=== PATIENT | female | born 1940 | race Caucasian/White ===

== ENCOUNTER → 2016-06-21 | Outpatient (REF) | payer MEDICARE, MEDICAID ==
[~2016-06-21] MED LIST: /ADVA50050 INH; /ESCI20TA PO; /TIOT18INH INH; ADVA230A INH; ALBU17IN INH; ALPR0.25 PO; ALPR0.5T3 PO; ASPI325T PO; ATARAX PO; AZIT500T2 PO; Ambien PO; BISAC5TA PO; BUDE8.6S4; BUSP10TA PO; CELE10TA PO; CLOTCRE TOP; CYAN1000VL IM; DOXY100T PO; ECOT325T PO; ESCI20TA PO; FERR220E2 PO; FLON0.054; FLUTISP; FOLI1TAB; FOLI1TAB2 PO; GUAI1TAB PO; HYDR-3713 PO; HYDR25T PO; IPRA2IN INH; IPRASOL4 IN; IPRASOL4 INH; LANS30CA PO; LEVA1.25 INH; LEVA12INH INH; LIDO1DIS2 TD; MAALSUS18 PO; MIRT15TA3 PO; MS C200T PO; MUCI600T34 PO; MUCINEX OR; OMEP40CA2 PO; ONDA4TAB6 PO; OXYGEN; PANT40TA2 PO; PRED10TA PO; PRED20TA PO; PRIL20CA PO; PROT1TAB2 PO; PROTPAK PO; PROV90AE INH; REGL5TAB2 PO; ROPI0.5T PO; ROPI1TAB PO; SIMV40TA2 PO; SPIR1CAP INH; SUCR1TA PO; SYMB16INH INH; TESS100C PO; TRAZ50TA4 PO; TYLE167L PO; TYLE325T5 PO; VALT1TAB PO; VICO5TAB OR; VICO5TAB16 PO; VICOBULK PO; VITA25003 IM; VITA500047 PO; XANA0.25 PO; XOPONEX; XYZA5TAB2 PO; ZANT150T PO; ZITH500T PO; ZOCO20TA PO; ZOFR20TA PO; ZOLP-187 PO
== END ==
LOC: M LAB REF 17:05
PROVIDERS: ATTEND Internal Medicine Pulmonary Disease
DX: J44.1 Chronic obstructive pulmonary disease with (acute) exacerbation (principal)

== ENCOUNTER 2016-07-05 13:27 | Inpatient (IN) | payer MEDICARE, MEDICAID ==
[~2016-07-05] VITALS: Ht 152.4 cm; Wt 41.2 kg
[2016-07-05] MEDS ORDERED: methylPREDNISolone INJ 125 MG/2 ML VIAL (J2930) As Ordered ONE (15:17)
[2016-07-05] MEDS ORDERED: IPRATROPIUM 0.5MG/ALBUTEROL 2.5MG INH SOL UD 3ML (DUONEB)(J7620) As Ordered ONE ×4 (15:25→16:58)
[2016-07-05 15:39] LABS: BASO % 0.1 % (0.0-1.0); EOS # 0.1 K/mm3 (0.0-0.50); EOS % 0.7 % (0.0-3.0); LARGE UNSTAINED CELL # 0.1 K/mm3 (0.0-0.4); LARGE UNSTAINED CELL % 0.3 % (0.0-4.0); LYMPH # 0.4 K/mm3 (1.5-4.5); LYMPH % 2.7 % (24.0-44.0); MEAN CORPUSCULAR HEMOGLOBIN 29.2 pg (27.0-33.0); MEAN CORPUSCULAR HGB CONC 30.8 g/dl (32.0-36.5); MEAN CORPUSCULAR VOLUME 94.7 fl (80.0-96.0); MONO # 0.2 K/mm3 (0.0-0.8); MONO % 1.6 % (0.0-5.0); NEUTROPHILS % 94.6 % (36.0-66.0); PLATELET COUNT, AUTOMATED 184 k/mm3 (150-450); RED CELL DISTRIBUTION WIDTH 13.9 % (11.5-14.5); WHITE BLOOD COUNT 13.7 K/mm3 (4.0-10.0)
[2016-07-05 15:41] LABS: ABG BASE EXCESS 10.8 (-2.0-2.0); ABG DEVICE NASAL CANN; ABG HCO3 36.9 MEQ/L (22.0-26.0); ABG PARTIAL PRESSURE CO2 55.8 mmHg (35.0-45.0); ABG PARTIAL PRESSURE O2 89.4 mmHg (75.0-100.0); ABG STANDARD HCO3 34.6 MEQ/L (22.0-26.0); ABG TOTAL CO2 38.6 MEQ/L (23.0-31.0); ABG pH (ARTERIAL) 7.438 UNITS (7.350-7.450)
[2016-07-05 15:57] LABS: ANION GAP 6 MEQ/L (8-16); BLOOD UREA NITROGEN 13 MG/DL (7-18); CALCIUM LEVEL 8.7 MG/DL (8.8-10.2); CARBON DIOXIDE LEVEL 37 MEQ/L (21-32); CHLORIDE LEVEL 98 MEQ/L (98-107); CREATININE FOR GFR 0.74 MG/DL (0.55-1.02); GLOMERULAR FILTRATION RATE > 60.0 (>39); GLUCOSE, FASTING 150 MG/DL (83-110); POTASSIUM SERUM 4.3 MEQ/L (3.5-5.1); SODIUM LEVEL 141 MEQ/L (136-145)
--- NOTE | 2016-07-05 16:35 | REP ---
CHEST X-RAY, PA AND LATERAL: 07/05/2016. Clinical history: Dyspnea. Comparison: 11/17/2015, 09/04/2015. Findings: Two views show flattening of the diaphragms on the lateral view. Increased AP diameter of the chest. There is prominent retrosternal clear space. A densely calcified granuloma is seen in the right hilum as on previous studies. Subtle density projecting over the posterior right ninth rib may be pleural or parenchymal. It is not definitely present on the previous chest x-ray. Underlying fibrosis and COPD with apical pleural parenchymal scarring again noted. Single clip in the right neck and airway is intact. Calcifications of the aortic arch without aneurysm. No cardiomegaly, edema or effusion. The lateral view shows some minor wedging at T7 and T6, unchanged from previous studies. Surgical clips in the region of the GE junction in the left upper quadrant and centrally in the abdomen are stable. Impression: 1. No cardiomegaly, edema, effusion or widening of the mediastinum. There is an ill-defined density superimposed over the posterior right ninth rib that could be pleural or parenchymal. It is not visible on previous chest x-ray. 2. Advanced COPD with emphysematous changes, pulmonary artery hypertension and no cardiomegaly or effusion. Apical pleuroparenchymal scarring noted. 3. Old mild anterior wedging T6 and T7 vertebral bodies, stable. Signed by Naga Walton MD 07/05/2016 06:02 P
[2016-07-05] MEDS ORDERED: ACETAMINOPHEN TAB 650MG DOSE (2X325MG) As Ordered ONE (16:39)
[2016-07-05] MEDS ORDERED: MORPHINE 2 MG/ML 1ML SYRINGE As Ordered ONE (16:47)
[2016-07-05] MEDS ORDERED: PRED10TA PO (18:32)
[2016-07-05] MEDS ORDERED: FLON1SPR (18:32)
[2016-07-05] MEDS ORDERED: VOLT1GEL24 TOP (18:38)
[2016-07-05] MEDS ORDERED: REQU2TAB3 PO (18:38)
[2016-07-05] MEDS ORDERED: LEVA12INH INH (18:40)
[2016-07-05] MEDS ORDERED: hydrOXYzine 25 MG TAB PO PRN (18:45)
[2016-07-05] MEDS ORDERED: valACYclovir HCL 500 MG TAB PO PRN (18:45)
[2016-07-05] MEDS ORDERED: FLUTICASONE PROP 0.05% NASAL SPRAY 16 GM (FLONASE) PRN (18:45)
[2016-07-05] MEDS ORDERED: guaiFENesin 200 MG TAB PO SCH (18:45)
[2016-07-05] MEDS: IPRATROPIUM 0.5MG/ALBUTEROL 2.5MG INH SOL UD 3ML (DUONEB)(J7620) NEB SCH ×2 (19:39→23:56)
[2016-07-05 20:10] VITALS: BP 108/65
--- NOTE | 2016-07-05 20:22 | EDDOCDS ---
Physician Documentation [facility] Name: Cate Oliver Age: 76 yrs Sex: Female : 1940 Arrival Date: 07/05/2016 Time: 13:27 Bed 12 Private MD: Jose Molina Disposition: 07/05 17:42 I have independently interviewed and examined the patient, and I agree with the br1 investigation, diagnosis and treatment plan as documented by the Resident. Disposition: 07/05/16 18:04 Hospitalization ordered by Stewart Malhotra for Inpatient Admission. Preliminary diagnosis is Chronic obstructive pulmonary disease with (acute) exacerbation. - Bed requested for 4 [place]. - Status is Inpatient Admission. mlc - Condition is Stable. - Problem is new. - Symptoms are unchanged. Historical: - Allergies: Compazine (twitching); IV Dye; Dye; - Home Meds: 1. Advair Diskus 500-50 mcg/dose Inhl dsdv 2 times per day 2. alprazolam 0.5 mg Oral TbDL 1 tab Q 6 hrs prn 3. doxycycline hyclate 100 mg Oral cap 1 cap every 12 hours 4. DuoNeb 0.5 mg-3 mg(2.5 mg base)/3 mL Inhl nebu 3 mL 4 times per day ran out of 5. escitalopram oxalate 20 mg oral tab 1 tab once daily 6. Flonase 50 mcg/actuation Nasal spsn 1 spray once daily 7. folic acid 1 mg Oral tab 1 tab once daily 8. hydroxyzine HCl 25 mg Oral tab BID PRN 9. Mucinex 600 mg oral Ta12 BID PRN 10. omeprazole 40 mg Oral cpDR 1 cap 2 times per day 11. oxygen 2 lnc 12. Prednisone 10mg tabs- tapering dose. takes 3 tabs daily now Oral 13. Remeron 15 mg Oral tab HS 14. ropinirole 1 mg oral tab 1 tab nightly 15. simvastatin 40 mg Oral tab 1 tab once daily 16. Spiriva with HandiHaler 18 mcg Inhl CpDv once daily 17. trazodone 50 mg Oral tab nightly 18. Valtrex 1 gram Oral tab 1 tab BID x1 day prn 19. Ventolin HFA 90 mcg/actuation Nebulizer HFAA every 4 hours 20. vitamin b12 1000mcg injection monthly 21. votarren 1% transdermally four times a day 22. Xopenex 1.25 mg/3 mL Inhl nebu q2 hrs prn ran out of 23. Xyzal 5 mg oral tab 1 tab daily PRN 24. Zantac 150 mg Oral tab 1 tab 2 times per day 25. Zofran (as hydrochloride) 4 mg Oral tab tid prn - PMHx: COPD; Depression; hyperlipidemia; Hypertension; - PSHx: Cholecystectomy; Hysterectomy; Appendectomy; partial gastrectomy; - Social history: Smoking status: Patient states former smoker of tobacco. No barriers to communication noted. - Family history: No immediate family members are acutely ill. - : The pt / caregiver states he / she is not on anticoagulants. Home medication list is obtained from [email or web address] import data. - Exposure Risk Screening:: None identified. Vital Signs: 13:30 BP 120 / 89; Pulse 130; Resp 40; Temp 99.5(O); Pulse Ox 98% on 2 lpm NC; Weight 46.27 elp kg / 102.01 lbs; Height 4 ft. 11 in. (149.86 cm); 13:42 BP 136 / 70 (auto/); jc4 13:44 Pulse Ox 96% ; jc4 13:57 BP 120 / 64 (auto/); jc4 13:58 Pulse 118 MON; Pulse Ox 95% ; jc4 14:12 BP 123 / 64 (auto/); jc4 14:13 Pulse 122 MON; Pulse Ox 95% ; jc4 14:27 BP 122 / 64 (auto/); jc4 14:27 Pulse 130 MON; Pulse Ox 96% ; jc4 14:44 BP 139 / 65 (auto/); jc4 14:45 Pulse 120 MON; jc4 14:57 BP 118 / 59 (auto/); jc4 14:58 Pulse 116 MON; jc4 15:27 BP 128 / 69 (auto/); jc4 15:29 Pulse 112 MON; Pulse Ox 95% ; jc4 15:42 BP 126 / 57 (auto/); jc4 15:43 Pulse 114 MON; Pulse Ox 94% ; jc4 15:57 BP 128 / 57 (auto/); jc4 15:57 Pulse Ox 96% ; jc4 16:27 BP 112 / 55 (auto/); jc4 16:27 Pulse 114 MON; Pulse Ox 97% ; jc4 16:42 BP 110 / 58 (auto/); ja5 16:42 Pulse 114 MON; Pulse Ox 96% ; ja5 16:43 BP 110 / 58; Pulse 118; Resp 24; Temp 97.7(O); Pulse Ox 96% on 2 lpm NC; Pain 8/10; jc4 16:57 BP 113 / 68 (auto/); ja5 16:57 Pulse 108 MON; Pulse Ox 97% ; ja5 17:12 BP 112 / 57 (auto/); ead 17:13 Pulse 124 MON; Pulse Ox 95% ; ead 17:27 BP 101 / 54 (auto/); ead 17:28 Pulse 110 MON; Pulse Ox 96% ; ead 17:42 BP 97 / 54 (auto/); ead 17:43 Pulse 112 MON; Pulse Ox 96% ; ead 17:57 BP 108 / 56 (auto/); ead 17:58 Pulse 110 MON; Pulse Ox 96% ; ead 18:12 BP 122 / 57 (auto/); mlc 18:13 Pulse 122 MON; mlc 18:27 BP 116 / 53 (auto/); mlc 18:28 Pulse 114 MON; mlc 18:42 BP 103 / 54 (auto/); mlc 18:43 Pulse 102 MON; mlc 18:57 BP 91 / 54 (auto/); mlc 18:58 Pulse 104 MON; mlc 19:11 BP 116 / 54 (auto/); mlc 19:12 BP 103 / 54 (auto/); mlc 19:12 Pulse 106 MON; Pulse Ox 96% ; mlc 19:13 BP 116 / 54; Pulse 108; Resp 18; Temp 99.1(TE); Pulse Ox 97% on 3 lpm NC; mlc 19:13 Pulse 106 MON; Pulse Ox 97% ; mlc 19:27 BP 100 / 52 (auto/); mlc 19:28 Pulse 106 MON; Pulse Ox 97% ; mlc 19:42 BP 114 / 61 (auto/); mlc 19:43 Pulse 106 MON; Pulse Ox 97% ; mlc 19:57 BP 125 / 66 (auto/); mlc 19:58 Pulse 106 MON; Pulse Ox 96% ; mlc 20:10 Pulse 110 MON; Pulse Ox 95% ; mlc 20:16 BP 112 / 55; Pulse 108; Resp 20; Temp 99.0(TE); Pulse Ox 95% ; mlc 13:30 Body Mass Index 20.60 (46.27 kg, 149.86 cm) elp MDM: 13:37 ECG WITH READING ER PHYS+CARDIAG ordered. EDMS 15:04 Albuterol-Ipratropium 3 ml Inhalation once ordered. jo4 15:04 Call Respiratory ordered. jo4 15:04 Oxygen at 2L/min via NC ordered. jo4 15:04 -Blood Culture (Adults Only), peripheral from different site, or from device/port/PICC jo4 etc. if present ordered. 15:04 Early Learning Teacher/Pulse Ox/q 15 min VS ordered. jo4 15:04 IV Saline Lock ordered. jo4 15:04 Rhythm Strip to chart ordered. jo4 15:04 Chest, 2 View (pa\E\lat) Ordered. EDMS 15:06 -Arterial Blood Gas Ordered. EDMS 15:06 CBC with Diff Ordered. EDMS 15:06 BMP Ordered. EDMS 15:06 -Blood Culture Ordered. EDMS 15:06 -Blood Culture (Adults Only), peripheral from different site, or from device/port/PICC lbd etc. if present complete. 15:06 Call Respiratory complete. lbd 15:07 Solu-MEDROL 125 mg IVP once ordered. jo4 15:12 BLOOD CULTURES Ordered. EDMS 15:29 CARDIAC MARKER PANEL Ordered. EDMS 15:32 Financial registration complete. gjb 16:12 CARDIAC MARKER PANEL Reviewed. jo4 16:12 -Arterial Blood Gas Reviewed. jo4 16:12 CBC with Diff Reviewed. jo4 16:13 BMP Reviewed. jo4 16:13 Acetaminophen Tablet 650 mg PO once ordered. jo4 16:27 Albuterol-Ipratropium 3 ml Inhalation once ordered. jc4 16:29 [facility] Payment Agreement was scanned into [employer] and attached to record. gjb 16:43 morphine 2 mg IVP once ordered. br1 16:45 BNP Ordered. EDMS 16:45 Albuterol-Ipratropium 3 ml Inhalation once ordered. br1 16:45 D-Dimer Quant Ordered. EDMS 17:02 REGULAR+DIET ordered. EDMS 17:30 BNP Reviewed. jo4 17:36 D-Dimer Quant Reviewed. br1 17:36 Chest, 2 View (pa\E\lat) Reviewed. br1 17:41 BED REQUEST+ADM ordered. EDMS 18:44 Admission / Observation Status ordered. EDMS 18:45 2 GRAM SODIUM DIET ordered. EDMS 18:45 URINALYSIS Ordered. EDMS 18:45 RESPIRATORY PANEL Ordered. EDMS 18:45 URINE CULTURE Ordered. EDMS 18:45 INFLUENZA A&B RAPID ANTIGEN Ordered. EDMS 19:34 CBC WITH DIFFERENTIAL Ordered. EDMS 19:34 COMPLETE COMPHRENSIVE METABOLI Ordered. EDMS 19:35 MAGNESIUM LEVEL Ordered. EDMS 19:35 ARTERIAL BLOOD GAS Ordered. EDMS Administered Medications: 15:21 Drug: Solu-MEDROL 125 mg [Solu-Medrol 500 mg intravenous solution (125 mg)] Route: IVP; 4 Site: right hand; 15:24 Drug: Albuterol-Ipratropium 3 ml [ipratropium-albuterol 0.5 mg-3 mg(2.5 mg base)/3 mL ac1 nebulization soln (3 mL)] Route: Inhalation; 15:40 Follow up: coarse wheezes bilat ac1 16:27 Drug: Albuterol-Ipratropium 3 ml [ipratropium-albuterol 0.5 mg-3 mg(2.5 mg base)/3 mL ac1 nebulization soln (3 mL)] Route: Inhalation; 16:34 Follow up: bilat coarse wheezes ac1 16:42 Drug: Acetaminophen 650 mg [acetaminophen 325 mg tablet (2 tabs)] Route: PO; [facility] 16:50 Drug: morphine 2 mg [morphine 2 mg/mL intravenous cartridge (1 mL)] Route: IVP; Site: [facility] right hand; 16:52 Drug: Albuterol-Ipratropium 3 ml [ipratropium-albuterol 0.5 mg-3 mg(2.5 mg base)/3 mL ac1 nebulization soln (3 mL)] Route: Inhalation; Signatures: Dispatcher [employer] EDMS Radha Beltre, [employer] lbd Emiliano Hall MD MD br1 Gretta Pal RN RN jc4 Mima Beckwith RN RN cj Jackie Hilton RN RN mlc Ogden, Kari, RN RN ko2 Beck, Gabriela gjb Oosthuizen, Jane, DO DO jo4 Ana Balderas RT ac1 The chart was reviewed and I authenticate all verbal orders and agree with the evaluation and treatment provided.Corrections: (The following items were deleted from the chart) 15:28 15:09 CARDIAC MARKER PANEL+LAB ordered. EDMS EDMS 15:28 15:09 TROPONIN+LAB ordered. EDMS EDMS 17:03 16:59 REGULAR DIET PED PLASTIC MAGANA+DIET ordered. EDMS EDMS Attachments: 16:29 [facility] Payment Agreement gjb MTDD
--- NOTE | 2016-07-05 20:22 | EDDOCDS ---
Nurse's Notes [facility] Name: Cate Oliver Age: 76 yrs Sex: Female : 1940 Arrival Date: 07/05/2016 Time: 13:27 Bed 12 Private MD: Jose Molina Diagnosis: Chronic obstructive pulmonary disease with (acute) exacerbation Presentation: 07/05 13:39 Presenting complaint: Patient states: short of breath since Monday, today just couldn't [facility] take it anymore I felt weak with pain across back. Adult Sepsis Screening: The patient does not have new or worsening altered mentation. Patient's respiratory rate is less than 22. Systolic blood pressure is greater than 100. Patient has a qSOFA score of 0- Negative Sepsis Screen. Acuity level changed due to complexity of care. Suicide/Homicide risk assessment- Unable to assess, the patient is critically ill. Status: Patient is not a veterans service officer or dependent. Transition of care: patient was not received from another setting of care. 13:39 Acuity: JOSE Level 3 [facility] 13:39 Acuity: JOSE Level 2 [facility] 13:39 Method Of Arrival: Wheelchair [facility] Triage Assessment: 13:43 General: Appears distressed, ill, Behavior is cooperative. Pain: Location: back. [facility] Respiratory: Onset: The symptoms/episode began/occurred three days, Airway is patent Respiratory effort is labored, Respiratory pattern is hyperventilation Derm: Skin is pink, warm & dry. Historical: - Allergies: Compazine (twitching); IV Dye; Dye; - Home Meds: 1. Advair Diskus 500-50 mcg/dose Inhl dsdv 2 times per day 2. alprazolam 0.5 mg Oral TbDL 1 tab Q 6 hrs prn 3. doxycycline hyclate 100 mg Oral cap 1 cap every 12 hours 4. DuoNeb 0.5 mg-3 mg(2.5 mg base)/3 mL Inhl nebu 3 mL 4 times per day ran out of 5. escitalopram oxalate 20 mg oral tab 1 tab once daily 6. Flonase 50 mcg/actuation Nasal spsn 1 spray once daily 7. folic acid 1 mg Oral tab 1 tab once daily 8. hydroxyzine HCl 25 mg Oral tab BID PRN 9. Mucinex 600 mg oral Ta12 BID PRN 10. omeprazole 40 mg Oral cpDR 1 cap 2 times per day 11. oxygen 2 lnc 12. Prednisone 10mg tabs- tapering dose. takes 3 tabs daily now Oral 13. Remeron 15 mg Oral tab HS 14. ropinirole 1 mg oral tab 1 tab nightly 15. simvastatin 40 mg Oral tab 1 tab once daily 16. Spiriva with HandiHaler 18 mcg Inhl CpDv once daily 17. trazodone 50 mg Oral tab nightly 18. Valtrex 1 gram Oral tab 1 tab BID x1 day prn 19. Ventolin HFA 90 mcg/actuation Nebulizer HFAA every 4 hours 20. vitamin b12 1000mcg injection monthly 21. votarren 1% transdermally four times a day 22. Xopenex 1.25 mg/3 mL Inhl nebu q2 hrs prn ran out of 23. Xyzal 5 mg oral tab 1 tab daily PRN 24. Zantac 150 mg Oral tab 1 tab 2 times per day 25. Zofran (as hydrochloride) 4 mg Oral tab tid prn - PMHx: COPD; Depression; hyperlipidemia; Hypertension; - PSHx: Cholecystectomy; Hysterectomy; Appendectomy; partial gastrectomy; - Social history: Smoking status: Patient states former smoker of tobacco. No barriers to communication noted. - Family history: No immediate family members are acutely ill. - : The pt / caregiver states he / she is not on anticoagulants. Home medication list is obtained from [employer] import data. - Exposure Risk Screening:: None identified. Screenin:22 Screening information is obtained from the patient. Fall risk: At risk due to prior ja5 history of falls. Assistance ADL's: Requires assistance with housework, assistance is provided by family members. Abuse/DV Screen: The patient / caregiver reports he/she is: not in a situation that causes fear, pain or injury. Nutritional screening: On no prescribed diet. Advance Directives: Currently, there is no health care proxy. There is no active DNR order. There is no living will. There is no Power of Dormitory Keeper. home support is adequate. Assessment: 14:04 General: Appears uncomfortable, Behavior is anxious. Pain: Location: left low back and ja5 right low back Pain currently is 8 out of 10 on a pain scale. Neurological: Level of Consciousness is awake, alert, Oriented to person, place, time. Cardiovascular: Capillary refill < 3 seconds Heart tones S1 S2 present. Cardiovascular: Rhythm is sinus tachycardia No ectopy. Respiratory: Airway is patent Respiratory effort is even, labored, Patient repeatedly having cough attacks Breath sounds with wheezes expiratory bilaterally. Derm: Skin is pink, warm & dry. 18:09 General: Patient awake and alert, sitting up in stretcher, eating dinner at this time. ja5 Patient states that she feels so much better now that she can breathe. Respirations are even and unlabored, intermittent coughing has decreased but is still present. . 19:13 General: Appears in no apparent distress, comfortable, to be sleeping. pt awakens mlc easily. Behavior is cooperative. Neurological: Level of Consciousness is awake, alert, obeys commands, Oriented to person, place, time. Cardiovascular: Rhythm is sinus tachycardia. Respiratory: Airway is patent Respiratory effort is even, unlabored, Respiratory pattern is regular. Derm: Skin is pink, warm & dry. 20:16 General: Appears in no apparent distress, comfortable, Behavior is cooperative. mlc Neurological: Level of Consciousness is awake, alert, Oriented to person, place, time. Respiratory: Airway is patent Respiratory effort is even, unlabored, Respiratory pattern is regular. Derm: Skin is pink, warm & dry. Vital Signs: 13:30 BP 120 / 89; Pulse 130; Resp 40; Temp 99.5(O); Pulse Ox 98% on 2 lpm NC; Weight 46.27 elp kg; Height 4 ft. 11 in. (149.86 cm); 13:42 BP 136 / 70 (auto/); jc4 13:44 Pulse Ox 96% ; jc4 13:57 BP 120 / 64 (auto/); jc4 13:58 Pulse 118 MON; Pulse Ox 95% ; jc4 14:12 BP 123 / 64 (auto/); jc4 14:13 Pulse 122 MON; Pulse Ox 95% ; jc4 14:27 BP 122 / 64 (auto/); jc4 14:27 Pulse 130 MON; Pulse Ox 96% ; jc4 14:44 BP 139 / 65 (auto/); jc4 14:45 Pulse 120 MON; jc4 14:57 BP 118 / 59 (auto/); jc4 14:58 Pulse 116 MON; jc4 15:27 BP 128 / 69 (auto/); jc4 15:29 Pulse 112 MON; Pulse Ox 95% ; jc4 15:42 BP 126 / 57 (auto/); jc4 15:43 Pulse 114 MON; Pulse Ox 94% ; jc4 15:57 BP 128 / 57 (auto/); jc4 15:57 Pulse Ox 96% ; jc4 16:27 BP 112 / 55 (auto/); jc4 16:27 Pulse 114 MON; Pulse Ox 97% ; jc4 16:42 BP 110 / 58 (auto/); ja5 16:42 Pulse 114 MON; Pulse Ox 96% ; ja5 16:43 BP 110 / 58; Pulse 118; Resp 24; Temp 97.7(O); Pulse Ox 96% on 2 lpm NC; Pain 8/10; jc4 16:57 BP 113 / 68 (auto/); ja5 16:57 Pulse 108 MON; Pulse Ox 97% ; ja5 17:12 BP 112 / 57 (auto/); ead 17:13 Pulse 124 MON; Pulse Ox 95% ; ead 17:27 BP 101 / 54 (auto/); ead 17:28 Pulse 110 MON; Pulse Ox 96% ; ead 17:42 BP 97 / 54 (auto/); ead 17:43 Pulse 112 MON; Pulse Ox 96% ; ead 17:57 BP 108 / 56 (auto/); ead 17:58 Pulse 110 MON; Pulse Ox 96% ; ead 18:12 BP 122 / 57 (auto/); mlc 18:13 Pulse 122 MON; mlc 18:27 BP 116 / 53 (auto/); mlc 18:28 Pulse 114 MON; mlc 18:42 BP 103 / 54 (auto/); mlc 18:43 Pulse 102 MON; mlc 18:57 BP 91 / 54 (auto/); mlc 18:58 Pulse 104 MON; mlc 19:11 BP 116 / 54 (auto/); mlc 19:12 BP 103 / 54 (auto/); mlc 19:12 Pulse 106 MON; Pulse Ox 96% ; mlc 19:13 BP 116 / 54; Pulse 108; Resp 18; Temp 99.1(TE); Pulse Ox 97% on 3 lpm NC; mlc 19:13 Pulse 106 MON; Pulse Ox 97% ; mlc 19:27 BP 100 / 52 (auto/); mlc 19:28 Pulse 106 MON; Pulse Ox 97% ; mlc 19:42 BP 114 / 61 (auto/); mlc 19:43 Pulse 106 MON; Pulse Ox 97% ; mlc 19:57 BP 125 / 66 (auto/); mlc 19:58 Pulse 106 MON; Pulse Ox 96% ; mlc 20:10 Pulse 110 MON; Pulse Ox 95% ; mlc 20:16 BP 112 / 55; Pulse 108; Resp 20; Temp 99.0(TE); Pulse Ox 95% ; mlc 13:30 Body Mass Index 20.60 (46.27 kg, 149.86 cm) elp Vitals: 13:30 Log In Time: July 05, 2016 at 13:28. RN notified that patient meets Red Flag elp criteria. ED Course: 13:30 Patient visited by Radha Akins PCA. elp 13:30 Jose Molina MD is Private Physician. elp 13:30 Patient visited by Radha Akins PCA. elp 13:30 Patient moved to Waiting elp 13:35 Gretta Pal RN is Primary Nurse. cjh 13:35 Patient moved to cj 13:40 Triage Initiated cj 13:49 EKG done. Reviewed by Emiliano Hall MD. ar3 13:50 O2 via nasal cannula \T\ 2L/min. jc4 13:52 Patient visited by Tana Barrios PCA. ar3 14:24 Patient visited by Ladan Hanson RN. ja5 14:26 [facility] jo4 14:26 Emiliano Hall MD is Attending Physician. jo4 14:49 Patient visited by Ladan Hanson RN. ja5 14:59 Patient visited by Mima Tijerina DO. jo4 14:59 Patient visited by Mima Tijerina DO. jo4 15:14 Inserted saline lock: 20 gauge in right hand The patient tolerated the procedure well. jc4 15:26 -Blood Culture Sent. jc4 15:26 BMP Sent. jc4 15:26 CBC with Diff Sent. jc4 15:40 -Arterial Blood Gas Sent. ac1 16:00 Patient visited by Gretta Pal RN. jc4 16:13 BLOOD CULTURES Sent. jc4 16:29 [facility] Payment Agreement was scanned into [employer] and attached to record. gjb 16:41 Patient visited by Emiliano Hall MD. br1 17:02 Patient visited by Ana Balderas,RT. ac1 17:02 Primary Nurse role handed off by Gretta Pal, VERONIKA jc4 17:14 Chest, 2 View (pa\E\lat) Returned. EDMS 17:32 Patient visited by Awa Larson PCA. ct3 18:04 MalhotraStewart is Hospitalizing Provider. jo4 18:16 Chest, 2 View (pa\E\lat) Returned. EDMS 19:17 Patient visited by Jackie Hilton,VERONIKA. mlc 19:23 Jackie Hilton RN is Primary Nurse. mlc 20:13 The patient / caregiver is instructed regarding the plan of care and ED course. mlc 20:13 No procedures done that require assistance. mlc Administered Medications: 15:21 Drug: Solu-MEDROL 125 mg [Solu-Medrol 500 mg intravenous solution (125 mg)] Route: IVP; [facility] Site: right hand; 15:24 Drug: Albuterol-Ipratropium 3 ml [ipratropium-albuterol 0.5 mg-3 mg(2.5 mg base)/3 mL ac1 nebulization soln (3 mL)] Route: Inhalation; 15:40 Follow up: coarse wheezes bilat ac1 16:27 Drug: Albuterol-Ipratropium 3 ml [ipratropium-albuterol 0.5 mg-3 mg(2.5 mg base)/3 mL ac1 nebulization soln (3 mL)] Route: Inhalation; 16:34 Follow up: bilat coarse wheezes ac1 16:42 Drug: Acetaminophen 650 mg [acetaminophen 325 mg tablet (2 tabs)] Route: PO; jc4 16:50 Drug: morphine 2 mg [morphine 2 mg/mL intravenous cartridge (1 mL)] Route: IVP; Site: [facility] right hand; 16:52 Drug: Albuterol-Ipratropium 3 ml [ipratropium-albuterol 0.5 mg-3 mg(2.5 mg base)/3 mL ac1 nebulization soln (3 mL)] Route: Inhalation; Intake: RT: 15:24 Initial Med Neb Given as ordered Patient was instructed and evaluated on procedure. ac1 15:29 Respiratory: Breath sounds are coarse Breath sounds with wheezes bilaterally. ac1 15:41 ABG's drawn from left brachial artery pressure held for 5 minuntes no bleeding noted ac1 pressure bandage applied specimen sent pt. tolerated well. 15:45 Subsequent Med Neb Given as ordered. ac1 16:28 Subsequent Med Neb Given as ordered. ac1 16:42 Respiratory: Breath sounds with wheezes bilaterally. ac1 Order Results: Lab Order: -Arterial Blood Gas; SPEC'M 07/05/16 15:28 Test: ABG pH (ARTERIAL); Value: 7.438; Range: 7.350-7.450; Units: UNITS; Status: F Test: ABG PARTIAL PRESSURE CO2; Value: 55.8; Range: 35.0-45.0; Abnormal: Above high normal; Units: mmHg; Status: F Test: ABG PARTIAL PRESSURE O2; Value: 89.4; Range: 75.0-100.0; Units: mmHg; Status: F Test: ABG TOTAL CO2; Value: 38.6; Range: 23.0-31.0; Abnormal: Above high normal; Units: MEQ/L; Status: F Test: ABG HCO3; Value: 36.9; Range: 22.0-26.0; Abnormal: Above high normal; Units: MEQ/L; Status: F Test: ABG BASE EXCESS; Value: 10.8; Range: -2.0-2.0; Abnormal: Above high normal; Status: F Test: ABG STANDARD HCO3; Value: 34.6; Range: 22.0-26.0; Abnormal: Above high normal; Units: MEQ/L; Status: F Test: ABG O2 SATURATION; Value: 97.3; Range: 95.0-99.0; Units: %; Status: F Test: ABG DEVICE; Value: NASAL AMEYA; Status: F Lab Order: CBC with Diff; SPEC'M 07/05/16 15:23 Test: WHITE BLOOD COUNT; Value: 13.7; Range: 4.0-10.0; Abnormal: Above high normal; Units: K/mm3; Status: F Test: RED BLOOD COUNT; Value: 4.00; Range: 4.00-5.40; Units: M/mm3; Status: F Test: HEMOGLOBIN; Value: 11.7; Range: 12.0-16.0; Abnormal: Below low normal; Units: g/dl; Status: F Test: HEMATOCRIT; Value: 37.8; Range: 36.0-47.0; Units: %; Status: F Test: MEAN CORPUSCULAR VOLUME; Value: 94.7; Range: 80.0-96.0; Units: fl; Status: F Test: MEAN CORPUSCULAR HEMOGLOBIN; Value: 29.2; Range: 27.0-33.0; Units: pg; Status: F Test: MEAN CORPUSCULAR HGB CONC; Value: 30.8; Range: 32.0-36.5; Abnormal: Below low normal; Units: g/dl; Status: F Test: RED CELL DISTRIBUTION WIDTH; Value: 13.9; Range: 11.5-14.5; Units: %; Status: F Test: PLATELET COUNT, AUTOMATED; Value: 184; Range: 150-450; Units: k/mm3; Status: F Test: NEUTROPHILS %; Value: 94.6; Range: 36.0-66.0; Abnormal: Above high normal; Units: %; Status: F Test: LYMPH %; Value: 2.7; Range: 24.0-44.0; Abnormal: Below low normal; Units: %; Status: F Test: MONO %; Value: 1.6; Range: 0.0-5.0; Units: %; Status: F Test: EOS %; Value: 0.7; Range: 0.0-3.0; Units: %; Status: F Test: BASO %; Value: 0.1; Range: 0.0-1.0; Units: %; Status: F Test: LARGE UNSTAINED CELL %; Value: 0.3; Range: 0.0-4.0; Units: %; Status: F Test: NEUTROPHILS #; Value: 13.0; Range: 1.8-7.7; Abnormal: Above high normal; Units: K/mm3; Status: F Test: LYMPH #; Value: 0.4; Range: 1.5-4.5; Abnormal: Below low normal; Units: K/mm3; Status: F Test: MONO #; Value: 0.2; Range: 0.0-0.8; Units: K/mm3; Status: F Test: EOS #; Value: 0.1; Range: 0.0-0.50; Units: K/mm3; Status: F Test: BASO #; Value: 0.0; Range: 0.0-0.2; Units: K/mm3; Status: F Test: LARGE UNSTAINED CELL #; Value: 0.1; Range: 0.0-0.4; Units: K/mm3; Status: F Lab Order: BMP; SPEC'M 07/05/16 15:23 Test: GLUCOSE, FASTING; Value: 150; Range: 83-110; Abnormal: Above high normal; Units: MG/DL; Status: F Test: BLOOD UREA NITROGEN; Value: 13; Range: 7-18; Units: MG/DL; Status: F Test: CREATININE FOR GFR; Value: 0.74; Range: 0.55-1.02; Units: MG/DL; Status: F Test: GLOMERULAR FILTRATION RATE; Value: > 60.0; Range: >39; Status: F Test: SODIUM LEVEL; Value: 141; Range: 136-145; Units: MEQ/L; Status: F Test: POTASSIUM SERUM; Value: 4.3; Range: 3.5-5.1; Units: MEQ/L; Status: F Test: CHLORIDE LEVEL; Value: 98; Range: 98-107; Units: MEQ/L; Status: F Test: CARBON DIOXIDE LEVEL; Value: 37; Range: 21-32; Abnormal: Above high normal; Units: MEQ/L; Status: F Test: ANION GAP; Value: 6; Range: 8-16; Abnormal: Below low normal; Units: MEQ/L; Status: F Test: CALCIUM LEVEL; Value: 8.7; Range: 8.8-10.2; Abnormal: Below low normal; Units: MG/DL; Status: F Test Note: ; Units are mL/min/1.73 m2 Chronic Kidney Disease Staging per NKF: Stage I & II GFR >=60 Normal to Mildly Decreased Stage III GFR 30-59 Moderately Decreased Stage IV GFR 15-29 Severely Decreased Stage V GFR <15 Very Little GFR Left ESRD GFR <15 on COST ANALYST Lab Order: CARDIAC MARKER PANEL; SPEC'M 07/05/16 15:23 Test: CPK CREATINE PHOSPHOKINASE; Value: 55; Range: 26-192; Units: U/L; Status: F Test: CK-MB VALUE MASS; Value: 1.6; Range: 0.0-3.6; Units: NG/ML; Status: F Test: MB/CK RELATIVE INDEX; Value: 2.90; Range: < OR =4; Status: F Test: TROPONIN I; Value: < 0.02; Range: < 0.10; Units: NG/ML; Status: F Test Note: ; DIAGNOSIS CRITERIA MMB ng/ml Relative Index (RI) NON-AMI < or = 5 N/A BRAVO ZONE > 5 < or = 4 AMI > 5 > 4 Lab Order: BNP; SPEC'M 07/05/16 15:23 Test: BRAIN NATRIURETIC PEPTIDE; Value: 55.4; Range: <100; Units: PG/ML; Status: F Lab Order: D-Dimer Quant; SPEC'M 07/05/16 17:07 Test: D-DIMER QUANT; Value: 280.4; Range: <500; Units: ng/ml; Status: F Radiology Order: Chest, 2 View (pa\E\lat) Test: Chest, 2 View (pa\E\lat) REASON FOR EXAMINATION: Shortness of Breath; CHEST X-RAY, PA AND LATERAL: 07/05/2016.; ; Clinical history: Dyspnea.; ; Comparison: 11/17/2015, 09/04/2015.; ; Findings: Two views show flattening of the diaphragms on the lateral view.; Increased AP diameter of the chest. There is prominent retrosternal clear space.; A densely calcified granuloma is seen in the right hilum as on previous studies.; Subtle density projecting over the posterior right ninth rib may be pleural or; parenchymal. 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 Single clip in the right neck and airway is intact. Calcifications of; the aortic arch without aneurysm. No cardiomegaly, edema or effusion. The; lateral view shows some minor wedging at T7 and T6, unchanged from previous; studies.; ; Surgical clips in the region of the GE junction in the left upper quadrant and; centrally in the abdomen are stable.; ; Impression:; ; 1. No cardiomegaly, edema, effusion or widening of the mediastinum. There is an; ill-defined density superimposed over the posterior right ninth rib that could be; pleural or parenchymal. It is not visible on previous chest x-ray.; ; 2. Advanced COPD with emphysematous changes, pulmonary artery hypertension and; no cardiomegaly or effusion. Apical pleuroparenchymal scarring noted.; ; 3. Old mild anterior wedging T6 and T7 vertebral bodies, stable.; ; ; ; ; Signed by; Naga Walton MD 07/05/2016 06:02 P; Outcome: 18:04 Decision to Hospitalize by Provider. jo 20:12 Admission hand-off: Report Faxed Fax receipt verified by VERONIKA [place]oser. [facility] [place]:13 Discharge Assessment: Patient awake, alert and oriented x 3. No cognitive and/or mlc functional deficits noted. Patient verbalized understanding of disposition instructions. patient administered narcotics - yes. Patient was admitted to the hospital or transferred to another facility. The following High Risk Discharge criteria are identified: None. Admitted to Med/Surg accompanied by tech, via stretcher, with oxygen, with chart. Condition: stable. No special radiology studies were completed. Property :Personal belongings accompany Pt. 20:20 Patient left the ED. [facility] [place] Signatures: Dispatcher [employer] EDMS Ana Balderas,RT RT ac1 Emiliano Hall MD MD br1 Tana Barrios, MALTHOUSE LABORER MALTHOUSE LABORER ar3 Gretta Pal RN RN [email or web address] Awa Larson, MALTHOUSE LABORER MALTHOUSE LABORER ct3 Mima Beckwith,RN RN [facility] Radha Akins, MALTHOUSE LABORER MALTHOUSE LABORER elp [place] Jackie Sarabia RN RN mlc Beck, Gabriela gjb Oosthuizen, Jane, DO DO jo4 Ladan Hanson,RN RN ja5 Corrections: (The following items were deleted from the chart) 15:28 15:26 TROPONIN+LAB sent. [facility] EDMS 15:28 15:26 CARDIAC MARKER PANEL+LAB sent. [facility] EDGA 15:43 15:41 Initial Med Neb Given as ordered Patient was instructed and evaluated on ac1 procedure ac1 MTDD
--- NOTE | 2016-07-05 20:29 | HPEPDOC ---
General Date of Admission Jul 05, 2016 at 18:38 Chief Complaint The patient is a 76-year-old female Presented to the ER with complaints of shortness of breath and cough for 2 week duration. History of Present Illness Patient is a 76 year old female with a PMHx of COPD (on 2L NC Oxygen at home), GERD, DLP, HTN and Depression who presented to the ER with complaints of shortness of breath, associated with a productive cough for 2 weeks. She reports her cough has been yellow / green, no blood tinge. She denies fevers of chills at home. She does not associated chest tightness with coughing. She denies leg swelling, but does report PND and 3 pillow orthopnea. She notes that she has increased the frequency of her inhaled therapy and there has not been any improvement. She has seen her whizzer hand 2 weeks ago, Dr. Perez who has prescribed her Prednisone and an antibiotic, however she has not had improvement in her symptoms. She denies any abdominal pain, nausea, vomiting, constipation or urinary symptoms. She does note mild diarrhea after starting antibiotics. Home Medications Scheduled Cyanocobalamin (Cyanocobalamin) 1,000 Mcg/1 Ml Inj 1,000 MCG IM Q3M (Reported) HASN'T HAD IN A FEW MONTHS,APPT SOON,UNSURE OF DATE Escitalopram Oxalate (Escitalopram Oxalate) 20 Mg Tab 20 MG PO DAILY (Reported ) Folic Acid (Folic Acid) 1 Mg Tab 1 MG PO DAILY (Reported) Mirtazapine (Mirtazapine) 15 Mg Tab 15 MG PO QHS (Reported) HAS NOT BEEN TAKING BECAUSE LEARY OF SIDE EFFECTS Omeprazole (Omeprazole) 40 Mg Cap 40 MG PO BID (Reported) Prednisone (Prednisone) 10 Mg Tab 40 MG PO ASDIRECTED (Reported) TAPER DOSE - SEE COMMENTS Ropinirole Hydrochloride (Requip) 2 Mg Tab 2 MG PO QHS (Reported) Simvastatin - High Dose (Simvastatin) 40 Mg Tab 40 MG PO QPM (Reported) TAKES AT DINNERTIME Tiotropium [place] Monohydrate (Spiriva Handihaler) 18 Mcg Cap 18 MCG INH DAILY (Reported) Trazodone HCl (Trazodone HCl) 50 Mg Tab 50 MG PO QHS (Reported) Scheduled PRN (Flonase Allergy Relief) 50 Mcg/Act Spr 2 SPRAYS NA DAILY PRN PRN ALLERGIES ( Reported) (Voltaren) 1 % Gel 1 DOSE TOP QID PRN PRN PAIN (Reported) APPLY TO TEMPLES Albuterol Sulfate (Ventolin Hfa) 200 Puff/8 Gm Aers 2 PUFF INH Q4H PRN PRN SHORTNESS OF BREATH (Reported) Alprazolam (Alprazolam) 0.5 Mg Tab 0.5 MG PO TID PRN PRN ANXIETY (Reported) Guaifenesin (Mucinex) 600 Mg Tab 600 MG PO Q12H PRN PRN CONGESTION (Reported) Hydroxyzine HCl (Hydroxyzine HCl) 25 Mg Tab 25 MG PO BID PRN PRN ITCHING ( Reported) Levalbuterol Hydrochloride (Xopenex Concentrate) 1.25 Mg/0.5 Ml Neb 1.25 MG INH QID PRN PRN SHORTNESS OF BREATH (Reported) Levocetirizine Dihydrochloride (Xyzal) 5 Mg Tab 5 MG PO DAILY PRN PRN ITCHING ( Reported) Valacyclovir Hydrochloride (Valtrex) 1 Gm Tab 1 GM PO BID PRN PRN COLD SORE ( Reported) Allergies Coded Allergies: Contrast Media (Unverified Allergy, Unknown, 07/05/16) Prochlorperazine (Verified Adverse Reaction, Severe, FACE DISTORTION, OCULOGYRIC CRISIS, 09/03/12) Past Medical History Medical History COPD (on 2L NC Oxygen at home), GERD, DLP, HTN and Depression Surgical History Gastrostomy s/p ulcer Cholecystectomy Hysterectomy Ovarian cyst resection Family History Family History Non contributory Social History Social History - Denies the use of alcohol, or illicit drugs; Quit smoking 6 years ago smoked for >50 years at 1ppd - Denies recent travel or sick contacts - Lives alone - Occupation; unemployed Review of Symptoms Other systems Constitutional: Denies weight loss, change in appetite, or recent trauma Eyes: No visual changes or eye pain Ears, Nose, Throat: Denies nose bleeds, or difficulty swallowing Cardiovascular: Positive chest pain with coughing, No sweating, or Positive orthopnea Respiratory: Positive cough, wheezing, or shortness of breath GI: Peterson nausea, vomiting, abdominal pain or constipation, Positive diarrhea : Denies pain with urination or frequency Musculoskeletal: Denies joint pain or swelling Neuro / Psych: Denies muscle weakness or sensory loss Skin: No skin rashes noted All other review of systems negative; otherwise stated in history of present illness Vital Signs - Vitals: BP 110/58, HR 118, RR 24, Sat 96%NC2L, Temp 97.7F - General: Lying in bed, No acute distress, Speaking in full sentences, AAOx3 - HEENT: NC, AT, PERRLA, EOMI - CVS: RRR, +S1S2, + Systolic murmur - Lungs: Fair air entry bilaterally, No appreciable wheezing / rales / rhonchi - Abdomen: Soft, Non-distended, Non-tender, + Bowel sounds x 4 - Extremities: + PPx4, No lower extremity edema, No calf tenderness - Neuro: No focal motor or sensory deficit - Skin: No visible rashes Laboratory Data Labs 24H Laboratory Tests 2 07/05/16 15:23: Anion Gap 6L, B-Type Natriuretic Peptide 55.4, White Blood Count 13.7H, Red Blood Count 4.00, Hemoglobin 11.7L, Hematocrit 37.8, Mean Corpuscular Volume 94.7, Mean Corpuscular Hemoglobin 29.2, Mean Corpuscular Hemoglobin Concent 30.8L, Red Cell Distribution Width 13.9, Platelet Count 184, Neutrophils (%) ( Auto) 94.6H, Lymphocytes (%) (Auto) 2.7L, Monocytes (%) (Auto) 1.6, Eosinophils (%) (Auto) 0.7, Basophils (%) (Auto) 0.1, Neutrophils # (Auto) 13.0H, Lymphocytes # (Auto) 0.4L, Monocytes # (Auto) 0.2, Eosinophils # (Auto) 0.1, Basophils # (Auto) 0.0, Blood Urea Nitrogen 13, Creatinine 0.74, Sodium Level 141, Potassium Level 4.3, Chloride Level 98, Carbon Dioxide Level 37H, Calcium Level 8.7L, Total Creatine Kinase 55, Creatine Kinase MB 1.6, Creatine Kinase MB Relative Index 2.90, Glomerular Filtration Rate > 60.0, Large Unclassified Cells # 0.1, Large Unclassified Cells % 0.3, Troponin I < 0.02 07/05/16 15:28: Arterial Blood pH 7.438, Arterial Blood Partial Pressure CO2 55.8H, Arterial Blood Partial Pressure O2 89.4, Arterial Blood Total CO2 38.6H, Arterial Blood HCO3 36.9H, Arterial Blood Base Excess 10.8H, Arterial Blood Oxygen Saturation 97.3, Blood Gas Bicarbonate Standard 34.6H, Oxygen Delivery Device NASAL AMEYA 07/05/16 17:07: D-Dimer, Quantitative 280.4 CBC/BMP Laboratory Tests 07/05/16 15:23 Calcium Level 8.7 L, Total Creatine Kinase 55, Red Blood Count 4.00, Mean Corpuscular Volume 94.7, Mean Corpuscular Hemoglobin 29.2, Mean Corpuscular Hemoglobin Concent 30.8 L, Red Cell Distribution Width 13.9, Neutrophils (%) ( Auto) 94.6 H, Lymphocytes (%) (Auto) 2.7 L, Monocytes (%) (Auto) 1.6, Eosinophils (%) (Auto) 0.7, Basophils (%) (Auto) 0.1, Neutrophils # (Auto) 13.0 H, Lymphocytes # (Auto) 0.4 L, Monocytes # (Auto) 0.2, Eosinophils # (Auto) 0.1 , Basophils # (Auto) 0.0 Microbiology Microbiology 07/05/16 Blood Culture, Received Pending 07/05/16 Blood Culture, Received Pending Plan / VTE VTE Prophylaxis Ordered?: Yes Plan Plan Dyspnea likely 2/2 acute COPD exacerbation - Has recently had outpatient treatment for COPD exacerbation by her whizzer hand; has not had improvement - Physical is unrevealing after receiving treatment in ER - ABG reveals CO2 retention however pH remains normal - CXR 07/05: advanced COPD, no edema / effusion - Will c/w solumedrol, duoneb, levaquin (immunomodulatory effect), Guaifenesin and benzonatate - Case was discussed with ER and Pulmonary no need for BIPAP at this time as pH is normalized - Will get repeat ABG in AM Leukocytosis likely 2/2 reactive etiology, possibly infectious - will complete blood cultures, urinalysis and urine culture - CXR with possible opacity - c/w Levaquin Normocytic anemia - at baseline, will monitor for now DLP - c/w simvastatin HTN - Is not currently on medications - Will monitor for now Depression and Anxiety - c/w alprazolam, escitalopram, mirtazapine, trazodone GERD - Will start protonix DVT prophylaxis - Will start lovenox MARCELINO GUTIÉRREZ MD Jul 05, 2016 20:29
[2016-07-05] MEDS ORDERED: LevoFLOXacin IV 250 MG in APPROPRIATE DILUENT 1 EA IV SCH (21:00)
[2016-07-05] MEDS ORDERED: LevoFLOXacin IV 500 MG in APPROPRIATE DILUENT 1 EA IV ONE (21:00)
[2016-07-05] MEDS: traZODone 50 MG TAB PO SCH (21:42)
[2016-07-05] MEDS: MIRTAZAPINE 15 MG TAB PO SCH (21:42)
[2016-07-05] MEDS: BENZONATATE 100 MG CAP PO SCH (21:42)
[2016-07-05] MEDS: rOPINIRole 1MG TAB PO SCH (21:43)
[2016-07-05] MEDS: ALPRAZolam 0.5 MG TAB PO PRN (21:43)
[2016-07-05] MEDS: SIMVASTATIN 40 MG TAB PO SCH (22:23)
[2016-07-05] MEDS: ACETAMINOPHEN TAB 650MG DOSE (2X325MG) PO PRN (22:23)
[2016-07-05] MEDS: methylPREDNISolone INJ 125 MG/2 ML VIAL (J2930) IV SCH (23:05)
[2016-07-06 02:00] VITALS: BP 122/61
[2016-07-06] MEDS: IPRATROPIUM 0.5MG/ALBUTEROL 2.5MG INH SOL UD 3ML (DUONEB)(J7620) NEB PRN (05:05)
[2016-07-06 05:14] LABS: ABG BASE EXCESS 4.8 (-2.0-2.0); ABG HCO3 31.6 MEQ/L (22.0-26.0); ABG PARTIAL PRESSURE CO2 57.3 mmHg (35.0-45.0); ABG PARTIAL PRESSURE O2 93.3 mmHg (75.0-100.0); ABG STANDARD HCO3 28.8 MEQ/L (22.0-26.0); ABG TOTAL CO2 33.4 MEQ/L (23.0-31.0)
[2016-07-06] MEDS: ACETAMINOPHEN TAB 650MG DOSE (2X325MG) PO PRN ×2 (05:26→20:48)
[2016-07-06 06:00] VITALS: BP 122/66
[2016-07-06 06:26] LABS: BASO % 0.1 % (0.0-1.0); EOS % 0.1 % (0.0-3.0); LARGE UNSTAINED CELL % 0.3 % (0.0-4.0); LYMPH # 0.4 K/mm3 (1.5-4.5); MEAN CORPUSCULAR HEMOGLOBIN 29.1 pg (27.0-33.0); MEAN CORPUSCULAR HGB CONC 30.3 g/dl (32.0-36.5); MONO # 0.1 K/mm3 (0.0-0.8); MONO % 1.2 % (0.0-5.0); NEUTROPHILS # 7.6 K/mm3 (1.8-7.7); NEUTROPHILS % 93.2 % (36.0-66.0); PLATELET COUNT, AUTOMATED 163 k/mm3 (150-450); RED CELL DISTRIBUTION WIDTH 13.8 % (11.5-14.5); WHITE BLOOD COUNT 8.2 K/mm3 (4.0-10.0)
[2016-07-06 06:42] LABS: ALBUMIN/GLOBULIN RATIO 0.75 (1.00-1.93); ALKALINE PHOSPHATASE 84 U/L (45-117); ALT/SGPT 35 U/L (12-78); ANION GAP 6 MEQ/L (8-16); AST/SGOT 20 U/L (15-37); BILIRUBIN,TOTAL 0.5 MG/DL (0.2-1.0); BLOOD UREA NITROGEN 19 MG/DL (7-18); CALCIUM LEVEL 8.3 MG/DL (8.8-10.2); CARBON DIOXIDE LEVEL 33 MEQ/L (21-32); CHLORIDE LEVEL 100 MEQ/L (98-107); GLOMERULAR FILTRATION RATE > 60.0 (>39); GLUCOSE, FASTING 173 MG/DL (83-110); MAGNESIUM LEVEL 2.6 MG/DL (1.8-2.4); POTASSIUM SERUM 4.5 MEQ/L (3.5-5.1); SODIUM LEVEL 139 MEQ/L (136-145)
[2016-07-06] MEDS: TIOTROPIUM INHALER/CAPSULE (SPIRIVA) INH SCH (08:20)
[2016-07-06] MEDS: IPRATROPIUM 0.5MG/ALBUTEROL 2.5MG INH SOL UD 3ML (DUONEB)(J7620) NEB SCH ×3 (08:20→19:08)
--- NOTE | 2016-07-06 08:25 | ECGEPIP ---
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
[2016-07-06] MEDS: BENZONATATE 100 MG CAP PO SCH ×3 (08:36→20:49)
[2016-07-06] MEDS: FOLIC ACID 1 MG TAB PO SCH (08:36)
[2016-07-06] MEDS: ESCITALOPRAM OXALATE 10 MG TAB (LEXAPRO) PO SCH (08:36)
[2016-07-06] MEDS: methylPREDNISolone INJ 125 MG/2 ML VIAL (J2930) IV SCH ×3 (08:36→23:44)
[2016-07-06] MEDS: PANTOPRAZOLE 40MG TAB (PROTONIX) PO SCH (08:36)
[2016-07-06] MEDS: LIDOCAINE 5% (LIDODERM) PATCH TD SCH (08:37)
[2016-07-06] MEDS: ENOXAPARIN 40 MG/0.4 ML SYRINGE (J1650) SC SCH (08:37)
[2016-07-06] MEDS: ALPRAZolam 0.5 MG TAB PO PRN ×2 (08:43→19:31)
[2016-07-06 10:00] VITALS: BP 118/65
[2016-07-06 14:00] VITALS: BP 119/63
--- NOTE | 2016-07-06 14:02 | IPNPDOC ---
Assessment/Plan Date Seen The patient was seen on 07/06/16. Problems Problems: (1) Coronavirus infection Status: Acute Problem Text: * coronavirus is positive * continue to monitor pt * continue duonebs (2) Hypertension Status: Chronic (3) Hypercholesterolemia Status: Chronic (4) Anxiety and depression Status: Chronic (5) COPD exacerbation Status: Chronic Plan / VTE VTE Prophylaxis Ordered?: Yes Subjective Review of Systems CC/HPI The patient is a 76-year-old female admitted with a reason for visit of Copd Exacerbation. Events since last encounter pt seen and examined, still not feeling well, still coughing, but back to her baseline oxygen requirement Objective Physical Examination General Exam: Positive: No Acute Distress Eye Exam: Positive: PERRLA ENT Exam: Positive: Atraumatic, Mucous membr. moist/pink Chest Exam: Positive: Rales, Rhonchi, Wheezing Heart Exam: Positive: Normal S1, Normal S2, Rate Normal, Regular Rhythm, Negative: Murmurs, Rubs Abdomen Exam: Positive: Normal bowel sounds, Soft, Negative: Hepatospenomegaly, Tenderness Extremity Exam: Positive: Normal pulses, Negative: Clubbing, Cyanosis, Edema Vital Signs/I&O Vital Signs Date Time Temp Pulse Resp B/P Pulse Ox O2 Delivery O2 Flow Rate FiO2 07/06/16 10:00 96.9 106 20 118/65 95 Nasal Cannula 3.0 I&O- Last 24 Hours up to 6 AM 07/06/16 06:00 Intake Total 720 ml Output Total 900 ml Balance -180 ml Laboratory Data Labs 24H Laboratory Tests 2 07/05/16 15:23: Anion Gap 6L, B-Type Natriuretic Peptide 55.4, White Blood Count 13.7H, Red Blood Count 4.00, Hemoglobin 11.7L, Hematocrit 37.8, Mean Corpuscular Volume 94.7, Mean Corpuscular Hemoglobin 29.2, Mean Corpuscular Hemoglobin Concent 30.8L, Red Cell Distribution Width 13.9, Platelet Count 184, Neutrophils (%) ( Auto) 94.6H, Lymphocytes (%) (Auto) 2.7L, Monocytes (%) (Auto) 1.6, Eosinophils (%) (Auto) 0.7, Basophils (%) (Auto) 0.1, Neutrophils # (Auto) 13.0H, Lymphocytes # (Auto) 0.4L, Monocytes # (Auto) 0.2, Eosinophils # (Auto) 0.1, Basophils # (Auto) 0.0, Blood Urea Nitrogen 13, Creatinine 0.74, Sodium Level 141, Potassium Level 4.3, Chloride Level 98, Carbon Dioxide Level 37H, Calcium Level 8.7L, Total Creatine Kinase 55, Creatine Kinase MB 1.6, Creatine Kinase MB Relative Index 2.90, Glomerular Filtration Rate > 60.0, Large Unclassified Cells # 0.1, Large Unclassified Cells % 0.3, Troponin I < 0.02 07/05/16 15:28: Arterial Blood pH 7.438, Arterial Blood Partial Pressure CO2 55.8H, Arterial Blood Partial Pressure O2 89.4, Arterial Blood Total CO2 38.6H, Arterial Blood HCO3 36.9H, Arterial Blood Base Excess 10.8H, Arterial Blood Oxygen Saturation 97.3, Blood Gas Bicarbonate Standard 34.6H, Oxygen Delivery Device NASAL AMEYA 07/05/16 17:07: D-Dimer, Quantitative 280.4 07/06/16 04:47: Urine Amorphous Sediment , Urine Appearance CLEAR, Urine Color STRAW, Urine pH 6.0, Urine Specific [place] 1.006, Urine Protein NEGATIVE, Urine Glucose (UA) 1+ H, Urine Ketones NEGATIVE, Urine Urobilinogen 0.2, Urine Bilirubin NEGATIVE, Urine Leukocyte Esterase NEGATIVE, Urine Bacteria (Auto) NEGATIVE, Urine Blood NEGATIVE, Urine Calcium Carbonate Cryst(Auto) , Urine Calcium Oxalate Cryst ( Auto) , Urine Calcium Phosphate Rhiannon (Auto) , Urine Cellular Casts , Urine Cystine Crystals , Urine Granular Casts (Auto) , Urine Hyaline Casts (Auto) 0, Urine Leucine Crystals , Urine Mucus (Auto) SMALL, Urine Nitrite NEGATIVE, Urine Oval Fat Bodies (Auto) , Urine RBC (Auto) 2, Urine Renal Epithelial Cells , Urine Sperm (Auto) , Urine Squamous Epithelial Cells 0, Urine Transitional Epithelial Cells , Urine Trichomonas (Auto) , Urine Triple Phosphate Cryst (Auto ) , Urine Tyrosine Crystals , Urine Uric Acid Crystals (Auto) , Urine WBC (Auto ) 0, Urine Waxy Casts (Auto) , Urine Yeast-Like Cells (Auto) 07/06/16 04:59: Arterial Blood pH 7.360, Arterial Blood Partial Pressure CO2 57.3H, Arterial Blood Partial Pressure O2 93.3, Arterial Blood Total CO2 33.4H, Arterial Blood HCO3 31.6H, Arterial Blood Base Excess 4.8H, Arterial Blood Oxygen Saturation 96.9, Blood Gas Bicarbonate Standard 28.8H 07/06/16 05:45: Blood Urea Nitrogen 19H, Creatinine 0.80, Sodium Level 139, Potassium Level 4.5 , Chloride Level 100, Carbon Dioxide Level 33H, Calcium Level 8.3L, Aspartate Amino Transf (AST/SGOT) 20, Alanine Aminotransferase (ALT/SGPT) 35, Alkaline Phosphatase 84, Total Bilirubin 0.5, Total Protein 7.0, Albumin 3.0L, Albumin/ Globulin Ratio 0.75L, Anion Gap 6L, White Blood Count 8.2, Red Blood Count 3.95L , Hemoglobin 11.5L, Hematocrit 37.9, Mean Corpuscular Volume 96.0, Mean Corpuscular Hemoglobin 29.1, Mean Corpuscular Hemoglobin Concent 30.3L, Red Cell Distribution Width 13.8, Platelet Count 163, Neutrophils (%) (Auto) 93.2H, Lymphocytes (%) (Auto) 5.0L, Monocytes (%) (Auto) 1.2, Eosinophils (%) (Auto) 0.1, Basophils (%) (Auto) 0.1, Neutrophils # (Auto) 7.6, Lymphocytes # (Auto) 0.4L, Monocytes # (Auto) 0.1, Eosinophils # (Auto) 0.0, Basophils # (Auto) 0.0, Glomerular Filtration Rate > 60.0, Large Unclassified Cells # 0.0, Large Unclassified Cells % 0.3, Magnesium Level 2.6H CBC/BMP Laboratory Tests 07/05/16 15:23 Calcium Level 8.7 L, Total Creatine Kinase 55, Red Blood Count 4.00, Mean Corpuscular Volume 94.7, Mean Corpuscular Hemoglobin 29.2, Mean Corpuscular Hemoglobin Concent 30.8 L, Red Cell Distribution Width 13.9, Neutrophils (%) ( Auto) 94.6 H, Lymphocytes (%) (Auto) 2.7 L, Monocytes (%) (Auto) 1.6, Eosinophils (%) (Auto) 0.7, Basophils (%) (Auto) 0.1, Neutrophils # (Auto) 13.0 H, Lymphocytes # (Auto) 0.4 L, Monocytes # (Auto) 0.2, Eosinophils # (Auto) 0.1 , Basophils # (Auto) 0.0 07/06/16 05:45 Calcium Level 8.3 L, Red Blood Count 3.95 L, Mean Corpuscular Volume 96.0, Mean Corpuscular Hemoglobin 29.1, Mean Corpuscular Hemoglobin Concent 30.3 L, Red Cell Distribution Width 13.8, Neutrophils (%) (Auto) 93.2 H, Lymphocytes (%) ( Auto) 5.0 L, Monocytes (%) (Auto) 1.2, Eosinophils (%) (Auto) 0.1, Basophils (% ) (Auto) 0.1, Neutrophils # (Auto) 7.6, Lymphocytes # (Auto) 0.4 L, Monocytes # (Auto) 0.1, Eosinophils # (Auto) 0.0, Basophils # (Auto) 0.0, Aspartate Amino Transf (AST/SGOT) 20, Alanine Aminotransferase (ALT/SGPT) 35, Alkaline Phosphatase 84, Total Bilirubin 0.5, Total Protein 7.0, Albumin 3.0 L Microbiology Microbiology 07/05/16 Blood Culture, Received Pending 07/05/16 Blood Culture, Received Pending 07/06/16 Respiratory Virus Panel (PCR) ([facility]) - Final, Complete Coronavirus Oc43 07/06/16 Urine Culture, Received Pending LUIS FELIPE SAL DO Jul 06, 2016 14:02
[2016-07-06] MEDS: SIMVASTATIN 40 MG TAB PO SCH (17:00)
[2016-07-06 18:00] VITALS: BP 131/66
[2016-07-06] MEDS: rOPINIRole 1MG TAB PO SCH (20:49)
[2016-07-06] MEDS: **NOTE PATIENT COMMENT** MISC XX SCH (20:49)
[2016-07-06] MEDS: MIRTAZAPINE 15 MG TAB PO SCH (20:49)
[2016-07-06] MEDS: traZODone 50 MG TAB PO SCH (20:49)
[2016-07-06] MEDS: LevoFLOXacin IV 250 MG in APPROPRIATE DILUENT 1 EA IV SCH (20:49)
[2016-07-06 22:00] VITALS: BP 136/65
[2016-07-06 22:56] LABS: FREE T4 0.92 NG/DL (0.76-1.46)
--- NOTE | 2016-07-06 23:17 | ECGEPIP ---
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
[2016-07-06] MEDS ORDERED: GASTROGRAFIN SOLUTION 30ML PO ONE (23:45)
[2016-07-07] MEDS ORDERED: GASTROGRAFIN SOLUTION 30ML (Q9963) PO ONE (00:15)
[2016-07-07] MEDS ORDERED: ISOVUE-370 76% 100ML VIAL (Q9967) As Ordered ONE (00:37)
[2016-07-07] MEDS: IPRATROPIUM 0.5MG/ALBUTEROL 2.5MG INH SOL UD 3ML (DUONEB)(J7620) NEB SCH ×4 (02:00→20:36)
--- NOTE | 2016-07-07 02:00 | REPUSA ---
CLINICAL HISTORY: Abdominal pain. TECHNIQUE: Multiple axial, sagittal and coronal CT images were obtained through the abdomen and pelvi s after administration of oral and intravenous contrast material. COMMENTS: Comparison is made with prior exam on 01/07/15. Again are noted the changes from gastric bypass surgery. Moderate large bowel fecal stasis. Distended bladder. Distended small bowel to proximal to the level of the surgical anastomosis. The liver is of uniform attenuation without mass or defect. There is no intra or extrahepatic biliary ductal dilatation. The spleen is normal. The gallbladder is surgically absent. The pancreas is of normal contour and attenuation characteristics. There is no evidence of adrenal ma ss. Unchanged multifocal scarring of the right kidney. Both kidneys demonstrate prompt and equal nephrograms. The kidneys are normal in size, shape and conf iguration. There is no evidence of renal or ureteral mass. No renal or ureteral calculi are identifie d. There is no hydroureter or hydronephrosis. No evidence for appendicitis. There is no bowel wall thickening. No evidence for small or large aleja l obstruction. There is no evidence of abdominal ascites or lymphadenopathy. There is no evidence of intrinsic or extrinsic bladder mass. There is no pelvic ascites or lymphadeno camilo. Distended bladder. Images of the lung bases show no evidence of pleural or parenchymal mass. There are no pleural effusi ons. The bony structures are free of lytic or blastic lesions. Multilevel degenerative changes are seen in volving the thoracolumbar spine. Scattered calcifications are seen involving the aorta and major bran ches compatible with atherosclerosis. IMPRESSION: Constipation. Gastric bypass surgery. Distended small bowel proximal to the distal surgical anastomosis. No evidence of acute abdominal or pelvic pathology. No change from the prior exam. Thank you for your kind referral of this patient.
[2016-07-07 06:00] VITALS: BP 127/65
[2016-07-07 06:23] LABS: BASO % 0.1 % (0.0-1.0); LARGE UNSTAINED CELL # 0.1 K/mm3 (0.0-0.4); LARGE UNSTAINED CELL % 0.4 % (0.0-4.0); LYMPH # 0.5 K/mm3 (1.5-4.5); LYMPH % 3.5 % (24.0-44.0); MEAN CORPUSCULAR HEMOGLOBIN 29.5 pg (27.0-33.0); MEAN CORPUSCULAR HGB CONC 30.7 g/dl (32.0-36.5); MONO # 0.2 K/mm3 (0.0-0.8); MONO % 1.5 % (0.0-5.0); NEUTROPHILS # 13.8 K/mm3 (1.8-7.7); NEUTROPHILS % 94.5 % (36.0-66.0); PLATELET COUNT, AUTOMATED 193 k/mm3 (150-450); RED CELL DISTRIBUTION WIDTH 13.9 % (11.5-14.5); WHITE BLOOD COUNT 14.6 K/mm3 (4.0-10.0)
[2016-07-07 06:39] LABS: ALBUMIN 2.7 GM/DL (3.2-5.2); ALBUMIN/GLOBULIN RATIO 0.75 (1.00-1.93); ALKALINE PHOSPHATASE 70 U/L (45-117); ALT/SGPT 24 U/L (12-78); ANION GAP 5 MEQ/L (8-16); AST/SGOT 16 U/L (15-37); BILIRUBIN,TOTAL 0.2 MG/DL (0.2-1.0); BLOOD UREA NITROGEN 27 MG/DL (7-18); CALCIUM LEVEL 8.4 MG/DL (8.8-10.2); CARBON DIOXIDE LEVEL 36 MEQ/L (21-32); CHLORIDE LEVEL 100 MEQ/L (98-107); CREATININE FOR GFR 0.85 MG/DL (0.55-1.02); GLOMERULAR FILTRATION RATE > 60.0 (>39); GLUCOSE, FASTING 148 MG/DL (83-110); MAGNESIUM LEVEL 2.8 MG/DL (1.8-2.4); POTASSIUM SERUM 4.5 MEQ/L (3.5-5.1); SODIUM LEVEL 141 MEQ/L (136-145); TOTAL PROTEIN 6.3 GM/DL (6.4-8.2)
[2016-07-07] MEDS: TIOTROPIUM INHALER/CAPSULE (SPIRIVA) INH SCH (08:07)
[2016-07-07] MEDS: methylPREDNISolone INJ 125 MG/2 ML VIAL (J2930) IV SCH ×2 (08:54→15:46)
[2016-07-07] MEDS: BENZONATATE 100 MG CAP PO SCH ×3 (08:54→20:40)
[2016-07-07] MEDS: PANTOPRAZOLE 40MG TAB (PROTONIX) PO SCH (08:54)
[2016-07-07] MEDS: ESCITALOPRAM OXALATE 10 MG TAB (LEXAPRO) PO SCH (08:54)
[2016-07-07] MEDS: FOLIC ACID 1 MG TAB PO SCH (08:54)
[2016-07-07] MEDS: ENOXAPARIN 40 MG/0.4 ML SYRINGE (J1650) SC SCH (08:55)
[2016-07-07] MEDS: LIDOCAINE 5% (LIDODERM) PATCH TD SCH (08:55)
[2016-07-07] MEDS: ALPRAZolam 0.5 MG TAB PO PRN ×2 (09:22→15:47)
[2016-07-07 10:00] VITALS: BP 139/65
[2016-07-07 14:00] VITALS: BP 141/64
--- NOTE | 2016-07-07 14:35 | IPNPDOC ---
Assessment/Plan Date Seen The patient was seen on 07/07/16. Problems Problems: (1) Chronic respiratory failure Status: Acute Problem Text: in the setting of advanced copd (2) Coronavirus infection Status: Acute Response to Treatment: Improving Problem Text: * coronavirus is positive * continue to monitor pt * continue duonebs (3) Hypertension Status: Chronic (4) Hypercholesterolemia Status: Chronic (5) Anxiety and depression Status: Chronic (6) COPD exacerbation Status: Chronic Plan / VTE VTE Prophylaxis Ordered?: Yes Subjective Review of Systems CC/HPI The patient is a 76-year-old female admitted with a reason for visit of Copd Exacerbation. Events since last encounter pt seen and examined, feels better but still short of breath, Objective Physical Examination General Exam: Positive: No Acute Distress Eye Exam: Positive: PERRLA ENT Exam: Positive: Atraumatic, Mucous membr. moist/pink Chest Exam: Positive: Rales, Rhonchi, Wheezing Heart Exam: Positive: Normal S1, Normal S2, Rate Normal, Regular Rhythm, Negative: Murmurs, Rubs Abdomen Exam: Positive: Normal bowel sounds, Soft, Negative: Hepatospenomegaly, Tenderness Extremity Exam: Positive: Normal pulses, Negative: Clubbing, Cyanosis, Edema Vital Signs/I&O Vital Signs Date Time Temp Pulse Resp B/P Pulse Ox O2 Delivery O2 Flow Rate FiO2 07/07/16 10:00 96.8 95 18 139/65 91 Nasal Cannula 2.0 I&O- Last 24 Hours up to 6 AM 07/07/16 05:59 Intake Total 1430 ml Output Total 1500 ml Balance -70 ml Laboratory Data Labs 24H Laboratory Tests 2 07/06/16 22:27: Creatine Kinase MB 1.4, Creatine Kinase MB Relative Index 3.11, D-Dimer, Quantitative < 270.0, Free Thyroxine 0.92, Lipase 83, Thyroid Stimulating Hormone (TSH) 0.122L, Total Creatine Kinase 45, Troponin I < 0.02 07/07/16 05:38: Blood Urea Nitrogen 27H, Creatinine 0.85, Sodium Level 141, Potassium Level 4.5 , Chloride Level 100, Carbon Dioxide Level 36H, Calcium Level 8.4L, Aspartate Amino Transf (AST/SGOT) 16, Alanine Aminotransferase (ALT/SGPT) 24, Alkaline Phosphatase 70, Total Bilirubin 0.2#, Total Protein 6.3L, Albumin 2.7L, Albumin/ Globulin Ratio 0.75L, Anion Gap 5L, White Blood Count 14.6H, Red Blood Count 3.60L, Hemoglobin 10.6L, Hematocrit 34.6L, Mean Corpuscular Volume 96.0, Mean Corpuscular Hemoglobin 29.5, Mean Corpuscular Hemoglobin Concent 30.7L, Red Cell Distribution Width 13.9, Platelet Count 193, Neutrophils (%) (Auto) 94.5H, Lymphocytes (%) (Auto) 3.5L, Monocytes (%) (Auto) 1.5, Eosinophils (%) (Auto) 0.0, Basophils (%) (Auto) 0.1, Neutrophils # (Auto) 13.8H, Lymphocytes # (Auto) 0.5L, Monocytes # (Auto) 0.2, Eosinophils # (Auto) 0.0, Basophils # (Auto) 0.0, Glomerular Filtration Rate > 60.0, Large Unclassified Cells # 0.1, Large Unclassified Cells % 0.4, Magnesium Level 2.8H CBC/BMP Laboratory Tests 07/07/16 05:38 Calcium Level 8.4 L, Aspartate Amino Transf (AST/SGOT) 16, Alanine Aminotransferase (ALT/SGPT) 24, Alkaline Phosphatase 70, Total Bilirubin 0.2 #, Total Protein 6.3 L, Albumin 2.7 L, Red Blood Count 3.60 L, Mean Corpuscular Volume 96.0, Mean Corpuscular Hemoglobin 29.5, Mean Corpuscular Hemoglobin Concent 30.7 L, Red Cell Distribution Width 13.9, Neutrophils (%) (Auto) 94.5 H , Lymphocytes (%) (Auto) 3.5 L, Monocytes (%) (Auto) 1.5, Eosinophils (%) (Auto ) 0.0, Basophils (%) (Auto) 0.1, Neutrophils # (Auto) 13.8 H, Lymphocytes # ( Auto) 0.5 L, Monocytes # (Auto) 0.2, Eosinophils # (Auto) 0.0, Basophils # (Auto ) 0.0 Microbiology Microbiology 07/05/16 Blood Culture - Preliminary, Resulted No growth after 24 hours . All specim... 07/05/16 Blood Culture - Preliminary, Resulted No growth after 24 hours . All specim... 07/06/16 Respiratory Virus Panel (PCR) ([facility]) - Final, Complete Coronavirus Oc43 07/06/16 Urine Culture - Final, Complete LUIS FELIPE SAL DO Jul 07, 2016 14:35
[2016-07-07] MEDS: SIMVASTATIN 40 MG TAB PO SCH (17:23)
[2016-07-07 18:00] VITALS: BP 141/74
[2016-07-07] MEDS ORDERED: ONDANSETRON 4MG/2ML VIAL (J2405) IV ONE (20:30)
[2016-07-07] MEDS: traZODone 50 MG TAB PO SCH (20:41)
[2016-07-07] MEDS: LevoFLOXacin IV 250 MG in APPROPRIATE DILUENT 1 EA IV SCH (20:41)
[2016-07-07] MEDS: MIRTAZAPINE 15 MG TAB PO SCH (20:41)
[2016-07-07] MEDS: **NOTE PATIENT COMMENT** MISC XX SCH (20:41)
[2016-07-07] MEDS: rOPINIRole 1MG TAB PO SCH (20:41)
--- NOTE | 2016-07-07 21:21 | EDDOCDS ---
Nurse's Notes [facility] Name: Cate Oliver Age: 76 yrs Sex: Female : 1940 Arrival Date: 07/05/2016 Time: 13:27 Bed 12 Private MD: Jose Molina Diagnosis: Chronic obstructive pulmonary disease with (acute) exacerbation Presentation: 07/05 13:39 Presenting complaint: Patient states: short of breath since Monday, today just couldn't [facility] take it anymore I felt weak with pain across back. Adult Sepsis Screening: The patient does not have new or worsening altered mentation. Patient's respiratory rate is less than 22. Systolic blood pressure is greater than 100. Patient has a qSOFA score of 0- Negative Sepsis Screen. Acuity level changed due to complexity of care. Suicide/Homicide risk assessment- Unable to assess, the patient is critically ill. Status: Patient is not a pump servicer helper or dependent. Transition of care: patient was not received from another setting of care. 13:39 Acuity: JOSE Level 3 [facility] 13:39 Acuity: JOSE Level 2 [facility] 13:39 Method Of Arrival: Wheelchair [facility] Triage Assessment: 13:43 General: Appears distressed, ill, Behavior is cooperative. Pain: Location: back. [facility] Respiratory: Onset: The symptoms/episode began/occurred three days, Airway is patent Respiratory effort is labored, Respiratory pattern is hyperventilation Derm: Skin is pink, warm & dry. Historical: - Allergies: Compazine (twitching); IV Dye; Dye; - Home Meds: 1. Advair Diskus 500-50 mcg/dose Inhl dsdv 2 times per day 2. alprazolam 0.5 mg Oral TbDL 1 tab Q 6 hrs prn 3. doxycycline hyclate 100 mg Oral cap 1 cap every 12 hours 4. DuoNeb 0.5 mg-3 mg(2.5 mg base)/3 mL Inhl nebu 3 mL 4 times per day ran out of 5. escitalopram oxalate 20 mg oral tab 1 tab once daily 6. Flonase 50 mcg/actuation Nasal spsn 1 spray once daily 7. folic acid 1 mg Oral tab 1 tab once daily 8. hydroxyzine HCl 25 mg Oral tab BID PRN 9. Mucinex 600 mg oral Ta12 BID PRN 10. omeprazole 40 mg Oral cpDR 1 cap 2 times per day 11. oxygen 2 lnc 12. Prednisone 10mg tabs- tapering dose. takes 3 tabs daily now Oral 13. Remeron 15 mg Oral tab HS 14. ropinirole 1 mg oral tab 1 tab nightly 15. simvastatin 40 mg Oral tab 1 tab once daily 16. Spiriva with HandiHaler 18 mcg Inhl CpDv once daily 17. trazodone 50 mg Oral tab nightly 18. Valtrex 1 gram Oral tab 1 tab BID x1 day prn 19. Ventolin HFA 90 mcg/actuation Nebulizer HFAA every 4 hours 20. vitamin b12 1000mcg injection monthly 21. votarren 1% transdermally four times a day 22. Xopenex 1.25 mg/3 mL Inhl nebu q2 hrs prn ran out of 23. Xyzal 5 mg oral tab 1 tab daily PRN 24. Zantac 150 mg Oral tab 1 tab 2 times per day 25. Zofran (as hydrochloride) 4 mg Oral tab tid prn - PMHx: COPD; Depression; hyperlipidemia; Hypertension; - PSHx: Cholecystectomy; Hysterectomy; Appendectomy; partial gastrectomy; - Social history: Smoking status: Patient states former smoker of tobacco. No barriers to communication noted. - Family history: No immediate family members are acutely ill. - : The pt / caregiver states he / she is not on anticoagulants. Home medication list is obtained from [employer] import data. - Exposure Risk Screening:: None identified. Screenin:22 Screening information is obtained from the patient. Fall risk: At risk due to prior ja5 history of falls. Assistance ADL's: Requires assistance with housework, assistance is provided by family members. Abuse/DV Screen: The patient / caregiver reports he/she is: not in a situation that causes fear, pain or injury. Nutritional screening: On no prescribed diet. Advance Directives: Currently, there is no health care proxy. There is no active DNR order. There is no living will. There is no Power of [employer]. home support is adequate. Assessment: 14:04 General: Appears uncomfortable, Behavior is anxious. Pain: Location: left low back and ja5 right low back Pain currently is 8 out of 10 on a pain scale. Neurological: Level of Consciousness is awake, alert, Oriented to person, place, time. Cardiovascular: Capillary refill < 3 seconds Heart tones S1 S2 present. Cardiovascular: Rhythm is sinus tachycardia No ectopy. Respiratory: Airway is patent Respiratory effort is even, labored, Patient repeatedly having cough attacks Breath sounds with wheezes expiratory bilaterally. Derm: Skin is pink, warm & dry. 18:09 General: Patient awake and alert, sitting up in stretcher, eating dinner at this time. ja5 Patient states that she feels so much better now that she can breathe. Respirations are even and unlabored, intermittent coughing has decreased but is still present. . 19:13 General: Appears in no apparent distress, comfortable, to be sleeping. pt awakens mlc easily. Behavior is cooperative. Neurological: Level of Consciousness is awake, alert, obeys commands, Oriented to person, place, time. Cardiovascular: Rhythm is sinus tachycardia. Respiratory: Airway is patent Respiratory effort is even, unlabored, Respiratory pattern is regular. Derm: Skin is pink, warm & dry. 20:16 General: Appears in no apparent distress, comfortable, Behavior is cooperative. mlc Neurological: Level of Consciousness is awake, alert, Oriented to person, place, time. Respiratory: Airway is patent Respiratory effort is even, unlabored, Respiratory pattern is regular. Derm: Skin is pink, warm & dry. Vital Signs: 13:30 BP 120 / 89; Pulse 130; Resp 40; Temp 99.5(O); Pulse Ox 98% on 2 lpm NC; Weight 46.27 elp kg; Height 4 ft. 11 in. (149.86 cm); 13:42 BP 136 / 70 (auto/); jc4 13:44 Pulse Ox 96% ; jc4 13:57 BP 120 / 64 (auto/); jc4 13:58 Pulse 118 MON; Pulse Ox 95% ; jc4 14:12 BP 123 / 64 (auto/); jc4 14:13 Pulse 122 MON; Pulse Ox 95% ; jc4 14:27 BP 122 / 64 (auto/); jc4 14:27 Pulse 130 MON; Pulse Ox 96% ; jc4 14:44 BP 139 / 65 (auto/); jc4 14:45 Pulse 120 MON; jc4 14:57 BP 118 / 59 (auto/); jc4 14:58 Pulse 116 MON; jc4 15:27 BP 128 / 69 (auto/); jc4 15:29 Pulse 112 MON; Pulse Ox 95% ; jc4 15:42 BP 126 / 57 (auto/); jc4 15:43 Pulse 114 MON; Pulse Ox 94% ; jc4 15:57 BP 128 / 57 (auto/); jc4 15:57 Pulse Ox 96% ; jc4 16:27 BP 112 / 55 (auto/); jc4 16:27 Pulse 114 MON; Pulse Ox 97% ; jc4 16:42 BP 110 / 58 (auto/); ja5 16:42 Pulse 114 MON; Pulse Ox 96% ; ja5 16:43 BP 110 / 58; Pulse 118; Resp 24; Temp 97.7(O); Pulse Ox 96% on 2 lpm NC; Pain 8/10; jc4 16:57 BP 113 / 68 (auto/); ja5 16:57 Pulse 108 MON; Pulse Ox 97% ; ja5 17:12 BP 112 / 57 (auto/); ead 17:13 Pulse 124 MON; Pulse Ox 95% ; ead 17:27 BP 101 / 54 (auto/); ead 17:28 Pulse 110 MON; Pulse Ox 96% ; ead 17:42 BP 97 / 54 (auto/); ead 17:43 Pulse 112 MON; Pulse Ox 96% ; ead 17:57 BP 108 / 56 (auto/); ead 17:58 Pulse 110 MON; Pulse Ox 96% ; ead 18:12 BP 122 / 57 (auto/); mlc 18:13 Pulse 122 MON; mlc 18:27 BP 116 / 53 (auto/); mlc 18:28 Pulse 114 MON; mlc 18:42 BP 103 / 54 (auto/); mlc 18:43 Pulse 102 MON; mlc 18:57 BP 91 / 54 (auto/); mlc 18:58 Pulse 104 MON; mlc 19:11 BP 116 / 54 (auto/); mlc 19:12 BP 103 / 54 (auto/); mlc 19:12 Pulse 106 MON; Pulse Ox 96% ; mlc 19:13 BP 116 / 54; Pulse 108; Resp 18; Temp 99.1(TE); Pulse Ox 97% on 3 lpm NC; mlc 19:13 Pulse 106 MON; Pulse Ox 97% ; mlc 19:27 BP 100 / 52 (auto/); mlc 19:28 Pulse 106 MON; Pulse Ox 97% ; mlc 19:42 BP 114 / 61 (auto/); mlc 19:43 Pulse 106 MON; Pulse Ox 97% ; mlc 19:57 BP 125 / 66 (auto/); mlc 19:58 Pulse 106 MON; Pulse Ox 96% ; mlc 20:10 Pulse 110 MON; Pulse Ox 95% ; mlc 20:16 BP 112 / 55; Pulse 108; Resp 20; Temp 99.0(TE); Pulse Ox 95% ; mlc 13:30 Body Mass Index 20.60 (46.27 kg, 149.86 cm) elp Vitals: 13:30 Log In Time: July 05, 2016 at 13:28. RN notified that patient meets Red Flag elp criteria. ED Course: 13:30 Patient visited by Radha Akins PCA. elp 13:30 Jose Molina MD is Private Physician. elp 13:30 Patient visited by Radha Akins PCA. elp 13:30 Patient moved to Waiting elp 13:35 Gretta Pal RN is Primary Nurse. cjh 13:35 Patient moved to cj 13:40 Triage Initiated cj 13:49 EKG done. Reviewed by Emiliano Hall MD. ar3 13:50 O2 via nasal cannula \T\ 2L/min. jc4 13:52 Patient visited by Tana Barrios PCA. ar3 14:24 Patient visited by Ladan Hanson RN. ja5 14:26 [facility] jo4 14:26 Emiliano Hall MD is Attending Physician. jo4 14:49 Patient visited by Ladan Hanson RN. ja5 14:59 Patient visited by Mima Tijerina DO. jo4 14:59 Patient visited by Mima Tijerina DO. jo4 15:14 Inserted saline lock: 20 gauge in right hand The patient tolerated the procedure well. jc4 15:26 -Blood Culture Sent. jc4 15:26 BMP Sent. jc4 15:26 CBC with Diff Sent. jc4 15:40 -Arterial Blood Gas Sent. ac1 16:00 Patient visited by Gretta Pal RN. jc4 16:13 BLOOD CULTURES Sent. jc4 16:29 [facility] Payment Agreement was scanned into [employer] and attached to record. gjb 16:41 Patient visited by Emiliano Hall MD. br1 17:02 Patient visited by Ana Balderas,RT. ac1 17:02 Primary Nurse role handed off by Gretta Pal, VERONIKA jc4 17:14 Chest, 2 View (pa\E\lat) Returned. EDMS 17:32 Patient visited by Awa Larson PCA. ct3 18:04 Stewart Malhotra is Hospitalizing Provider. jo4 18:16 Chest, 2 View (pa\E\lat) Returned. EDMS 19:17 Patient visited by Jackie Hilton,VERONIKA. mlc 19:23 Jackie Hilton,VERONIKA is Primary Nurse. mlc 20:13 The patient / caregiver is instructed regarding the plan of care and ED course. mlc 20:13 No procedures done that require assistance. mlc 07/06 10:49 T-Sheet-- Draft Copy was scanned into [employer] and attached to record. gb 10:49 ECG/EKG was scanned into [employer] and attached to record. gb 10:49 Trend VS was scanned into [employer] and attached to record. gb Administered Medications: 07/05 15:21 Drug: Solu-MEDROL 125 mg [Solu-Medrol 500 mg intravenous solution (125 mg)] Route: IVP; 4 Site: right hand; 15:24 Drug: Albuterol-Ipratropium 3 ml [ipratropium-albuterol 0.5 mg-3 mg(2.5 mg base)/3 mL ac1 nebulization soln (3 mL)] Route: Inhalation; 15:40 Follow up: coarse wheezes bilat ac1 16:27 Drug: Albuterol-Ipratropium 3 ml [ipratropium-albuterol 0.5 mg-3 mg(2.5 mg base)/3 mL ac1 nebulization soln (3 mL)] Route: Inhalation; 16:34 Follow up: bilat coarse wheezes ac1 16:42 Drug: Acetaminophen 650 mg [acetaminophen 325 mg tablet (2 tabs)] Route: PO; jc4 16:50 Drug: morphine 2 mg [morphine 2 mg/mL intravenous cartridge (1 mL)] Route: IVP; Site: [facility] right hand; 16:52 Drug: Albuterol-Ipratropium 3 ml [ipratropium-albuterol 0.5 mg-3 mg(2.5 mg base)/3 mL ac1 nebulization soln (3 mL)] Route: Inhalation; Attachments: 10:49 Trend VS gb Intake: RT: 07/05 15:24 Initial Med Neb Given as ordered Patient was instructed and evaluated on procedure. ac1 15:29 Respiratory: Breath sounds are coarse Breath sounds with wheezes bilaterally. ac1 15:41 ABG's drawn from left brachial artery pressure held for 5 minuntes no bleeding noted ac1 pressure bandage applied specimen sent pt. tolerated well. 15:45 Subsequent Med Neb Given as ordered. ac1 16:28 Subsequent Med Neb Given as ordered. ac1 16:42 Respiratory: Breath sounds with wheezes bilaterally. ac1 Order Results: Lab Order: -Arterial Blood Gas; SPEC'M 07/05/16 15:28 Test: ABG pH (ARTERIAL); Value: 7.438; Range: 7.350-7.450; Units: UNITS; Status: F Test: ABG PARTIAL PRESSURE CO2; Value: 55.8; Range: 35.0-45.0; Abnormal: Above high normal; Units: mmHg; Status: F Test: ABG PARTIAL PRESSURE O2; Value: 89.4; Range: 75.0-100.0; Units: mmHg; Status: F Test: ABG TOTAL CO2; Value: 38.6; Range: 23.0-31.0; Abnormal: Above high normal; Units: MEQ/L; Status: F Test: ABG HCO3; Value: 36.9; Range: 22.0-26.0; Abnormal: Above high normal; Units: MEQ/L; Status: F Test: ABG BASE EXCESS; Value: 10.8; Range: -2.0-2.0; Abnormal: Above high normal; Status: F Test: ABG STANDARD HCO3; Value: 34.6; Range: 22.0-26.0; Abnormal: Above high normal; Units: MEQ/L; Status: F Test: ABG O2 SATURATION; Value: 97.3; Range: 95.0-99.0; Units: %; Status: F Test: ABG DEVICE; Value: NASAL AMEYA; Status: F Lab Order: CBC with Diff; SPEC'M 07/05/16 15:23 Test: WHITE BLOOD COUNT; Value: 13.7; Range: 4.0-10.0; Abnormal: Above high normal; Units: K/mm3; Status: F Test: RED BLOOD COUNT; Value: 4.00; Range: 4.00-5.40; Units: M/mm3; Status: F Test: HEMOGLOBIN; Value: 11.7; Range: 12.0-16.0; Abnormal: Below low normal; Units: g/dl; Status: F Test: HEMATOCRIT; Value: 37.8; Range: 36.0-47.0; Units: %; Status: F Test: MEAN CORPUSCULAR VOLUME; Value: 94.7; Range: 80.0-96.0; Units: fl; Status: F Test: MEAN CORPUSCULAR HEMOGLOBIN; Value: 29.2; Range: 27.0-33.0; Units: pg; Status: F Test: MEAN CORPUSCULAR HGB CONC; Value: 30.8; Range: 32.0-36.5; Abnormal: Below low normal; Units: g/dl; Status: F Test: RED CELL DISTRIBUTION WIDTH; Value: 13.9; Range: 11.5-14.5; Units: %; Status: F Test: PLATELET COUNT, AUTOMATED; Value: 184; Range: 150-450; Units: k/mm3; Status: F Test: NEUTROPHILS %; Value: 94.6; Range: 36.0-66.0; Abnormal: Above high normal; Units: %; Status: F Test: LYMPH %; Value: 2.7; Range: 24.0-44.0; Abnormal: Below low normal; Units: %; Status: F Test: MONO %; Value: 1.6; Range: 0.0-5.0; Units: %; Status: F Test: EOS %; Value: 0.7; Range: 0.0-3.0; Units: %; Status: F Test: BASO %; Value: 0.1; Range: 0.0-1.0; Units: %; Status: F Test: LARGE UNSTAINED CELL %; Value: 0.3; Range: 0.0-4.0; Units: %; Status: F Test: NEUTROPHILS #; Value: 13.0; Range: 1.8-7.7; Abnormal: Above high normal; Units: K/mm3; Status: F Test: LYMPH #; Value: 0.4; Range: 1.5-4.5; Abnormal: Below low normal; Units: K/mm3; Status: F Test: MONO #; Value: 0.2; Range: 0.0-0.8; Units: K/mm3; Status: F Test: EOS #; Value: 0.1; Range: 0.0-0.50; Units: K/mm3; Status: F Test: BASO #; Value: 0.0; Range: 0.0-0.2; Units: K/mm3; Status: F Test: LARGE UNSTAINED CELL #; Value: 0.1; Range: 0.0-0.4; Units: K/mm3; Status: F Lab Order: [facility]; SPEC'M 07/05/16 15:23 Test: GLUCOSE, FASTING; Value: 150; Range: 83-110; Abnormal: Above high normal; Units: MG/DL; Status: F Test: BLOOD UREA NITROGEN; Value: 13; Range: 7-18; Units: MG/DL; Status: F Test: CREATININE FOR GFR; Value: 0.74; Range: 0.55-1.02; Units: MG/DL; Status: F Test: GLOMERULAR FILTRATION RATE; Value: > 60.0; Range: >39; Status: F Test: SODIUM LEVEL; Value: 141; Range: 136-145; Units: MEQ/L; Status: F Test: POTASSIUM SERUM; Value: 4.3; Range: 3.5-5.1; Units: MEQ/L; Status: F Test: CHLORIDE LEVEL; Value: 98; Range: 98-107; Units: MEQ/L; Status: F Test: CARBON DIOXIDE LEVEL; Value: 37; Range: 21-32; Abnormal: Above high normal; Units: MEQ/L; Status: F Test: ANION GAP; Value: 6; Range: 8-16; Abnormal: Below low normal; Units: MEQ/L; Status: F Test: CALCIUM LEVEL; Value: 8.7; Range: 8.8-10.2; Abnormal: Below low normal; Units: MG/DL; Status: F Test Note: ; Units are mL/min/1.73 m2 Chronic Kidney Disease Staging per NKF: Stage I & II GFR >=60 Normal to Mildly Decreased Stage III GFR 30-59 Moderately Decreased Stage IV GFR 15-29 Severely Decreased Stage V GFR <15 Very Little GFR Left ESRD GFR <15 on HARD METALS HAND ENGRAVER Lab Order: CARDIAC MARKER PANEL; SPEC'M 07/05/16 15:23 Test: CPK CREATINE PHOSPHOKINASE; Value: 55; Range: 26-192; Units: U/L; Status: F Test: CK-MB VALUE MASS; Value: 1.6; Range: 0.0-3.6; Units: NG/ML; Status: F Test: MB/CK RELATIVE INDEX; Value: 2.90; Range: < OR =4; Status: F Test: TROPONIN I; Value: < 0.02; Range: < 0.10; Units: NG/ML; Status: F Test Note: ; DIAGNOSIS CRITERIA MMB ng/ml Relative Index (RI) NON-AMI < or = 5 N/A BRAVO ZONE > 5 < or = 4 AMI > 5 > 4 Lab Order: BNP; SPEC'M 07/05/16 15:23 Test: BRAIN NATRIURETIC PEPTIDE; Value: 55.4; Range: <100; Units: PG/ML; Status: F Lab Order: D-Dimer Quant; SPEC'M 07/05/16 17:07 Test: D-DIMER QUANT; Value: 280.4; Range: <500; Units: ng/ml; Status: F Radiology Order: Chest, 2 View (pa\E\lat) Test: Chest, 2 View (pa\E\lat) REASON FOR EXAMINATION: Shortness of Breath; CHEST X-RAY, PA AND LATERAL: 07/05/2016.; ; Clinical history: Dyspnea.; ; Comparison: 11/17/2015, 09/04/2015.; ; Findings: Two views show flattening of the diaphragms on the lateral view.; Increased AP diameter of the chest. There is prominent retrosternal clear space.; A densely calcified granuloma is seen in the right hilum as on previous studies.; Subtle density projecting over the posterior right ninth rib may be pleural or; parenchymal. 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 Single clip in the right neck and airway is intact. Calcifications of; the aortic arch without aneurysm. No cardiomegaly, edema or effusion. The; lateral view shows some minor wedging at T7 and T6, unchanged from previous; studies.; ; Surgical clips in the region of the GE junction in the left upper quadrant and; centrally in the abdomen are stable.; ; Impression:; ; 1. No cardiomegaly, edema, effusion or widening of the mediastinum. There is an; ill-defined density superimposed over the posterior right ninth rib that could be; pleural or parenchymal. It is not visible on previous chest x-ray.; ; 2. Advanced COPD with emphysematous changes, pulmonary artery hypertension and; no cardiomegaly or effusion. Apical pleuroparenchymal scarring noted.; ; 3. Old mild anterior wedging T6 and T7 vertebral bodies, stable.; ; ; ; ; Signed by; Naga Walton MD 07/05/2016 06:02 P; Outcome: 18:04 Decision to Hospitalize by Provider. [facility] 20:12 Admission hand-off: Report Faxed Fax receipt verified by [place]ONIKA [place]. [facility] Discharge Assessment: Patient awake, alert and oriented x 3. No cognitive and/or mlc functional deficits noted. Patient verbalized understanding of disposition instructions. patient administered narcotics - yes. Patient was admitted to the hospital or transferred to another facility. The following High Risk Discharge criteria are identified: None. Admitted to Med/Surg accompanied by tech, via stretcher, with oxygen, with chart. Condition: stable. No special radiology studies were completed. Property :Personal belongings accompany Pt. 20:20 Patient left the [place]. [facility] [place] Signatures: Dispatcher [employer] EDMS Charlette Malik, Reg Reg gb Ana Balderas,RT RT ac1 Emiliano Hall MD MD br1 Tana Barrios, CONTRACT FORESTER CONTRACT FORESTER ar3 Gretta Pal RN RN jc4 Awa Larson, CONTRACT FORESTER CONTRACT FORESTER ct3 Mima Beckwith,RN RN Radha Lui, CONTRACT FORESTER CONTRACT FORESTER Terra CoughlinRN Jackie Sarabia RN RN mlc Beck, Gabriela gjb Oosthuizen, Jane, DO DO jo4 Ladan Hanson,VERONIKA RN ja5 Corrections: (The following items were deleted from the chart) 15:28 15:26 TROPONIN+LAB sent. [facility] EDVA 15:28 15:26 CARDIAC MARKER PANEL+LAB sent. [facility] EDMS 15:43 15:41 Initial Med Neb Given as ordered Patient was instructed and evaluated on ac1 procedure ac1 Chart Complete MTDD
--- NOTE | 2016-07-07 21:21 | EDDOCDS ---
Physician Documentation [facility] Name: Cate Oliver Age: 76 yrs Sex: Female : 1940 Arrival Date: 07/05/2016 Time: 13:27 Bed 12 Private MD: Jose Molina Disposition: 07/05 17:42 I have independently interviewed and examined the patient, and I agree with the br1 investigation, diagnosis and treatment plan as documented by the Resident. Disposition: 07/05/16 18:04 Hospitalization ordered by Stewart Malhotra for Inpatient Admission. Preliminary diagnosis is Chronic obstructive pulmonary disease with (acute) exacerbation. - Bed requested for 4 [place]. - Status is Inpatient Admission. mlc - Condition is Stable. - Problem is new. - Symptoms are unchanged. Historical: - Allergies: Compazine (twitching); IV Dye; Dye; - Home Meds: 1. Advair Diskus 500-50 mcg/dose Inhl dsdv 2 times per day 2. alprazolam 0.5 mg Oral TbDL 1 tab Q 6 hrs prn 3. doxycycline hyclate 100 mg Oral cap 1 cap every 12 hours 4. DuoNeb 0.5 mg-3 mg(2.5 mg base)/3 mL Inhl nebu 3 mL 4 times per day ran out of 5. escitalopram oxalate 20 mg oral tab 1 tab once daily 6. Flonase 50 mcg/actuation Nasal spsn 1 spray once daily 7. folic acid 1 mg Oral tab 1 tab once daily 8. hydroxyzine HCl 25 mg Oral tab BID PRN 9. Mucinex 600 mg oral Ta12 BID PRN 10. omeprazole 40 mg Oral cpDR 1 cap 2 times per day 11. oxygen 2 lnc 12. Prednisone 10mg tabs- tapering dose. takes 3 tabs daily now Oral 13. Remeron 15 mg Oral tab HS 14. ropinirole 1 mg oral tab 1 tab nightly 15. simvastatin 40 mg Oral tab 1 tab once daily 16. Spiriva with HandiHaler 18 mcg Inhl CpDv once daily 17. trazodone 50 mg Oral tab nightly 18. Valtrex 1 gram Oral tab 1 tab BID x1 day prn 19. Ventolin HFA 90 mcg/actuation Nebulizer HFAA every 4 hours 20. vitamin b12 1000mcg injection monthly 21. votarren 1% transdermally four times a day 22. Xopenex 1.25 mg/3 mL Inhl nebu q2 hrs prn ran out of 23. Xyzal 5 mg oral tab 1 tab daily PRN 24. Zantac 150 mg Oral tab 1 tab 2 times per day 25. Zofran (as hydrochloride) 4 mg Oral tab tid prn - PMHx: COPD; Depression; hyperlipidemia; Hypertension; - PSHx: Cholecystectomy; Hysterectomy; Appendectomy; partial gastrectomy; - Social history: Smoking status: Patient states former smoker of tobacco. No barriers to communication noted. - Family history: No immediate family members are acutely ill. - : The pt / caregiver states he / she is not on anticoagulants. Home medication list is obtained from [employer] import data. - Exposure Risk Screening:: None identified. Vital Signs: 13:30 BP 120 / 89; Pulse 130; Resp 40; Temp 99.5(O); Pulse Ox 98% on 2 lpm NC; Weight 46.27 elp kg / 102.01 lbs; Height 4 ft. 11 in. (149.86 cm); 13:42 BP 136 / 70 (auto/); jc4 13:44 Pulse Ox 96% ; jc4 13:57 BP 120 / 64 (auto/); jc4 13:58 Pulse 118 MON; Pulse Ox 95% ; jc4 14:12 BP 123 / 64 (auto/); jc4 14:13 Pulse 122 MON; Pulse Ox 95% ; jc4 14:27 BP 122 / 64 (auto/); jc4 14:27 Pulse 130 MON; Pulse Ox 96% ; jc4 14:44 BP 139 / 65 (auto/); jc4 14:45 Pulse 120 MON; jc4 14:57 BP 118 / 59 (auto/); jc4 14:58 Pulse 116 MON; jc4 15:27 BP 128 / 69 (auto/); jc4 15:29 Pulse 112 MON; Pulse Ox 95% ; jc4 15:42 BP 126 / 57 (auto/); jc4 15:43 Pulse 114 MON; Pulse Ox 94% ; jc4 15:57 BP 128 / 57 (auto/); jc4 15:57 Pulse Ox 96% ; jc4 16:27 BP 112 / 55 (auto/); jc4 16:27 Pulse 114 MON; Pulse Ox 97% ; jc4 16:42 BP 110 / 58 (auto/); ja5 16:42 Pulse 114 MON; Pulse Ox 96% ; ja5 16:43 BP 110 / 58; Pulse 118; Resp 24; Temp 97.7(O); Pulse Ox 96% on 2 lpm NC; Pain 8/10; jc4 16:57 BP 113 / 68 (auto/); ja5 16:57 Pulse 108 MON; Pulse Ox 97% ; ja5 17:12 BP 112 / 57 (auto/); ead 17:13 Pulse 124 MON; Pulse Ox 95% ; ead 17:27 BP 101 / 54 (auto/); ead 17:28 Pulse 110 MON; Pulse Ox 96% ; ead 17:42 BP 97 / 54 (auto/); ead 17:43 Pulse 112 MON; Pulse Ox 96% ; ead 17:57 BP 108 / 56 (auto/); ead 17:58 Pulse 110 MON; Pulse Ox 96% ; ead 18:12 BP 122 / 57 (auto/); mlc 18:13 Pulse 122 MON; mlc 18:27 BP 116 / 53 (auto/); mlc 18:28 Pulse 114 MON; mlc 18:42 BP 103 / 54 (auto/); mlc 18:43 Pulse 102 MON; mlc 18:57 BP 91 / 54 (auto/); mlc 18:58 Pulse 104 MON; mlc 19:11 BP 116 / 54 (auto/); mlc 19:12 BP 103 / 54 (auto/); mlc 19:12 Pulse 106 MON; Pulse Ox 96% ; mlc 19:13 BP 116 / 54; Pulse 108; Resp 18; Temp 99.1(TE); Pulse Ox 97% on 3 lpm NC; mlc 19:13 Pulse 106 MON; Pulse Ox 97% ; mlc 19:27 BP 100 / 52 (auto/); mlc 19:28 Pulse 106 MON; Pulse Ox 97% ; mlc 19:42 BP 114 / 61 (auto/); mlc 19:43 Pulse 106 MON; Pulse Ox 97% ; mlc 19:57 BP 125 / 66 (auto/); mlc 19:58 Pulse 106 MON; Pulse Ox 96% ; mlc 20:10 Pulse 110 MON; Pulse Ox 95% ; mlc 20:16 BP 112 / 55; Pulse 108; Resp 20; Temp 99.0(TE); Pulse Ox 95% ; mlc 13:30 Body Mass Index 20.60 (46.27 kg, 149.86 cm) elp MDM: 13:37 ECG WITH READING ER PHYS+CARDIAG ordered. EDMS 15:04 Albuterol-Ipratropium 3 ml Inhalation once ordered. jo4 15:04 Call Respiratory ordered. jo4 15:04 Oxygen at 2L/min via NC ordered. jo4 15:04 -Blood Culture (Adults Only), peripheral from different site, or from device/port/PICC jo4 etc. if present ordered. 15:04 Supervisor Roller Printing/Pulse Ox/q 15 min VS ordered. jo4 15:04 IV Saline Lock ordered. jo4 15:04 Rhythm Strip to chart ordered. jo4 15:04 Chest, 2 View (pa\E\lat) Ordered. EDMS 15:06 -Arterial Blood Gas Ordered. EDMS 15:06 CBC with Diff Ordered. EDMS 15:06 BMP Ordered. EDMS 15:06 -Blood Culture Ordered. EDMS 15:06 -Blood Culture (Adults Only), peripheral from different site, or from device/port/PICC lbd etc. if present complete. 15:06 Call Respiratory complete. lbd 15:07 Solu-MEDROL 125 mg IVP once ordered. jo4 15:12 BLOOD CULTURES Ordered. EDMS 15:29 CARDIAC MARKER PANEL Ordered. EDMS 15:32 Financial registration complete. gjb 16:12 CARDIAC MARKER PANEL Reviewed. jo4 16:12 -Arterial Blood Gas Reviewed. jo4 16:12 CBC with Diff Reviewed. jo4 16:13 BMP Reviewed. jo4 16:13 Acetaminophen Tablet 650 mg PO once ordered. jo4 16:27 Albuterol-Ipratropium 3 ml Inhalation once ordered. jc4 16:29 [facility] Payment Agreement was scanned into [employer] and attached to record. gjb 16:43 morphine 2 mg IVP once ordered. br1 16:45 BNP Ordered. EDMS 16:45 Albuterol-Ipratropium 3 ml Inhalation once ordered. br1 16:45 D-Dimer Quant Ordered. EDMS 17:02 REGULAR+DIET ordered. EDMS 17:30 BNP Reviewed. jo4 17:36 D-Dimer Quant Reviewed. br1 17:36 Chest, 2 View (pa\E\lat) Reviewed. br1 17:41 BED REQUEST+ADM ordered. EDMS 18:44 Admission / Observation Status ordered. EDMS 18:45 2 GRAM SODIUM DIET ordered. EDMS 18:45 URINALYSIS Ordered. EDMS 18:45 RESPIRATORY PANEL Ordered. EDMS 18:45 URINE CULTURE Ordered. EDMS 18:45 INFLUENZA A&B RAPID ANTIGEN Ordered. EDMS 19:34 CBC WITH DIFFERENTIAL Ordered. EDMS 19:34 COMPLETE COMPHRENSIVE METABOLI Ordered. EDMS 19:35 MAGNESIUM LEVEL Ordered. EDMS 19:35 ARTERIAL BLOOD GAS Ordered. EDMS 07/06 10:49 T-Sheet-- Draft Copy was scanned into [employer] and attached to record. gb 10:49 ECG/EKG was scanned into [employer] and attached to record. gb 10:49 Trend VS was scanned into [employer] and attached to record. gb Administered Medications: 07/05 15:21 Drug: Solu-MEDROL 125 mg [Solu-Medrol 500 mg intravenous solution (125 mg)] Route: IVP; [facility] Site: right hand; 15:24 Drug: Albuterol-Ipratropium 3 ml [ipratropium-albuterol 0.5 mg-3 mg(2.5 mg base)/3 mL ac1 nebulization soln (3 mL)] Route: Inhalation; 15:40 Follow up: coarse wheezes bilat ac1 16:27 Drug: Albuterol-Ipratropium 3 ml [ipratropium-albuterol 0.5 mg-3 mg(2.5 mg base)/3 mL ac1 nebulization soln (3 mL)] Route: Inhalation; 16:34 Follow up: bilat coarse wheezes ac1 16:42 Drug: Acetaminophen 650 mg [acetaminophen 325 mg tablet (2 tabs)] Route: PO; [facility] 16:50 Drug: morphine 2 mg [morphine 2 mg/mL intravenous cartridge (1 mL)] Route: IVP; Site: [facility] right hand; 16:52 Drug: Albuterol-Ipratropium 3 ml [ipratropium-albuterol 0.5 mg-3 mg(2.5 mg base)/3 mL ac1 nebulization soln (3 mL)] Route: Inhalation; Signatures: Dispatcher [employer] EDMS Radha Beltre, Lodging House Keeper Unit lbd Chalrette Malik, Reg Reg Emiliano Chen MD MD br1 Gretta Pal RN RN jc4 Mima Beckwith,RN RN cj Jackie HiltonRN RN [facility] Jannet Paredes RN RN ko2 Beck, Gabriela gjb Oosthuizen, Jane, DO DO jo4 Ana Balderas RT ac1 The chart was reviewed and I authenticate all verbal orders and agree with the evaluation and treatment provided.Corrections: (The following items were deleted from the chart) 15:28 15:09 CARDIAC MARKER PANEL+LAB ordered. EDMS EDMS 15:28 15:09 TROPONIN+LAB ordered. EDMS EDMS 17:03 16:59 REGULAR DIET PED PLASTIC MAGANA+DIET ordered. EDMS EDMS Attachments: 16:29 [facility] Payment Agreement gjb 07/06 10:49 T-Sheet-- Draft Copy gb 10:49 ECG/EKG gb Chart Complete MTDD
--- NOTE | 2016-07-07 21:21 | EDDOCDS ---
Physician Documentation [facility] Name: Cate Oliver Age: 76 yrs Sex: Female : 1940 Arrival Date: 07/05/2016 Time: 13:27 Bed 12 Private MD: Jose Molina Disposition: 07/05 17:42 I have independently interviewed and examined the patient, and I agree with the br1 investigation, diagnosis and treatment plan as documented by the Resident. Disposition: 07/05/16 18:04 Hospitalization ordered by Stewart Malhotra for Inpatient Admission. Preliminary diagnosis is Chronic obstructive pulmonary disease with (acute) exacerbation. - Bed requested for 4 [place]. - Status is Inpatient Admission. mlc - Condition is Stable. - Problem is new. - Symptoms are unchanged. Historical: - Allergies: Compazine (twitching); IV Dye; Dye; - Home Meds: 1. Advair Diskus 500-50 mcg/dose Inhl dsdv 2 times per day 2. alprazolam 0.5 mg Oral TbDL 1 tab Q 6 hrs prn 3. doxycycline hyclate 100 mg Oral cap 1 cap every 12 hours 4. DuoNeb 0.5 mg-3 mg(2.5 mg base)/3 mL Inhl nebu 3 mL 4 times per day ran out of 5. escitalopram oxalate 20 mg oral tab 1 tab once daily 6. Flonase 50 mcg/actuation Nasal spsn 1 spray once daily 7. folic acid 1 mg Oral tab 1 tab once daily 8. hydroxyzine HCl 25 mg Oral tab BID PRN 9. Mucinex 600 mg oral Ta12 BID PRN 10. omeprazole 40 mg Oral cpDR 1 cap 2 times per day 11. oxygen 2 lnc 12. Prednisone 10mg tabs- tapering dose. takes 3 tabs daily now Oral 13. Remeron 15 mg Oral tab HS 14. ropinirole 1 mg oral tab 1 tab nightly 15. simvastatin 40 mg Oral tab 1 tab once daily 16. Spiriva with HandiHaler 18 mcg Inhl CpDv once daily 17. trazodone 50 mg Oral tab nightly 18. Valtrex 1 gram Oral tab 1 tab BID x1 day prn 19. Ventolin HFA 90 mcg/actuation Nebulizer HFAA every 4 hours 20. vitamin b12 1000mcg injection monthly 21. votarren 1% transdermally four times a day 22. Xopenex 1.25 mg/3 mL Inhl nebu q2 hrs prn ran out of 23. Xyzal 5 mg oral tab 1 tab daily PRN 24. Zantac 150 mg Oral tab 1 tab 2 times per day 25. Zofran (as hydrochloride) 4 mg Oral tab tid prn - PMHx: COPD; Depression; hyperlipidemia; Hypertension; - PSHx: Cholecystectomy; Hysterectomy; Appendectomy; partial gastrectomy; - Social history: Smoking status: Patient states former smoker of tobacco. No barriers to communication noted. - Family history: No immediate family members are acutely ill. - : The pt / caregiver states he / she is not on anticoagulants. Home medication list is obtained from [employer] import data. - Exposure Risk Screening:: None identified. Vital Signs: 13:30 BP 120 / 89; Pulse 130; Resp 40; Temp 99.5(O); Pulse Ox 98% on 2 lpm NC; Weight 46.27 elp kg / 102.01 lbs; Height 4 ft. 11 in. (149.86 cm); 13:42 BP 136 / 70 (auto/); jc4 13:44 Pulse Ox 96% ; jc4 13:57 BP 120 / 64 (auto/); jc4 13:58 Pulse 118 MON; Pulse Ox 95% ; jc4 14:12 BP 123 / 64 (auto/); jc4 14:13 Pulse 122 MON; Pulse Ox 95% ; jc4 14:27 BP 122 / 64 (auto/); jc4 14:27 Pulse 130 MON; Pulse Ox 96% ; jc4 14:44 BP 139 / 65 (auto/); jc4 14:45 Pulse 120 MON; jc4 14:57 BP 118 / 59 (auto/); jc4 14:58 Pulse 116 MON; jc4 15:27 BP 128 / 69 (auto/); jc4 15:29 Pulse 112 MON; Pulse Ox 95% ; jc4 15:42 BP 126 / 57 (auto/); jc4 15:43 Pulse 114 MON; Pulse Ox 94% ; jc4 15:57 BP 128 / 57 (auto/); jc4 15:57 Pulse Ox 96% ; jc4 16:27 BP 112 / 55 (auto/); jc4 16:27 Pulse 114 MON; Pulse Ox 97% ; jc4 16:42 BP 110 / 58 (auto/); ja5 16:42 Pulse 114 MON; Pulse Ox 96% ; ja5 16:43 BP 110 / 58; Pulse 118; Resp 24; Temp 97.7(O); Pulse Ox 96% on 2 lpm NC; Pain 8/10; jc4 16:57 BP 113 / 68 (auto/); ja5 16:57 Pulse 108 MON; Pulse Ox 97% ; ja5 17:12 BP 112 / 57 (auto/); ead 17:13 Pulse 124 MON; Pulse Ox 95% ; ead 17:27 BP 101 / 54 (auto/); ead 17:28 Pulse 110 MON; Pulse Ox 96% ; ead 17:42 BP 97 / 54 (auto/); ead 17:43 Pulse 112 MON; Pulse Ox 96% ; ead 17:57 BP 108 / 56 (auto/); ead 17:58 Pulse 110 MON; Pulse Ox 96% ; ead 18:12 BP 122 / 57 (auto/); mlc 18:13 Pulse 122 MON; mlc 18:27 BP 116 / 53 (auto/); mlc 18:28 Pulse 114 MON; mlc 18:42 BP 103 / 54 (auto/); mlc 18:43 Pulse 102 MON; mlc 18:57 BP 91 / 54 (auto/); mlc 18:58 Pulse 104 MON; mlc 19:11 BP 116 / 54 (auto/); mlc 19:12 BP 103 / 54 (auto/); mlc 19:12 Pulse 106 MON; Pulse Ox 96% ; mlc 19:13 BP 116 / 54; Pulse 108; Resp 18; Temp 99.1(TE); Pulse Ox 97% on 3 lpm NC; mlc 19:13 Pulse 106 MON; Pulse Ox 97% ; mlc 19:27 BP 100 / 52 (auto/); mlc 19:28 Pulse 106 MON; Pulse Ox 97% ; mlc 19:42 BP 114 / 61 (auto/); mlc 19:43 Pulse 106 MON; Pulse Ox 97% ; mlc 19:57 BP 125 / 66 (auto/); mlc 19:58 Pulse 106 MON; Pulse Ox 96% ; mlc 20:10 Pulse 110 MON; Pulse Ox 95% ; mlc 20:16 BP 112 / 55; Pulse 108; Resp 20; Temp 99.0(TE); Pulse Ox 95% ; mlc 13:30 Body Mass Index 20.60 (46.27 kg, 149.86 cm) elp MDM: 13:37 ECG WITH READING ER PHYS+CARDIAG ordered. EDMS 15:04 Albuterol-Ipratropium 3 ml Inhalation once ordered. jo4 15:04 Call Respiratory ordered. jo4 15:04 Oxygen at 2L/min via NC ordered. jo4 15:04 -Blood Culture (Adults Only), peripheral from different site, or from device/port/PICC jo4 etc. if present ordered. 15:04 Sugar Cane Planter Machine Operator/Pulse Ox/q 15 min VS ordered. jo4 15:04 IV Saline Lock ordered. jo4 15:04 Rhythm Strip to chart ordered. jo4 15:04 Chest, 2 View (pa\E\lat) Ordered. EDMS 15:06 -Arterial Blood Gas Ordered. EDMS 15:06 CBC with Diff Ordered. EDMS 15:06 BMP Ordered. EDMS 15:06 -Blood Culture Ordered. EDMS 15:06 -Blood Culture (Adults Only), peripheral from different site, or from device/port/PICC lbd etc. if present complete. 15:06 Call Respiratory complete. lbd 15:07 Solu-MEDROL 125 mg IVP once ordered. jo4 15:12 BLOOD CULTURES Ordered. EDMS 15:29 CARDIAC MARKER PANEL Ordered. EDMS 15:32 Financial registration complete. gjb 16:12 CARDIAC MARKER PANEL Reviewed. jo4 16:12 -Arterial Blood Gas Reviewed. jo4 16:12 CBC with Diff Reviewed. jo4 16:13 BMP Reviewed. jo4 16:13 Acetaminophen Tablet 650 mg PO once ordered. jo4 16:27 Albuterol-Ipratropium 3 ml Inhalation once ordered. jc4 16:29 [facility] Payment Agreement was scanned into [employer] and attached to record. gjb 16:43 morphine 2 mg IVP once ordered. br1 16:45 BNP Ordered. EDMS 16:45 Albuterol-Ipratropium 3 ml Inhalation once ordered. br1 16:45 D-Dimer Quant Ordered. EDMS 17:02 REGULAR+DIET ordered. EDMS 17:30 BNP Reviewed. jo4 17:36 D-Dimer Quant Reviewed. br1 17:36 Chest, 2 View (pa\E\lat) Reviewed. br1 17:41 BED REQUEST+ADM ordered. EDMS 18:44 Admission / Observation Status ordered. EDMS 18:45 2 GRAM SODIUM DIET ordered. EDMS 18:45 URINALYSIS Ordered. EDMS 18:45 RESPIRATORY PANEL Ordered. EDMS 18:45 URINE CULTURE Ordered. EDMS 18:45 INFLUENZA A&B RAPID ANTIGEN Ordered. EDMS 19:34 CBC WITH DIFFERENTIAL Ordered. EDMS 19:34 COMPLETE COMPHRENSIVE METABOLI Ordered. EDMS 19:35 MAGNESIUM LEVEL Ordered. EDMS 19:35 ARTERIAL BLOOD GAS Ordered. EDMS 07/06 10:49 T-Sheet-- Draft Copy was scanned into [employer] and attached to record. gb 10:49 ECG/EKG was scanned into [employer] and attached to record. gb 10:49 Trend VS was scanned into [employer] and attached to record. gb Administered Medications: 07/05 15:21 Drug: Solu-MEDROL 125 mg [Solu-Medrol 500 mg intravenous solution (125 mg)] Route: IVP; [facility] Site: right hand; 15:24 Drug: Albuterol-Ipratropium 3 ml [ipratropium-albuterol 0.5 mg-3 mg(2.5 mg base)/3 mL ac1 nebulization soln (3 mL)] Route: Inhalation; 15:40 Follow up: coarse wheezes bilat ac1 16:27 Drug: Albuterol-Ipratropium 3 ml [ipratropium-albuterol 0.5 mg-3 mg(2.5 mg base)/3 mL ac1 nebulization soln (3 mL)] Route: Inhalation; 16:34 Follow up: bilat coarse wheezes ac1 16:42 Drug: Acetaminophen 650 mg [acetaminophen 325 mg tablet (2 tabs)] Route: PO; [facility] 16:50 Drug: morphine 2 mg [morphine 2 mg/mL intravenous cartridge (1 mL)] Route: IVP; Site: [facility] right hand; 16:52 Drug: Albuterol-Ipratropium 3 ml [ipratropium-albuterol 0.5 mg-3 mg(2.5 mg base)/3 mL ac1 nebulization soln (3 mL)] Route: Inhalation; Signatures: Dispatcher [employer] EDMS Radha Beltre, Supervisor Cell Efficiency Unit lbd Charlette Malik, Reg Reg Emiliano Chen MD MD br1 Gretta Pal RN RN jc4 Mima Beckwith,RN RN cj Jackie HiltonRN RN [facility] Jannet Paredes RN RN ko2 Beck, Gabriela gjb Oosthuizen, Jane, DO DO jo4 Ana Balderas RT ac1 The chart was reviewed and I authenticate all verbal orders and agree with the evaluation and treatment provided.Corrections: (The following items were deleted from the chart) 15:28 15:09 CARDIAC MARKER PANEL+LAB ordered. EDMS EDMS 15:28 15:09 TROPONIN+LAB ordered. EDMS EDMS 17:03 16:59 REGULAR DIET PED PLASTIC MAGANA+DIET ordered. EDMS EDMS Attachments: 16:29 [facility] Payment Agreement gjb 07/06 10:49 T-Sheet-- Draft Copy gb 10:49 ECG/EKG gb Chart Complete MTDD
[2016-07-07 22:00] VITALS: BP 148/65
[2016-07-08] MEDS: methylPREDNISolone INJ 125 MG/2 ML VIAL (J2930) IV SCH ×2 (00:42→08:37)
[2016-07-08] MEDS: ALPRAZolam 0.5 MG TAB PO PRN ×3 (00:46→20:49)
[2016-07-08] MEDS: IPRATROPIUM 0.5MG/ALBUTEROL 2.5MG INH SOL UD 3ML (DUONEB)(J7620) NEB SCH ×4 (01:10→20:37)
[2016-07-08 06:00] VITALS: BP 128/63
[2016-07-08 06:04] LABS: BASO % 0.1 % (0.0-1.0); LARGE UNSTAINED CELL # 0.1 K/mm3 (0.0-0.4); LARGE UNSTAINED CELL % 0.5 % (0.0-4.0); LYMPH # 0.4 K/mm3 (1.5-4.5); MEAN CORPUSCULAR HEMOGLOBIN 29.3 pg (27.0-33.0); MEAN CORPUSCULAR HGB CONC 30.6 g/dl (32.0-36.5); MEAN CORPUSCULAR VOLUME 95.6 fl (80.0-96.0); MONO # 0.2 K/mm3 (0.0-0.8); MONO % 1.6 % (0.0-5.0); NEUTROPHILS # 13.3 K/mm3 (1.8-7.7); NEUTROPHILS % 94.8 % (36.0-66.0); PLATELET COUNT, AUTOMATED 184 k/mm3 (150-450); RED CELL DISTRIBUTION WIDTH 13.9 % (11.5-14.5)
[2016-07-08 06:21] LABS: ALBUMIN 2.7 GM/DL (3.2-5.2); ALBUMIN/GLOBULIN RATIO 0.82 (1.00-1.93); ALKALINE PHOSPHATASE 62 U/L (45-117); ALT/SGPT 23 U/L (12-78); ANION GAP 5 MEQ/L (8-16); AST/SGOT 14 U/L (15-37); BILIRUBIN,TOTAL 0.1 MG/DL (0.2-1.0); BLOOD UREA NITROGEN 27 MG/DL (7-18); CALCIUM LEVEL 8.1 MG/DL (8.8-10.2); CARBON DIOXIDE LEVEL 38 MEQ/L (21-32); CHLORIDE LEVEL 101 MEQ/L (98-107); CREATININE FOR GFR 0.86 MG/DL (0.55-1.02); GLOMERULAR FILTRATION RATE > 60.0 (>39); GLUCOSE, FASTING 160 MG/DL (83-110); MAGNESIUM LEVEL 2.7 MG/DL (1.8-2.4); POTASSIUM SERUM 4.6 MEQ/L (3.5-5.1); SODIUM LEVEL 144 MEQ/L (136-145)
[2016-07-08] MEDS: TIOTROPIUM INHALER/CAPSULE (SPIRIVA) INH SCH (08:23)
[2016-07-08] MEDS: PANTOPRAZOLE 40MG TAB (PROTONIX) PO SCH (08:36)
[2016-07-08] MEDS: ESCITALOPRAM OXALATE 10 MG TAB (LEXAPRO) PO SCH (08:36)
[2016-07-08] MEDS: ENOXAPARIN 40 MG/0.4 ML SYRINGE (J1650) SC SCH (08:37)
[2016-07-08] MEDS: BENZONATATE 100 MG CAP PO SCH ×3 (08:37→20:49)
[2016-07-08] MEDS: FOLIC ACID 1 MG TAB PO SCH (08:37)
[2016-07-08] MEDS: LIDOCAINE 5% (LIDODERM) PATCH TD SCH (08:38)
[2016-07-08] MEDS: ACETAMINOPHEN TAB 650MG DOSE (2X325MG) PO PRN ×3 (08:54→17:58)
[2016-07-08 10:00] VITALS: BP 110/50
[2016-07-08] MEDS: guaiFENesin ER 600 MG TAB PO PRN (13:08)
[2016-07-08 14:00] VITALS: BP 127/95
[2016-07-08] MEDS: ONDANSETRON 4MG/2ML VIAL (J2405) IV PRN ×2 (16:39→20:50)
[2016-07-08] MEDS: SIMVASTATIN 40 MG TAB PO SCH (17:58)
[2016-07-08 18:00] VITALS: BP 133/65
[2016-07-08] MEDS: LevoFLOXacin 250 MG TABLET PO SCH (20:49)
[2016-07-08] MEDS: MIRTAZAPINE 15 MG TAB PO SCH (20:49)
[2016-07-08] MEDS: traZODone 50 MG TAB PO SCH (20:49)
[2016-07-08] MEDS: rOPINIRole 1MG TAB PO SCH (20:49)
[2016-07-08] MEDS: **NOTE PATIENT COMMENT** MISC XX SCH (20:50)
[2016-07-08] MEDS: methylPREDNISolone INJ 40 MG/1 ML VIAL (J2920) IV SCH (20:50)
[2016-07-08 22:00] VITALS: BP 134/80
[2016-07-09] MEDS: IPRATROPIUM 0.5MG/ALBUTEROL 2.5MG INH SOL UD 3ML (DUONEB)(J7620) NEB SCH ×5 (01:54→20:23)
[2016-07-09 02:00] VITALS: BP 135/63
[2016-07-09 06:00] VITALS: BP 111/56
[2016-07-09 06:21] LABS: BASO % 0.1 % (0.0-1.0); EOS % 0.1 % (0.0-3.0); LARGE UNSTAINED CELL # 0.1 K/mm3 (0.0-0.4); LARGE UNSTAINED CELL % 0.9 % (0.0-4.0); LYMPH # 0.4 K/mm3 (1.5-4.5); LYMPH % 4.1 % (24.0-44.0); MEAN CORPUSCULAR HEMOGLOBIN 29.9 pg (27.0-33.0); MEAN CORPUSCULAR HGB CONC 30.6 g/dl (32.0-36.5); MEAN CORPUSCULAR VOLUME 97.6 fl (80.0-96.0); MONO # 0.2 K/mm3 (0.0-0.8); MONO % 2.2 % (0.0-5.0); NEUTROPHILS % 92.7 % (36.0-66.0); PLATELET COUNT, AUTOMATED 159 k/mm3 (150-450); RED CELL DISTRIBUTION WIDTH 13.8 % (11.5-14.5); WHITE BLOOD COUNT 10.8 K/mm3 (4.0-10.0)
[2016-07-09 06:42] LABS: ALBUMIN 2.6 GM/DL (3.2-5.2); ALBUMIN/GLOBULIN RATIO 0.81 (1.00-1.93); ALKALINE PHOSPHATASE 63 U/L (45-117); ALT/SGPT 23 U/L (12-78); ANION GAP 6 MEQ/L (8-16); AST/SGOT 15 U/L (15-37); BILIRUBIN,TOTAL 0.2 MG/DL (0.2-1.0); BLOOD UREA NITROGEN 30 MG/DL (7-18); CALCIUM LEVEL 7.9 MG/DL (8.8-10.2); CARBON DIOXIDE LEVEL 36 MEQ/L (21-32); CHLORIDE LEVEL 103 MEQ/L (98-107); CREATININE FOR GFR 0.81 MG/DL (0.55-1.02); GLOMERULAR FILTRATION RATE > 60.0 (>39); GLUCOSE, FASTING 155 MG/DL (83-110); MAGNESIUM LEVEL 2.8 MG/DL (1.8-2.4); POTASSIUM SERUM 4.3 MEQ/L (3.5-5.1); SODIUM LEVEL 145 MEQ/L (136-145); TOTAL PROTEIN 5.8 GM/DL (6.4-8.2)
[2016-07-09] MEDS: TIOTROPIUM INHALER/CAPSULE (SPIRIVA) INH SCH (09:11)
[2016-07-09] MEDS: IPRATROPIUM 0.5MG/ALBUTEROL 2.5MG INH SOL UD 3ML (DUONEB)(J7620) NEB PRN (09:13)
[2016-07-09] MEDS: FOLIC ACID 1 MG TAB PO SCH (09:20)
[2016-07-09] MEDS: BENZONATATE 100 MG CAP PO SCH ×3 (09:20→20:34)
[2016-07-09] MEDS: PANTOPRAZOLE 40MG TAB (PROTONIX) PO SCH (09:20)
[2016-07-09] MEDS: ENOXAPARIN 40 MG/0.4 ML SYRINGE (J1650) SC SCH (09:21)
[2016-07-09] MEDS: LIDOCAINE 5% (LIDODERM) PATCH TD SCH (09:21)
[2016-07-09] MEDS: ONDANSETRON 4MG/2ML VIAL (J2405) IV PRN ×3 (09:21→18:05)
[2016-07-09] MEDS: ESCITALOPRAM OXALATE 10 MG TAB (LEXAPRO) PO SCH (09:21)
[2016-07-09] MEDS: ALPRAZolam 0.5 MG TAB PO PRN ×2 (09:21→20:34)
[2016-07-09] MEDS: methylPREDNISolone INJ 40 MG/1 ML VIAL (J2920) IV SCH ×2 (09:21→20:33)
[2016-07-09] MEDS: ACETAMINOPHEN TAB 650MG DOSE (2X325MG) PO PRN ×3 (09:24→18:05)
[2016-07-09 10:00] VITALS: BP 133/63
[2016-07-09] MEDS ORDERED: traMADol 50 MG TAB As Ordered ONE (12:39)
[2016-07-09] MEDS: traMADol 50 MG TAB PO PRN ×2 (13:01→20:34)
[2016-07-09] MEDS: MIRALAX *UNIT DOSE* 17GM PACKET PO SCH (13:02)
[2016-07-09] MEDS: guaiFENesin ER 600 MG TAB PO PRN (13:02)
[2016-07-09] MEDS: MOM 30ML SUSPENSION UDC PO SCH ×2 (13:02→20:36)
[2016-07-09] MEDS: DOCUSATE SODIUM 100 MG CAP PO SCH ×2 (13:02→20:34)
--- NOTE | 2016-07-09 13:15 | IPNPDOC ---
Assessment/Plan Date Seen The patient was seen on 07/09/16. Problems Problems: (1) Constipation Status: Acute Problem Text: * will add colace, milk of mag, miralax (2) Chronic respiratory failure Status: Acute Response to Treatment: Improving Problem Text: in the setting of advanced copd will continue to monitor pt is on her baseline oxygen requirement will continue prednisone continue IS and acap[place] (3) Coronavirus infection Status: Acute Response to Treatment: Improving Problem Text: * coronavirus is positive * continue to monitor pt * continue duonebs (4) Hypertension Status: Chronic (5) Hypercholesterolemia Status: Chronic (6) Anxiety and depression Status: Chronic (7) COPD exacerbation Status: Chronic Plan / VTE VTE Prophylaxis Ordered?: Yes Subjective Review of Systems CC/HPI The patient is a 76-year-old female admitted with a reason for visit of Copd Exacerbation. Events since last encounter pt seen and examined still complaining of shortness of breath, no fevers or chills, no other overnight events Objective Physical Examination General Exam: Positive: No Acute Distress Eye Exam: Positive: PERRLA ENT Exam: Positive: Atraumatic, Mucous membr. moist/pink Chest Exam: Positive: Rales, Rhonchi, Wheezing Heart Exam: Positive: Normal S1, Normal S2, Rate Normal, Regular Rhythm, Negative: Murmurs, Rubs Abdomen Exam: Positive: Normal bowel sounds, Soft, Negative: Hepatospenomegaly, Tenderness Extremity Exam: Positive: Normal pulses, Negative: Clubbing, Cyanosis, Edema Vital Signs/I&O Vital Signs Date Time Temp Pulse Resp B/P Pulse Ox O2 Delivery O2 Flow Rate FiO2 07/09/16 13:01 20 07/09/16 10:00 97.6 100 133/63 96 Nasal Cannula 2.5 I&O- Last 24 Hours up to 6 AM 07/09/16 05:59 Intake Total 2270 ml Output Total 1925 ml Balance 345 ml Laboratory Data Labs 24H Laboratory Tests 2 07/09/16 05:48: Blood Urea Nitrogen 30H, Creatinine 0.81, Sodium Level 145, Potassium Level 4.3 , Chloride Level 103, Carbon Dioxide Level 36H, Calcium Level 7.9L, Aspartate Amino Transf (AST/SGOT) 15, Alanine Aminotransferase (ALT/SGPT) 23, Alkaline Phosphatase 63, Total Bilirubin 0.2#, Total Protein 5.8L, Albumin 2.6L, Albumin/ Globulin Ratio 0.81L, Anion Gap 6L, White Blood Count 10.8H, Red Blood Count 3.37L, Hemoglobin 10.1L, Hematocrit 32.9L, Mean Corpuscular Volume 97.6H, Mean Corpuscular Hemoglobin 29.9, Mean Corpuscular Hemoglobin Concent 30.6L, Red Cell Distribution Width 13.8, Platelet Count 159, Neutrophils (%) (Auto) 92.7H, Lymphocytes (%) (Auto) 4.1L, Monocytes (%) (Auto) 2.2, Eosinophils (%) (Auto) 0.1, Basophils (%) (Auto) 0.1, Neutrophils # (Auto) 10.0H, Lymphocytes # (Auto) 0.4L, Monocytes # (Auto) 0.2, Eosinophils # (Auto) 0.0, Basophils # (Auto) 0.0, Glomerular Filtration Rate > 60.0, Large Unclassified Cells # 0.1, Large Unclassified Cells % 0.9, Magnesium Level 2.8H CBC/BMP Laboratory Tests 07/09/16 05:48 Calcium Level 7.9 L, Aspartate Amino Transf (AST/SGOT) 15, Alanine Aminotransferase (ALT/SGPT) 23, Alkaline Phosphatase 63, Total Bilirubin 0.2 #, Total Protein 5.8 L, Albumin 2.6 L, Red Blood Count 3.37 L, Mean Corpuscular Volume 97.6 H, Mean Corpuscular Hemoglobin 29.9, Mean Corpuscular Hemoglobin Concent 30.6 L, Red Cell Distribution Width 13.8, Neutrophils (%) (Auto) 92.7 H , Lymphocytes (%) (Auto) 4.1 L, Monocytes (%) (Auto) 2.2, Eosinophils (%) (Auto ) 0.1, Basophils (%) (Auto) 0.1, Neutrophils # (Auto) 10.0 H, Lymphocytes # ( Auto) 0.4 L, Monocytes # (Auto) 0.2, Eosinophils # (Auto) 0.0, Basophils # (Auto ) 0.0 Microbiology Microbiology 07/05/16 Blood Culture - Preliminary, Resulted No Growth after 72 hours. All specime... 07/05/16 Blood Culture - Preliminary, Resulted No Growth after 72 hours. All specime... 07/06/16 Respiratory Virus Panel (PCR) ([facility]) - Final, Complete Coronavirus Oc43 07/06/16 Urine Culture - Final, Complete LUIS FELIPE SAL DO Jul 09, 2016 13:15
[2016-07-09 14:00] VITALS: BP 132/60
--- NOTE | 2016-07-09 15:21 | REP ---
KUB: Single view. HISTORY: Nausea and abdominal pain. Comparison study of January 08, 2015. FINDINGS: There are surgical suture lines in the left upper quadrant, left mid abdomen, and in the central pelvis. There is stool in the right colon and low density CT contrast in the left colon. Diverticulosis of the sigmoid colon is seen. No colonic dilation is seen. No small bowel dilation is observed. Flank stripes are intact. No mass or organomegaly is seen. IMPRESSION: Postoperative changes. Sigmoid colon diverticulosis. No larger small bowel dilation seen. Signed by Abdirahman Dinero MD 07/09/2016 04:01 P
[2016-07-09 18:00] VITALS: BP 145/65
[2016-07-09] MEDS: SIMVASTATIN 40 MG TAB PO SCH (18:05)
[2016-07-09] MEDS: LevoFLOXacin 250 MG TABLET PO SCH (20:34)
[2016-07-09] MEDS: traZODone 50 MG TAB PO SCH (20:34)
[2016-07-09] MEDS: MIRTAZAPINE 15 MG TAB PO SCH (20:34)
[2016-07-09] MEDS: rOPINIRole 1MG TAB PO SCH (20:34)
[2016-07-09] MEDS: **NOTE PATIENT COMMENT** MISC XX SCH (20:35)
[2016-07-09 22:00] VITALS: BP 148/68
[2016-07-10 02:00] VITALS: BP 161/77
[2016-07-10] MEDS: IPRATROPIUM 0.5MG/ALBUTEROL 2.5MG INH SOL UD 3ML (DUONEB)(J7620) NEB SCH ×4 (02:57→20:17)
[2016-07-10 06:00] VITALS: BP 137/64
[2016-07-10 06:03] LABS: BASO % 0.1 % (0.0-1.0); EOS % 0.3 % (0.0-3.0); LARGE UNSTAINED CELL # 0.1 K/mm3 (0.0-0.4); LARGE UNSTAINED CELL % 0.7 % (0.0-4.0); LYMPH # 0.4 K/mm3 (1.5-4.5); LYMPH % 3.5 % (24.0-44.0); MEAN CORPUSCULAR HEMOGLOBIN 29.3 pg (27.0-33.0); MEAN CORPUSCULAR HGB CONC 30.5 g/dl (32.0-36.5); MEAN CORPUSCULAR VOLUME 96.3 fl (80.0-96.0); MONO # 0.2 K/mm3 (0.0-0.8); MONO % 2.1 % (0.0-5.0); NEUTROPHILS # 8.6 K/mm3 (1.8-7.7); NEUTROPHILS % 93.4 % (36.0-66.0); PLATELET COUNT, AUTOMATED 179 k/mm3 (150-450); RED CELL DISTRIBUTION WIDTH 14.1 % (11.5-14.5); WHITE BLOOD COUNT 9.2 K/mm3 (4.0-10.0)
[2016-07-10 06:21] LABS: ALBUMIN 2.7 GM/DL (3.2-5.2); ALBUMIN/GLOBULIN RATIO 0.84 (1.00-1.93); ALKALINE PHOSPHATASE 60 U/L (45-117); ALT/SGPT 32 U/L (12-78); ANION GAP 6 MEQ/L (8-16); AST/SGOT 19 U/L (15-37); BILIRUBIN,TOTAL 0.2 MG/DL (0.2-1.0); BLOOD UREA NITROGEN 27 MG/DL (7-18); CALCIUM LEVEL 7.9 MG/DL (8.8-10.2); CARBON DIOXIDE LEVEL 36 MEQ/L (21-32); CHLORIDE LEVEL 102 MEQ/L (98-107); CREATININE FOR GFR 0.79 MG/DL (0.55-1.02); GLOMERULAR FILTRATION RATE > 60.0 (>39); GLUCOSE, FASTING 153 MG/DL (83-110); MAGNESIUM LEVEL 2.6 MG/DL (1.8-2.4); POTASSIUM SERUM 4.5 MEQ/L (3.5-5.1); SODIUM LEVEL 144 MEQ/L (136-145); TOTAL PROTEIN 5.9 GM/DL (6.4-8.2)
[2016-07-10] MEDS: guaiFENesin ER 600 MG TAB PO PRN ×2 (06:33→20:54)
[2016-07-10] MEDS: ONDANSETRON 4MG/2ML VIAL (J2405) IV PRN ×3 (06:36→15:39)
[2016-07-10] MEDS: TIOTROPIUM INHALER/CAPSULE (SPIRIVA) INH SCH (08:19)
[2016-07-10] MEDS: MOM 30ML SUSPENSION UDC PO SCH ×2 (09:00→20:56)
[2016-07-10] MEDS: MIRALAX *UNIT DOSE* 17GM PACKET PO SCH (09:23)
[2016-07-10] MEDS: ENOXAPARIN 40 MG/0.4 ML SYRINGE (J1650) SC SCH (09:23)
[2016-07-10] MEDS: methylPREDNISolone INJ 40 MG/1 ML VIAL (J2920) IV SCH ×2 (09:23→20:56)
[2016-07-10] MEDS: LIDOCAINE 5% (LIDODERM) PATCH TD SCH (09:24)
[2016-07-10] MEDS: FOLIC ACID 1 MG TAB PO SCH (09:24)
[2016-07-10] MEDS: BENZONATATE 100 MG CAP PO SCH ×3 (09:24→20:55)
[2016-07-10] MEDS: DOCUSATE SODIUM 100 MG CAP PO SCH ×2 (09:24→20:54)
[2016-07-10] MEDS: PANTOPRAZOLE 40MG TAB (PROTONIX) PO SCH (09:24)
[2016-07-10] MEDS: ESCITALOPRAM OXALATE 10 MG TAB (LEXAPRO) PO SCH (09:24)
[2016-07-10] MEDS: ALPRAZolam 0.5 MG TAB PO PRN ×3 (09:24→21:06)
[2016-07-10] MEDS: traMADol 50 MG TAB PO PRN ×2 (09:27→18:16)
[2016-07-10 10:00] VITALS: BP 148/67
[2016-07-10] MEDS: ACETAMINOPHEN TAB 650MG DOSE (2X325MG) PO PRN ×2 (11:24→15:39)
[2016-07-10 14:00] VITALS: BP 144/70
--- NOTE | 2016-07-10 14:00 | IPNPDOC ---
Assessment/Plan Date Seen The patient was seen on 07/10/16. Problems Problems: (1) Back pain Status: Acute Problem Text: will consult pain management tomorrow (2) Constipation Status: Resolved Problem Text: had one BM yesterday continue colace, milk of mag, miralax (3) Chronic respiratory failure Status: Acute Response to Treatment: Improving Problem Text: in the setting of advanced copd will continue to monitor pt is on her baseline oxygen requirement will continue prednisone continue IS and acapella (4) Coronavirus infection Status: Acute Response to Treatment: Improving Problem Text: * coronavirus is positive * continue to monitor pt * continue duonebs (5) Hypertension Status: Chronic (6) Hypercholesterolemia Status: Chronic (7) Anxiety and depression Status: Chronic (8) COPD exacerbation Status: Chronic Plan / VTE VTE Prophylaxis Ordered?: Yes Subjective Review of Systems CC/HPI The patient is a 76-year-old female admitted with a reason for visit of Copd Exacerbation. Events since last encounter pt seen and examined, complaining of back pain which is chronic Objective Physical Examination General Exam: Positive: No Acute Distress Eye Exam: Positive: PERRLA ENT Exam: Positive: Atraumatic, Mucous membr. moist/pink Chest Exam: Positive: Rales, Rhonchi, Wheezing Heart Exam: Positive: Normal S1, Normal S2, Rate Normal, Regular Rhythm, Negative: Murmurs, Rubs Abdomen Exam: Positive: Normal bowel sounds, Soft, Negative: Hepatospenomegaly, Tenderness Extremity Exam: Positive: Normal pulses, Negative: Clubbing, Cyanosis, Edema Vital Signs/I&O Vital Signs Date Time Temp Pulse Resp B/P Pulse Ox O2 Delivery O2 Flow Rate FiO2 07/10/16 10:00 99.2 98 20 148/67 91 Nasal Cannula 2.0 I&O- Last 24 Hours up to 6 AM 07/10/16 06:00 Intake Total 1700 ml Output Total 1101 ml Balance 599 ml Laboratory Data Labs 24H Laboratory Tests 2 07/10/16 05:18: Blood Urea Nitrogen 27H, Creatinine 0.79, Sodium Level 144, Potassium Level 4.5 , Chloride Level 102, Carbon Dioxide Level 36H, Calcium Level 7.9L, Aspartate Amino Transf (AST/SGOT) 19, Alanine Aminotransferase (ALT/SGPT) 32, Alkaline Phosphatase 60, Total Bilirubin 0.2, Total Protein 5.9L, Albumin 2.7L, Albumin/ Globulin Ratio 0.84L, Anion Gap 6L, White Blood Count 9.2, Red Blood Count 3.35L , Hemoglobin 9.8L, Hematocrit 32.3L, Mean Corpuscular Volume 96.3H, Mean Corpuscular Hemoglobin 29.3, Mean Corpuscular Hemoglobin Concent 30.5L, Red Cell Distribution Width 14.1, Platelet Count 179, Neutrophils (%) (Auto) 93.4H, Lymphocytes (%) (Auto) 3.5L, Monocytes (%) (Auto) 2.1, Eosinophils (%) (Auto) 0.3, Basophils (%) (Auto) 0.1, Neutrophils # (Auto) 8.6H, Lymphocytes # (Auto) 0.4L, Monocytes # (Auto) 0.2, Eosinophils # (Auto) 0.0, Basophils # (Auto) 0.0, Glomerular Filtration Rate > 60.0, Large Unclassified Cells # 0.1, Large Unclassified Cells % 0.7, Magnesium Level 2.6H CBC/BMP Laboratory Tests 07/10/16 05:18 Calcium Level 7.9 L, Aspartate Amino Transf (AST/SGOT) 19, Alanine Aminotransferase (ALT/SGPT) 32, Alkaline Phosphatase 60, Total Bilirubin 0.2, Total Protein 5.9 L, Albumin 2.7 L, Red Blood Count 3.35 L, Mean Corpuscular Volume 96.3 H, Mean Corpuscular Hemoglobin 29.3, Mean Corpuscular Hemoglobin Concent 30.5 L, Red Cell Distribution Width 14.1, Neutrophils (%) (Auto) 93.4 H , Lymphocytes (%) (Auto) 3.5 L, Monocytes (%) (Auto) 2.1, Eosinophils (%) (Auto ) 0.3, Basophils (%) (Auto) 0.1, Neutrophils # (Auto) 8.6 H, Lymphocytes # (Auto ) 0.4 L, Monocytes # (Auto) 0.2, Eosinophils # (Auto) 0.0, Basophils # (Auto) 0.0 Microbiology Microbiology 07/05/16 Blood Culture - Preliminary, Resulted No Growth after 72 hours. All specime... 07/05/16 Blood Culture - Preliminary, Resulted No Growth after 72 hours. All specime... 2/1/17 Respiratory Virus Panel (PCR) ([facility]) - Final, Complete Coronavirus Oc43 07/06/16 Urine Culture - Final, Complete LUIS FELIPE SAL DO Jul 10, 2016 14:00
[2016-07-10 18:00] VITALS: BP 138/64
[2016-07-10] MEDS: SIMVASTATIN 40 MG TAB PO SCH (18:15)
[2016-07-10] MEDS: LevoFLOXacin 250 MG TABLET PO SCH (20:54)
[2016-07-10] MEDS: rOPINIRole 1MG TAB PO SCH (20:54)
[2016-07-10] MEDS: traZODone 50 MG TAB PO SCH (20:54)
[2016-07-10] MEDS: MIRTAZAPINE 15 MG TAB PO SCH (20:55)
[2016-07-10] MEDS: **NOTE PATIENT COMMENT** MISC XX SCH (20:56)
[2016-07-10 22:00] VITALS: BP 130/60
[2016-07-11 02:00] VITALS: BP 125/60
[2016-07-11] MEDS: IPRATROPIUM 0.5MG/ALBUTEROL 2.5MG INH SOL UD 3ML (DUONEB)(J7620) NEB SCH ×4 (02:03→18:12)
[2016-07-11 06:00] VITALS: BP 140/65
[2016-07-11 06:20] LABS: BASO % 0.1 % (0.0-1.0); EOS # 0.1 K/mm3 (0.0-0.50); EOS % 0.9 % (0.0-3.0); LARGE UNSTAINED CELL % 0.4 % (0.0-4.0); LYMPH # 0.4 K/mm3 (1.5-4.5); MEAN CORPUSCULAR HEMOGLOBIN 29.1 pg (27.0-33.0); MEAN CORPUSCULAR HGB CONC 30.3 g/dl (32.0-36.5); MEAN CORPUSCULAR VOLUME 96.3 fl (80.0-96.0); MONO # 0.2 K/mm3 (0.0-0.8); MONO % 2.5 % (0.0-5.0); NEUTROPHILS # 8.3 K/mm3 (1.8-7.7); NEUTROPHILS % 92.1 % (36.0-66.0); PLATELET COUNT, AUTOMATED 174 k/mm3 (150-450); RED CELL DISTRIBUTION WIDTH 14.1 % (11.5-14.5)
[2016-07-11 06:39] LABS: ALBUMIN 2.6 GM/DL (3.2-5.2); ALBUMIN/GLOBULIN RATIO 0.84 (1.00-1.93); ALKALINE PHOSPHATASE 59 U/L (45-117); ALT/SGPT 46 U/L (12-78); ANION GAP 4 MEQ/L (8-16); AST/SGOT 26 U/L (15-37); BILIRUBIN,TOTAL 0.3 MG/DL (0.2-1.0); BLOOD UREA NITROGEN 25 MG/DL (7-18); CALCIUM LEVEL 8.3 MG/DL (8.8-10.2); CARBON DIOXIDE LEVEL 38 MEQ/L (21-32); CHLORIDE LEVEL 101 MEQ/L (98-107); CREATININE FOR GFR 0.81 MG/DL (0.55-1.02); GLOMERULAR FILTRATION RATE > 60.0 (>39); GLUCOSE, FASTING 156 MG/DL (83-110); MAGNESIUM LEVEL 2.7 MG/DL (1.8-2.4); POTASSIUM SERUM 4.8 MEQ/L (3.5-5.1); SODIUM LEVEL 143 MEQ/L (136-145); TOTAL PROTEIN 5.7 GM/DL (6.4-8.2)
[2016-07-11] MEDS: methylPREDNISolone INJ 40 MG/1 ML VIAL (J2920) IV SCH ×2 (09:07→20:55)
[2016-07-11] MEDS: ENOXAPARIN 40 MG/0.4 ML SYRINGE (J1650) SC SCH (09:07)
[2016-07-11] MEDS: BENZONATATE 100 MG CAP PO SCH ×3 (09:07→20:55)
[2016-07-11] MEDS: LIDOCAINE 5% (LIDODERM) PATCH TD SCH (09:07)
[2016-07-11] MEDS: MOM 30ML SUSPENSION UDC PO SCH ×2 (09:07→20:56)
[2016-07-11] MEDS: DOCUSATE SODIUM 100 MG CAP PO SCH ×2 (09:08→20:54)
[2016-07-11] MEDS: FOLIC ACID 1 MG TAB PO SCH (09:08)
[2016-07-11] MEDS: ESCITALOPRAM OXALATE 10 MG TAB (LEXAPRO) PO SCH (09:08)
[2016-07-11] MEDS: MIRALAX *UNIT DOSE* 17GM PACKET PO SCH (09:08)
[2016-07-11] MEDS: PANTOPRAZOLE 40MG TAB (PROTONIX) PO SCH (09:08)
[2016-07-11] MEDS: TIOTROPIUM INHALER/CAPSULE (SPIRIVA) INH SCH (09:12)
[2016-07-11] MEDS: ALPRAZolam 0.5 MG TAB PO PRN ×2 (09:16→18:33)
[2016-07-11] MEDS: traMADol 50 MG TAB PO PRN (09:16)
[2016-07-11] MEDS: guaiFENesin ER 600 MG TAB PO PRN (09:16)
[2016-07-11 10:00] VITALS: BP 138/63
[2016-07-11] MEDS: ONDANSETRON 4MG/2ML VIAL (J2405) IV PRN ×2 (12:53→18:01)
[2016-07-11 14:00] VITALS: BP 134/72
[2016-07-11] MEDS: SIMVASTATIN 40 MG TAB PO SCH (17:11)
[2016-07-11 18:00] VITALS: BP 145/80
[2016-07-11] MEDS: MIRTAZAPINE 15 MG TAB PO SCH (20:55)
[2016-07-11] MEDS: rOPINIRole 1MG TAB PO SCH (20:55)
[2016-07-11] MEDS: **NOTE PATIENT COMMENT** MISC XX SCH (20:55)
[2016-07-11] MEDS: LevoFLOXacin 250 MG TABLET PO SCH (20:55)
[2016-07-11] MEDS: traZODone 50 MG TAB PO SCH (20:55)
[2016-07-11 22:00] VITALS: BP 134/83
--- NOTE | 2016-07-11 23:01 | IPNPDOC ---
Assessment/Plan Date Seen The patient was seen on 07/11/16. Problems Problems: (1) Back pain Status: Acute Problem Text: will consult pain management tomorrow (2) Constipation Status: Resolved Problem Text: had one BM yesterday continue colace, milk of mag, miralax (3) Chronic respiratory failure Status: Acute Response to Treatment: Improving Problem Text: in the setting of advanced copd will continue to monitor pt is on her baseline oxygen requirement will continue prednisone continue IS and acapella (4) Coronavirus infection Status: Acute Response to Treatment: Improving Problem Text: * coronavirus is positive * continue to monitor pt * continue duonebs (5) Hypertension Status: Chronic (6) Hypercholesterolemia Status: Chronic (7) Anxiety and depression Status: Chronic (8) COPD exacerbation Status: Chronic Plan / VTE VTE Prophylaxis Ordered?: Yes Subjective Review of Systems CC/HPI The patient is a 76-year-old female admitted with a reason for visit of Copd Exacerbation. Objective Physical Examination General Exam: Positive: No Acute Distress Eye Exam: Positive: PERRLA ENT Exam: Positive: Atraumatic, Mucous membr. moist/pink Chest Exam: Positive: Rales, Rhonchi, Wheezing Heart Exam: Positive: Normal S1, Normal S2, Rate Normal, Regular Rhythm, Negative: Murmurs, Rubs Abdomen Exam: Positive: Normal bowel sounds, Soft, Negative: Hepatospenomegaly, Tenderness Extremity Exam: Positive: Normal pulses, Negative: Clubbing, Cyanosis, Edema Vital Signs/I&O Vital Signs Date Time Temp Pulse Resp B/P Pulse Ox O2 Delivery O2 Flow Rate FiO2 07/11/16 22:05 101 22 95 Nasal Cannula 2.0 07/11/16 22:00 99.0 134/83 I&O- Last 24 Hours up to 6 AM 07/11/16 06:00 Intake Total 1020 ml Output Total 2400 ml Balance -1380 ml Laboratory Data Labs 24H Laboratory Tests 2 07/11/16 05:31: Blood Urea Nitrogen 25H, Creatinine 0.81, Sodium Level 143, Potassium Level 4.8 , Chloride Level 101, Carbon Dioxide Level 38H, Calcium Level 8.3L, Aspartate Amino Transf (AST/SGOT) 26, Alanine Aminotransferase (ALT/SGPT) 46, Alkaline Phosphatase 59, Total Bilirubin 0.3, Total Protein 5.7L, Albumin 2.6L, Albumin/ Globulin Ratio 0.84L, Anion Gap 4L, White Blood Count 9.0, Red Blood Count 3.49L , Hemoglobin 10.2L, Hematocrit 33.6L, Mean Corpuscular Volume 96.3H, Mean Corpuscular Hemoglobin 29.1, Mean Corpuscular Hemoglobin Concent 30.3L, Red Cell Distribution Width 14.1, Platelet Count 174, Neutrophils (%) (Auto) 92.1H, Lymphocytes (%) (Auto) 4.0L, Monocytes (%) (Auto) 2.5, Eosinophils (%) (Auto) 0.9, Basophils (%) (Auto) 0.1, Neutrophils # (Auto) 8.3H, Lymphocytes # (Auto) 0.4L, Monocytes # (Auto) 0.2, Eosinophils # (Auto) 0.1, Basophils # (Auto) 0.0, Glomerular Filtration Rate > 60.0, Large Unclassified Cells # 0.0, Large Unclassified Cells % 0.4, Magnesium Level 2.7H CBC/BMP Laboratory Tests 07/11/16 05:31 Calcium Level 8.3 L, Aspartate Amino Transf (AST/SGOT) 26, Alanine Aminotransferase (ALT/SGPT) 46, Alkaline Phosphatase 59, Total Bilirubin 0.3, Total Protein 5.7 L, Albumin 2.6 L, Red Blood Count 3.49 L, Mean Corpuscular Volume 96.3 H, Mean Corpuscular Hemoglobin 29.1, Mean Corpuscular Hemoglobin Concent 30.3 L, Red Cell Distribution Width 14.1, Neutrophils (%) (Auto) 92.1 H , Lymphocytes (%) (Auto) 4.0 L, Monocytes (%) (Auto) 2.5, Eosinophils (%) (Auto ) 0.9, Basophils (%) (Auto) 0.1, Neutrophils # (Auto) 8.3 H, Lymphocytes # (Auto ) 0.4 L, Monocytes # (Auto) 0.2, Eosinophils # (Auto) 0.1, Basophils # (Auto) 0.0 Microbiology Microbiology 07/05/16 Blood Culture - Final, Complete NO GROWTH AFTER 5 DAYS 07/05/16 Blood Culture - Final, Complete NO GROWTH AFTER 5 DAYS 07/06/16 Respiratory Virus Panel (PCR) ([facility]) - Final, Complete Coronavirus Oc43 07/06/16 Urine Culture - Final, Complete DORON,INGY DO Jul 11, 2016 23:01
[2016-07-12] MEDS: guaiFENesin ER 600 MG TAB PO PRN ×2 (01:48→20:40)
[2016-07-12] MEDS: ONDANSETRON 4MG/2ML VIAL (J2405) IV PRN ×4 (01:53→22:58)
[2016-07-12 02:00] VITALS: BP 135/64
[2016-07-12] MEDS: IPRATROPIUM 0.5MG/ALBUTEROL 2.5MG INH SOL UD 3ML (DUONEB)(J7620) NEB SCH ×4 (02:47→20:00)
[2016-07-12 06:00] VITALS: BP 122/57
[2016-07-12] MEDS: ALPRAZolam 0.5 MG TAB PO PRN ×3 (06:00→23:26)
[2016-07-12 06:01] LABS: EOS # 0.2 K/mm3 (0.0-0.50); EOS % 1.8 % (0.0-3.0); LARGE UNSTAINED CELL % 0.3 % (0.0-4.0); LYMPH # 0.5 K/mm3 (1.5-4.5); LYMPH % 4.6 % (24.0-44.0); MEAN CORPUSCULAR HEMOGLOBIN 29.8 pg (27.0-33.0); MEAN CORPUSCULAR HGB CONC 31.6 g/dl (32.0-36.5); MEAN CORPUSCULAR VOLUME 94.4 fl (80.0-96.0); MONO # 0.4 K/mm3 (0.0-0.8); MONO % 3.5 % (0.0-5.0); NEUTROPHILS # 8.8 K/mm3 (1.8-7.7); NEUTROPHILS % 89.8 % (36.0-66.0); PLATELET COUNT, AUTOMATED 190 k/mm3 (150-450); WHITE BLOOD COUNT 9.8 K/mm3 (4.0-10.0)
[2016-07-12] MEDS: traMADol 50 MG TAB PO PRN (06:03)
[2016-07-12 06:24] LABS: ALBUMIN 2.7 GM/DL (3.2-5.2); ALKALINE PHOSPHATASE 60 U/L (45-117); ALT/SGPT 46 U/L (12-78); ANION GAP 3 MEQ/L (8-16); AST/SGOT 26 U/L (15-37); BILIRUBIN,TOTAL 0.3 MG/DL (0.2-1.0); BLOOD UREA NITROGEN 29 MG/DL (7-18); CALCIUM LEVEL 8.1 MG/DL (8.8-10.2); CARBON DIOXIDE LEVEL 39 MEQ/L (21-32); CHLORIDE LEVEL 102 MEQ/L (98-107); CREATININE FOR GFR 0.88 MG/DL (0.55-1.02); GLOMERULAR FILTRATION RATE > 60.0 (>39); GLUCOSE, FASTING 147 MG/DL (83-110); MAGNESIUM LEVEL 2.6 MG/DL (1.8-2.4); POTASSIUM SERUM 4.5 MEQ/L (3.5-5.1); SODIUM LEVEL 144 MEQ/L (136-145); TOTAL PROTEIN 5.7 GM/DL (6.4-8.2)
[2016-07-12] MEDS: ENOXAPARIN 40 MG/0.4 ML SYRINGE (J1650) SC SCH (08:24)
[2016-07-12] MEDS: predniSONE 20 MG TAB PO SCH (08:24)
[2016-07-12] MEDS: ESCITALOPRAM OXALATE 10 MG TAB (LEXAPRO) PO SCH (08:24)
[2016-07-12] MEDS: BENZONATATE 100 MG CAP PO SCH ×3 (08:25→20:41)
[2016-07-12] MEDS: LIDOCAINE 5% (LIDODERM) PATCH TD SCH (08:25)
[2016-07-12] MEDS: MOM 30ML SUSPENSION UDC PO SCH ×2 (08:25→20:41)
[2016-07-12] MEDS: PANTOPRAZOLE 40MG TAB (PROTONIX) PO SCH (08:25)
[2016-07-12] MEDS: FOLIC ACID 1 MG TAB PO SCH (08:25)
[2016-07-12] MEDS: DOCUSATE SODIUM 100 MG CAP PO SCH ×2 (08:25→20:41)
[2016-07-12] MEDS: MIRALAX *UNIT DOSE* 17GM PACKET PO SCH (08:26)
[2016-07-12] MEDS: TIOTROPIUM INHALER/CAPSULE (SPIRIVA) INH SCH (08:46)
[2016-07-12 10:00] VITALS: BP 129/59
[2016-07-12] MEDS: BUDESONIDE 0.5 MG/2 ML INHALATION SUSPENSION INH SCH ×2 (10:38→20:50)
[2016-07-12] MEDS: FORMOTEROL FUMARATE 20 MCG/2 ML INHALATION SOLUTION (PERFOROMIST) INH SCH ×2 (10:38→20:50)
--- NOTE | 2016-07-12 12:46 | IPNPDOC ---
Subjective Date Seen The patient was seen on 07/12/16. Review of Systems CC/HPI The patient is a 76-year-old female admitted with a reason for visit of Copd Exacerbation. Events since last encounter continues to complain of rib cage pain , difficulty in moving, continues to have sob , has cough now dry , no abdominal pain or nausea or vomiting. Objective Physical Examination General Exam: Positive: No Acute Distress Eye Exam: Positive: PERRLA ENT Exam: Positive: Atraumatic, Mucous membr. moist/pink Chest Exam: Positive: Rales, Rhonchi, Wheezing Heart Exam: Positive: Normal S1, Normal S2, Rate Normal, Regular Rhythm, Negative: Murmurs, Rubs Abdomen Exam: Positive: Normal bowel sounds, Soft, Negative: Hepatospenomegaly, Tenderness Extremity Exam: Positive: Normal pulses, Negative: Clubbing, Cyanosis, Edema Assessment/Plan Problems (1) Coronavirus infection Status: Acute Response to Treatment: Improving Problem Text: * coronavirus is positive * continue to monitor pt * continue duonebs (2) Back pain Status: Chronic Problem Text: now worse. will continue with tramadol. lidoderm patch. will get thoracic and l-s xray. will start ketorolac. (3) COPD exacerbation Status: Acute Problem Text: due to viral respiratory tract infection. continue with the prednisone and nebulizations. (4) Chronic respiratory failure with hypoxia and hypercapnia Status: Chronic Problem Text: in the setting of advanced copd will continue to monitor pt is on her baseline oxygen requirement will continue prednisone continue IS and acapella (5) Constipation Status: Resolved Problem Text: continue colace, milk of mag, miralax (6) Hypertension Status: Chronic (7) Hypercholesterolemia Status: Chronic (8) Anxiety and depression Status: Chronic Plan/VTE VTE Prophylaxis Ordered?: Yes VS, I&O, 24H, Fishbone VS, I&O, 24H, Fishbone Vital Signs Date Time Temp Pulse Resp B/P Pulse Ox O2 Delivery O2 Flow Rate FiO2 07/12/16 10:00 98.2 94 20 129/59 95 Nasal Cannula 2.0 I&O- Last 24 Hours up to 6 AM 07/12/16 06:00 Intake Total 1020 ml Output Total 950 ml Balance 70 ml Laboratory Tests 2 07/12/16 05:52: Blood Urea Nitrogen 29H, Creatinine 0.88, Sodium Level 144, Potassium Level 4.5 , Chloride Level 102, Carbon Dioxide Level 39H, Calcium Level 8.1L, Aspartate Amino Transf (AST/SGOT) 26, Alanine Aminotransferase (ALT/SGPT) 46, Alkaline Phosphatase 60, Total Bilirubin 0.3, Total Protein 5.7L, Albumin 2.7L, Albumin/ Globulin Ratio 0.90L, Anion Gap 3L, White Blood Count 9.8, Red Blood Count 3.51L , Hemoglobin 10.5L, Hematocrit 33.1L, Mean Corpuscular Volume 94.4, Mean Corpuscular Hemoglobin 29.8, Mean Corpuscular Hemoglobin Concent 31.6L, Red Cell Distribution Width 14.0, Platelet Count 190, Neutrophils (%) (Auto) 89.8H, Lymphocytes (%) (Auto) 4.6L, Monocytes (%) (Auto) 3.5, Eosinophils (%) (Auto) 1.8, Basophils (%) (Auto) 0.0, Neutrophils # (Auto) 8.8H, Lymphocytes # (Auto) 0.5L, Monocytes # (Auto) 0.4, Eosinophils # (Auto) 0.2, Basophils # (Auto) 0.0, Glomerular Filtration Rate > 60.0, Large Unclassified Cells # 0.0, Large Unclassified Cells % 0.3, Magnesium Level 2.6H Laboratory Tests 07/12/16 05:52 Calcium Level 8.1 L, Aspartate Amino Transf (AST/SGOT) 26, Alanine Aminotransferase (ALT/SGPT) 46, Alkaline Phosphatase 60, Total Bilirubin 0.3, Total Protein 5.7 L, Albumin 2.7 L, Red Blood Count 3.51 L, Mean Corpuscular Volume 94.4, Mean Corpuscular Hemoglobin 29.8, Mean Corpuscular Hemoglobin Concent 31.6 L, Red Cell Distribution Width 14.0, Neutrophils (%) (Auto) 89.8 H , Lymphocytes (%) (Auto) 4.6 L, Monocytes (%) (Auto) 3.5, Eosinophils (%) (Auto ) 1.8, Basophils (%) (Auto) 0.0, Neutrophils # (Auto) 8.8 H, Lymphocytes # (Auto ) 0.5 L, Monocytes # (Auto) 0.4, Eosinophils # (Auto) 0.2, Basophils # (Auto) 0.0 Microbiology 07/05/16 Blood Culture - Final, Complete NO GROWTH AFTER 5 DAYS 07/05/16 Blood Culture - Final, Complete NO GROWTH AFTER 5 DAYS 07/06/16 Respiratory Virus Panel (PCR) ([facility]) - Final, Complete Coronavirus Oc43 07/06/16 Urine Culture - Final, Complete LIZZY CANAS MD Jul 12, 2016 12:46
[2016-07-12] MEDS: KETOROLAC 30 MG/ML VIAL (J1885) IV SCH ×2 (13:36→20:41)
--- NOTE | 2016-07-12 13:59 | REP ---
Thoracic spine four views: Comparisons are the PA and lateral views of the chest dated 07/05/2016 and 11/17/[address] dated 01/06/2015. There is scoliosis convex left at the thoracolumbar junction, unchanged. There is diffuse demineralization, unchanged. There is mild anterior wedging this is grade 1 compression) of the T7 vertebral body, unchanged from the prior studies. Vertebral body heights are otherwise normal. Alignment is normal. The pedicles are unremarkable. Impression: Scoliosis. Demineralization. Chronic grade 1 wedge-shaped compression of the T7 vertebral body. Signed by Paul Allen MD 07/12/2016 01:51 P
[2016-07-12 14:00] VITALS: BP 138/68
--- NOTE | 2016-07-12 14:03 | REP ---
Lumbar spine five views: Comparison is 12/01/2014. There is mild scoliosis convex left at the thoracolumbar junction, unchanged. Vertebral body heights, interspacing alignment are normal. There is no spondylolysis or spondylolisthesis. The pedicles are unremarkable. There is facet osteoarthritis, particularly at the lower lumbar levels. Sacroiliac articulations are unremarkable. There are surgical staple lines in the abdomen on the left and in the pelvis in the midline compatible with bowel surgery, unchanged. There is only a stasis clips in the midline of the upper abdomen, unchanged. Impression: Scoliosis, otherwise negative lumbar spine. There are postsurgical changes in the abdomen as described. No significant interval change. Signed by Paul Allen MD 07/12/2016 01:55 P
[2016-07-12] MEDS: IPRATROPIUM 0.5MG/ALBUTEROL 2.5MG INH SOL UD 3ML (DUONEB)(J7620) NEB PRN (16:25)
[2016-07-12 18:00] VITALS: BP 153/69
[2016-07-12] MEDS: SIMVASTATIN 40 MG TAB PO SCH (18:17)
[2016-07-12] MEDS: rOPINIRole 1MG TAB PO SCH (20:40)
[2016-07-12] MEDS: MIRTAZAPINE 15 MG TAB PO SCH (20:40)
[2016-07-12] MEDS: LevoFLOXacin 250 MG TABLET PO SCH (20:41)
[2016-07-12] MEDS: traZODone 50 MG TAB PO SCH (20:41)
[2016-07-12] MEDS: **NOTE PATIENT COMMENT** MISC XX SCH (20:42)
[2016-07-12 22:00] VITALS: BP 152/72
[2016-07-13] MEDS: IPRATROPIUM 0.5MG/ALBUTEROL 2.5MG INH SOL UD 3ML (DUONEB)(J7620) NEB SCH ×4 (01:30→20:00)
[2016-07-13 02:00] VITALS: BP 129/59
[2016-07-13] MEDS: KETOROLAC 30 MG/ML VIAL (J1885) IV SCH ×3 (04:12→21:01)
[2016-07-13] MEDS: ONDANSETRON 4MG/2ML VIAL (J2405) IV PRN ×4 (04:12→17:05)
[2016-07-13 06:00] VITALS: BP 137/61
[2016-07-13 08:00] LABS: BASO % 0.2 % (0.0-1.0); EOS # 0.1 K/mm3 (0.0-0.50); EOS % 1.1 % (0.0-3.0); LARGE UNSTAINED CELL # 0.1 K/mm3 (0.0-0.4); LARGE UNSTAINED CELL % 0.6 % (0.0-4.0); LYMPH # 1.7 K/mm3 (1.5-4.5); LYMPH % 16.3 % (24.0-44.0); MEAN CORPUSCULAR HEMOGLOBIN 29.6 pg (27.0-33.0); MEAN CORPUSCULAR HGB CONC 31.5 g/dl (32.0-36.5); MONO # 0.2 K/mm3 (0.0-0.8); MONO % 2.2 % (0.0-5.0); NEUTROPHILS # 8.3 K/mm3 (1.8-7.7); NEUTROPHILS % 79.6 % (36.0-66.0); PLATELET COUNT, AUTOMATED 175 k/mm3 (150-450); RED CELL DISTRIBUTION WIDTH 13.9 % (11.5-14.5); WHITE BLOOD COUNT 10.5 K/mm3 (4.0-10.0)
[2016-07-13] MEDS: TIOTROPIUM INHALER/CAPSULE (SPIRIVA) INH SCH (08:29)
[2016-07-13] MEDS: BUDESONIDE 0.5 MG/2 ML INHALATION SUSPENSION INH SCH ×2 (08:29→20:00)
[2016-07-13] MEDS: FORMOTEROL FUMARATE 20 MCG/2 ML INHALATION SOLUTION (PERFOROMIST) INH SCH ×2 (08:29→20:00)
[2016-07-13 08:30] LABS: ANION GAP 3 MEQ/L (8-16); BLOOD UREA NITROGEN 30 MG/DL (7-18); CARBON DIOXIDE LEVEL 39 MEQ/L (21-32); CHLORIDE LEVEL 101 MEQ/L (98-107); CREATININE FOR GFR 0.93 MG/DL (0.55-1.02); GLOMERULAR FILTRATION RATE > 60.0 (>39); GLUCOSE, FASTING 97 MG/DL (83-110); POTASSIUM SERUM 4.3 MEQ/L (3.5-5.1); SODIUM LEVEL 143 MEQ/L (136-145)
[2016-07-13] MEDS: LIDOCAINE 5% (LIDODERM) PATCH TD SCH (08:43)
[2016-07-13] MEDS: ENOXAPARIN 40 MG/0.4 ML SYRINGE (J1650) SC SCH (08:43)
[2016-07-13] MEDS: FOLIC ACID 1 MG TAB PO SCH (08:44)
[2016-07-13] MEDS: ESCITALOPRAM OXALATE 10 MG TAB (LEXAPRO) PO SCH (08:44)
[2016-07-13] MEDS: DOCUSATE SODIUM 100 MG CAP PO SCH ×2 (08:44→21:00)
[2016-07-13] MEDS: BENZONATATE 100 MG CAP PO SCH ×3 (08:44→21:01)
[2016-07-13] MEDS: MOM 30ML SUSPENSION UDC PO SCH ×2 (08:44→21:00)
[2016-07-13] MEDS: PANTOPRAZOLE 40MG TAB (PROTONIX) PO SCH (08:44)
[2016-07-13] MEDS: MIRALAX *UNIT DOSE* 17GM PACKET PO SCH (08:44)
[2016-07-13] MEDS: predniSONE 20 MG TAB PO SCH (08:44)
[2016-07-13 10:00] VITALS: BP 120/56
--- NOTE | 2016-07-13 12:01 | IPNPDOC ---
Subjective General Date Seen The patient was seen on 07/13/16. Chief Complaint/HPI The patient is a 76-year-old female admitted with a reason for visit of Copd Exacerbation. Subjective Events since last encounter bodyache better, walking more in the room , shortness of breath no change seems to be dulce or less at baseline, no fever or chills, chest and back pain improving , no abdominal pain but did have some nausea and one episode of vomiting this am. Objective Physical Examination General Exam: Positive: No Acute Distress Eye Exam: Positive: PERRLA ENT Exam: Positive: Atraumatic, Mucous membr. moist/pink Chest Exam: Positive: Rales, Rhonchi, Wheezing Heart Exam: Positive: Normal S1, Normal S2, Rate Normal, Regular Rhythm, Negative: Murmurs, Rubs Abdomen Exam: Positive: Normal bowel sounds, Soft, Negative: Hepatospenomegaly, Tenderness Extremity Exam: Positive: Normal pulses, Negative: Clubbing, Cyanosis, Edema Assessment /Plan Problems Problems: (1) Coronavirus infection Status: Acute Response to Treatment: Improving Problem Text: * coronavirus is positive * continue to monitor pt * continue duonebs (2) Back pain Status: Chronic Problem Text: now worse. will continue with tramadol. lidoderm patch. will start ketorolac. Xray showed scoliosis no acute fracture or compression of the thoracic or lumber spine. (3) COPD exacerbation Status: Acute Problem Text: due to viral respiratory tract infection. continue with the prednisone and nebulizations. (4) Chronic respiratory failure with hypoxia and hypercapnia Status: Chronic Problem Text: in the setting of advanced copd will continue to monitor pt is on her baseline oxygen requirement will continue prednisone continue IS and acapella (5) Constipation Status: Resolved Problem Text: continue colace, milk of mag, miralax (6) Hypertension Status: Chronic (7) Hypercholesterolemia Status: Chronic (8) Anxiety and depression Status: Chronic Plan/VTE VTE Prophylaxis Ordered?: Yes VS, I&O, 24H, Fishbone Vital Signs/I&O Vital Signs Date Time Temp Pulse Resp B/P Pulse Ox O2 Delivery O2 Flow Rate FiO2 07/13/16 10:00 97.7 95 18 120/56 95 Nasal Cannula 2.0 I&O- Last 24 Hours up to 6 AM 07/13/16 06:00 Intake Total 520 ml Output Total 200 ml Balance 320 ml Laboratory Data 24H LABS Laboratory Tests 2 07/13/16 07:51: Anion Gap 3L, White Blood Count 10.5H, Red Blood Count 3.45L, Hemoglobin 10.2L, Hematocrit 32.4L, Mean Corpuscular Volume 94.0, Mean Corpuscular Hemoglobin 29.6 , Mean Corpuscular Hemoglobin Concent 31.5L, Red Cell Distribution Width 13.9, Platelet Count 175, Neutrophils (%) (Auto) 79.6H, Lymphocytes (%) (Auto) 16.3L, Monocytes (%) (Auto) 2.2, Eosinophils (%) (Auto) 1.1, Basophils (%) (Auto) 0.2, Neutrophils # (Auto) 8.3H, Lymphocytes # (Auto) 1.7, Monocytes # (Auto) 0.2, Eosinophils # (Auto) 0.1, Basophils # (Auto) 0.0, Blood Urea Nitrogen 30H, Creatinine 0.93, Sodium Level 143, Potassium Level 4.3, Chloride Level 101, Carbon Dioxide Level 39H, Calcium Level 8.0L, Glomerular Filtration Rate > 60.0 , Large Unclassified Cells # 0.1, Large Unclassified Cells % 0.6 CBC/BMP Laboratory Tests 07/13/16 07:51 Calcium Level 8.0 L, Red Blood Count 3.45 L, Mean Corpuscular Volume 94.0, Mean Corpuscular Hemoglobin 29.6, Mean Corpuscular Hemoglobin Concent 31.5 L, Red Cell Distribution Width 13.9, Neutrophils (%) (Auto) 79.6 H, Lymphocytes (%) ( Auto) 16.3 L, Monocytes (%) (Auto) 2.2, Eosinophils (%) (Auto) 1.1, Basophils (% ) (Auto) 0.2, Neutrophils # (Auto) 8.3 H, Lymphocytes # (Auto) 1.7, Monocytes # (Auto) 0.2, Eosinophils # (Auto) 0.1, Basophils # (Auto) 0.0 Microbiology Microbiology 07/05/16 Blood Culture - Final, Complete NO GROWTH AFTER 5 DAYS 07/05/16 Blood Culture - Final, Complete NO GROWTH AFTER 5 DAYS 07/06/16 Respiratory Virus Panel (PCR) ([facility]) - Final, Complete Coronavirus Oc43 07/06/16 Urine Culture - Final, Complete LIZZY CANAS MD Jul 13, 2016 12:01
[2016-07-13] MEDS: FAMOTIDINE IV BAG 20 MG in APPROPRIATE DILUENT 1 EA IV SCH (13:52)
[2016-07-13] MEDS: ALPRAZolam 0.5 MG TAB PO PRN (17:05)
[2016-07-13] MEDS: SIMVASTATIN 40 MG TAB PO SCH (17:05)
[2016-07-13 18:00] VITALS: BP 135/64
[2016-07-13] MEDS: **NOTE PATIENT COMMENT** MISC XX SCH (21:00)
[2016-07-13] MEDS: MIRTAZAPINE 15 MG TAB PO SCH (21:01)
[2016-07-13] MEDS: rOPINIRole 1MG TAB PO SCH (21:01)
[2016-07-13] MEDS: traZODone 50 MG TAB PO SCH (21:01)
[2016-07-13 22:00] VITALS: BP 134/68
[2016-07-14] MEDS: FAMOTIDINE IV BAG 20 MG in APPROPRIATE DILUENT 1 EA IV SCH ×2 (00:42→13:27)
[2016-07-14] MEDS: ALPRAZolam 0.5 MG TAB PO PRN ×3 (00:43→22:40)
[2016-07-14] MEDS: IPRATROPIUM 0.5MG/ALBUTEROL 2.5MG INH SOL UD 3ML (DUONEB)(J7620) NEB SCH ×4 (01:57→20:00)
[2016-07-14 02:00] VITALS: BP 148/78
[2016-07-14] MEDS: ONDANSETRON 4MG/2ML VIAL (J2405) IV PRN ×2 (03:07→08:55)
[2016-07-14] MEDS: traMADol 50 MG TAB PO PRN (03:10)
[2016-07-14] MEDS: KETOROLAC 30 MG/ML VIAL (J1885) IV SCH (05:45)
[2016-07-14 06:00] VITALS: BP 127/62
[2016-07-14 06:24] LABS: BASO % 0.2 % (0.0-1.0); EOS # 0.1 K/mm3 (0.0-0.50); EOS % 0.8 % (0.0-3.0); LARGE UNSTAINED CELL % 0.4 % (0.0-4.0); LYMPH # 1.3 K/mm3 (1.5-4.5); LYMPH % 12.8 % (24.0-44.0); MEAN CORPUSCULAR HEMOGLOBIN 29.2 pg (27.0-33.0); MEAN CORPUSCULAR VOLUME 94.4 fl (80.0-96.0); MONO # 0.3 K/mm3 (0.0-0.8); MONO % 3.3 % (0.0-5.0); NEUTROPHILS # 8.1 K/mm3 (1.8-7.7); NEUTROPHILS % 82.5 % (36.0-66.0); PLATELET COUNT, AUTOMATED 189 k/mm3 (150-450); RED CELL DISTRIBUTION WIDTH 14.3 % (11.5-14.5); WHITE BLOOD COUNT 9.8 K/mm3 (4.0-10.0)
[2016-07-14 06:42] LABS: CALCIUM LEVEL 7.6 MG/DL (8.8-10.2); CREATININE FOR GFR 0.97 MG/DL (0.55-1.02); GLOMERULAR FILTRATION RATE 59.4 (>39)
[2016-07-14] MEDS: ESCITALOPRAM OXALATE 10 MG TAB (LEXAPRO) PO SCH (08:55)
[2016-07-14] MEDS: PANTOPRAZOLE 40MG TAB (PROTONIX) PO SCH (08:55)
[2016-07-14] MEDS: BENZONATATE 100 MG CAP PO SCH ×3 (08:55→20:26)
[2016-07-14] MEDS: FOLIC ACID 1 MG TAB PO SCH (08:55)
[2016-07-14] MEDS: MOM 30ML SUSPENSION UDC PO SCH ×2 (08:56→20:27)
[2016-07-14] MEDS: DOCUSATE SODIUM 100 MG CAP PO SCH ×2 (08:56→20:27)
[2016-07-14] MEDS: LIDOCAINE 5% (LIDODERM) PATCH TD SCH (08:57)
[2016-07-14] MEDS: MIRALAX *UNIT DOSE* 17GM PACKET PO SCH (08:57)
[2016-07-14] MEDS: ENOXAPARIN 40 MG/0.4 ML SYRINGE (J1650) SC SCH (08:57)
[2016-07-14] MEDS ORDERED: predniSONE 10 MG TAB PO SCH (09:00)
[2016-07-14] MEDS: FORMOTEROL FUMARATE 20 MCG/2 ML INHALATION SOLUTION (PERFOROMIST) INH SCH ×2 (09:06→20:16)
[2016-07-14] MEDS: TIOTROPIUM INHALER/CAPSULE (SPIRIVA) INH SCH (09:06)
[2016-07-14] MEDS: BUDESONIDE 0.5 MG/2 ML INHALATION SUSPENSION INH SCH ×2 (09:06→20:16)
[2016-07-14 10:00] VITALS: BP 132/58
[2016-07-14] MEDS: METOCLOPRAMIDE INJ 10MG/2ML VIAL (J2765) IV SCH ×3 (11:41→22:39)
--- NOTE | 2016-07-14 13:21 | IPNPDOC ---
Subjective General Date Seen The patient was seen on 07/14/16. Subjective Chief Complaint/HPI The patient is a 76-year-old female admitted with a reason for visit of Copd Exacerbation. Events since last encounter complains of nausea and dry heaves all though out the day for the past 3 days, no vomiting, no fever or chills, body ache getting better, denies any shortness of breath, denies any cough or phlegm , has some chest pain on deep breaths. Objective Physical Examination General Exam: Positive: No Acute Distress Eye Exam: Positive: PERRLA ENT Exam: Positive: Atraumatic, Mucous membr. moist/pink Chest Exam: Positive: Rales, Rhonchi, Wheezing Heart Exam: Positive: Normal S1, Normal S2, Rate Normal, Regular Rhythm, Negative: Murmurs, Rubs Abdomen Exam: Positive: Normal bowel sounds, Soft, Negative: Hepatospenomegaly, Tenderness Extremity Exam: Positive: Normal pulses, Negative: Clubbing, Cyanosis, Edema Assessment /Plan Problems Problems: (1) Nausea Status: Acute Problem Text: could be part of the viral infection or medication related . antibiotics, steroids, NSAIDS all could potentially cause nausea . patient has finished the antibiotics, steroids are being rapidly tapered and routine NSAIDS have been stopped . Will start patient routine zofran and reglan. continue PPI and famotidine. (2) Coronavirus infection Status: Acute Response to Treatment: Improving Problem Text: * coronavirus is positive * continue to monitor pt * continue duonebs (3) Back pain Status: Chronic Problem Text: now worse. will continue with tramadol. lidoderm patch. will start ketorolac. Xray showed scoliosis no acute fracture or compression of the thoracic or lumber spine. (4) COPD exacerbation Status: Acute Problem Text: due to viral respiratory tract infection. continue with the prednisone and nebulizations. (5) Chronic respiratory failure with hypoxia and hypercapnia Status: Chronic Problem Text: in the setting of advanced copd will continue to monitor pt is on her baseline oxygen requirement will continue prednisone continue IS and acapella (6) Constipation Status: Resolved Problem Text: continue colace, milk of mag, miralax (7) Hypertension Status: Chronic (8) Hypercholesterolemia Status: Chronic (9) Anxiety and depression Status: Chronic Plan/VTE VTE Prophylaxis Ordered?: Yes VS, I&O, 24H, Fishbone Vital Signs/I&O Vital Signs Date Time Temp Pulse Resp B/P Pulse Ox O2 Delivery O2 Flow Rate FiO2 07/14/16 10:00 97.9 92 18 132/58 97 Nasal Cannula 2.0 I&O- Last 24 Hours up to 6 AM 07/14/16 06:00 Intake Total 1060 ml Output Total 700 ml Balance 360 ml Laboratory Data 24H LABS Laboratory Tests 2 07/14/16 05:53: Anion Gap 8, White Blood Count 9.8, Red Blood Count 3.41L, Hemoglobin 10.0L, Hematocrit 32.1L, Mean Corpuscular Volume 94.4, Mean Corpuscular Hemoglobin 29.2 , Mean Corpuscular Hemoglobin Concent 31.0L, Red Cell Distribution Width 14.3, Platelet Count 189, Neutrophils (%) (Auto) 82.5H, Lymphocytes (%) (Auto) 12.8L, Monocytes (%) (Auto) 3.3, Eosinophils (%) (Auto) 0.8, Basophils (%) (Auto) 0.2, Neutrophils # (Auto) 8.1H, Lymphocytes # (Auto) 1.3L, Monocytes # (Auto) 0.3, Eosinophils # (Auto) 0.1, Basophils # (Auto) 0.0, Blood Urea Nitrogen 27H, Creatinine 0.97, Sodium Level 144, Potassium Level 4.0, Chloride Level 102, Carbon Dioxide Level 34H, Calcium Level 7.6L, Glomerular Filtration Rate 59.4, Large Unclassified Cells # 0.0, Large Unclassified Cells % 0.4 CBC/BMP Laboratory Tests 07/14/16 05:53 Calcium Level 7.6 L, Red Blood Count 3.41 L, Mean Corpuscular Volume 94.4, Mean Corpuscular Hemoglobin 29.2, Mean Corpuscular Hemoglobin Concent 31.0 L, Red Cell Distribution Width 14.3, Neutrophils (%) (Auto) 82.5 H, Lymphocytes (%) ( Auto) 12.8 L, Monocytes (%) (Auto) 3.3, Eosinophils (%) (Auto) 0.8, Basophils (% ) (Auto) 0.2, Neutrophils # (Auto) 8.1 H, Lymphocytes # (Auto) 1.3 L, Monocytes # (Auto) 0.3, Eosinophils # (Auto) 0.1, Basophils # (Auto) 0.0 Microbiology Microbiology 07/05/16 Blood Culture - Final, Complete NO GROWTH AFTER 5 DAYS 07/05/16 Blood Culture - Final, Complete NO GROWTH AFTER 5 DAYS 07/06/16 Respiratory Virus Panel (PCR) ([facility]) - Final, Complete Coronavirus Oc43 07/06/16 Urine Culture - Final, Complete LIZZY CANAS MD Jul 14, 2016 13:21
[2016-07-14] MEDS: ACETAMINOPHEN 500 MG TAB PO SCH ×2 (13:27→22:40)
[2016-07-14 14:00] VITALS: BP 142/70
[2016-07-14] MEDS: ONDANSETRON 4 MG ORAL DISINTEGRATING TAB (S0181) PO SCH ×2 (15:24→20:26)
[2016-07-14] MEDS: KETOROLAC 30 MG/ML VIAL (J1885) IV PRN (16:25)
[2016-07-14] MEDS: SIMVASTATIN 40 MG TAB PO SCH (17:29)
[2016-07-14 18:00] VITALS: BP 122/70
[2016-07-14] MEDS: MIRTAZAPINE 15 MG TAB PO SCH (20:25)
[2016-07-14] MEDS: traZODone 50 MG TAB PO SCH (20:26)
[2016-07-14] MEDS: **NOTE PATIENT COMMENT** MISC XX SCH (20:26)
[2016-07-14] MEDS: rOPINIRole 1MG TAB PO SCH (20:26)
[2016-07-14 22:00] VITALS: BP 133/68
[2016-07-15] MEDS: FAMOTIDINE IV BAG 20 MG in APPROPRIATE DILUENT 1 EA IV SCH ×2 (01:58→13:55)
[2016-07-15 02:00] VITALS: BP 112/57
[2016-07-15] MEDS: IPRATROPIUM 0.5MG/ALBUTEROL 2.5MG INH SOL UD 3ML (DUONEB)(J7620) NEB SCH ×4 (02:00→20:00)
[2016-07-15] MEDS: KETOROLAC 30 MG/ML VIAL (J1885) IV PRN ×2 (03:02→11:26)
[2016-07-15] MEDS: METOCLOPRAMIDE INJ 10MG/2ML VIAL (J2765) IV SCH ×4 (05:08→23:24)
[2016-07-15] MEDS: ACETAMINOPHEN 500 MG TAB PO SCH ×3 (05:09→20:57)
[2016-07-15 06:00] VITALS: BP 132/64
[2016-07-15 07:00] LABS: BASO % 0.1 % (0.0-1.0); EOS # 0.1 K/mm3 (0.0-0.50); EOS % 0.6 % (0.0-3.0); LARGE UNSTAINED CELL # 0.1 K/mm3 (0.0-0.4); LARGE UNSTAINED CELL % 0.8 % (0.0-4.0); LYMPH # 1.6 K/mm3 (1.5-4.5); LYMPH % 13.2 % (24.0-44.0); MEAN CORPUSCULAR HEMOGLOBIN 29.6 pg (27.0-33.0); MEAN CORPUSCULAR HGB CONC 30.7 g/dl (32.0-36.5); MEAN CORPUSCULAR VOLUME 96.4 fl (80.0-96.0); MONO # 0.2 K/mm3 (0.0-0.8); MONO % 1.9 % (0.0-5.0); NEUTROPHILS # 10.4 K/mm3 (1.8-7.7); NEUTROPHILS % 83.4 % (36.0-66.0); PLATELET COUNT, AUTOMATED 206 k/mm3 (150-450); WHITE BLOOD COUNT 12.4 K/mm3 (4.0-10.0)
[2016-07-15 07:21] LABS: CALCIUM LEVEL 7.4 MG/DL (8.8-10.2); CREATININE FOR GFR 1.05 MG/DL (0.55-1.02); GLOMERULAR FILTRATION RATE 54.2 (>39); POTASSIUM SERUM 3.9 MEQ/L (3.5-5.1)
[2016-07-15] MEDS: BUDESONIDE 0.5 MG/2 ML INHALATION SUSPENSION INH SCH ×2 (08:44→19:18)
[2016-07-15] MEDS: TIOTROPIUM INHALER/CAPSULE (SPIRIVA) INH SCH (08:44)
[2016-07-15] MEDS: FORMOTEROL FUMARATE 20 MCG/2 ML INHALATION SOLUTION (PERFOROMIST) INH SCH ×2 (08:44→19:18)
[2016-07-15] MEDS: ENOXAPARIN 40 MG/0.4 ML SYRINGE (J1650) SC SCH (09:34)
[2016-07-15] MEDS: ALPRAZolam 0.5 MG TAB PO PRN ×2 (09:34→20:58)
[2016-07-15] MEDS: DOCUSATE SODIUM 100 MG CAP PO SCH ×2 (09:34→20:58)
[2016-07-15] MEDS: BENZONATATE 100 MG CAP PO SCH ×3 (09:34→20:56)
[2016-07-15] MEDS: MOM 30ML SUSPENSION UDC PO SCH ×2 (09:34→20:58)
[2016-07-15] MEDS: MIRALAX *UNIT DOSE* 17GM PACKET PO SCH (09:34)
[2016-07-15] MEDS: LIDOCAINE 5% (LIDODERM) PATCH TD SCH (09:34)
[2016-07-15] MEDS: ESCITALOPRAM OXALATE 10 MG TAB (LEXAPRO) PO SCH (09:35)
[2016-07-15] MEDS: ONDANSETRON 4 MG ORAL DISINTEGRATING TAB (S0181) PO SCH ×3 (09:35→20:57)
[2016-07-15] MEDS: FOLIC ACID 1 MG TAB PO SCH (09:35)
[2016-07-15] MEDS: PANTOPRAZOLE 40MG TAB (PROTONIX) PO SCH (09:35)
[2016-07-15] MEDS: predniSONE 10 MG TAB PO SCH (09:35)
[2016-07-15 10:00] VITALS: BP 120/59
--- NOTE | 2016-07-15 10:51 | IPNPDOC ---
Subjective General Date Seen The patient was seen on 07/15/16. Subjective Chief Complaint/HPI The patient is a 76-year-old female admitted with a reason for visit of Copd Exacerbation. Events since last encounter continues to have persistent nausea and dry heaves, still very weak and tired. breathing better , overall body aches better. Objective Physical Examination General Exam: Positive: No Acute Distress Eye Exam: Positive: PERRLA ENT Exam: Positive: Atraumatic, Mucous membr. moist/pink Chest Exam: Positive: Rales, Rhonchi, Wheezing Heart Exam: Positive: Normal S1, Normal S2, Rate Normal, Regular Rhythm, Negative: Murmurs, Rubs Abdomen Exam: Positive: Normal bowel sounds, Soft, Negative: Hepatospenomegaly, Tenderness Extremity Exam: Positive: Normal pulses, Negative: Clubbing, Cyanosis, Edema Assessment /Plan Problems Problems: (1) Nausea Status: Acute Problem Text: could be part of the viral infection or medication related . antibiotics, steroids, NSAIDS all could potentially cause nausea . patient has finished the antibiotics, steroids are being rapidly tapered and routine NSAIDS have been stopped . Will start patient routine zofran and reglan. continue PPI and famotidine. (2) Coronavirus infection Status: Acute Response to Treatment: Improving Problem Text: * coronavirus is positive * continue to monitor pt * continue duonebs (3) Back pain Status: Chronic Problem Text: now worse. will continue with tramadol. lidoderm patch. will start ketorolac. Xray showed scoliosis no acute fracture or compression of the thoracic or lumber spine. (4) COPD exacerbation Status: Acute Problem Text: due to viral respiratory tract infection. continue with the prednisone and nebulizations. (5) Chronic respiratory failure with hypoxia and hypercapnia Status: Chronic Problem Text: in the setting of advanced copd will continue to monitor pt is on her baseline oxygen requirement will continue prednisone continue IS and acapella (6) Constipation Status: Resolved Problem Text: continue colace, milk of mag, miralax (7) Hypertension Status: Chronic (8) Hypercholesterolemia Status: Chronic (9) Anxiety and depression Status: Chronic Plan/VTE VTE Prophylaxis Ordered?: Yes VS, I&O, 24H, Fishbone Vital Signs/I&O Vital Signs Date Time Temp Pulse Resp B/P Pulse Ox O2 Delivery O2 Flow Rate FiO2 07/15/16 06:00 97.2 85 18 132/64 97 Nasal Cannula 2.0 I&O- Last 24 Hours up to 6 AM 07/15/16 06:00 Intake Total 1310 ml Output Total 0 ml Balance 1310 ml Laboratory Data 24H LABS Laboratory Tests 2 07/15/16 06:07: Anion Gap 6L, White Blood Count 12.4H, Red Blood Count 3.62L, Hemoglobin 10.7L, Hematocrit 34.9L, Mean Corpuscular Volume 96.4H, Mean Corpuscular Hemoglobin 29.6, Mean Corpuscular Hemoglobin Concent 30.7L, Red Cell Distribution Width 14.0, Platelet Count 206, Neutrophils (%) (Auto) 83.4H, Lymphocytes (%) (Auto) 13.2L, Monocytes (%) (Auto) 1.9, Eosinophils (%) (Auto) 0.6, Basophils (%) (Auto ) 0.1, Neutrophils # (Auto) 10.4H, Lymphocytes # (Auto) 1.6, Monocytes # (Auto) 0.2, Eosinophils # (Auto) 0.1, Basophils # (Auto) 0.0, Blood Urea Nitrogen 30H, Creatinine 1.05H, Sodium Level 143, Potassium Level 3.9, Chloride Level 104, Carbon Dioxide Level 33H, Calcium Level 7.4L, Glomerular Filtration Rate 54.2, Large Unclassified Cells # 0.1, Large Unclassified Cells % 0.8 CBC/BMP Laboratory Tests 07/15/16 06:07 Calcium Level 7.4 L, Red Blood Count 3.62 L, Mean Corpuscular Volume 96.4 H, Mean Corpuscular Hemoglobin 29.6, Mean Corpuscular Hemoglobin Concent 30.7 L, Red Cell Distribution Width 14.0, Neutrophils (%) (Auto) 83.4 H, Lymphocytes (% ) (Auto) 13.2 L, Monocytes (%) (Auto) 1.9, Eosinophils (%) (Auto) 0.6, Basophils (%) (Auto) 0.1, Neutrophils # (Auto) 10.4 H, Lymphocytes # (Auto) 1.6 , Monocytes # (Auto) 0.2, Eosinophils # (Auto) 0.1, Basophils # (Auto) 0.0 Microbiology Microbiology 07/05/16 Blood Culture - Final, Complete NO GROWTH AFTER 5 DAYS 07/05/16 Blood Culture - Final, Complete NO GROWTH AFTER 5 DAYS 07/06/16 Respiratory Virus Panel (PCR) ([facility]) - Final, Complete Coronavirus Oc43 07/06/16 Urine Culture - Final, Complete LIZZY CANAS MD Jul 15, 2016 10:51
[2016-07-15 14:00] VITALS: BP 128/63
[2016-07-15] MEDS: SIMVASTATIN 40 MG TAB PO SCH (17:03)
[2016-07-15 18:00] VITALS: BP 122/58
[2016-07-15] MEDS: MIRTAZAPINE 15 MG TAB PO SCH (20:57)
[2016-07-15] MEDS: rOPINIRole 1MG TAB PO SCH (20:57)
[2016-07-15] MEDS: **NOTE PATIENT COMMENT** MISC XX SCH (20:58)
[2016-07-15] MEDS: traZODone 50 MG TAB PO SCH (20:58)
[2016-07-15 22:00] VITALS: BP 114/59
[2016-07-16] MEDS: FAMOTIDINE IV BAG 20 MG in APPROPRIATE DILUENT 1 EA IV SCH ×3 (00:28→23:24)
[2016-07-16] MEDS: IPRATROPIUM 0.5MG/ALBUTEROL 2.5MG INH SOL UD 3ML (DUONEB)(J7620) NEB SCH ×4 (01:28→19:24)
[2016-07-16 02:00] VITALS: BP 111/58
[2016-07-16] MEDS: METOCLOPRAMIDE INJ 10MG/2ML VIAL (J2765) IV SCH ×4 (05:04→23:24)
[2016-07-16] MEDS: ACETAMINOPHEN 500 MG TAB PO SCH ×3 (05:04→20:21)
[2016-07-16 05:54] LABS: BASO % 0.1 % (0.0-1.0); EOS % 0.4 % (0.0-3.0); LARGE UNSTAINED CELL # 0.1 K/mm3 (0.0-0.4); LARGE UNSTAINED CELL % 0.6 % (0.0-4.0); LYMPH # 1.1 K/mm3 (1.5-4.5); LYMPH % 9.8 % (24.0-44.0); MEAN CORPUSCULAR HGB CONC 31.1 g/dl (32.0-36.5); MEAN CORPUSCULAR VOLUME 96.4 fl (80.0-96.0); MONO # 0.3 K/mm3 (0.0-0.8); MONO % 2.3 % (0.0-5.0); NEUTROPHILS # 10.1 K/mm3 (1.8-7.7); NEUTROPHILS % 86.8 % (36.0-66.0); PLATELET COUNT, AUTOMATED 192 k/mm3 (150-450); RED CELL DISTRIBUTION WIDTH 14.3 % (11.5-14.5); WHITE BLOOD COUNT 11.7 K/mm3 (4.0-10.0)
[2016-07-16 06:00] VITALS: BP 132/60
[2016-07-16 06:00] LABS: ANION GAP 5 MEQ/L (8-16); BLOOD UREA NITROGEN 29 MG/DL (7-18); CALCIUM LEVEL 7.8 MG/DL (8.8-10.2); CARBON DIOXIDE LEVEL 31 MEQ/L (21-32); CHLORIDE LEVEL 107 MEQ/L (98-107); CREATININE FOR GFR 0.87 MG/DL (0.55-1.02); GLOMERULAR FILTRATION RATE > 60.0 (>39); GLUCOSE, FASTING 81 MG/DL (83-110); POTASSIUM SERUM 4.4 MEQ/L (3.5-5.1); SODIUM LEVEL 143 MEQ/L (136-145)
[2016-07-16] MEDS: TIOTROPIUM INHALER/CAPSULE (SPIRIVA) INH SCH (08:41)
[2016-07-16] MEDS: BUDESONIDE 0.5 MG/2 ML INHALATION SUSPENSION INH SCH ×2 (08:41→19:25)
[2016-07-16] MEDS: FORMOTEROL FUMARATE 20 MCG/2 ML INHALATION SOLUTION (PERFOROMIST) INH SCH ×2 (08:41→19:25)
[2016-07-16] MEDS: LIDOCAINE 5% (LIDODERM) PATCH TD SCH (10:11)
[2016-07-16] MEDS: ENOXAPARIN 40 MG/0.4 ML SYRINGE (J1650) SC SCH (10:12)
[2016-07-16] MEDS: FOLIC ACID 1 MG TAB PO SCH (10:12)
[2016-07-16] MEDS: ESCITALOPRAM OXALATE 10 MG TAB (LEXAPRO) PO SCH (10:12)
[2016-07-16] MEDS: BENZONATATE 100 MG CAP PO SCH ×3 (10:12→20:20)
[2016-07-16] MEDS: KETOROLAC 30 MG/ML VIAL (J1885) IV PRN (10:12)
[2016-07-16] MEDS: PANTOPRAZOLE 40MG TAB (PROTONIX) PO SCH (10:13)
[2016-07-16] MEDS: predniSONE 10 MG TAB PO SCH (10:13)
[2016-07-16] MEDS: ONDANSETRON 4 MG ORAL DISINTEGRATING TAB (S0181) PO SCH ×3 (10:13→20:20)
[2016-07-16] MEDS: MIRALAX *UNIT DOSE* 17GM PACKET PO SCH (10:14)
[2016-07-16] MEDS: DOCUSATE SODIUM 100 MG CAP PO SCH ×2 (10:14→20:26)
[2016-07-16] MEDS: MOM 30ML SUSPENSION UDC PO SCH ×2 (10:14→20:25)
[2016-07-16] MEDS: ALPRAZolam 0.5 MG TAB PO PRN ×2 (10:27→20:20)
--- NOTE | 2016-07-16 12:09 | IPNPDOC ---
Subjective General Date Seen The patient was seen on 07/16/16. Subjective Chief Complaint/HPI The patient is a 76-year-old female admitted with a reason for visit of Copd Exacerbation. Events since last encounter still with nausea and dry heaves , there is no one at home today to help her so said she wont be able to go home. Objective Physical Examination General Exam: Positive: No Acute Distress Eye Exam: Positive: PERRLA ENT Exam: Positive: Atraumatic, Mucous membr. moist/pink Chest Exam: Positive: Rales, Rhonchi, Wheezing Heart Exam: Positive: Normal S1, Normal S2, Rate Normal, Regular Rhythm, Negative: Murmurs, Rubs Abdomen Exam: Positive: Normal bowel sounds, Soft, Negative: Hepatospenomegaly, Tenderness Extremity Exam: Positive: Normal pulses, Negative: Clubbing, Cyanosis, Edema Assessment /Plan Problems Problems: (1) Nausea Status: Acute Problem Text: could be part of the viral infection or medication related . antibiotics, steroids, NSAIDS all could potentially cause nausea . patient has finished the antibiotics, steroids are being rapidly tapered and routine NSAIDS have been stopped . Will start patient routine zofran and reglan. continue PPI and famotidine. (2) Coronavirus infection Status: Acute Response to Treatment: Improving Problem Text: * coronavirus is positive * continue to monitor pt * continue duonebs (3) Back pain Status: Chronic Problem Text: now worse. will continue with tramadol. lidoderm patch. will start ketorolac. Xray showed scoliosis no acute fracture or compression of the thoracic or lumber spine. (4) COPD exacerbation Status: Acute Problem Text: due to viral respiratory tract infection. continue with the prednisone and nebulizations. (5) Chronic respiratory failure with hypoxia and hypercapnia Status: Chronic Problem Text: in the setting of advanced copd will continue to monitor pt is on her baseline oxygen requirement will continue prednisone continue IS and acapella (6) Constipation Status: Resolved Problem Text: continue colace, milk of mag, miralax (7) Hypertension Status: Chronic (8) Hypercholesterolemia Status: Chronic (9) Anxiety and depression Status: Chronic Plan/VTE VTE Prophylaxis Ordered?: Yes VS, I&O, 24H, Fishbone Vital Signs/I&O Vital Signs Date Time Temp Pulse Resp B/P Pulse Ox O2 Delivery O2 Flow Rate FiO2 07/16/16 06:00 98.5 87 18 132/60 99 Nasal Cannula 2.0 I&O- Last 24 Hours up to 6 AM 07/16/16 06:00 Intake Total 1950 ml Output Total 400 ml Balance 1550 ml Laboratory Data 24H LABS Laboratory Tests 2 07/16/16 05:03: Anion Gap 5L, White Blood Count 11.7H, Red Blood Count 3.47L, Hemoglobin 10.4L, Hematocrit 33.5L, Mean Corpuscular Volume 96.4H, Mean Corpuscular Hemoglobin 30.0, Mean Corpuscular Hemoglobin Concent 31.1L, Red Cell Distribution Width 14.3, Platelet Count 192, Neutrophils (%) (Auto) 86.8H, Lymphocytes (%) (Auto) 9.8L, Monocytes (%) (Auto) 2.3, Eosinophils (%) (Auto) 0.4, Basophils (%) (Auto ) 0.1, Neutrophils # (Auto) 10.1H, Lymphocytes # (Auto) 1.1L, Monocytes # (Auto ) 0.3, Eosinophils # (Auto) 0.0, Basophils # (Auto) 0.0, Blood Urea Nitrogen 29H , Creatinine 0.87, Sodium Level 143, Potassium Level 4.4, Chloride Level 107, Carbon Dioxide Level 31, Calcium Level 7.8L, Glomerular Filtration Rate > 60.0, Large Unclassified Cells # 0.1, Large Unclassified Cells % 0.6 CBC/BMP Laboratory Tests 07/16/16 05:03 Calcium Level 7.8 L, Red Blood Count 3.47 L, Mean Corpuscular Volume 96.4 H, Mean Corpuscular Hemoglobin 30.0, Mean Corpuscular Hemoglobin Concent 31.1 L, Red Cell Distribution Width 14.3, Neutrophils (%) (Auto) 86.8 H, Lymphocytes (% ) (Auto) 9.8 L, Monocytes (%) (Auto) 2.3, Eosinophils (%) (Auto) 0.4, Basophils (%) (Auto) 0.1, Neutrophils # (Auto) 10.1 H, Lymphocytes # (Auto) 1.1 L, Monocytes # (Auto) 0.3, Eosinophils # (Auto) 0.0, Basophils # (Auto) 0.0 Microbiology Microbiology 07/06/16 Respiratory Virus Panel (PCR) ([facility]) - Final, Complete Coronavirus Oc43 07/06/16 Urine Culture - Final, Complete LIZZY CANAS MD Jul 16, 2016 12:09
[2016-07-16 14:00] VITALS: BP 110/54
[2016-07-16] MEDS: SIMVASTATIN 40 MG TAB PO SCH (17:00)
[2016-07-16] MEDS: rOPINIRole 1MG TAB PO SCH (20:20)
[2016-07-16] MEDS: MIRTAZAPINE 15 MG TAB PO SCH (20:20)
[2016-07-16] MEDS: **NOTE PATIENT COMMENT** MISC XX SCH (20:21)
[2016-07-16] MEDS: guaiFENesin ER 600 MG TAB PO PRN (20:21)
[2016-07-16] MEDS: traZODone 50 MG TAB PO SCH (20:21)
[2016-07-16 22:00] VITALS: BP 123/67
[2016-07-17 02:00] VITALS: BP 134/70
[2016-07-17] MEDS: IPRATROPIUM 0.5MG/ALBUTEROL 2.5MG INH SOL UD 3ML (DUONEB)(J7620) NEB SCH ×4 (02:10→20:00)
[2016-07-17 06:00] VITALS: BP 174/82
[2016-07-17 06:05] LABS: CREATININE FOR GFR 0.97 MG/DL (0.55-1.02); GLOMERULAR FILTRATION RATE 59.4 (>39); POTASSIUM SERUM 4.5 MEQ/L (3.5-5.1)
[2016-07-17] MEDS: METOCLOPRAMIDE INJ 10MG/2ML VIAL (J2765) IV SCH ×4 (06:06→23:00)
[2016-07-17] MEDS: ACETAMINOPHEN 500 MG TAB PO SCH ×3 (06:06→21:31)
[2016-07-17 06:50] LABS: BASO % 0.1 % (0.0-1.0); EOS # 0.1 K/mm3 (0.0-0.50); EOS % 0.6 % (0.0-3.0); LARGE UNSTAINED CELL # 0.1 K/mm3 (0.0-0.4); LARGE UNSTAINED CELL % 0.9 % (0.0-4.0); LYMPH # 1.5 K/mm3 (1.5-4.5); LYMPH % 13.1 % (24.0-44.0); MEAN CORPUSCULAR HEMOGLOBIN 28.8 pg (27.0-33.0); MEAN CORPUSCULAR HGB CONC 30.1 g/dl (32.0-36.5); MEAN CORPUSCULAR VOLUME 95.7 fl (80.0-96.0); MONO # 0.3 K/mm3 (0.0-0.8); MONO % 3.1 % (0.0-5.0); NEUTROPHILS # 9.1 K/mm3 (1.8-7.7); NEUTROPHILS % 82.2 % (36.0-66.0); PLATELET COUNT, AUTOMATED 207 k/mm3 (150-450); RED CELL DISTRIBUTION WIDTH 14.2 % (11.5-14.5)
[2016-07-17] MEDS: TIOTROPIUM INHALER/CAPSULE (SPIRIVA) INH SCH (08:15)
[2016-07-17] MEDS: FORMOTEROL FUMARATE 20 MCG/2 ML INHALATION SOLUTION (PERFOROMIST) INH SCH ×2 (08:15→20:46)
[2016-07-17] MEDS: BUDESONIDE 0.5 MG/2 ML INHALATION SUSPENSION INH SCH ×2 (08:15→20:46)
[2016-07-17] MEDS ORDERED: KETOROLAC 30 MG/ML VIAL (J1885) IV PRN (09:00)
[2016-07-17 10:00] VITALS: BP 146/67
[2016-07-17] MEDS: LIDOCAINE 5% (LIDODERM) PATCH TD SCH (10:00)
[2016-07-17] MEDS: ENOXAPARIN 40 MG/0.4 ML SYRINGE (J1650) SC SCH (10:00)
[2016-07-17] MEDS: ONDANSETRON 4 MG ORAL DISINTEGRATING TAB (S0181) PO SCH ×3 (10:01→21:32)
[2016-07-17] MEDS: PANTOPRAZOLE 40MG TAB (PROTONIX) PO SCH (10:01)
[2016-07-17] MEDS: ALPRAZolam 0.5 MG TAB PO PRN ×2 (10:01→21:32)
[2016-07-17] MEDS: FOLIC ACID 1 MG TAB PO SCH (10:01)
[2016-07-17] MEDS: predniSONE 10 MG TAB PO SCH (10:01)
[2016-07-17] MEDS: BENZONATATE 100 MG CAP PO SCH ×3 (10:01→21:32)
[2016-07-17] MEDS: ESCITALOPRAM OXALATE 10 MG TAB (LEXAPRO) PO SCH (10:02)
[2016-07-17] MEDS: DOCUSATE SODIUM 100 MG CAP PO SCH ×2 (10:03→21:00)
[2016-07-17] MEDS: MIRALAX *UNIT DOSE* 17GM PACKET PO SCH (10:04)
[2016-07-17] MEDS: MOM 30ML SUSPENSION UDC PO SCH ×2 (10:04→21:00)
[2016-07-17] MEDS: FAMOTIDINE IV BAG 20 MG in APPROPRIATE DILUENT 1 EA IV SCH ×2 (13:26→23:18)
[2016-07-17 14:00] VITALS: BP 136/60
[2016-07-17 18:00] VITALS: BP 150/80
[2016-07-17] MEDS: SIMVASTATIN 40 MG TAB PO SCH (18:33)
[2016-07-17] MEDS: **NOTE PATIENT COMMENT** MISC XX SCH (21:00)
[2016-07-17] MEDS: traZODone 50 MG TAB PO SCH (21:32)
[2016-07-17] MEDS: MIRTAZAPINE 15 MG TAB PO SCH (21:32)
[2016-07-17] MEDS: rOPINIRole 1MG TAB PO SCH (21:32)
[2016-07-17 22:00] VITALS: BP 147/81
[2016-07-18] MEDS: IPRATROPIUM 0.5MG/ALBUTEROL 2.5MG INH SOL UD 3ML (DUONEB)(J7620) NEB SCH ×2 (01:18→08:00)
[2016-07-18 02:00] VITALS: BP 138/63
[2016-07-18] MEDS: METOCLOPRAMIDE INJ 10MG/2ML VIAL (J2765) IV SCH ×2 (04:58→11:23)
[2016-07-18] MEDS: ACETAMINOPHEN 500 MG TAB PO SCH ×2 (04:58→15:23)
[2016-07-18 06:00] VITALS: BP 132/75
[2016-07-18 06:19] LABS: ANION GAP 6 MEQ/L (8-16); BLOOD UREA NITROGEN 25 MG/DL (7-18); CARBON DIOXIDE LEVEL 34 MEQ/L (21-32); CHLORIDE LEVEL 104 MEQ/L (98-107); CREATININE FOR GFR 0.89 MG/DL (0.55-1.02); GLOMERULAR FILTRATION RATE > 60.0 (>39); GLUCOSE, FASTING 99 MG/DL (83-110); SODIUM LEVEL 144 MEQ/L (136-145)
[2016-07-18 06:26] LABS: EOS # 0.1 K/mm3 (0.0-0.50); EOS % 0.7 % (0.0-3.0); LARGE UNSTAINED CELL # 0.1 K/mm3 (0.0-0.4); LARGE UNSTAINED CELL % 0.8 % (0.0-4.0); LYMPH # 1.2 K/mm3 (1.5-4.5); LYMPH % 12.1 % (24.0-44.0); MEAN CORPUSCULAR HGB CONC 31.1 g/dl (32.0-36.5); MEAN CORPUSCULAR VOLUME 96.4 fl (80.0-96.0); MONO # 0.4 K/mm3 (0.0-0.8); MONO % 3.5 % (0.0-5.0); NEUTROPHILS # 8.5 K/mm3 (1.8-7.7); NEUTROPHILS % 82.9 % (36.0-66.0); PLATELET COUNT, AUTOMATED 220 k/mm3 (150-450); WHITE BLOOD COUNT 10.2 K/mm3 (4.0-10.0)
[2016-07-18] MEDS: BUDESONIDE 0.5 MG/2 ML INHALATION SUSPENSION INH SCH (08:14)
[2016-07-18] MEDS: FORMOTEROL FUMARATE 20 MCG/2 ML INHALATION SOLUTION (PERFOROMIST) INH SCH (08:14)
[2016-07-18] MEDS: DOCUSATE SODIUM 100 MG CAP PO SCH (08:41)
[2016-07-18] MEDS: MOM 30ML SUSPENSION UDC PO SCH (08:42)
[2016-07-18] MEDS: FOLIC ACID 1 MG TAB PO SCH (08:43)
[2016-07-18] MEDS: ONDANSETRON 4 MG ORAL DISINTEGRATING TAB (S0181) PO SCH ×2 (08:43→15:22)
[2016-07-18] MEDS: BENZONATATE 100 MG CAP PO SCH ×2 (08:43→15:23)
[2016-07-18] MEDS: ESCITALOPRAM OXALATE 10 MG TAB (LEXAPRO) PO SCH (08:43)
[2016-07-18] MEDS: predniSONE 10 MG TAB PO SCH (08:43)
[2016-07-18] MEDS: PANTOPRAZOLE 40MG TAB (PROTONIX) PO SCH (08:43)
[2016-07-18] MEDS: MIRALAX *UNIT DOSE* 17GM PACKET PO SCH (08:43)
[2016-07-18] MEDS: ENOXAPARIN 40 MG/0.4 ML SYRINGE (J1650) SC SCH (08:44)
[2016-07-18] MEDS: LIDOCAINE 5% (LIDODERM) PATCH TD SCH (08:44)
[2016-07-18] MEDS: ALPRAZolam 0.5 MG TAB PO PRN (08:51)
[2016-07-18] MEDS: TIOTROPIUM INHALER/CAPSULE (SPIRIVA) INH SCH (09:00)
[2016-07-18] MEDS ORDERED: PRED5TA PO (09:33)
[2016-07-18] MEDS ORDERED: ACET50TA PO (09:33)
[2016-07-18] MEDS ORDERED: ONDA4TAB6 PO (09:33)
[2016-07-18 10:00] VITALS: BP 140/72
[2016-07-18] MEDS: FAMOTIDINE IV BAG 20 MG in APPROPRIATE DILUENT 1 EA IV SCH (13:00)
--- NOTE | 2016-07-18 17:54 | DSES ---
DATE OF ADMISSION: 07/05/2016 DATE OF DISCHARGE: 07/18/2016 PRIMARY CARE PROVIDER: Dr. Paige Hastings DO TECHNICAL AIDE: Ronny Perez MD DISCHARGE DIAGNOSES: 1. Coronavirus infection. 2. Chronic obstructive pulmonary disease (COPD) exacerbation. 3. Medication-induced nausea. 4. Chronic respiratory failure with hypoxia and hypercapnia. 5. Hypertension. 6. Hypercholesterolemia. 7. Anxiety and depression. 8. Back pain. 9. Gastroesophageal reflux disease (GERD). 10. Restless leg syndrome. 11. Insomnia. 12. Peptic ulcer disease with history of partial gastrectomy. 13. Seasonal allergies. 14. History of hypertension. 15. History of herpes. DISCHARGE MEDICATIONS: - albuterol two puffs inhalation every 4 hours as needed for shortness of breath - Tylenol 1000 mg by mouth every 8 hours - ondansetron 4 mg by mouth three times a day - prednisone 5 mg by mouth daily for 3 days - alprazolam 0.5 mg by mouth three times a day as needed for anxiety - cyanocobalamin 1000 mcg intramuscular (IM) once every 3 months - escitalopram 20 mg by mouth daily - Flonase two sprays by nostril daily - folic acid 1 mg by mouth daily - Mucinex 600 mg by mouth every 12 hours - hydroxyzine 25 mg by mouth twice a day - Xopenex nebulizer solution 1.25 mg inhalation four times a day as needed for shortness of breath - levocetirizine 5 mg by mouth daily - mirtazapine 15 mg at bedtime - omeprazole 40 mg twice a day - Requip 2 mg at bedtime - simvastatin 40 mg at bedtime - Spiriva one inhalation daily - trazodone 50 mg at bedtime - valacyclovir 1 gram by mouth twice a day as needed for cold sore - Voltaren gel 1% one dose topically four times a day as needed for pain HOSPITAL COURSE: This is a 76-year-old female who presented to the emergency room on 07/05/2016, with increasing shortness of breath and cough for 2 weeks. Patient was having expectoration with yellowish-green sputum but without any blood tinge. She also had chest tightness and pain associated with her coughing. She also complained of leg swelling. She was using her inhaled therapy more frequently than usual without any improvement. In the hospital, she was found to have upper respiratory tract infection with coronavirus and COPD exacerbation from the above. Patient's COPD exacerbation was treated with nebulizers and steroids. Patient also developed generalized extreme body pains and aches causing difficulty in ambulation so she was started on ketorolac and tramadol for pain control. However, after the pain medication was started, she began having nausea so her tramadol was stopped, but she continued to use ketorolac as it helped her ambulate, but she continued to have persistent nausea. She was also complaining of heartburn and gastric reflux so her steroids were tapered as well as her ketorolac dose was reduced and subsequently stopped. With reduction in the dose of steroids as well as stopping ketorolac her nausea resolved. Patient's pain was controlled with Tylenol. Patient was seen by physical therapy and cleared from their standpoint. Patient was able to ambulate without any pain. On the day of discharge, patient was back to her home requirement of oxygen, her symptoms were controlled, vital signs stable, and she was functioning at her baseline. PHYSICAL EXAMINATION: Temperature 97.5, pulse 91, respiratory rate 19, blood pressure 132/75, pulse oximetry 98% with two liters nasal cannula. GENERAL: Patient awake, alert, oriented times three, sitting up in bed in no acute distress. HEENT: Normocephalic, atraumatic. Moist mucous membranes. Anicteric eyes. CHEST: Overall poor air entry that was clear to auscultation. CARDIOVASCULAR: S1, S2, regular. No rub, murmur, or gallop. ABDOMEN: Soft, nontender. Bowel sounds present. EXTREMITIES: No edema. LABORATORY DATA: WBC 10.2, hemoglobin 10.1, platelets 220. Sodium 144, potassium 4, chloride 104, bicarbonate 34, BUN 25, creatinine 0.8, calcium 8. Blood gas shows pH of 7.36, pCO2 of 57, pO2 of 93. Blood cultures were negative. Urine culture was negative. Thoracic and lumbar spine xray showed scoliosis, grade 1 wedge-shaped compression of T7 vertebral body. Abdomen and pelvis CT showed gastric bypass surgery, constipation. DISPOSITION: Patient is discharged home. DISCHARGE INSTRUCTIONS: Patient to followup with primary care provider in 1 week.
[2016-08-03] MEDS ORDERED: CYANOCOBALAMIN 1,000 MCG/ML VIAL (J3420) IM SCH (09:00)
== END 2016-07-18 15:26 | disposition home or self-care (01) | DRG 191 ==
LOC: M ED 13:27 → M ED INP 18:38 → M MSPAV 20:23
PROVIDERS: ADMIT Internal Medicine; ATTEND Internal Medicine Nephrology
DX: J44.1 Chronic obstructive pulmonary disease with (acute) exacerbation (principal); J96.12 Chronic respiratory failure with hypercapnia; J96.11 Chronic respiratory failure with hypoxia; B97.29 Other coronavirus as the cause of diseases classified elsewhere; I10 Essential (primary) hypertension; E78.00 Pure hypercholesterolemia, unspecified; K21.9 Gastro-esophageal reflux disease without esophagitis; G47.00 Insomnia, unspecified; R07.81 Pleurodynia; J30.9 Allergic rhinitis, unspecified; J44.0 Chronic obstructive pulmonary disease with (acute) lower respiratory infection; K27.7 Chronic peptic ulcer, site unspecified, without hemorrhage or perforation; T40.4X5A Adverse effect of other synthetic narcotics, initial encounter; D64.9 Anemia, unspecified; F41.8 Other specified anxiety disorders; R11.0 Nausea; G25.81 Restless legs syndrome; K59.00 Constipation, unspecified; B00.9 Herpesviral infection, unspecified; Z90.3 Acquired absence of stomach [part of]; Z79.899 Other long term (current) drug therapy; Z99.81 Dependence on supplemental oxygen; Z90.49 Acquired absence of other specified parts of digestive tract; Z88.8 Allergy status to other drugs, medicaments and biological substances; Z91.041 Radiographic dye allergy status; Z90.710 Acquired absence of both cervix and uterus; Z87.891 Personal history of nicotine dependence

== ENCOUNTER → 2016-11-16 | Outpatient (REF) | payer MEDICARE, MEDICAID ==
[~2016-11-16] MED LIST changes: +ACET50TA PO; +FLON1SPR; +PRED5TA PO; +REQU2TAB3 PO; +VOLT1GEL24 TOP
== END ==
LOC: M LAB REF 17:19
PROVIDERS: ATTEND Family Medicine
DX: R39.15 Urgency of urination (principal)

== ENCOUNTER 2017-04-22 11:41 | Inpatient (IN) | payer MEDICARE, MEDICAID ==
[~2017-04-22] VITALS: Ht 149.9 cm; Wt 46.4 kg
[~2017-04-22 11:41] MED LIST changes: -FOLI1TAB2 PO; +FOLI1TAB4 PO; +HYDR-3363 PO; -HYDR25T PO; -MUCI600T34 PO; +MUCI600T37 PO; +PRED10TA2 PO; +TRAZ50TA11 PO; -TRAZ50TA4 PO; +VOLT1GEL15 TOP; -VOLT1GEL24 TOP
[2017-04-22] MEDS ORDERED: methylPREDNISolone INJ 125 MG/2 ML VIAL (J2930) IV ONE (12:15)
[2017-04-22] MEDS ORDERED: IPRATROPIUM 0.5MG/ALBUTEROL 2.5MG INH SOL UD 3ML (DUONEB)(J7620) NEB ONE (12:15)
[2017-04-22 12:39] LABS: BASO % 0.1 % (0.0-1.0); EOS % 0.2 % (0.0-3.0); IMMATURE GRANULOCYTE % 0.4 % (0-0); LYMPH # 2.2 10^3/uL (1.5-4.5); LYMPH % 12.1 % (24.0-44.0); MEAN CORPUSCULAR HEMOGLOBIN 30.6 pg (27.0-33.0); MEAN CORPUSCULAR HGB CONC 30.9 g/dl (32.0-36.5); MONO # 0.9 10^3/uL (0.0-0.8); MONO % 4.9 % (0.0-5.0); NEUTROPHILS # 14.9 10^3/uL (1.8-7.7); NEUTROPHILS % 82.3 % (36.0-66.0); PLATELET COUNT, AUTOMATED 271 10^3/uL (150-450); RED CELL DISTRIBUTION WIDTH 13.5 % (11.5-14.5); WHITE BLOOD COUNT 18.1 10^3/uL (4.0-10.0)
[2017-04-22 12:43] LABS: ABG BASE EXCESS 16.9 (-2.0-2.0); ABG HCO3 42.1 MEQ/L (22.0-26.0); ABG PARTIAL PRESSURE CO2 52.2 mmHg (35.0-45.0); ABG PARTIAL PRESSURE O2 93.8 mmHg (75.0-100.0); ABG STANDARD HCO3 40.9 MEQ/L (22.0-26.0); ABG TOTAL CO2 43.7 MEQ/L (23.0-31.0); ABG pH (ARTERIAL) 7.524 UNITS (7.350-7.450)
[2017-04-22 13:04] LABS: INR 0.86
[2017-04-22 13:11] LABS: ANION GAP 5 MEQ/L (8-16); BLOOD UREA NITROGEN 18 MG/DL (7-18); CALCIUM LEVEL 9.2 MG/DL (8.8-10.2); CARBON DIOXIDE LEVEL 40 MEQ/L (21-32); CHLORIDE LEVEL 96 MEQ/L (98-107); CREATININE FOR GFR 0.76 MG/DL (0.55-1.02); GLOMERULAR FILTRATION RATE > 60.0 (>39); GLUCOSE, FASTING 107 MG/DL (83-110); SODIUM LEVEL 141 MEQ/L (136-145)
[2017-04-22 13:14] LABS: ALBUMIN 3.1 GM/DL (3.2-5.2); ALBUMIN/GLOBULIN RATIO 0.89 (1.00-1.93); BILIRUBIN,DIRECT 0.2 MG/DL (0.0-0.2); BILIRUBIN,TOTAL 0.6 MG/DL (0.2-1.0); TOTAL PROTEIN 6.6 GM/DL (6.4-8.2)
[2017-04-22] MEDS ORDERED: KETOROLAC 30 MG/ML VIAL (J1885) IV ONE (13:45)
[2017-04-22] MEDS ORDERED: NS 1,000 ML IV ONE (13:45)
[2017-04-22] MEDS ORDERED: IPRATROPIUM 0.5MG/ALBUTEROL 2.5MG INH SOL UD 3ML (DUONEB)(J7620) NEB PRN (14:00)
[2017-04-22] MEDS ORDERED: valACYclovir HCL 500 MG TAB PO PRN (14:30)
[2017-04-22] MEDS ORDERED: hydrOXYzine 25 MG TAB PO PRN (14:30)
[2017-04-22] MEDS ORDERED: LEVALBUTEROL 1.25 MG/0.5 ML CONCENTRATE NEB INH PRN (14:30)
[2017-04-22] MEDS ORDERED: FLUTICASONE PROP 0.05% NASAL SPRAY 16 GM (FLONASE) PRN (14:30)
[2017-04-22] MEDS ORDERED: AZITHROMYCIN INJ 500 MG, VIAL MATE ADAPTER 1 EACH in D5W 250 ML IV SCH (16:00)
[2017-04-22 16:05] VITALS: BP 115/56
--- NOTE | 2017-04-22 16:08 | HPE ---
DATE OF ADMISSION: 04/22/2017 PRIMARY CARE PROVIDER: Dr. Hastings. JACK FRAME TENDER: Dr. Perez. CHIEF COMPLAINT: Shortness of breath and cough. HISTORY OF PRESENT ILLNESS: This is a 76-year-old female patient with underlying medical history of end- stage chronic obstructive pulmonary disease (COPD) oxygen and steroid dependent at home, gastroesophageal reflux disease (GERD), dyslipidemia, hypertension, depression, with recent sick contact, granddaughter with upper respiratory tract infection, who presented with one week of progressively worsening cough and shortness of breath. Baseline ambulatory. Currently is only able to do bed to bathroom with worsening shortness of breath, coughing productive of green phlegm. Denies any fevers, chills. Reported significant dyspnea and was found to be tachycardic and dyspneic at home, on oxygen two liters at home. In the emergency room, the patient was given multiple nebulizer treatments and steroids. The patient denies any chest pain, pressure or discomfort. Reported abdominal pain from cough. Denies any diarrhea or constipation, extremity swelling. Denies any vision change or hearing change. ALLERGIES: COMPAZINE and INTRAVENOUS (IV) CONTRAST. PAST MEDICAL HISTORY: 1. COPD, oxygen and steroid dependent on two liters oxygen at home. 2. GERD. 3. Dyslipidemia. 4. Hypertension. 5. Depression. PAST SURGICAL HISTORY: 1. Gastrectomy secondary to ulcer. 2. Cholecystectomy. 3. Hysterectomy. 4. Ovarian cyst resection. FAMILY HISTORY: Denies family history of cancers. SOCIAL HISTORY: Quit smoking seven years ago, one pack per day for 50 years. Denies alcohol use. Denies illicit drug use. Lives alone. REVIEW OF SYSTEMS: Reported abdominal pain from cough, cough productive of green phlegm, and dyspnea. All other review of systems was negative. HOME MEDICATIONS: - Ventolin inhalers every four hours as needed - Xanax 0.5 mg three times a day as needed - Lexapro 20 mg by mouth daily - Flonase nasal spray daily as needed - Mucinex 600 mg by mouth twice a day as needed - hydroxyzine 25 mg by mouth twice a day as needed - Xopenex 1.25 mg inhalation four times a day as needed - levocetirizine 5 mg by mouth daily as needed - omeprazole 40 mg by mouth twice a day - Requip 2 mg by mouth at bedtime - Zocor 40 mg by mouth at bedtime - Spiriva inhalation daily - trazodone 50 mg by mouth at bedtime - Valtrex 1 gram by mouth twice a day as needed - voltaren topical four times a day as needed 1% PHYSICAL EXAMINATION: VITAL SIGNS: Temperature 97.7, pulse 126, respirations 22, blood pressure 123/66, pulse oximetry 95% on two liters nasal cannula. GENERAL: Patient frail, in no acute distress. HEENT: Normocephalic, atraumatic. PULMONARY: Bilateral wheeze with rhonchi. CARDIAC: Tachycardia. Regular S1, S2. ABDOMEN: Soft, nontender. Positive bowel sounds. EXTREMITIES: No clubbing, cyanosis or edema DIAGNOSTICS: EKG shows sinus tachycardia at 125. No ST segment changes. LABORATORY DATA: WBC 18.1, hemoglobin and hematocrit 12.5 over 40.5, platelets 271. Chemistry: Sodium 141, potassium four, chloride 96, bicarbonate 40, BUN 18, creatinine 0.76 , lactic acid three. Cardiac enzymes negative times one. IMAGING: Chest x-ray shows no focal consolidations. Emphysematous change. ASSESSMENT AND PLAN: This is a 76-year-old female patient with underlying medical history of chronic obstructive pulmonary disease (COPD), oxygen and steroid dependent, end-stage COPD, gastroesophageal reflux disease (GERD), dyslipidemia, hypertension, depression, gastric ulcers, admitted with acute COPD exacerbation secondary to bronchitis versus atypical pneumonia. 1. Acute COPD exacerbation secondary to atypical pneumonia versus bronchitis. Patient started on Rocephin and azithromycin, Solu-Medrol, nebulizer treatments, and inhalers Spiriva, Mucinex. Will get cultures, respiratory panels and blood cultures. Monitor for clinical improvement. 2. Lactic acidosis likely secondary to respiratory distress. Will repeat lactic acid. Intravenous (IV) fluids were given by emergency room provider. 3. Leukocytosis, steroid versus infectious. Patient with leukocytosis and tachycardia, likely secondary to underlying pulmonary infection, on Rocephin and azithromycin. IV fluids have been given by emergency room provider. Will followup lactic acid, C-reactive protein. 4. COPD oxygen supplementation, chronically oxygen dependent and steroid dependent. Management as per above. Taper Solu-Medrol. Inhalers, nebulizer treatment, antibiotics as prescribed. 5. GERD with gastric ulcer. Continue proton pump inhibitor (PPI). 6. Dyslipidemia. Continue statin. 7. Hypertension. Patient currently normotensive. Monitor blood pressure. The patient not on any blood pressure medication at home. Will continue to monitor. 8. Depression. Continue home medication. 9. Restless leg syndrome. Continue home medication. 10. Deep venous thrombosis (DVT) prophylaxis. Will place the patient on heparin subcutaneous. DISPOSITION: Pending clinical improvement. Will taper steroids as tolerated. Patient likely has upper respiratory infection (URI). Followup cultures and respiratory panel. MTDD
[2017-04-22] MEDS ORDERED: ACETAMINOPHEN TAB 650MG DOSE (2X325MG) PO PRN (17:00)
[2017-04-22] MEDS: BENZONATATE 100 MG CAP PO SCH ×2 (17:49→20:46)
[2017-04-22] MEDS: ESCITALOPRAM OXALATE 10 MG TAB (LEXAPRO) PO SCH (17:49)
[2017-04-22] MEDS: ALPRAZolam 0.5 MG TAB PO PRN (18:48)
[2017-04-22] MEDS: methylPREDNISolone INJ 125 MG/2 ML VIAL (J2930) IV SCH (18:51)
[2017-04-22] MEDS: CEFTRIAXONE SOD 2 GM in APPROPRIATE DILUENT 1 EA IV SCH (18:51)
[2017-04-22] MEDS: IPRATROPIUM 0.5MG/ALBUTEROL 2.5MG INH SOL UD 3ML (DUONEB)(J7620) NEB SCH (19:09)
[2017-04-22] MEDS ORDERED: NS 1,000 ML IV SCH (20:15)
[2017-04-22] MEDS: traZODone 50 MG TAB PO SCH (20:46)
[2017-04-22] MEDS: rOPINIRole 1MG TAB PO SCH (20:46)
[2017-04-22] MEDS: OMEPRAZOLE 20 MG CAP PO SCH (20:47)
[2017-04-22] MEDS: SENOKOT S TAB PO SCH (20:47)
[2017-04-22] MEDS: guaiFENesin ER 600 MG TAB PO SCH (20:47)
[2017-04-22] MEDS: SIMVASTATIN 40 MG TAB PO SCH (20:47)
[2017-04-22] MEDS: HEPARIN SOD (PORCINE) 5000 UNITS/ML VIAL SC SCH (20:48)
[2017-04-22 22:00] VITALS: BP 128/66
[2017-04-23] MEDS: IPRATROPIUM 0.5MG/ALBUTEROL 2.5MG INH SOL UD 3ML (DUONEB)(J7620) NEB SCH ×5 (02:00→23:38)
[2017-04-23] MEDS: methylPREDNISolone INJ 125 MG/2 ML VIAL (J2930) IV SCH ×2 (02:35→06:14)
[2017-04-23] MEDS: ALPRAZolam 0.5 MG TAB PO PRN ×2 (04:32→15:25)
[2017-04-23 06:00] VITALS: BP 144/65
[2017-04-23 06:55] LABS: MEAN CORPUSCULAR HEMOGLOBIN 30.3 pg (27.0-33.0); MEAN CORPUSCULAR HGB CONC 30.7 g/dl (32.0-36.5); MEAN CORPUSCULAR VOLUME 98.5 fl (80.0-96.0); PLATELET COUNT, AUTOMATED 205 10^3/uL (150-450); RED CELL DISTRIBUTION WIDTH 13.5 % (11.5-14.5); WHITE BLOOD COUNT 12.5 10^3/uL (4.0-10.0)
[2017-04-23 07:17] LABS: ANION GAP 5 MEQ/L (8-16); BLOOD UREA NITROGEN 21 MG/DL (7-18); CARBON DIOXIDE LEVEL 35 MEQ/L (21-32); CHLORIDE LEVEL 105 MEQ/L (98-107); CREATININE FOR GFR 0.59 MG/DL (0.55-1.02); GLOMERULAR FILTRATION RATE > 60.0 (>39); GLUCOSE, FASTING 169 MG/DL (83-110); POTASSIUM SERUM 3.9 MEQ/L (3.5-5.1); SODIUM LEVEL 145 MEQ/L (136-145)
[2017-04-23] MEDS: TIOTROPIUM INHALER/CAPSULE (SPIRIVA) INH SCH (07:31)
[2017-04-23 07:37] LABS: CALCIUM LEVEL 7.8 MG/DL (8.8-10.2)
[2017-04-23] MEDS: ONDANSETRON 4MG/2ML VIAL (J2405) IV PRN ×2 (07:46→14:39)
[2017-04-23] MEDS: BENZONATATE 100 MG CAP PO SCH ×3 (09:28→20:58)
[2017-04-23] MEDS: SENOKOT S TAB PO SCH ×2 (09:28→20:58)
[2017-04-23] MEDS: AZITHROMYCIN 250 MG TAB PO SCH (09:29)
[2017-04-23] MEDS: guaiFENesin ER 600 MG TAB PO SCH ×2 (09:29→20:59)
[2017-04-23] MEDS: OMEPRAZOLE 20 MG CAP PO SCH ×2 (09:29→20:58)
[2017-04-23] MEDS: ESCITALOPRAM OXALATE 10 MG TAB (LEXAPRO) PO SCH (09:31)
[2017-04-23] MEDS: HEPARIN SOD (PORCINE) 5000 UNITS/ML VIAL SC SCH ×2 (09:31→20:58)
--- NOTE | 2017-04-23 10:53 | IPNPDOC ---
Subjective Date Seen The patient was seen on 04/23/17. Subjective Chief Complaint/HPI The patient is a 76-year-old female admitted with a reason for visit of Copd Exacerbation. Events since last encounter continues to have severe bouts of coughing with greenish expectoration , has chest pain , back pain and upper abdominal pain and soreness, SOB is a little better, 1 week ago had nausea and vomiting followed by diarrhea. She thought she had the "FLU" which has resolved now. However continues to feel very weak and tired. Objective Physical Examination General Exam: Positive: Alert, Cooperative, No Acute Distress Eye Exam: Positive: PERRLA, Conjunctiva & lids normal, EOMI, Negative: Sclera icteric ENT Exam: Positive: Atraumatic, Mucous membr. moist/pink, Pharynx Normal Neck Exam: Positive: Supple, Negative: JVD, thyromegaly Chest Exam: Positive: Rales, Rhonchi, Diminished Heart Exam: Positive: Rate Normal, Regular Rhythm, Normal S1, Normal S2 Telemetry: Positive: No significant arrhythmia Abdomen Exam: Positive: Normal bowel sounds, Soft, Negative: Tenderness, Hepatospenomegaly Extremity Exam: Positive: Normal pulses, Negative: Clubbing, Cyanosis, Edema Assessment /Plan Problems (1) COPD exacerbation Status: Acute Problem Text: will continue with duonebs, spiriva, budesonide, steroids. (2) Tracheobronchitis, acute or subacute Status: Acute Problem Text: will continue with ceftriazone and azithromycin. (3) Anxiety and depression Status: Chronic (4) Hypertension Status: Chronic (5) Hypercholesterolemia Status: Chronic (6) Chronic respiratory failure with hypoxia and hypercapnia Status: Chronic (7) GERD (gastroesophageal reflux disease) Status: Chronic Problem Text: continue omeprazole (8) History of peptic ulcer disease Status: Chronic Problem Text: has Billroth 2gastrctomy and gastrojejunostomy continue with omeprazole. had egd in 2013 (9) Anemia Status: Chronic Problem Text: had EGD and colonoscopy in 2013. EGD showed billroth 2 gastrojejunostomy and colonoscopy showed diverticulosis, internal hemorrhoids and polyps. 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 will check iron profile, v b 12 and folate levels, LDH and reticount. (10) Back pain Status: Chronic Problem Text: Has scoliosis and also chronic thoracic compression fracture. Plan/VTE VTE Prophylaxis Ordered?: Yes VS, I&O, 24H, [facility] Vital Signs/I&O Vital Signs Date Time Temp Pulse Resp B/P (MAP) Pulse Ox O2 Delivery O2 Flow Rate FiO2 04/23/17 06:00 97.3 86 27 144/65 (91) 97 Nasal Cannula 2.0 I&O- Last 24 Hours up to 6 AM 04/24/17 06:00 Intake Total 360 ml Output Total 400 ml Balance -40 ml Laboratory Data 24H LABS Laboratory Tests 2 04/22/17 12:26: Lactic Acid Level 3.0*H 04/22/17 12:28: Immature Granulocyte % (Auto) 0.4H, White Blood Count 18.1H, Red Blood Count 4.09, Hemoglobin 12.5, Hematocrit 40.5, Mean Corpuscular Volume 99.0H, Mean Corpuscular Hemoglobin 30.6, Mean Corpuscular Hemoglobin Concent 30.9L, Red Cell Distribution Width 13.5, Platelet Count 271, Neutrophils (%) (Auto) 82.3H, Lymphocytes (%) (Auto) 12.1L, Monocytes (%) (Auto) 4.9, Eosinophils (%) (Auto) 0.2, Basophils (%) (Auto) 0.1, Neutrophils # (Auto) 14.9H, Lymphocytes # (Auto) 2.2, Monocytes # (Auto) 0.9H, Eosinophils # (Auto) 0.0, Basophils # (Auto) 0.0, Immature Granulocyte # (Auto) 0.1H, Nucleated Red Blood Cells % (auto) 0.0, Prothrombin Time 11.8L, Prothromb Time International Ratio 0.86 04/22/17 12:29: Anion Gap 5L, Glomerular Filtration Rate > 60.0, Blood Urea Nitrogen 18, Creatinine 0.76, Sodium Level 141, Potassium Level 4.0, Chloride Level 96L, Carbon Dioxide Level 40H, Calcium Level 9.2, Total Creatine Kinase 63, Aspartate Amino Transf (AST/SGOT) 18, Alanine Aminotransferase (ALT/SGPT) 27, Alkaline Phosphatase 68, Total Bilirubin 0.6, Direct Bilirubin 0.2, Creatine Kinase MB 1.5, Creatine Kinase MB Relative Index 2.38, Troponin I < 0.02, NT-Pro -B-Type Natriuretic Peptide 178, Total Protein 6.6, Albumin 3.1L, Albumin/ Globulin Ratio 0.89L 11/18/17 12:32: Blood Gas Bicarbonate Standard 40.9H, Arterial Blood pH 7.524H, Arterial Blood Partial Pressure CO2 52.2H, Arterial Blood Partial Pressure O2 93.8, Arterial Blood Total CO2 43.7H, Arterial Blood HCO3 42.1H, Arterial Blood Base Excess 16.9H, Arterial Blood Oxygen Saturation 97.3 04/22/17 17:40: Lactic Acid Followup at 4 Hours 3.3*H, Total Creatine Kinase 72, Creatine Kinase MB 1.5, Creatine Kinase MB Relative Index 2.08, Troponin I < 0.02, C- Reactive Protein, Quantitative 11.90H 04/22/17 21:53: Lactic Acid Level 2.3*H 04/23/17 02:11: Lactic Acid Followup at 4 Hours 0.9 04/23/17 05:27: C-Reactive Protein, Quantitative 13.20H, Nucleated Red Blood Cells % (auto) 0.0 , Anion Gap 5L, Glomerular Filtration Rate > 60.0, Blood Urea Nitrogen 21H, Creatinine 0.59, Sodium Level 145, Potassium Level 3.9, Chloride Level 105, Carbon Dioxide Level 35H, Calcium Level 7.8#L, Magnesium Level 2.2 CBC/BMP Laboratory Tests 04/22/17 12:28 Red Blood Count 4.09, Mean Corpuscular Volume 99.0 H, Mean Corpuscular Hemoglobin 30.6, Mean Corpuscular Hemoglobin Concent 30.9 L, Red Cell Distribution Width 13.5, Neutrophils (%) (Auto) 82.3 H, Lymphocytes (%) (Auto) 12.1 L, Monocytes (%) (Auto) 4.9, Eosinophils (%) (Auto) 0.2, Basophils (%) ( Auto) 0.1, Neutrophils # (Auto) 14.9 H, Lymphocytes # (Auto) 2.2, Monocytes # ( Auto) 0.9 H, Eosinophils # (Auto) 0.0, Basophils # (Auto) 0.0 04/22/17 12:29 Calcium Level 9.2, Total Creatine Kinase 63 04/23/17 05:27 Red Blood Count 3.27 L, Mean Corpuscular Volume 98.5 H, Mean Corpuscular Hemoglobin 30.3, Mean Corpuscular Hemoglobin Concent 30.7 L, Red Cell Distribution Width 13.5, Calcium Level 7.8 #L Microbiology Microbiology 04/22/17 Blood Culture, Received Pending 04/22/17 Blood Culture, Received Pending 04/22/17 Gram Stain - Final, Resulted 04/22/17 Sputum Culture, Resulted Pending LIZZY CANAS MD Apr 23, 2017 10:53
[2017-04-23 10:58] LABS: RETIC HEMOGLOBIN EQUIVALENT 33.7 pg (24-36); RETICULOCYTE % 1.3 % (0.5-1.5)
[2017-04-23 11:18] LABS: PERCENT SATURATION 10.4 % (13.2-45.0)
[2017-04-23 14:00] VITALS: BP 136/69
[2017-04-23] MEDS: BUDESONIDE 180MCG INHALER (PULMICORT FLEXHALER) INH SCH ×2 (14:00→20:19)
[2017-04-23] MEDS: methylPREDNISolone INJ 40 MG/1 ML VIAL (J2920) IV SCH ×2 (14:22→18:46)
[2017-04-23] MEDS: CEFTRIAXONE SOD 2 GM in APPROPRIATE DILUENT 1 EA IV SCH (18:46)
[2017-04-23] MEDS: rOPINIRole 1MG TAB PO SCH (20:58)
[2017-04-23] MEDS: SIMVASTATIN 40 MG TAB PO SCH (20:58)
[2017-04-23] MEDS: traZODone 50 MG TAB PO SCH (20:59)
[2017-04-23] MEDS: KETOROLAC 30 MG/ML VIAL (J1885) IV PRN (20:59)
--- NOTE | 2017-04-23 21:18 | ECGEPIP ---
Stationary ECG Study [facility] - ED Test Date: 2017-04-22 Pat Name: CAROLYN FARRELL Department: Room: - Gender: F [employer]: JDev : 1940 Requested By: RAJWINDER Desai Order Number: [id number] Reading MD: Torri Dewey Measurements Intervals [place] Rate: 125 P: 72 WV: 117 QRS: 51 QRSD: 78 T: 63 QT: 277 QTc: 401 Interpretive Statements SINUS TACHYCARDIA WITH SHORT WV INTERVAL ABNORMAL RHYTHM ECG NSTTW ABNORMALITY LIMITED INTERPRETATION BASELINE ARTIFACT INCREASED RATE 07/06/16 Electronically Signed On 04-23-2017 21:18:40 EST by Torri Dewey
[2017-04-23 22:00] VITALS: BP 138/63
[2017-04-24] MEDS: methylPREDNISolone INJ 40 MG/1 ML VIAL (J2920) IV SCH ×4 (00:36→18:10)
[2017-04-24] MEDS: ALBUTEROL SULFATE 2.5 MG/0.5 ML INH NEB SOLN NEB PRN ×2 (00:44→06:16)
[2017-04-24] MEDS: ALPRAZolam 0.5 MG TAB PO PRN ×2 (01:02→17:15)
[2017-04-24 06:00] VITALS: BP 149/64
[2017-04-24 06:02] LABS: MEAN CORPUSCULAR HEMOGLOBIN 30.9 pg (27.0-33.0); MEAN CORPUSCULAR HGB CONC 30.5 g/dl (32.0-36.5); MEAN CORPUSCULAR VOLUME 101.3 fl (80.0-96.0); PLATELET COUNT, AUTOMATED 202 10^3/uL (150-450); RED CELL DISTRIBUTION WIDTH 13.4 % (11.5-14.5); WHITE BLOOD COUNT 17.4 10^3/uL (4.0-10.0)
[2017-04-24] MEDS: METOCLOPRAMIDE INJ 10MG/2ML VIAL (J2765) IV PRN ×3 (06:14→22:18)
[2017-04-24] MEDS: KETOROLAC 30 MG/ML VIAL (J1885) IV PRN ×3 (06:15→18:11)
[2017-04-24 06:20] LABS: ANION GAP 3 MEQ/L (8-16); BLOOD UREA NITROGEN 21 MG/DL (7-18); CARBON DIOXIDE LEVEL 32 MEQ/L (21-32); CHLORIDE LEVEL 106 MEQ/L (98-107); CREATININE FOR GFR 0.69 MG/DL (0.55-1.02); GLOMERULAR FILTRATION RATE > 60.0 (>39); GLUCOSE, FASTING 148 MG/DL (83-110); MAGNESIUM LEVEL 2.3 MG/DL (1.8-2.4); POTASSIUM SERUM 4.2 MEQ/L (3.5-5.1); SODIUM LEVEL 141 MEQ/L (136-145)
[2017-04-24] MEDS: TIOTROPIUM INHALER/CAPSULE (SPIRIVA) INH SCH ×2 (08:52→11:25)
[2017-04-24] MEDS: IPRATROPIUM 0.5MG/ALBUTEROL 2.5MG INH SOL UD 3ML (DUONEB)(J7620) NEB SCH ×3 (08:53→20:00)
[2017-04-24] MEDS: BUDESONIDE 180MCG INHALER (PULMICORT FLEXHALER) INH SCH ×3 (08:53→20:55)
[2017-04-24] MEDS: BENZONATATE 100 MG CAP PO SCH ×3 (09:30→20:31)
[2017-04-24] MEDS: SENOKOT S TAB PO SCH ×2 (09:30→20:31)
[2017-04-24] MEDS: guaiFENesin ER 600 MG TAB PO SCH ×2 (09:30→20:31)
[2017-04-24] MEDS: AZITHROMYCIN 250 MG TAB PO SCH (09:30)
[2017-04-24] MEDS: HEPARIN SOD (PORCINE) 5000 UNITS/ML VIAL SC SCH ×2 (09:30→20:30)
[2017-04-24] MEDS: OMEPRAZOLE 20 MG CAP PO SCH ×2 (09:30→20:31)
[2017-04-24] MEDS: ESCITALOPRAM OXALATE 10 MG TAB (LEXAPRO) PO SCH (09:30)
--- NOTE | 2017-04-24 10:36 | IPNPDOC ---
Subjective Date Seen The patient was seen on 04/24/17. Subjective Chief Complaint/HPI The patient is a 76-year-old female admitted with a reason for visit of Copd Exacerbation. Events since last encounter feels a little better this am , feels like cough getting better, Sob mild improvement. no fever or chills, continues to have chest pain and back pain with coughing. Objective Physical Examination General Exam: Positive: Alert, Cooperative, No Acute Distress Eye Exam: Positive: PERRLA, Conjunctiva & lids normal, EOMI, Negative: Sclera icteric ENT Exam: Positive: Atraumatic, Mucous membr. moist/pink, Pharynx Normal Neck Exam: Positive: Supple, Negative: JVD, thyromegaly Chest Exam: Positive: Rales, Rhonchi, Diminished Heart Exam: Positive: Rate Normal, Regular Rhythm, Normal S1, Normal S2 Telemetry: Positive: No significant arrhythmia Abdomen Exam: Positive: Normal bowel sounds, Soft, Negative: Tenderness, Hepatospenomegaly Extremity Exam: Positive: Normal pulses, Negative: Clubbing, Cyanosis, Edema Assessment /Plan Problems (1) COPD exacerbation Status: Acute Problem Text: will continue with duonebs, spiriva, budesonide, steroids. (2) Tracheobronchitis, acute or subacute Status: Acute Problem Text: will continue with ceftriazone and azithromycin. sputum culture citrobacter. will continue with ceftriaxone. will give dextromethorphan for cough suppression. (3) Anxiety and depression Status: Chronic Problem Text: continue xanax prn and lexapro, trazodone (4) Hypertension Status: Chronic (5) Hypercholesterolemia Status: Chronic Problem Text: continue statin (6) Chronic respiratory failure with hypoxia and hypercapnia Status: Chronic (7) GERD (gastroesophageal reflux disease) Status: Chronic Problem Text: continue omeprazole (8) History of peptic ulcer disease Status: Chronic Problem Text: has Billroth 2gastrctomy and gastrojejunostomy continue with omeprazole. had egd in 2013 (9) Anemia Status: Chronic Problem Text: had EGD and colonoscopy in 2013. EGD showed billroth 2 gastrojejunostomy and colonoscopy showed diverticulosis, internal hemorrhoids and polyps. 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 v b 12 and folate levels pending LDH and reticount are normal. (10) Back pain Status: Chronic Problem Text: Has scoliosis and also chronic thoracic compression fracture. (11) Restless leg syndrome Status: Chronic Problem Text: continue ropinirole. Plan/VTE VTE Prophylaxis Ordered?: Yes VS, I&O, 24H, Fishbone Vital Signs/I&O Vital Signs Date Time Temp Pulse Resp B/P (MAP) Pulse Ox O2 Delivery O2 Flow Rate FiO2 04/24/17 06:00 96.8 94 19 149/64 (92) 92 Nasal Cannula 2.0 Laboratory Data 24H LABS Laboratory Tests 2 04/24/17 05:40: Nucleated Red Blood Cells % (auto) 0.0, Anion Gap 3L, Glomerular Filtration Rate > 60.0, Lactic Acid Level 0.9, Blood Urea Nitrogen 21H, Creatinine 0.69, Sodium Level 141, Potassium Level 4.2, Chloride Level 106, Carbon Dioxide Level 32, Calcium Level 8.0L, Magnesium Level 2.3 CBC/BMP Laboratory Tests 04/24/17 05:40 Red Blood Count 3.11 L, Mean Corpuscular Volume 101.3 H, Mean Corpuscular Hemoglobin 30.9, Mean Corpuscular Hemoglobin Concent 30.5 L, Red Cell Distribution Width 13.4, Calcium Level 8.0 L Microbiology Microbiology 04/22/17 Blood Culture - Preliminary, Resulted No growth after 24 hours . All specim... 04/22/17 Blood Culture - Preliminary, Resulted No growth after 24 hours . All specim... 04/22/17 Gram Stain - Final, Resulted 04/22/17 Sputum Culture - Preliminary, Resulted Citrobacter Freundii Yeast Like Organism LIZZY CANAS MD Apr 24, 2017 10:36
[2017-04-24] MEDS: DEXTROMETHORPHAN 60MG/10ML SUSP 90ML BTL(DELSYM) PO SCH ×2 (12:15→20:30)
[2017-04-24] MEDS: ONDANSETRON 4MG/2ML VIAL (J2405) IV PRN (12:50)
[2017-04-24 13:58] LABS: FOLATE 8.4 NG/ML (>5.4)
[2017-04-24 14:00] VITALS: BP 139/67
[2017-04-24] MEDS: CEFTRIAXONE SOD 2 GM in APPROPRIATE DILUENT 1 EA IV SCH (18:11)
[2017-04-24] MEDS: rOPINIRole 1MG TAB PO SCH (20:31)
[2017-04-24] MEDS: SIMVASTATIN 40 MG TAB PO SCH (20:31)
[2017-04-24] MEDS: traZODone 50 MG TAB PO SCH (20:31)
[2017-04-24 22:00] VITALS: BP 140/66
[2017-04-24] MEDS ORDERED: traMADol 50 MG TAB PO ONE (23:15)
[2017-04-25] MEDS: methylPREDNISolone INJ 40 MG/1 ML VIAL (J2920) IV SCH ×4 (01:25→17:58)
[2017-04-25] MEDS: IPRATROPIUM 0.5MG/ALBUTEROL 2.5MG INH SOL UD 3ML (DUONEB)(J7620) NEB SCH ×4 (01:34→19:10)
[2017-04-25] MEDS: ALPRAZolam 0.5 MG TAB PO PRN (05:27)
[2017-04-25 06:00] VITALS: BP 152/74
[2017-04-25] MEDS: KETOROLAC 30 MG/ML VIAL (J1885) IV PRN (06:19)
[2017-04-25 06:37] LABS: MEAN CORPUSCULAR HEMOGLOBIN 30.2 pg (27.0-33.0); MEAN CORPUSCULAR HGB CONC 30.1 g/dl (32.0-36.5); MEAN CORPUSCULAR VOLUME 100.3 fl (80.0-96.0); PLATELET COUNT, AUTOMATED 238 10^3/uL (150-450); RED CELL DISTRIBUTION WIDTH 13.2 % (11.5-14.5); WHITE BLOOD COUNT 17.7 10^3/uL (4.0-10.0)
[2017-04-25 06:53] LABS: ANION GAP 3 MEQ/L (8-16); BLOOD UREA NITROGEN 36 MG/DL (7-18); CALCIUM LEVEL 7.6 MG/DL (8.8-10.2); CARBON DIOXIDE LEVEL 37 MEQ/L (21-32); CHLORIDE LEVEL 105 MEQ/L (98-107); CREATININE FOR GFR 0.68 MG/DL (0.55-1.02); GLOMERULAR FILTRATION RATE > 60.0 (>39); GLUCOSE, FASTING 151 MG/DL (83-110); MAGNESIUM LEVEL 2.5 MG/DL (1.8-2.4); POTASSIUM SERUM 3.7 MEQ/L (3.5-5.1); SODIUM LEVEL 145 MEQ/L (136-145)
[2017-04-25] MEDS: BUDESONIDE 180MCG INHALER (PULMICORT FLEXHALER) INH SCH ×2 (07:31→20:09)
[2017-04-25] MEDS: TIOTROPIUM INHALER/CAPSULE (SPIRIVA) INH SCH (07:31)
[2017-04-25] MEDS: AZITHROMYCIN 250 MG TAB PO SCH (08:16)
[2017-04-25] MEDS: guaiFENesin/CODEINE SYRUP 5 ML UDC PO SCH ×3 (08:16→17:58)
[2017-04-25] MEDS: DEXTROMETHORPHAN 60MG/10ML SUSP 90ML BTL(DELSYM) PO SCH ×2 (08:16→20:36)
[2017-04-25] MEDS: HEPARIN SOD (PORCINE) 5000 UNITS/ML VIAL SC SCH ×2 (08:17→20:35)
[2017-04-25] MEDS: SENOKOT S TAB PO SCH ×2 (08:17→20:35)
[2017-04-25] MEDS: BENZONATATE 100 MG CAP PO SCH ×3 (08:17→20:35)
[2017-04-25] MEDS: ESCITALOPRAM OXALATE 10 MG TAB (LEXAPRO) PO SCH (08:17)
[2017-04-25] MEDS: OMEPRAZOLE 20 MG CAP PO SCH ×2 (08:17→20:34)
--- NOTE | 2017-04-25 08:26 | IPNPDOC ---
Subjective Date Seen The patient was seen on 04/25/17. Subjective Chief Complaint/HPI The patient is a 76-year-old female admitted with a reason for visit of Copd Exacerbation. Events since last encounter continues to feel sick , Continues to cough with severe back pain and soreness. no fever or chills, continues to have SOB worse than baseline, no nausea or vomiting or diarrhea. Objective Physical Examination General Exam: Positive: Alert, Cooperative, No Acute Distress Eye Exam: Positive: PERRLA, Conjunctiva & lids normal, EOMI, Negative: Sclera icteric ENT Exam: Positive: Atraumatic, Mucous membr. moist/pink, Pharynx Normal Neck Exam: Positive: Supple, Negative: JVD, thyromegaly Chest Exam: Positive: Rales, Rhonchi, Diminished Heart Exam: Positive: Rate Normal, Regular Rhythm, Normal S1, Normal S2 Telemetry: Positive: No significant arrhythmia Abdomen Exam: Positive: Normal bowel sounds, Soft, Negative: Tenderness, Hepatospenomegaly Extremity Exam: Positive: Normal pulses, Negative: Clubbing, Cyanosis, Edema Assessment /Plan Problems (1) COPD exacerbation Status: Acute Problem Text: will continue with duonebs, spiriva, budesonide, steroids. (2) Tracheobronchitis, acute or subacute Status: Acute Problem Text: will continue with ceftriazone and azithromycin. sputum culture citrobacter. will continue with ceftriaxone. will give dextromethorphan and guaifenesin with codeine for cough suppression. (3) Anxiety and depression Status: Chronic Problem Text: continue xanax prn and lexapro, trazodone (4) Hypertension Status: Chronic (5) Hypercholesterolemia Status: Chronic Problem Text: continue statin (6) Chronic respiratory failure with hypoxia and hypercapnia Status: Chronic (7) GERD (gastroesophageal reflux disease) Status: Chronic Problem Text: continue omeprazole (8) History of peptic ulcer disease Status: Chronic Problem Text: has Billroth 2gastrctomy and gastrojejunostomy continue with omeprazole. had egd in 2013 (9) Anemia Status: Chronic Problem Text: had EGD and colonoscopy in 2013. EGD showed billroth 2 gastrojejunostomy and colonoscopy showed diverticulosis, internal hemorrhoids and polyps. 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 v b 12 and folate levels pending LDH and reticount are normal. (10) Back pain Status: Chronic Problem Text: Has scoliosis and also chronic thoracic compression fracture. (11) Restless leg syndrome Status: Chronic Problem Text: continue ropinirole. Plan/VTE VTE Prophylaxis Ordered?: Yes VS, I&O, 24H, Fishbone Vital Signs/I&O Vital Signs Date Time Temp Pulse Resp B/P (MAP) Pulse Ox O2 Delivery O2 Flow Rate FiO2 04/25/17 06:00 97.1 87 20 152/74 (100) 96 Nasal Cannula 2.0 Laboratory Data 24H LABS Laboratory Tests 2 04/25/17 05:59: Nucleated Red Blood Cells % (auto) 0.0, Anion Gap 3L, Glomerular Filtration Rate > 60.0, Blood Urea Nitrogen 36#H, Creatinine 0.68, Sodium Level 145, Potassium Level 3.7, Chloride Level 105, Carbon Dioxide Level 37H, Calcium Level 7.6L, Magnesium Level 2.5H CBC/BMP Laboratory Tests 04/25/17 05:59 Red Blood Count 3.54 L, Mean Corpuscular Volume 100.3 H, Mean Corpuscular Hemoglobin 30.2, Mean Corpuscular Hemoglobin Concent 30.1 L, Red Cell Distribution Width 13.2, Calcium Level 7.6 L Microbiology Microbiology 04/22/17 Blood Culture - Preliminary, Resulted No Growth after 48 hours. All Specime... 04/22/17 Blood Culture - Preliminary, Resulted No Growth after 48 hours. All Specime... 04/22/17 Gram Stain - Final, Complete 04/22/17 Sputum Culture - Final, Complete Citrobacter Freundii Pseudomonas Aeruginosa Streptococcus Pneumoniae Yeast Like Organism LIZZY CANAS MD Apr 25, 2017 08:26
[2017-04-25] MEDS ORDERED: traMADol 50 MG TAB PO SCH (09:00)
--- NOTE | 2017-04-25 13:38 | REP ---
CHEST, SINGLE VIEW: Single view of the chest is performed. Comparison made with multiple prior exams, most recent of which is 07/05/2016. There appears to be mild streaky atelectasis or infiltrate in each lung base. Heart is not enlarged, and there is calcification of the thoracic aorta. Mediastinal silhouette is unchanged. IMPRESSION: Mild streaky bibasilar atelectasis/infiltrate. Signed by Paul Gudino MD 04/25/2017 04:59 P
[2017-04-25 14:00] VITALS: BP 148/74
[2017-04-25] MEDS: PERCOCET 5MG/325MG TAB PO PRN (15:00)
[2017-04-25] MEDS: ONDANSETRON 4MG/2ML VIAL (J2405) IV PRN (15:05)
[2017-04-25] MEDS: CEFTRIAXONE SOD 2 GM in APPROPRIATE DILUENT 1 EA IV SCH (17:58)
[2017-04-25] MEDS: rOPINIRole 1MG TAB PO SCH (20:34)
[2017-04-25] MEDS: SIMVASTATIN 40 MG TAB PO SCH (20:35)
[2017-04-25] MEDS: traZODone 50 MG TAB PO SCH (20:35)
[2017-04-25 22:00] VITALS: BP 145/65
[2017-04-26] MEDS: guaiFENesin/CODEINE SYRUP 5 ML UDC PO SCH ×5 (00:12→23:03)
[2017-04-26] MEDS: methylPREDNISolone INJ 40 MG/1 ML VIAL (J2920) IV SCH ×2 (00:12→07:05)
[2017-04-26] MEDS: PERCOCET 5MG/325MG TAB PO PRN ×3 (00:13→19:52)
[2017-04-26] MEDS: METOCLOPRAMIDE INJ 10MG/2ML VIAL (J2765) IV PRN (00:18)
[2017-04-26] MEDS: IPRATROPIUM 0.5MG/ALBUTEROL 2.5MG INH SOL UD 3ML (DUONEB)(J7620) NEB SCH ×4 (02:46→20:00)
[2017-04-26 06:00] VITALS: BP 141/63
[2017-04-26 06:17] LABS: MEAN CORPUSCULAR HEMOGLOBIN 30.3 pg (27.0-33.0); MEAN CORPUSCULAR HGB CONC 29.9 g/dl (32.0-36.5); MEAN CORPUSCULAR VOLUME 101.1 fl (80.0-96.0); PLATELET COUNT, AUTOMATED 214 10^3/uL (150-450); RED CELL DISTRIBUTION WIDTH 13.1 % (11.5-14.5); WHITE BLOOD COUNT 12.1 10^3/uL (4.0-10.0)
[2017-04-26] MEDS: ALPRAZolam 0.5 MG TAB PO PRN ×3 (06:40→23:03)
[2017-04-26 06:43] LABS: ANION GAP 4 MEQ/L (8-16); BLOOD UREA NITROGEN 39 MG/DL (7-18); CALCIUM LEVEL 7.8 MG/DL (8.8-10.2); CARBON DIOXIDE LEVEL 37 MEQ/L (21-32); CHLORIDE LEVEL 103 MEQ/L (98-107); CREATININE FOR GFR 0.63 MG/DL (0.55-1.02); GLOMERULAR FILTRATION RATE > 60.0 (>39); GLUCOSE, FASTING 209 MG/DL (83-110); MAGNESIUM LEVEL 2.6 MG/DL (1.8-2.4); POTASSIUM SERUM 3.9 MEQ/L (3.5-5.1); SODIUM LEVEL 144 MEQ/L (136-145)
[2017-04-26] MEDS ORDERED: LevoFLOXacin 500 MG TABLET PO ONE (07:45)
[2017-04-26] MEDS: TIOTROPIUM INHALER/CAPSULE (SPIRIVA) INH SCH (07:55)
[2017-04-26] MEDS: BUDESONIDE 180MCG INHALER (PULMICORT FLEXHALER) INH SCH ×2 (07:55→20:12)
[2017-04-26] MEDS: ESCITALOPRAM OXALATE 10 MG TAB (LEXAPRO) PO SCH (09:43)
[2017-04-26] MEDS: HEPARIN SOD (PORCINE) 5000 UNITS/ML VIAL SC SCH ×2 (09:43→20:01)
[2017-04-26] MEDS: OMEPRAZOLE 20 MG CAP PO SCH ×2 (09:44→20:00)
[2017-04-26] MEDS: BENZONATATE 100 MG CAP PO SCH ×3 (09:44→20:01)
[2017-04-26] MEDS: SENOKOT S TAB PO SCH ×2 (09:44→20:01)
--- NOTE | 2017-04-26 11:08 | IPNPDOC ---
Subjective Date Seen The patient was seen on 04/26/17. Subjective Chief Complaint/HPI The patient is a 76-year-old female admitted with a reason for visit of Copd Exacerbation. Events since last encounter still not feeling well, has severe bouts of coughing, continues to be very SOB , has severe back and chest pain with coughing bouts. Also has episodes of nausea Objective Physical Examination General Exam: Positive: Alert, Cooperative, No Acute Distress Eye Exam: Positive: PERRLA, Conjunctiva & lids normal, EOMI, Negative: Sclera icteric ENT Exam: Positive: Atraumatic, Mucous membr. moist/pink, Pharynx Normal Neck Exam: Positive: Supple, Negative: JVD, thyromegaly Chest Exam: Positive: Rales, Rhonchi, Diminished Heart Exam: Positive: Rate Normal, Regular Rhythm, Normal S1, Normal S2 Telemetry: Positive: No significant arrhythmia Abdomen Exam: Positive: Normal bowel sounds, Soft, Negative: Tenderness, Hepatospenomegaly Extremity Exam: Positive: Normal pulses, Negative: Clubbing, Cyanosis, Edema Assessment /Plan Problems (1) COPD exacerbation Status: Acute Problem Text: will continue with duonebs, spiriva, budesonide, steroids. (2) Tracheobronchitis, acute or subacute Status: Acute Problem Text: will start levofloxacin sputum culture citrobacter. will continue with ceftriaxone. will give dextromethorphan and guaifenesin with codeine for cough suppression. (3) Anxiety and depression Status: Chronic Problem Text: continue xanax prn and lexapro, trazodone (4) Hypertension Status: Chronic (5) Hypercholesterolemia Status: Chronic Problem Text: continue statin (6) Chronic respiratory failure with hypoxia and hypercapnia Status: Chronic (7) GERD (gastroesophageal reflux disease) Status: Chronic Problem Text: continue omeprazole (8) History of peptic ulcer disease Status: Chronic Problem Text: has Billroth 2gastrctomy and gastrojejunostomy continue with omeprazole. had egd in 2013 (9) Anemia Status: Chronic Problem Text: had EGD and colonoscopy in 2013. EGD showed billroth 2 gastrojejunostomy and colonoscopy showed diverticulosis, internal hemorrhoids and polyps. 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 v b 12 and folate levels pending LDH and reticount are normal. (10) Back pain Status: Chronic Problem Text: Has scoliosis and also chronic thoracic compression fracture. (11) Restless leg syndrome Status: Chronic Problem Text: continue ropinirole. Plan/VTE VTE Prophylaxis Ordered?: Yes VS, I&O, 24H, Fishbone Vital Signs/I&O Vital Signs Date Time Temp Pulse Resp B/P (MAP) Pulse Ox O2 Delivery O2 Flow Rate FiO2 04/26/17 10:17 22 04/26/17 06:00 97.5 86 141/63 (89) 94 Nasal Cannula 2.0 I&O- Last 24 Hours up to 6 AM 04/27/17 06:00 Intake Total 240 ml Output Total 100 ml Balance 140 ml Laboratory Data 24H LABS Laboratory Tests 2 04/26/17 05:26: Nucleated Red Blood Cells % (auto) 0.0, Anion Gap 4L, Glomerular Filtration Rate > 60.0, Blood Urea Nitrogen 39H, Creatinine 0.63, Sodium Level 144, Potassium Level 3.9, Chloride Level 103, Carbon Dioxide Level 37H, Calcium Level 7.8L, Magnesium Level 2.6H CBC/BMP Laboratory Tests 04/26/17 05:26 Red Blood Count 3.60 L, Mean Corpuscular Volume 101.1 H, Mean Corpuscular Hemoglobin 30.3, Mean Corpuscular Hemoglobin Concent 29.9 L, Red Cell Distribution Width 13.1, Calcium Level 7.8 L Microbiology Microbiology 04/22/17 Blood Culture - Preliminary, Resulted No Growth after 72 hours. All specime... 04/22/17 Blood Culture - Preliminary, Resulted No Growth after 72 hours. All specime... 04/22/17 Gram Stain - Final, Complete 04/22/17 Sputum Culture - Final, Complete Citrobacter Freundii Pseudomonas Aeruginosa Streptococcus Pneumoniae Yeast Like Organism LIZZY CANAS MD Apr 26, 2017 11:08
[2017-04-26] MEDS: predniSONE 50 MG TAB PO SCH (12:21)
[2017-04-26 14:00] VITALS: BP 136/81
[2017-04-26] MEDS: ONDANSETRON 4 MG ORAL DISINTEGRATING TAB (S0181) PO PRN (15:30)
[2017-04-26] MEDS: traZODone 50 MG TAB PO SCH (20:00)
[2017-04-26] MEDS: SIMVASTATIN 40 MG TAB PO SCH (20:00)
[2017-04-26] MEDS: rOPINIRole 1MG TAB PO SCH (20:00)
[2017-04-26 22:00] VITALS: BP 149/77
[2017-04-26] MEDS: METOCLOPRAMIDE 10 MG TAB PO PRN (23:03)
[2017-04-27] MEDS: IPRATROPIUM 0.5MG/ALBUTEROL 2.5MG INH SOL UD 3ML (DUONEB)(J7620) NEB SCH ×4 (01:25→23:23)
[2017-04-27] MEDS: guaiFENesin/CODEINE SYRUP 5 ML UDC PO SCH ×4 (05:18→23:47)
[2017-04-27] MEDS: LevoFLOXacin 500 MG TABLET PO SCH (05:19)
[2017-04-27 06:00] VITALS: BP 145/66
[2017-04-27 06:28] LABS: MEAN CORPUSCULAR HEMOGLOBIN 29.8 pg (27.0-33.0); MEAN CORPUSCULAR HGB CONC 29.8 g/dl (32.0-36.5); PLATELET COUNT, AUTOMATED 185 10^3/uL (150-450); WHITE BLOOD COUNT 10.3 10^3/uL (4.0-10.0)
[2017-04-27 06:39] LABS: ANION GAP 4 MEQ/L (8-16); BLOOD UREA NITROGEN 28 MG/DL (7-18); CALCIUM LEVEL 7.6 MG/DL (8.8-10.2); CARBON DIOXIDE LEVEL 35 MEQ/L (21-32); CHLORIDE LEVEL 103 MEQ/L (98-107); CREATININE FOR GFR 0.66 MG/DL (0.55-1.02); GLOMERULAR FILTRATION RATE > 60.0 (>39); GLUCOSE, FASTING 157 MG/DL (83-110); MAGNESIUM LEVEL 2.3 MG/DL (1.8-2.4); POTASSIUM SERUM 4.1 MEQ/L (3.5-5.1); SODIUM LEVEL 142 MEQ/L (136-145)
[2017-04-27] MEDS: TIOTROPIUM INHALER/CAPSULE (SPIRIVA) INH SCH (08:09)
[2017-04-27] MEDS: BUDESONIDE 180MCG INHALER (PULMICORT FLEXHALER) INH SCH ×2 (08:09→20:20)
[2017-04-27] MEDS: OMEPRAZOLE 20 MG CAP PO SCH ×2 (08:36→21:20)
[2017-04-27] MEDS: BENZONATATE 100 MG CAP PO SCH ×3 (08:36→21:19)
[2017-04-27] MEDS: HEPARIN SOD (PORCINE) 5000 UNITS/ML VIAL SC SCH ×2 (08:36→21:21)
[2017-04-27] MEDS: SENOKOT S TAB PO SCH ×2 (08:36→21:19)
[2017-04-27] MEDS: predniSONE 50 MG TAB PO SCH (08:36)
[2017-04-27] MEDS: ESCITALOPRAM OXALATE 10 MG TAB (LEXAPRO) PO SCH (08:36)
[2017-04-27] MEDS: PERCOCET 5MG/325MG TAB PO PRN ×2 (08:37→16:37)
[2017-04-27] MEDS: ALPRAZolam 0.5 MG TAB PO PRN ×2 (08:42→21:19)
[2017-04-27 09:00] VITALS: BP 137/65
--- NOTE | 2017-04-27 10:13 | IPNPDOC ---
Subjective Date Seen The patient was seen on 04/27/17. Subjective Chief Complaint/HPI The patient is a 76-year-old female admitted with a reason for visit of Copd Exacerbation. Events since last encounter Still not feeling well, continues to have a hacking cough. continues to be extremely sob on minimal exertion. But seems to be moving more air today. Complains of nausea , backpain and chest pand upper abdominal pain and soreness. Objective Physical Examination General Exam: Positive: Alert, Cooperative, No Acute Distress Eye Exam: Positive: PERRLA, Conjunctiva & lids normal, EOMI, Negative: Sclera icteric ENT Exam: Positive: Atraumatic, Mucous membr. moist/pink, Pharynx Normal Neck Exam: Positive: Supple, Negative: JVD, thyromegaly Chest Exam: Positive: Rales, Rhonchi, Diminished Heart Exam: Positive: Rate Normal, Regular Rhythm, Normal S1, Normal S2 Telemetry: Positive: No significant arrhythmia Abdomen Exam: Positive: Normal bowel sounds, Soft, Negative: Tenderness, Hepatospenomegaly Extremity Exam: Positive: Normal pulses, Negative: Clubbing, Cyanosis, Edema Assessment /Plan Problems (1) COPD exacerbation Status: Acute Problem Text: will continue with duonebs, spiriva, budesonide, steroids. will start formoterol (2) Tracheobronchitis, acute or subacute Status: Acute Problem Text: will start levofloxacin sputum culture citrobacter. will continue with ceftriaxone. will give dextromethorphan and guaifenesin with codeine for cough suppression. (3) Anxiety and depression Status: Chronic Problem Text: continue xanax prn and lexapro, trazodone (4) Hypertension Status: Chronic (5) Hypercholesterolemia Status: Chronic Problem Text: continue statin (6) Chronic respiratory failure with hypoxia and hypercapnia Status: Chronic (7) GERD (gastroesophageal reflux disease) Status: Chronic Problem Text: continue omeprazole (8) History of peptic ulcer disease Status: Chronic Problem Text: has Billroth 2gastrctomy and gastrojejunostomy continue with omeprazole. had egd in 2013 (9) Anemia Status: Chronic Problem Text: had EGD and colonoscopy in 2014. EGD showed billroth 2 gastrojejunostomy and colonoscopy showed diverticulosis, internal hemorrhoids and polyps. 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 v b 12 and folate levels pending LDH and reticount are normal. (10) Back pain Status: Chronic Problem Text: Has scoliosis and also chronic thoracic compression fracture. (11) Restless leg syndrome Status: Chronic Problem Text: continue ropinirole. Plan/VTE VTE Prophylaxis Ordered?: Yes VS, I&O, 24H, Fishbone Vital Signs/I&O Vital Signs Date Time Temp Pulse Resp B/P (MAP) Pulse Ox O2 Delivery O2 Flow Rate FiO2 04/27/17 09:07 18 04/27/17 09:00 89 93 Nasal Cannula 2.0 04/27/17 06:00 98.1 145/66 (92) Laboratory Data 24H LABS Laboratory Tests 2 04/27/17 05:59: Nucleated Red Blood Cells % (auto) 0.0, Anion Gap 4L, Glomerular Filtration Rate > 60.0, Blood Urea Nitrogen 28H, Creatinine 0.66, Sodium Level 142, Potassium Level 4.1, Chloride Level 103, Carbon Dioxide Level 35H, Calcium Level 7.6L, Magnesium Level 2.3 CBC/BMP Laboratory Tests 04/27/17 05:59 Red Blood Count 3.39 L, Mean Corpuscular Volume 100.0 H, Mean Corpuscular Hemoglobin 29.8, Mean Corpuscular Hemoglobin Concent 29.8 L, Red Cell Distribution Width 13.0, Calcium Level 7.6 L Microbiology Microbiology 04/22/17 Blood Culture - Preliminary, Resulted No Growth after 72 hours. All specime... 04/22/17 Blood Culture - Preliminary, Resulted No Growth after 72 hours. All specime... 04/22/17 Gram Stain - Final, Complete 04/22/17 Sputum Culture - Final, Complete Citrobacter Freundii Pseudomonas Aeruginosa Streptococcus Pneumoniae Yeast Like Organism LIZZY CANAS MD Apr 27, 2017 10:13
[2017-04-27] MEDS: FORMOTEROL FUMARATE 20 MCG/2 ML INHALATION SOLUTION (PERFOROMIST) INH SCH ×2 (11:24→20:07)
[2017-04-27 14:00] VITALS: BP 147/67
[2017-04-27] MEDS: ONDANSETRON 4 MG ORAL DISINTEGRATING TAB (S0181) PO PRN (16:37)
[2017-04-27] MEDS ORDERED: BISACODYL 5 MG TAB PO PRN (17:00)
[2017-04-27] MEDS: METOCLOPRAMIDE 10 MG TAB PO PRN (21:19)
[2017-04-27] MEDS: SIMVASTATIN 40 MG TAB PO SCH (21:20)
[2017-04-27] MEDS: rOPINIRole 1MG TAB PO SCH (21:20)
[2017-04-27] MEDS: traZODone 50 MG TAB PO SCH (21:20)
[2017-04-27] MEDS: MIRALAX *UNIT DOSE* 17GM PACKET PO PRN (21:21)
[2017-04-28] MEDS: PERCOCET 5MG/325MG TAB PO PRN ×3 (03:56→20:22)
[2017-04-28 05:05] VITALS: BP 146/72
[2017-04-28] MEDS: LevoFLOXacin 500 MG TABLET PO SCH (05:29)
[2017-04-28] MEDS: guaiFENesin/CODEINE SYRUP 5 ML UDC PO SCH ×3 (05:29→17:52)
[2017-04-28 05:57] LABS: MEAN CORPUSCULAR HGB CONC 30.3 g/dl (32.0-36.5); MEAN CORPUSCULAR VOLUME 98.8 fl (80.0-96.0); PLATELET COUNT, AUTOMATED 197 10^3/uL (150-450); WHITE BLOOD COUNT 10.9 10^3/uL (4.0-10.0)
[2017-04-28 06:19] LABS: ANION GAP 2 MEQ/L (8-16); BLOOD UREA NITROGEN 29 MG/DL (7-18); CALCIUM LEVEL 7.7 MG/DL (8.8-10.2); CARBON DIOXIDE LEVEL 41 MEQ/L (21-32); CHLORIDE LEVEL 100 MEQ/L (98-107); CREATININE FOR GFR 0.74 MG/DL (0.55-1.02); GLOMERULAR FILTRATION RATE > 60.0 (>39); GLUCOSE, FASTING 177 MG/DL (83-110); MAGNESIUM LEVEL 2.3 MG/DL (1.8-2.4); POTASSIUM SERUM 3.7 MEQ/L (3.5-5.1); SODIUM LEVEL 143 MEQ/L (136-145)
[2017-04-28] MEDS: TIOTROPIUM INHALER/CAPSULE (SPIRIVA) INH SCH (07:09)
[2017-04-28] MEDS: FORMOTEROL FUMARATE 20 MCG/2 ML INHALATION SOLUTION (PERFOROMIST) INH SCH ×2 (07:09→20:31)
[2017-04-28] MEDS: BUDESONIDE 180MCG INHALER (PULMICORT FLEXHALER) INH SCH ×2 (07:10→20:31)
[2017-04-28] MEDS: IPRATROPIUM 0.5MG/ALBUTEROL 2.5MG INH SOL UD 3ML (DUONEB)(J7620) NEB SCH ×3 (07:10→23:47)
[2017-04-28] MEDS: ESCITALOPRAM OXALATE 10 MG TAB (LEXAPRO) PO SCH (08:08)
[2017-04-28] MEDS: ALPRAZolam 0.5 MG TAB PO PRN ×3 (08:08→20:21)
[2017-04-28] MEDS: SENOKOT S TAB PO SCH ×2 (08:08→20:21)
[2017-04-28] MEDS: BENZONATATE 100 MG CAP PO SCH ×3 (08:08→20:21)
[2017-04-28] MEDS: predniSONE 50 MG TAB PO SCH (08:08)
[2017-04-28] MEDS: OMEPRAZOLE 20 MG CAP PO SCH ×2 (08:08→20:21)
[2017-04-28] MEDS: HEPARIN SOD (PORCINE) 5000 UNITS/ML VIAL SC SCH ×2 (08:09→20:21)
--- NOTE | 2017-04-28 08:33 | IPNPDOC ---
Subjective Date Seen The patient was seen on 04/28/17. Subjective Chief Complaint/HPI The patient is a 76-year-old female admitted with a reason for visit of Copd Exacerbation. Events since last encounter cough a little better, SOB slowly improving, chest pain and back pain also improving. no fever or chills, nausea a little better. Objective Physical Examination General Exam: Positive: Alert, Cooperative, No Acute Distress Eye Exam: Positive: PERRLA, Conjunctiva & lids normal, EOMI, Negative: Sclera icteric ENT Exam: Positive: Atraumatic, Mucous membr. moist/pink, Pharynx Normal Neck Exam: Positive: Supple, Negative: JVD, thyromegaly Chest Exam: Positive: Rales, Rhonchi, Diminished Heart Exam: Positive: Rate Normal, Regular Rhythm, Normal S1, Normal S2 Telemetry: Positive: No significant arrhythmia Abdomen Exam: Positive: Normal bowel sounds, Soft, Negative: Tenderness, Hepatospenomegaly Extremity Exam: Positive: Normal pulses, Negative: Clubbing, Cyanosis, Edema Assessment /Plan Problems (1) COPD exacerbation Status: Acute Problem Text: will continue with duonebs, spiriva, budesonide, steroids. will start formoterol (2) Tracheobronchitis, acute or subacute Status: Acute Problem Text: will start levofloxacin sputum culture citrobacter. will continue with ceftriaxone. will give dextromethorphan and guaifenesin with codeine for cough suppression. (3) Anxiety and depression Status: Chronic Problem Text: continue xanax prn and lexapro, trazodone (4) Hypertension Status: Chronic (5) Hypercholesterolemia Status: Chronic Problem Text: continue statin (6) Chronic respiratory failure with hypoxia and hypercapnia Status: Chronic (7) GERD (gastroesophageal reflux disease) Status: Chronic Problem Text: continue omeprazole (8) History of peptic ulcer disease Status: Chronic Problem Text: has Billroth 2gastrctomy and gastrojejunostomy continue with omeprazole. had egd in 2013 (9) Anemia Status: Chronic Problem Text: had EGD and colonoscopy in 2013. EGD showed billroth 2 gastrojejunostomy and colonoscopy showed diverticulosis, internal hemorrhoids and polyps. 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 v b 12 and folate levels pending LDH and reticount are normal. (10) Back pain Status: Chronic Problem Text: Has scoliosis and also chronic thoracic compression fracture. (11) Restless leg syndrome Status: Chronic Problem Text: continue ropinirole. Plan/VTE VTE Prophylaxis Ordered?: Yes VS, I&O, 24H, Fishbone Vital Signs/I&O Vital Signs Date Time Temp Pulse Resp B/P (MAP) Pulse Ox O2 Delivery O2 Flow Rate FiO2 04/28/17 05:05 97.3 88 16 146/72 (96) 98 Nasal Cannula 2.0 Laboratory Data 24H LABS Laboratory Tests 2 04/28/17 05:27: Nucleated Red Blood Cells % (auto) 0.0, Anion Gap 2L, Glomerular Filtration Rate > 60.0, Blood Urea Nitrogen 29H, Creatinine 0.74, Sodium Level 143, Potassium Level 3.7, Chloride Level 100, Carbon Dioxide Level 41H, Calcium Level 7.7L, Magnesium Level 2.3 CBC/BMP Laboratory Tests 04/28/17 05:27 Red Blood Count 3.47 L, Mean Corpuscular Volume 98.8 H, Mean Corpuscular Hemoglobin 30.0, Mean Corpuscular Hemoglobin Concent 30.3 L, Red Cell Distribution Width 13.0, Calcium Level 7.7 L Microbiology Microbiology 04/22/17 Blood Culture - Final, Complete NO GROWTH AFTER 5 DAYS 04/22/17 Blood Culture - Final, Complete NO GROWTH AFTER 5 DAYS 04/22/17 Gram Stain - Final, Complete 04/22/17 Sputum Culture - Final, Complete Citrobacter Freundii Pseudomonas Aeruginosa Streptococcus Pneumoniae Yeast Like Organism LIZZY CANAS MD Apr 28, 2017 08:33
[2017-04-28] MEDS ORDERED: predniSONE 20 MG TAB PO SCH (09:00)
[2017-04-28 14:00] VITALS: BP 112/55
[2017-04-28 19:40] VITALS: BP 130/60
[2017-04-28] MEDS: traZODone 50 MG TAB PO SCH (20:21)
[2017-04-28] MEDS: rOPINIRole 1MG TAB PO SCH (20:21)
[2017-04-28] MEDS: SIMVASTATIN 40 MG TAB PO SCH (20:21)
[2017-04-29] MEDS: guaiFENesin/CODEINE SYRUP 5 ML UDC PO SCH ×2 (00:23→05:40)
[2017-04-29] MEDS: LevoFLOXacin 500 MG TABLET PO SCH (05:40)
[2017-04-29] MEDS: ALPRAZolam 0.5 MG TAB PO PRN ×2 (05:40→14:05)
[2017-04-29 06:00] VITALS: BP 115/55
[2017-04-29] MEDS: BUDESONIDE 180MCG INHALER (PULMICORT FLEXHALER) INH SCH ×2 (06:09→21:00)
[2017-04-29] MEDS: FORMOTEROL FUMARATE 20 MCG/2 ML INHALATION SOLUTION (PERFOROMIST) INH SCH ×2 (06:09→20:41)
[2017-04-29 06:17] LABS: MEAN CORPUSCULAR HEMOGLOBIN 30.2 pg (27.0-33.0); MEAN CORPUSCULAR HGB CONC 30.7 g/dl (32.0-36.5); MEAN CORPUSCULAR VOLUME 98.6 fl (80.0-96.0); PLATELET COUNT, AUTOMATED 185 10^3/uL (150-450); RED CELL DISTRIBUTION WIDTH 13.2 % (11.5-14.5); WHITE BLOOD COUNT 13.1 10^3/uL (4.0-10.0)
[2017-04-29 06:33] LABS: ANION GAP 5 MEQ/L (8-16); BLOOD UREA NITROGEN 31 MG/DL (7-18); CALCIUM LEVEL 7.6 MG/DL (8.8-10.2); CARBON DIOXIDE LEVEL 37 MEQ/L (21-32); CHLORIDE LEVEL 100 MEQ/L (98-107); CREATININE FOR GFR 0.47 MG/DL (0.55-1.02); GLOMERULAR FILTRATION RATE > 60.0 (>39); GLUCOSE, FASTING 110 MG/DL (83-110); MAGNESIUM LEVEL 2.2 MG/DL (1.8-2.4); POTASSIUM SERUM 3.3 MEQ/L (3.5-5.1); SODIUM LEVEL 142 MEQ/L (136-145)
[2017-04-29] MEDS ORDERED: POTASSIUM CHLORIDE 10 MEQ SR TABLET PO ONE (07:00)
[2017-04-29] MEDS: IPRATROPIUM 0.5MG/ALBUTEROL 2.5MG INH SOL UD 3ML (DUONEB)(J7620) NEB SCH ×3 (08:00→20:25)
[2017-04-29] MEDS: TIOTROPIUM INHALER/CAPSULE (SPIRIVA) INH SCH (08:00)
[2017-04-29] MEDS: SENOKOT S TAB PO SCH ×3 (09:00→21:00)
[2017-04-29] MEDS: ESCITALOPRAM OXALATE 10 MG TAB (LEXAPRO) PO SCH (09:30)
[2017-04-29] MEDS: BENZONATATE 100 MG CAP PO SCH ×3 (09:30→21:16)
[2017-04-29] MEDS: predniSONE 20 MG TAB PO SCH (09:30)
[2017-04-29] MEDS: OMEPRAZOLE 20 MG CAP PO SCH ×2 (09:30→21:16)
[2017-04-29] MEDS: HEPARIN SOD (PORCINE) 5000 UNITS/ML VIAL SC SCH ×2 (09:31→21:17)
[2017-04-29] MEDS ORDERED: DEXTROMETHORPHAN 60MG/10ML SUSP 90ML BTL(DELSYM) PO PRN (09:45)
[2017-04-29] MEDS ORDERED: MIRALAX *UNIT DOSE* 17GM PACKET PO PRN (09:45)
--- NOTE | 2017-04-29 10:49 | IPNPDOC ---
Subjective Date Seen The patient was seen on 04/29/17. Subjective Chief Complaint/HPI The patient is a 76-year-old female admitted with a reason for visit of Copd Exacerbation. Events since last encounter still does not feel well, continues to have sob , says the cough is a little worse today. Also complains of constipation . says the pain medication is not controlling the pain well. no fever or chills, continues to have nausea , no vomiting or diarrhea, no phlegm production. Objective Physical Examination General Exam: Positive: Alert, Cooperative, No Acute Distress Eye Exam: Positive: PERRLA, Conjunctiva & lids normal, EOMI, Negative: Sclera icteric ENT Exam: Positive: Atraumatic, Mucous membr. moist/pink, Pharynx Normal Neck Exam: Positive: Supple, Negative: JVD, thyromegaly Chest Exam: Positive: Clear to auscultation, Diminished Heart Exam: Positive: Rate Normal, Regular Rhythm, Normal S1, Normal S2 Telemetry: Positive: No significant arrhythmia Abdomen Exam: Positive: Normal bowel sounds, Soft, Negative: Tenderness, Hepatospenomegaly Extremity Exam: Positive: Normal pulses, Negative: Clubbing, Cyanosis, Edema Assessment /Plan Problems (1) COPD exacerbation Status: Acute Problem Text: will continue with duonebs, spiriva, budesonide, steroids, formoterol (2) Tracheobronchitis, acute or subacute Status: Acute Problem Text: will start levofloxacin sputum culture with multiple organisms sensitive to LEvofloxacin will continue. will give dextromethorphan for cough suppression. (3) Anxiety and depression Status: Chronic Problem Text: continue xanax prn and lexapro, trazodone (4) Hypertension Status: Chronic (5) Hypercholesterolemia Status: Chronic Problem Text: continue statin (6) Chronic respiratory failure with hypoxia and hypercapnia Status: Chronic (7) GERD (gastroesophageal reflux disease) Status: Chronic Problem Text: continue omeprazole (8) History of peptic ulcer disease Status: Chronic Problem Text: has Billroth 2gastrctomy and gastrojejunostomy continue with omeprazole. had egd in 2013 (9) Anemia Status: Chronic Problem Text: had EGD and colonoscopy in 2013. EGD showed billroth 2 gastrojejunostomy and colonoscopy showed diverticulosis, internal hemorrhoids and polyps. 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 v b 12 and folate levels pending LDH and reticount are normal. (10) Back pain Status: Chronic Problem Text: Has scoliosis and also chronic thoracic compression fracture. Now worse with bouts of severe coughing will continue with percocet. (11) Restless leg syndrome Status: Chronic Problem Text: continue ropinirole. Plan/VTE VTE Prophylaxis Ordered?: Yes VS, I&O, 24H, Fishbone Vital Signs/I&O Vital Signs Date Time Temp Pulse Resp B/P (MAP) Pulse Ox O2 Delivery O2 Flow Rate FiO2 04/29/17 06:00 97.4 91 20 115/55 (75) 90 Nasal Cannula 2.0 Laboratory Data 24H LABS Laboratory Tests 2 04/29/17 05:23: Nucleated Red Blood Cells % (auto) 0.0, Anion Gap 5L, Glomerular Filtration Rate > 60.0, Blood Urea Nitrogen 31H, Creatinine 0.47L, Sodium Level 142, Potassium Level 3.3L, Chloride Level 100, Carbon Dioxide Level 37H, Calcium Level 7.6L, Magnesium Level 2.2 CBC/BMP Laboratory Tests 04/29/17 05:23 Red Blood Count 3.54 L, Mean Corpuscular Volume 98.6 H, Mean Corpuscular Hemoglobin 30.2, Mean Corpuscular Hemoglobin Concent 30.7 L, Red Cell Distribution Width 13.2, Calcium Level 7.6 L Microbiology Microbiology 04/22/17 Blood Culture - Final, Complete NO GROWTH AFTER 5 DAYS 04/22/17 Blood Culture - Final, Complete NO GROWTH AFTER 5 DAYS 04/22/17 Gram Stain - Final, Complete 04/22/17 Sputum Culture - Final, Complete Citrobacter Freundii Pseudomonas Aeruginosa Streptococcus Pneumoniae Yeast Like Organism LIZZY CANAS MD Apr 29, 2017 10:49
[2017-04-29 14:00] VITALS: BP 130/58
[2017-04-29] MEDS: PERCOCET 5MG/325MG TAB PO PRN (18:15)
[2017-04-29] MEDS: rOPINIRole 1MG TAB PO SCH (21:16)
[2017-04-29] MEDS: SIMVASTATIN 40 MG TAB PO SCH (21:16)
[2017-04-29] MEDS: traZODone 50 MG TAB PO SCH (21:16)
[2017-04-29 22:00] VITALS: BP 123/57
[2017-04-30] MEDS: ONDANSETRON 4 MG ORAL DISINTEGRATING TAB (S0181) PO PRN (00:22)
[2017-04-30] MEDS: ALPRAZolam 0.5 MG TAB PO PRN ×3 (00:22→16:10)
[2017-04-30] MEDS: LevoFLOXacin 500 MG TABLET PO SCH (05:01)
[2017-04-30 06:00] VITALS: BP 124/58
[2017-04-30 07:22] VITALS: BP 145/70
[2017-04-30] MEDS: FORMOTEROL FUMARATE 20 MCG/2 ML INHALATION SOLUTION (PERFOROMIST) INH SCH ×2 (07:32→20:19)
[2017-04-30] MEDS: TIOTROPIUM INHALER/CAPSULE (SPIRIVA) INH SCH (07:32)
[2017-04-30] MEDS: IPRATROPIUM 0.5MG/ALBUTEROL 2.5MG INH SOL UD 3ML (DUONEB)(J7620) NEB SCH ×2 (07:33→16:12)
[2017-04-30] MEDS: BUDESONIDE 180MCG INHALER (PULMICORT FLEXHALER) INH SCH ×2 (07:33→20:19)
[2017-04-30] MEDS ORDERED: ISOVUE-370 76% 100ML VIAL (Q9967) As Ordered ONE (07:51)
[2017-04-30 08:14] LABS: BASO % 0.1 % (0.0-1.0); EOS % 0.2 % (0.0-3.0); IMMATURE GRANULOCYTE % 2.5 % (0-0); LYMPH # 1.5 10^3/uL (1.5-4.5); LYMPH % 13.6 % (24.0-44.0); MEAN CORPUSCULAR HEMOGLOBIN 30.2 pg (27.0-33.0); MEAN CORPUSCULAR HGB CONC 30.7 g/dl (32.0-36.5); MEAN CORPUSCULAR VOLUME 98.6 fl (80.0-96.0); MONO # 0.5 10^3/uL (0.0-0.8); NEUTROPHILS % 79.6 % (36.0-66.0); PLATELET COUNT, AUTOMATED 174 10^3/uL (150-450); RED CELL DISTRIBUTION WIDTH 13.4 % (11.5-14.5); WHITE BLOOD COUNT 11.3 10^3/uL (4.0-10.0)
[2017-04-30 08:32] LABS: ANION GAP 1 MEQ/L (8-16); BLOOD UREA NITROGEN 19 MG/DL (7-18); CALCIUM LEVEL 8.5 MG/DL (8.8-10.2); CARBON DIOXIDE LEVEL 42 MEQ/L (21-32); CHLORIDE LEVEL 100 MEQ/L (98-107); CREATININE FOR GFR 0.56 MG/DL (0.55-1.02); GLOMERULAR FILTRATION RATE > 60.0 (>39); GLUCOSE, FASTING 95 MG/DL (83-110); POTASSIUM SERUM 4.5 MEQ/L (3.5-5.1); SODIUM LEVEL 143 MEQ/L (136-145)
[2017-04-30] MEDS: SUCRALFATE SUSP 1GM/10ML UD PO SCH ×4 (08:39→21:08)
[2017-04-30] MEDS: BENZONATATE 100 MG CAP PO SCH ×3 (08:39→21:08)
[2017-04-30] MEDS: SENOKOT S TAB PO SCH ×2 (08:39→21:09)
[2017-04-30] MEDS: predniSONE 20 MG TAB PO SCH (08:39)
[2017-04-30] MEDS: OMEPRAZOLE 20 MG CAP PO SCH ×2 (08:39→21:09)
[2017-04-30] MEDS: HEPARIN SOD (PORCINE) 5000 UNITS/ML VIAL SC SCH ×2 (08:40→21:09)
[2017-04-30] MEDS: ESCITALOPRAM OXALATE 10 MG TAB (LEXAPRO) PO SCH (08:40)
[2017-04-30] MEDS: PERCOCET 5MG/325MG TAB PO PRN ×2 (08:41→21:14)
--- NOTE | 2017-04-30 11:35 | IPNPDOC ---
Subjective Date Seen The patient was seen on 04/30/17. Subjective Chief Complaint/HPI The patient is a 76-year-old female admitted with a reason for visit of Copd Exacerbation. Events since last encounter continues to complain of chest pain and back pain this am , continues to have bouts of severe dry cough, SOb unchanged, continues to have nausea. Objective Physical Examination General Exam: Positive: Alert, Cooperative, No Acute Distress Eye Exam: Positive: PERRLA, Conjunctiva & lids normal, EOMI, Negative: Sclera icteric ENT Exam: Positive: Atraumatic, Mucous membr. moist/pink, Pharynx Normal Neck Exam: Positive: Supple, Negative: JVD, thyromegaly Chest Exam: Positive: Clear to auscultation, Diminished Heart Exam: Positive: Rate Normal, Regular Rhythm, Normal S1, Normal S2 Telemetry: Positive: No significant arrhythmia Abdomen Exam: Positive: Normal bowel sounds, Soft, Negative: Tenderness, Hepatospenomegaly Extremity Exam: Positive: Normal pulses, Negative: Clubbing, Cyanosis, Edema Assessment /Plan Problems (1) COPD exacerbation Status: Acute Problem Text: will continue with duonebs, spiriva, budesonide, steroids, formoterol Bicarb in blood higher , will get ABG. (2) Tracheobronchitis, acute or subacute Status: Acute Problem Text: will start levofloxacin sputum culture with multiple organisms sensitive to LEvofloxacin will continue. will give dextromethorphan for cough suppression. (3) Anxiety and depression Status: Chronic Problem Text: continue xanax prn and lexapro, trazodone (4) Hypertension Status: Chronic (5) Hypercholesterolemia Status: Chronic Problem Text: continue statin (6) Chronic respiratory failure with hypoxia and hypercapnia Status: Chronic (7) GERD (gastroesophageal reflux disease) Status: Chronic Problem Text: continue omeprazole (8) History of peptic ulcer disease Status: Chronic Problem Text: has Billroth 2gastrctomy and gastrojejunostomy continue with omeprazole. had egd in 2013 (9) Anemia Status: Chronic Problem Text: had EGD and colonoscopy in 2013. EGD showed billroth 2 gastrojejunostomy and colonoscopy showed diverticulosis, internal hemorrhoids and polyps. 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 v b 12 and folate levels pending LDH and reticount are normal. (10) Back pain Status: Chronic Problem Text: Back pain and chest pain will get CT angio of chest today , cardiac enzymes are negative. Has scoliosis and also chronic thoracic compression fracture. Now worse with bouts of severe coughing will continue with percocet. (11) Restless leg syndrome Status: Chronic Problem Text: continue ropinirole. Plan/VTE VTE Prophylaxis Ordered?: Yes VS, I&O, 24H, Fishbone Vital Signs/I&O Vital Signs Date Time Temp Pulse Resp B/P (MAP) Pulse Ox O2 Delivery O2 Flow Rate FiO2 04/30/17 10:12 20 04/30/17 07:22 92 145/70 (95) 94 Nasal Cannula 2.0 04/30/17 06:00 97.7 I&O- Last 24 Hours up to 6 AM 05/01/17 06:00 Intake Total 360 ml Output Total 1250 ml Balance -890 ml Laboratory Data 24H LABS Laboratory Tests 2 04/30/17 08:08: Immature Granulocyte % (Auto) 2.5H, White Blood Count 11.3H, Red Blood Count 3.54L, Hemoglobin 10.7L, Hematocrit 34.9L, Mean Corpuscular Volume 98.6H, Mean Corpuscular Hemoglobin 30.2, Mean Corpuscular Hemoglobin Concent 30.7L, Red Cell Distribution Width 13.4, Platelet Count 174, Neutrophils (%) (Auto) 79.6H, Lymphocytes (%) (Auto) 13.6L, Monocytes (%) (Auto) 4.0, Eosinophils (%) (Auto) 0.2, Basophils (%) (Auto) 0.1, Neutrophils # (Auto) 9.0H, Lymphocytes # (Auto) 1.5, Monocytes # (Auto) 0.5, Eosinophils # (Auto) 0.0, Basophils # (Auto) 0.0, Immature Granulocyte # (Auto) 0.3H, Nucleated Red Blood Cells % (auto) 0.0, Anion Gap 1L, Glomerular Filtration Rate > 60.0, Blood Urea Nitrogen 19H, Creatinine 0.56, Sodium Level 143, Potassium Level 4.5#, Chloride Level 100, Carbon Dioxide Level 42H, Calcium Level 8.5L, Total Creatine Kinase 39, Creatine Kinase MB 1.7, Creatine Kinase MB Relative Index 4.35H, Troponin I < 0.02 CBC/BMP Laboratory Tests 04/30/17 08:08 Red Blood Count 3.54 L, Mean Corpuscular Volume 98.6 H, Mean Corpuscular Hemoglobin 30.2, Mean Corpuscular Hemoglobin Concent 30.7 L, Red Cell Distribution Width 13.4, Neutrophils (%) (Auto) 79.6 H, Lymphocytes (%) (Auto) 13.6 L, Monocytes (%) (Auto) 4.0, Eosinophils (%) (Auto) 0.2, Basophils (%) ( Auto) 0.1, Neutrophils # (Auto) 9.0 H, Lymphocytes # (Auto) 1.5, Monocytes # ( Auto) 0.5, Eosinophils # (Auto) 0.0, Basophils # (Auto) 0.0, Calcium Level 8.5 L , Total Creatine Kinase 39 Microbiology Microbiology 04/22/17 Blood Culture - Final, Complete NO GROWTH AFTER 5 DAYS 04/22/17 Blood Culture - Final, Complete NO GROWTH AFTER 5 DAYS 04/22/17 Gram Stain - Final, Complete 04/22/17 Sputum Culture - Final, Complete Citrobacter Freundii Pseudomonas Aeruginosa Streptococcus Pneumoniae Yeast Like Organism LIZZY CANAS MD Apr 30, 2017 11:35
--- NOTE | 2017-04-30 12:44 | REP ---
Clinical: Acute chest pain. Technique: Axial contrast enhanced images from the thoracic inlet to the upper abdomen using 100 ml Isovue 370 intravenous contrast material with MIP coronal and sagittal re-formations. Findings: Satisfactory enhancement of the pulmonary vasculature is achieved and no filling defects are identified to suggest pulmonary embolus. Atherosclerotic changes to the thoracic aorta and coronary arteries noted without evidence for aortic aneurysm/dissection. Mild cardiomegaly is suggested without pericardial effusion. Bilateral lung zelaya demonstrate chronic interstitial changes and mild emphysematous disease along with trace basilar atelectasis. No significant consolidation, nodule or mass lesion. No pleural effusion/reaction. No pneumothorax. No adenopathy. Impression: No evidence for pulmonary embolus. Chronic changes as described above with trace basilar atelectasis. Signed by Vladislav Almodovar MD 04/30/2017 12:36 P
[2017-04-30 13:23] LABS: ABG HCO3 38.4 MEQ/L (22.0-26.0); ABG PARTIAL PRESSURE O2 75.8 mmHg (75.0-100.0); ABG STANDARD HCO3 35.7 MEQ/L (22.0-26.0); ABG TOTAL CO2 40.2 MEQ/L (23.0-31.0); ABG pH (ARTERIAL) 7.424 UNITS (7.350-7.450)
[2017-04-30 14:00] VITALS: BP 141/64
--- NOTE | 2017-04-30 16:44 | ECGEPIP ---
Stationary ECG Study [facility] Test Date: 2017-04-30 Pat Name: CAROLYN FARRELL Department: Room: [place] [address] Gender: F Deckhand: CYNDI : 1940 Requested By: LIZZY CANAS Order Number: [id number] Reading MD: Contreras Smith Measurements Intervals [place] Rate: 86 P: 65 FL: 109 QRS: 51 QRSD: 86 T: 63 QT: 340 QTc: 407 Interpretive Statements Normal sinus rhythm Short FL interval Delayed anterior R wave progression Subtle inferolateral ST elevation--consider acute ischemia--this is marginally increased compared to tracing of 04/22/2017 Electronically Signed On 04-30-2017 16:44:04 EST by Contreras Smith
[2017-04-30] MEDS: traZODone 50 MG TAB PO SCH (21:08)
[2017-04-30] MEDS: SIMVASTATIN 40 MG TAB PO SCH (21:08)
[2017-04-30] MEDS: rOPINIRole 1MG TAB PO SCH (21:09)
[2017-04-30] MEDS: METOCLOPRAMIDE 10 MG TAB PO PRN (21:14)
[2017-04-30 22:00] VITALS: BP 128/57
[2017-05-01] MEDS: ALPRAZolam 0.5 MG TAB PO PRN ×3 (04:13→22:20)
[2017-05-01] MEDS: LevoFLOXacin 500 MG TABLET PO SCH (05:53)
[2017-05-01 06:00] VITALS: BP 108/53
[2017-05-01] MEDS: TIOTROPIUM INHALER/CAPSULE (SPIRIVA) INH SCH (07:13)
[2017-05-01] MEDS: FORMOTEROL FUMARATE 20 MCG/2 ML INHALATION SOLUTION (PERFOROMIST) INH SCH ×2 (07:13→19:18)
[2017-05-01] MEDS: IPRATROPIUM 0.5MG/ALBUTEROL 2.5MG INH SOL UD 3ML (DUONEB)(J7620) NEB SCH ×4 (07:14→23:46)
[2017-05-01] MEDS: BUDESONIDE 180MCG INHALER (PULMICORT FLEXHALER) INH SCH ×2 (07:14→19:18)
[2017-05-01] MEDS: ESCITALOPRAM OXALATE 10 MG TAB (LEXAPRO) PO SCH (08:32)
[2017-05-01] MEDS: SUCRALFATE SUSP 1GM/10ML UD PO SCH ×4 (08:32→21:44)
[2017-05-01] MEDS: SENOKOT S TAB PO SCH ×2 (08:32→21:45)
[2017-05-01] MEDS: BENZONATATE 100 MG CAP PO SCH ×3 (08:32→21:45)
[2017-05-01] MEDS: predniSONE 20 MG TAB PO SCH (08:32)
[2017-05-01] MEDS: OMEPRAZOLE 20 MG CAP PO SCH ×2 (08:32→21:45)
[2017-05-01] MEDS: HEPARIN SOD (PORCINE) 5000 UNITS/ML VIAL SC SCH ×2 (08:33→21:45)
[2017-05-01] MEDS: PERCOCET 5MG/325MG TAB PO PRN (10:07)
[2017-05-01] MEDS: MIRALAX *UNIT DOSE* 17GM PACKET PO PRN (10:12)
[2017-05-01] MEDS ORDERED: FLEET ENEMA PR PRN (10:45)
--- NOTE | 2017-05-01 10:52 | IPNPDOC ---
Subjective Date Seen The patient was seen on 05/01/17. Subjective Chief Complaint/HPI The patient is a 76-year-old female admitted with a reason for visit of Copd Exacerbation. Events since last encounter Today complaining of severe constipation and lower abdominal pain. She still continues to have epigastric pain , chest pain and back pain , Has bouts of coughing but getting less frequent. SOb slowly improving. Still getting very winded on mild exertion. no fever or chills, continues to have nausea. Objective Physical Examination General Exam: Positive: Alert, Cooperative, No Acute Distress Eye Exam: Positive: PERRLA, Conjunctiva & lids normal, EOMI, Negative: Sclera icteric ENT Exam: Positive: Atraumatic, Mucous membr. moist/pink, Pharynx Normal Neck Exam: Positive: Supple, Negative: JVD, thyromegaly Chest Exam: Positive: Rhonchi, Diminished Heart Exam: Positive: Rate Normal, Regular Rhythm, Normal S1, Normal S2 Telemetry: Positive: No significant arrhythmia Abdomen Exam: Positive: Normal bowel sounds, Soft, Tenderness, Negative: Hepatospenomegaly Extremity Exam: Positive: Normal pulses, Negative: Clubbing, Cyanosis, Edema Assessment /Plan Problems (1) Constipation Status: Acute Problem Text: continue senakot-s, dulcolax, miralax prn , fleet enema prn. (2) COPD exacerbation Status: Acute Problem Text: will continue with duonebs, spiriva, budesonide, steroids, formoterol will start tapering steroids. Will dc antibiotics recieved 5 days of levofloxacin and 4 days of ceftriaxone and azithromycin. Bicarb in blood higher , will get ABG. (3) Tracheobronchitis, acute or subacute Status: Acute Problem Text: Will dc antibiotics received 5 days of levofloxacin and 4 days of ceftriaxone and azithromycin prior to that , total 9 days of antibiotics. sputum culture with multiple organisms sensitive to LEvofloxacin continue dextromethorphan for cough suppression. Benzonate, (4) Anxiety and depression Status: Chronic Problem Text: continue xanax prn and lexapro, trazodone (5) Hypertension Status: Chronic (6) Hypercholesterolemia Status: Chronic Problem Text: continue statin (7) Chronic respiratory failure with hypoxia and hypercapnia Status: Chronic (8) GERD (gastroesophageal reflux disease) Status: Chronic Problem Text: continue omeprazole and sucralfate. (9) History of peptic ulcer disease Status: Chronic Problem Text: has Billroth 2gastrctomy and gastrojejunostomy continue with omeprazole and sucralfate. had egd in 2013 (10) Anemia Status: Chronic Problem Text: had EGD and colonoscopy in 2013. EGD showed billroth 2 gastrojejunostomy and colonoscopy showed diverticulosis, internal hemorrhoids and polyps. 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 v b 12 and folate levels pending LDH and reticount are normal. (11) Back pain Status: Chronic Problem Text: Back pain and chest pain CT angio of chest negative cardiac enzymes are negative EKG no acute changes Has scoliosis and also chronic thoracic compression fracture. Now worse with bouts of severe coughing will continue with percocet. (12) Restless leg syndrome Status: Chronic Problem Text: continue ropinirole. Plan/VTE VTE Prophylaxis Ordered?: Yes VS, I&O, 24H, Fishbone Vital Signs/I&O Vital Signs Date Time Temp Pulse Resp B/P (MAP) Pulse Ox O2 Delivery O2 Flow Rate FiO2 05/01/17 10:31 94 Nasal Cannula 2.0 05/01/17 10:07 20 05/01/17 06:00 98.0 74 108/53 (71) Laboratory Data 24H LABS Laboratory Tests 2 04/30/17 13:13: Blood Gas Bicarbonate Standard 35.7H, Arterial Blood pH 7.424, Arterial Blood Partial Pressure CO2 60.0H, Arterial Blood Partial Pressure O2 75.8, Arterial Blood Total CO2 40.2H, Arterial Blood HCO3 38.4H, Arterial Blood Base Excess 12.0H, Arterial Blood Oxygen Saturation 95.0 04/30/17 14:08: Total Creatine Kinase 36, Creatine Kinase MB 2.0, Creatine Kinase MB Relative Index 5.55H Microbiology Microbiology 04/22/17 Blood Culture - Final, Complete NO GROWTH AFTER 5 DAYS 04/22/17 Blood Culture - Final, Complete NO GROWTH AFTER 5 DAYS 04/22/17 Gram Stain - Final, Complete 04/22/17 Sputum Culture - Final, Complete Citrobacter Freundii Pseudomonas Aeruginosa Streptococcus Pneumoniae Yeast Like Organism LIZZY CANAS MD May 01, 2017 10:52
[2017-05-01] MEDS: BISACODYL 5 MG TAB PO SCH (11:32)
[2017-05-01 14:00] VITALS: BP 123/56
[2017-05-01] MEDS: rOPINIRole 1MG TAB PO SCH (21:45)
[2017-05-01] MEDS: traZODone 50 MG TAB PO SCH (21:45)
[2017-05-01] MEDS: SIMVASTATIN 40 MG TAB PO SCH (21:46)
[2017-05-01 22:00] VITALS: BP 115/59
[2017-05-02] MEDS: PERCOCET 5MG/325MG TAB PO PRN (05:23)
[2017-05-02 06:00] VITALS: BP 127/66
[2017-05-02] MEDS: IPRATROPIUM 0.5MG/ALBUTEROL 2.5MG INH SOL UD 3ML (DUONEB)(J7620) NEB SCH ×2 (07:33→14:56)
[2017-05-02] MEDS: TIOTROPIUM INHALER/CAPSULE (SPIRIVA) INH SCH (07:33)
[2017-05-02] MEDS: FORMOTEROL FUMARATE 20 MCG/2 ML INHALATION SOLUTION (PERFOROMIST) INH SCH ×2 (07:33→19:41)
[2017-05-02] MEDS: BUDESONIDE 180MCG INHALER (PULMICORT FLEXHALER) INH SCH ×2 (07:33→19:41)
--- NOTE | 2017-05-02 07:59 | REP ---
Clinical: Fall. Technique: AP, lateral, bilateral oblique views of the right hand. Findings: Age-related osteopenia and arthritic degenerative changes are appreciated to clips are identified in the soft tissues along the medial wrist. No obvious acute fracture or dislocation identified. Impression: No definite acute fracture or dislocation. Signed by Vladislav Almodovar MD 05/02/2017 07:50 A
--- NOTE | 2017-05-02 08:00 | REP ---
Clinical: Fall . Technique: AP, lateral, bilateral oblique views of the right elbow. Findings: No acute fracture or dislocation is appreciated. Joint spaces and surrounding soft tissues appear normal. Lateral view demonstrates normal positioning to the anterior and posterior fat pads without evidence for effusion/hemarthrosis. No subcutaneous emphysema or foreign body identified. Impression: Normal age appropriate right elbow radiographs. No acute fracture or dislocation. Signed by Vladislav Almodovar MD 05/02/2017 07:51 A
[2017-05-02 08:09] LABS: MEAN CORPUSCULAR HEMOGLOBIN 30.4 pg (27.0-33.0); MEAN CORPUSCULAR HGB CONC 31.2 g/dl (32.0-36.5); MEAN CORPUSCULAR VOLUME 97.5 fl (80.0-96.0); PLATELET COUNT, AUTOMATED 184 10^3/uL (150-450); RED CELL DISTRIBUTION WIDTH 13.5 % (11.5-14.5)
[2017-05-02 08:31] LABS: ANION GAP 4 MEQ/L (8-16); BLOOD UREA NITROGEN 22 MG/DL (7-18); CALCIUM LEVEL 8.2 MG/DL (8.8-10.2); CARBON DIOXIDE LEVEL 39 MEQ/L (21-32); CHLORIDE LEVEL 101 MEQ/L (98-107); CREATININE FOR GFR 0.58 MG/DL (0.55-1.02); GLOMERULAR FILTRATION RATE > 60.0 (>39); GLUCOSE, FASTING 99 MG/DL (83-110); MAGNESIUM LEVEL 2.3 MG/DL (1.8-2.4); POTASSIUM SERUM 4.2 MEQ/L (3.5-5.1); SODIUM LEVEL 144 MEQ/L (136-145)
[2017-05-02] MEDS: NYSTATIN OINTMENT 15 GM TOP SCH ×3 (09:00→21:22)
[2017-05-02] MEDS: SUCRALFATE SUSP 1GM/10ML UD PO SCH ×4 (09:10→21:21)
[2017-05-02] MEDS: METOCLOPRAMIDE 10 MG TAB PO PRN (09:10)
[2017-05-02] MEDS: ESCITALOPRAM OXALATE 10 MG TAB (LEXAPRO) PO SCH (09:11)
[2017-05-02] MEDS: SENOKOT S TAB PO SCH ×2 (09:11→21:21)
[2017-05-02] MEDS: ALPRAZolam 0.5 MG TAB PO PRN ×3 (09:11→23:24)
[2017-05-02] MEDS: BENZONATATE 100 MG CAP PO SCH ×3 (09:11→21:21)
[2017-05-02] MEDS: BISACODYL 5 MG TAB PO SCH (09:11)
[2017-05-02] MEDS: predniSONE 10 MG TAB PO SCH (09:11)
[2017-05-02] MEDS: OMEPRAZOLE 20 MG CAP PO SCH ×2 (09:11→21:21)
[2017-05-02] MEDS: HEPARIN SOD (PORCINE) 5000 UNITS/ML VIAL SC SCH ×2 (09:12→21:22)
--- NOTE | 2017-05-02 13:29 | IPN ---
DATE OF SERVICE: 05/02/2017 Patient is seen and examined at the bedside. Chart has been reviewed. She complains of generalized weakness. Shortness of breath has improved. No chest pain, pressure, tightness, fever or chills. Temperature 98.3, pulse 91, respiratory rate 20, blood pressure 127/66, 95% 2 liters nasal cannula. Generally, awake, alert, oriented times three. Able to speak in full sentences. Patient does purse her lips when she expires. Lungs diminished with coarse rhonchi. Heart: S1, S2. Sinus rhythm. Abdomen: Soft, nontender, nondistended. Extremities: No cyanosis, clubbing or pitting edema. LABORATORY DATA: CBC and metabolic panel have been reviewed. Sputum, Citrobacter, pseudomonas, streptococcus and yeast sensitive to Levaquin. ASSESSMENT AND PLAN: 76-year-old female with history of chronic respiratory failure with hypoxia, hypercapnia, hypercholesterolemia, hypertension, anxiety, depression, tracheal bronchitis, anemia, back pain, restless legs, chronic obstructive pulmonary disease (COPD) on home oxygen, presents to the emergency room with worsening shortness of breath, was found to have pseudomonas in sputum culture status post Levaquin and 4 days of ceftriaxone, azithromycin. CURRENT ISSUES: 1. Chronic obstructive pulmonary disease (COPD) exacerbation, DuoNebs, currently on tapered dose of steroids doing well. Continue on home oxygen. Patient completed 5 days of Levaquin, 4 days of azithromycin and ceftriaxone. 2. Tracheal bronchitis, acute or subacute. Patient completed 9 days of antibiotics. Continue dextromethorphan for cough suppression benzonatate. 3. Anxiety/depression, on Xanax as needed. Lexapro and trazodone. 4. Hypertension, chronic. 5. Hypercholesterolemia chronic, on statin. 6. Chronic hypoxic respiratory failure with hypercapnia on home oxygen. 7. Reflux on Prilosec and Carafate. 8. History of peptic ulcer disease status post Billroth II gastrectomy and gastrojejunostomy. Continue with omeprazole and Carafate. EGD 2013. 9. Anemia is as per EGD, colonoscopy showing Billroth II gastrojejunostomy, colonoscopy showing diverticulosis, internal hemorrhoids and polyps. Tubular adenoma. Vitamin B12 and folate have been ordered. LDH and retic count are normal. 10. Chronic back pain. Cardiac markers are negative. She has scoliosis and chronic thoracic compression fracture. Continue on as needed Percocet. DISPOSITION: Patient is not safe for discharge home. Appears to be stable medically. May transfer to [facility] status. Discharge home with home care once cleared by physical therapy. MTDD
[2017-05-02] MEDS: traZODone 50 MG TAB PO SCH (21:21)
[2017-05-02] MEDS: SIMVASTATIN 40 MG TAB PO SCH (21:21)
[2017-05-02] MEDS: rOPINIRole 1MG TAB PO SCH (21:21)
[2017-05-03 06:00] VITALS: BP 139/65
[2017-05-03] MEDS: ALPRAZolam 0.5 MG TAB PO PRN (06:14)
[2017-05-03] MEDS ORDERED: PRED10TA2 PO (06:54)
[2017-05-03] MEDS ORDERED: SUCR10SS PO (06:54)
[2017-05-03] MEDS ORDERED: PERF20NE2 INH (06:58)
[2017-05-03] MEDS ORDERED: PERCOCET PO (06:58)
[2017-05-03] MEDS: TIOTROPIUM INHALER/CAPSULE (SPIRIVA) INH SCH (06:58)
[2017-05-03] MEDS: FORMOTEROL FUMARATE 20 MCG/2 ML INHALATION SOLUTION (PERFOROMIST) INH SCH (06:58)
[2017-05-03] MEDS ORDERED: BUDE180INH INH (06:58)
[2017-05-03] MEDS ORDERED: BISAC5TA PO (06:58)
[2017-05-03] MEDS ORDERED: BENZ100C5 PO (06:58)
[2017-05-03] MEDS: BUDESONIDE 180MCG INHALER (PULMICORT FLEXHALER) INH SCH (06:58)
[2017-05-03] MEDS ORDERED: NYST10OI TOP (06:58)
[2017-05-03] MEDS: IPRATROPIUM 0.5MG/ALBUTEROL 2.5MG INH SOL UD 3ML (DUONEB)(J7620) NEB SCH ×2 (07:01)
[2017-05-03] MEDS: SUCRALFATE SUSP 1GM/10ML UD PO SCH (08:07)
[2017-05-03] MEDS: SENOKOT S TAB PO SCH (08:07)
[2017-05-03] MEDS: BISACODYL 5 MG TAB PO SCH (08:08)
[2017-05-03] MEDS: predniSONE 10 MG TAB PO SCH (08:08)
[2017-05-03] MEDS: BENZONATATE 100 MG CAP PO SCH (08:08)
[2017-05-03] MEDS: OMEPRAZOLE 20 MG CAP PO SCH (08:08)
[2017-05-03] MEDS: ESCITALOPRAM OXALATE 10 MG TAB (LEXAPRO) PO SCH (08:08)
[2017-05-03] MEDS: HEPARIN SOD (PORCINE) 5000 UNITS/ML VIAL SC SCH (08:08)
[2017-05-03] MEDS: NYSTATIN OINTMENT 15 GM TOP SCH (08:09)
[2017-05-03 08:21] VITALS: BP 120/58
--- NOTE | 2017-05-03 11:40 | DSES ---
DATE OF ADMISSION: 04/22/2017 DATE OF DISCHARGE: 05/03/2017 PRIMARY CARE PHYSICIAN: Dr. Victoria. UPHOLSTERY TECHNICIAN: Dr. Perez. PRIMARY DISCHARGE DIAGNOSIS: Acute chronic obstructive pulmonary disease (COPD) exacerbation secondary to atypical pneumonia versus tracheal bronchiolitis. Lactic acidosis secondary to respiratory distress. Chronic hypoxic respiratory failure on supplemental oxygen. History of gastroesophageal reflux disease with gastric ulcer. Dyslipidemia. Hypertension. Depression. Restless syndrome. DISCHARGE MEDICATIONS: - prednisone taper 30 mg daily - Carafate 1 gram by mouth before meals and at bedtime - Ventolin HFA two puffs every 4 hours - alprazolam 0.5 three times daily - citalopram oxylate 20 mg daily - Flonase two sprays daily as needed - Mucinex 600 every 12 as needed - hydroxyzine 25 mg twice daily as needed - Xopenex 1.25 nebulizer four times daily as needed - Xyzal 5 mg daily as needed - Prilosec 40 twice daily - Requip 2 mg daily at bedtime - simvastatin 40 mg daily at bedtime - Spiriva 18 mcg inhaled - trazodone 50 mg daily at bedtime - Valtrex as needed - Voltaren topically four times daily as needed HOSPITAL COURSE: This is a 76-year-old female with history of chronic hypoxic respiratory failure on 2 liters home oxygen, reflux, dyslipidemia, hypertension, depression and gastrectomy secondary to ulcer presented to the emergency room with one week history of worsening cough, shortness of breath, unable to ambulate with green sputum. Patient was admitted for chronic obstructive pulmonary disease (COPD) exacerbation. CT chest on 04/30 showed no evidence of pulmonary embolism (PE). Trace basal atelectasis. Patient was started on IV Solu-Medrol and nebulizers. Continued on supplemental oxygen. She had steroid induced leukocytosis versus systemic inflammatory response with white count of 18,000 decreased to 13,000 on discharge. Sputum culture grew out streptococcus pneumonia Citrobacter, pseudomonas and yeast. Blood cultures were negative. Patient completed five days of Levaquin, four days of azithromycin and ceftriaxone. She is continued on dextromethorphan for cough suppression. Patient failed home safety evaluation and was kept on ALC status until she was cleared by physical therapy. LABS ON DISCHARGE: White count 13,000, hemoglobin 9.7, hematocrit 31, platelet count 184. Sodium 144, potassium 4.2, chloride 101, bicarbonate 39, BUN 22, creatinine 0.58, glucose of 99. Magnesium of 2.3. Microbiology: Sputum culture 04/22 Citrobacter freundii, pseudomonas aeruginosa, streptococcus pneumonia, yeast like organism. Two sets of blood culture 04/22 no growth after five days. CT chest on 04/30: No evidence of pulmonary embolism. Chronic changes with trace basal atelectasis. HOSPITAL COURSE: Patient had a fall on 05/01/2017. Right hand showed no acute fracture or dislocation. Right elbow shows no acute fracture or dislocation. Patient had full use of her extremities with no difficulty. TIME SPENT ON DISCHARGE: 30 minutes. MTDD
== END 2017-05-03 12:56 | disposition home health service (06) | DRG 190 ==
LOC: M ED 11:41 → M ED INP 14:02 → M MSPAV 16:06
PROVIDERS: ADMIT Hospitalist; ATTEND General Practice
DX: J44.0 Chronic obstructive pulmonary disease with (acute) lower respiratory infection (principal); J18.9 Pneumonia, unspecified organism; E87.2 Acidosis; J96.11 Chronic respiratory failure with hypoxia; J96.12 Chronic respiratory failure with hypercapnia; J44.1 Chronic obstructive pulmonary disease with (acute) exacerbation; K21.9 Gastro-esophageal reflux disease without esophagitis; E78.00 Pure hypercholesterolemia, unspecified; I10 Essential (primary) hypertension; J20.9 Acute bronchitis, unspecified; F41.9 Anxiety disorder, unspecified; D64.9 Anemia, unspecified; G25.81 Restless legs syndrome; K59.00 Constipation, unspecified; F32.9 Major depressive disorder, single episode, unspecified; Z99.81 Dependence on supplemental oxygen; Z90.49 Acquired absence of other specified parts of digestive tract; Z87.891 Personal history of nicotine dependence; Z79.51 Long term (current) use of inhaled steroids; Z79.899 Other long term (current) drug therapy

== ENCOUNTER 2017-07-29 15:33 | Inpatient (IN) | payer MEDICARE, MEDICAID ==
[2017-07-29 17:20] LABS: LACTIC ACID SEPSIS PROTOCOL 1.4 MMOL/L (0.4-2.0)
[2017-07-29 17:22] LABS: ALBUMIN 3.8 GM/DL (3.2-5.2); ALBUMIN/GLOBULIN RATIO 0.97 (1.00-1.93); ALKALINE PHOSPHATASE 110 U/L (45-117); ALT/SGPT 36 U/L (12-78); ANION GAP 5 MEQ/L (8-16); AST/SGOT 37 U/L (7-37); BASO % 0.3 % (0.0-1.0); BILIRUBIN,DIRECT 0.1 MG/DL (0.0-0.2); BILIRUBIN,TOTAL 0.3 MG/DL (0.2-1.0); BLOOD UREA NITROGEN 16 MG/DL (7-18); C REACTIVE PROTEIN QUANTITATIV 0.58 MG/DL (0.00-0.30); CALCIUM LEVEL 8.2 MG/DL (8.8-10.2); CARBON DIOXIDE LEVEL 34 MEQ/L (21-32); CHLORIDE LEVEL 101 MEQ/L (98-107); CPK CREATINE PHOSPHOKINASE 80 U/L (26-192); CREATININE FOR GFR 0.69 MG/DL (0.55-1.30); EOS # 0.2 10^3/uL (0.0-0.50); EOS % 1.4 % (0.0-3.0); GLOMERULAR FILTRATION RATE > 60.0 (>39); GLUCOSE, FASTING 118 MG/DL (70-100); HEMATOCRIT 38.2 % (36.0-47.0); HEMOGLOBIN 11.8 g/dl (12.0-16.0); IMMATURE GRANULOCYTE % 0.3 % (0-3.0); LYMPH # 1.2 10^3/uL (1.5-4.5); LYMPH % 10.2 % (24.0-44.0); MEAN CORPUSCULAR HEMOGLOBIN 29.9 pg (27.0-33.0); MEAN CORPUSCULAR HGB CONC 30.9 g/dl (32.0-36.5); MEAN CORPUSCULAR VOLUME 96.7 fl (80.0-96.0); MONO # 1.1 10^3/uL (0.0-0.8); MONO % 9.1 % (0.0-5.0); NEUTROPHILS # 9.1 10^3/uL (1.8-7.7); NEUTROPHILS % 78.7 % (36.0-66.0); PLATELET COUNT, AUTOMATED 346 10^3/uL (150-450); POTASSIUM SERUM 3.2 MEQ/L (3.5-5.1); RED BLOOD COUNT 3.95 10^6/uL (4.00-5.40); SODIUM LEVEL 140 MEQ/L (136-145); THYROXINE (T4) 9.5 UG/DL (4.5-12.0); TOTAL PROTEIN 7.7 GM/DL (6.4-8.2); TROPONIN I 0.11 NG/ML (< 0.10); WHITE BLOOD COUNT 11.6 10^3/uL (4.0-10.0)
[2017-07-29 17:26] LABS: INR 0.86; PROTHROMBIN TIME 11.8 SECONDS (12.4-14.5)
[2017-07-29 17:27] LABS: CK-MB VALUE MASS 4.1 NG/ML (0.0-3.6); MB/CK RELATIVE INDEX 5.12 (< OR =4); NT-PRO BNP 1948 PG/ML (<450)
[2017-07-29] MEDS: methylPREDNISolone INJ 125 MG/2 ML VIAL (J2930) IV (17:35)
[2017-07-29] MEDS: IPRATROPIUM 0.5MG/ALBUTEROL 2.5MG INH SOL UD 3ML (DUONEB)(J7620) NEB ×2 (17:44→17:47)
[2017-07-29 17:53] LABS: MAGNESIUM LEVEL 2.1 MG/DL (1.8-2.4)
[2017-07-29] MEDS ORDERED: ISOVUE-370 76% 100ML VIAL (Q9967) As Ordered ×2 (17:58→18:47)
[2017-07-29] MEDS: MORPHINE 2 MG/ML 1ML SYRINGE (J2270) IV (18:20)
[2017-07-29] MEDS: POTASSIUM CHLORIDE 10 MEQ SR TABLET PO (18:20)
[2017-07-29] MEDS: traZODone 50 MG TAB PO (21:00)
[2017-07-29 21:16] LABS: CK-MB VALUE MASS 3.5 NG/ML (0.0-3.6); CPK CREATINE PHOSPHOKINASE 70 U/L (26-192); TROPONIN I 0.11 NG/ML (< 0.10)
[2017-07-29] MEDS: AZITHROMYCIN INJ 500 MG, VIAL MATE ADAPTER 1 EACH in D5W 250 ML IV (22:00)
[2017-07-29] MEDS ORDERED: IPRATROPIUM 0.5MG/ALBUTEROL 2.5MG INH SOL UD 3ML (DUONEB)(J7620) NEB (23:45)
[2017-07-30] MEDS ORDERED: hydrOXYzine 25 MG TAB PO (00:15)
[2017-07-30] MEDS ORDERED: FLUTICASONE PROP 0.05% NASAL SPRAY 16 GM (FLONASE) (00:15)
[2017-07-30] MEDS ORDERED: valACYclovir HCL 500 MG TAB PO (00:15)
[2017-07-30] MEDS: methylPREDNISolone INJ 40 MG/1 ML VIAL (J2920) IV ×4 (02:13→17:55)
[2017-07-30] MEDS: ACETAMINOPHEN TAB 650MG DOSE (2X325MG) PO ×3 (02:14→15:55)
[2017-07-30] MEDS: guaiFENesin ER 600 MG TAB PO ×3 (02:15→21:30)
[2017-07-30] MEDS: rOPINIRole 1MG TAB PO ×2 (02:15→21:29)
[2017-07-30] MEDS: ALPRAZolam 0.25 MG TAB PO ×3 (02:18→21:31)
[2017-07-30] MEDS ORDERED: methylPREDNISolone INJ 125 MG/2 ML VIAL (J2930) As Ordered (06:43)
[2017-07-30] MEDS ORDERED: methylPREDNISolone INJ 40 MG/1 ML VIAL (J2920) As Ordered (06:45)
[2017-07-30 06:51] LABS: HEMATOCRIT 33.1 % (36.0-47.0); HEMOGLOBIN 10.4 g/dl (12.0-16.0); MEAN CORPUSCULAR HEMOGLOBIN 30.3 pg (27.0-33.0); MEAN CORPUSCULAR HGB CONC 31.4 g/dl (32.0-36.5); MEAN CORPUSCULAR VOLUME 96.5 fl (80.0-96.0); PLATELET COUNT, AUTOMATED 259 10^3/uL (150-450); RED BLOOD COUNT 3.43 10^6/uL (4.00-5.40); RED CELL DISTRIBUTION WIDTH 14.1 % (11.5-14.5); WHITE BLOOD COUNT 5.9 10^3/uL (4.0-10.0)
[2017-07-30 06:57] LABS: ADD MANUAL DIFFER YES; DIFF SLIDE NUMBER 73; POSITIVE MORPH POS FLAG
[2017-07-30 07:18] LABS: ANION GAP 5 MEQ/L (8-16); BLOOD UREA NITROGEN 20 MG/DL (7-18); CALCIUM LEVEL 8.2 MG/DL (8.8-10.2); CARBON DIOXIDE LEVEL 31 MEQ/L (21-32); CHLORIDE LEVEL 102 MEQ/L (98-107); CK-MB VALUE MASS 2.3 NG/ML (0.0-3.6); CPK CREATINE PHOSPHOKINASE 54 U/L (26-192); CREATININE FOR GFR 0.58 MG/DL (0.55-1.30); GLOMERULAR FILTRATION RATE > 60.0 (>39); GLUCOSE, FASTING 134 MG/DL (70-100); MAGNESIUM LEVEL 2.2 MG/DL (1.8-2.4); MB/CK RELATIVE INDEX 4.25 (< OR =4); POTASSIUM SERUM 4.2 MEQ/L (3.5-5.1); SODIUM LEVEL 138 MEQ/L (136-145); TROPONIN I 0.03 NG/ML (< 0.10)
[2017-07-30 07:32] LABS: ATYPICAL LYMPH 1 % (0-5); BANDS 1 % (< 11); LYMPHOCYTES 9 % (16-52); NEUTROPHILS 89 % (35-75)
[2017-07-30 07:33] LABS: ANISOCYTOSIS 1+; PLATELET ESTIMATE NORMAL (NORMAL); POIKILOCYTOSIS 1+
[2017-07-30] MEDS: TIOTROPIUM INHALER/CAPSULE (SPIRIVA) INH (08:23)
[2017-07-30] MEDS: FOLIC ACID 1 MG TAB PO (09:22)
[2017-07-30] MEDS: ENOXAPARIN 40 MG/0.4 ML SYRINGE (J1650) SC (09:23)
[2017-07-30] MEDS: ESCITALOPRAM OXALATE 10 MG TAB (LEXAPRO) PO (09:23)
[2017-07-30] MEDS: OMEPRAZOLE 20 MG CAP PO ×2 (09:23→21:29)
[2017-07-30] MEDS: IPRATROPIUM 0.5MG/ALBUTEROL 2.5MG INH SOL UD 3ML (DUONEB)(J7620) NEB ×2 (14:01→19:50)
[2017-07-30] MEDS: traZODone 50 MG TAB PO (21:29)
[2017-07-30] MEDS: SIMVASTATIN 40 MG TAB PO (21:30)
[2017-07-31] MEDS: methylPREDNISolone INJ 40 MG/1 ML VIAL (J2920) IV ×4 (00:09→17:39)
[2017-07-31] MEDS: IPRATROPIUM 0.5MG/ALBUTEROL 2.5MG INH SOL UD 3ML (DUONEB)(J7620) NEB ×4 (02:13→20:21)
[2017-07-31 05:57] LABS: HEMATOCRIT 33.6 % (36.0-47.0); HEMOGLOBIN 10.3 g/dl (12.0-16.0); IMMATURE GRANULOCYTE % 0.4 % (0-3.0); LYMPH # 0.8 10^3/uL (1.5-4.5); LYMPH % 7.9 % (24.0-44.0); MEAN CORPUSCULAR HEMOGLOBIN 29.8 pg (27.0-33.0); MEAN CORPUSCULAR HGB CONC 30.7 g/dl (32.0-36.5); MEAN CORPUSCULAR VOLUME 97.1 fl (80.0-96.0); MONO # 0.4 10^3/uL (0.0-0.8); MONO % 3.7 % (0.0-5.0); NEUTROPHILS # 8.5 10^3/uL (1.8-7.7); PLATELET COUNT, AUTOMATED 283 10^3/uL (150-450); RED BLOOD COUNT 3.46 10^6/uL (4.00-5.40); RED CELL DISTRIBUTION WIDTH 13.8 % (11.5-14.5); WHITE BLOOD COUNT 9.6 10^3/uL (4.0-10.0)
[2017-07-31 06:13] LABS: ANION GAP 3 MEQ/L (8-16); BLOOD UREA NITROGEN 26 MG/DL (7-18); CALCIUM LEVEL 8.2 MG/DL (8.8-10.2); CARBON DIOXIDE LEVEL 35 MEQ/L (21-32); CHLORIDE LEVEL 103 MEQ/L (98-107); CREATININE FOR GFR 0.65 MG/DL (0.55-1.30); GLOMERULAR FILTRATION RATE > 60.0 (>39); GLUCOSE, FASTING 147 MG/DL (70-100); MAGNESIUM LEVEL 2.6 MG/DL (1.8-2.4); POTASSIUM SERUM 4.4 MEQ/L (3.5-5.1); SODIUM LEVEL 141 MEQ/L (136-145)
[2017-07-31] MEDS: ALPRAZolam 0.25 MG TAB PO ×3 (06:16→21:15)
[2017-07-31] MEDS: TIOTROPIUM INHALER/CAPSULE (SPIRIVA) INH (07:04)
[2017-07-31] MEDS: ENOXAPARIN 40 MG/0.4 ML SYRINGE (J1650) SC (08:26)
[2017-07-31] MEDS: ESCITALOPRAM OXALATE 10 MG TAB (LEXAPRO) PO (08:26)
[2017-07-31] MEDS: FOLIC ACID 1 MG TAB PO (08:26)
[2017-07-31] MEDS: guaiFENesin ER 600 MG TAB PO ×2 (08:26→21:14)
[2017-07-31] MEDS: OMEPRAZOLE 20 MG CAP PO ×2 (08:26→21:14)
[2017-07-31] MEDS: ONDANSETRON 4MG/2ML VIAL (J2405) IV ×2 (08:37→20:26)
[2017-07-31] MEDS: ALBUTEROL SULFATE 2.5 MG/0.5 ML INH NEB SOLN INH (09:24)
[2017-07-31 09:40] LABS: TROPONIN I 0.02 NG/ML (< 0.10)
[2017-07-31] MEDS: IBUPROFEN 400 MG TAB PO ×2 (13:41→21:14)
[2017-07-31] MEDS: rOPINIRole 1MG TAB PO (21:14)
[2017-07-31] MEDS: BENZONATATE 100 MG CAP PO (21:14)
[2017-07-31] MEDS: traZODone 50 MG TAB PO (21:14)
[2017-07-31] MEDS: SIMVASTATIN 40 MG TAB PO (21:14)
[2017-08-01] MEDS: methylPREDNISolone INJ 40 MG/1 ML VIAL (J2920) IV ×4 (00:12→17:48)
[2017-08-01] MEDS: IPRATROPIUM 0.5MG/ALBUTEROL 2.5MG INH SOL UD 3ML (DUONEB)(J7620) NEB ×4 (00:22→18:13)
[2017-08-01] MEDS: ALPRAZolam 0.25 MG TAB PO ×2 (05:12→13:37)
[2017-08-01] MEDS: IBUPROFEN 400 MG TAB PO (05:13)
[2017-08-01 06:58] LABS: BASO % 0.1 % (0.0-1.0); HEMATOCRIT 36.3 % (36.0-47.0); HEMOGLOBIN 10.9 g/dl (12.0-16.0); IMMATURE GRANULOCYTE % 0.9 % (0-3.0); LYMPH # 0.6 10^3/uL (1.5-4.5); LYMPH % 3.6 % (24.0-44.0); MEAN CORPUSCULAR HEMOGLOBIN 30.2 pg (27.0-33.0); MEAN CORPUSCULAR VOLUME 100.6 fl (80.0-96.0); MONO # 0.4 10^3/uL (0.0-0.8); MONO % 2.5 % (0.0-5.0); NEUTROPHILS # 15.1 10^3/uL (1.8-7.7); NEUTROPHILS % 92.9 % (36.0-66.0); PLATELET COUNT, AUTOMATED 233 10^3/uL (150-450); RED BLOOD COUNT 3.61 10^6/uL (4.00-5.40); WHITE BLOOD COUNT 16.3 10^3/uL (4.0-10.0)
[2017-08-01] MEDS: TIOTROPIUM INHALER/CAPSULE (SPIRIVA) INH (07:12)
[2017-08-01 07:14] LABS: ANION GAP 3 MEQ/L (8-16); BLOOD UREA NITROGEN 35 MG/DL (7-18); CARBON DIOXIDE LEVEL 34 MEQ/L (21-32); CHLORIDE LEVEL 101 MEQ/L (98-107); CREATININE FOR GFR 0.75 MG/DL (0.55-1.30); GLOMERULAR FILTRATION RATE > 60.0 (>39); GLUCOSE, FASTING 132 MG/DL (70-100); MAGNESIUM LEVEL 2.8 MG/DL (1.8-2.4); POTASSIUM SERUM 4.8 MEQ/L (3.5-5.1); SODIUM LEVEL 138 MEQ/L (136-145)
[2017-08-01] MEDS: FOLIC ACID 1 MG TAB PO (08:54)
[2017-08-01] MEDS: BENZONATATE 100 MG CAP PO (08:54)
[2017-08-01] MEDS: ESCITALOPRAM OXALATE 10 MG TAB (LEXAPRO) PO (08:54)
[2017-08-01] MEDS: OMEPRAZOLE 20 MG CAP PO ×2 (08:54→21:14)
[2017-08-01] MEDS: guaiFENesin ER 600 MG TAB PO ×2 (08:55→21:15)
[2017-08-01] MEDS: ENOXAPARIN 40 MG/0.4 ML SYRINGE (J1650) SC (08:55)
[2017-08-01] MEDS: ONDANSETRON 4MG/2ML VIAL (J2405) IV (17:48)
[2017-08-01] MEDS: rOPINIRole 1MG TAB PO (21:15)
[2017-08-01] MEDS: traZODone 50 MG TAB PO (21:15)
[2017-08-01] MEDS: SIMVASTATIN 40 MG TAB PO (21:15)
[2017-08-02] MEDS: ALPRAZolam 0.25 MG TAB PO ×3 (00:19→17:43)
[2017-08-02] MEDS: methylPREDNISolone INJ 40 MG/1 ML VIAL (J2920) IV ×5 (00:19→23:35)
[2017-08-02] MEDS: IPRATROPIUM 0.5MG/ALBUTEROL 2.5MG INH SOL UD 3ML (DUONEB)(J7620) NEB ×4 (01:33→20:40)
[2017-08-02 06:55] LABS: BASO % 0.1 % (0.0-1.0); HEMATOCRIT 34.1 % (36.0-47.0); HEMOGLOBIN 10.2 g/dl (12.0-16.0); IMMATURE GRANULOCYTE % 0.8 % (0-3.0); LYMPH # 0.5 10^3/uL (1.5-4.5); MEAN CORPUSCULAR HEMOGLOBIN 29.7 pg (27.0-33.0); MEAN CORPUSCULAR HGB CONC 29.9 g/dl (32.0-36.5); MEAN CORPUSCULAR VOLUME 99.4 fl (80.0-96.0); MONO # 0.3 10^3/uL (0.0-0.8); MONO % 2.2 % (0.0-5.0); NEUTROPHILS % 92.9 % (36.0-66.0); PLATELET COUNT, AUTOMATED 251 10^3/uL (150-450); RED BLOOD COUNT 3.43 10^6/uL (4.00-5.40); RED CELL DISTRIBUTION WIDTH 13.9 % (11.5-14.5)
[2017-08-02 07:19] LABS: ANION GAP 0 MEQ/L (8-16); BLOOD UREA NITROGEN 31 MG/DL (7-18); CALCIUM LEVEL 7.9 MG/DL (8.8-10.2); CARBON DIOXIDE LEVEL 39 MEQ/L (21-32); CHLORIDE LEVEL 102 MEQ/L (98-107); CREATININE FOR GFR 0.61 MG/DL (0.55-1.30); GLOMERULAR FILTRATION RATE > 60.0 (>39); GLUCOSE, FASTING 156 MG/DL (70-100); MAGNESIUM LEVEL 2.8 MG/DL (1.8-2.4); POTASSIUM SERUM 4.5 MEQ/L (3.5-5.1); SODIUM LEVEL 141 MEQ/L (136-145)
[2017-08-02] MEDS: TIOTROPIUM INHALER/CAPSULE (SPIRIVA) INH (08:46)
[2017-08-02] MEDS: FOLIC ACID 1 MG TAB PO (09:02)
[2017-08-02] MEDS: guaiFENesin ER 600 MG TAB PO ×2 (09:02→20:28)
[2017-08-02] MEDS: OMEPRAZOLE 20 MG CAP PO ×2 (09:02→20:28)
[2017-08-02] MEDS: ESCITALOPRAM OXALATE 10 MG TAB (LEXAPRO) PO (09:02)
[2017-08-02] MEDS: ENOXAPARIN 40 MG/0.4 ML SYRINGE (J1650) SC (09:03)
[2017-08-02] MEDS: traZODone 50 MG TAB PO (20:29)
[2017-08-02] MEDS: SIMVASTATIN 40 MG TAB PO (20:29)
[2017-08-02] MEDS: rOPINIRole 1MG TAB PO (20:29)
[2017-08-03] MEDS: IPRATROPIUM 0.5MG/ALBUTEROL 2.5MG INH SOL UD 3ML (DUONEB)(J7620) NEB ×4 (01:05→23:19)
[2017-08-03] MEDS: ALPRAZolam 0.25 MG TAB PO ×2 (02:29→17:02)
[2017-08-03] MEDS: TIOTROPIUM INHALER/CAPSULE (SPIRIVA) INH (06:10)
[2017-08-03] MEDS: methylPREDNISolone INJ 40 MG/1 ML VIAL (J2920) IV ×3 (06:24→17:02)
[2017-08-03 06:40] LABS: BASO % 0.1 % (0.0-1.0); HEMATOCRIT 33.9 % (36.0-47.0); HEMOGLOBIN 10.1 g/dl (12.0-16.0); IMMATURE GRANULOCYTE % 0.7 % (0-3.0); LYMPH # 0.4 10^3/uL (1.5-4.5); LYMPH % 3.5 % (24.0-44.0); MEAN CORPUSCULAR HEMOGLOBIN 29.4 pg (27.0-33.0); MEAN CORPUSCULAR HGB CONC 29.8 g/dl (32.0-36.5); MEAN CORPUSCULAR VOLUME 98.5 fl (80.0-96.0); MONO # 0.3 10^3/uL (0.0-0.8); MONO % 2.7 % (0.0-5.0); NEUTROPHILS # 10.4 10^3/uL (1.8-7.7); PLATELET COUNT, AUTOMATED 239 10^3/uL (150-450); RED BLOOD COUNT 3.44 10^6/uL (4.00-5.40); RED CELL DISTRIBUTION WIDTH 13.7 % (11.5-14.5); WHITE BLOOD COUNT 11.2 10^3/uL (4.0-10.0)
[2017-08-03 06:59] LABS: ANION GAP 1 MEQ/L (8-16); BLOOD UREA NITROGEN 26 MG/DL (7-18); CALCIUM LEVEL 8.2 MG/DL (8.8-10.2); CARBON DIOXIDE LEVEL 42 MEQ/L (21-32); CHLORIDE LEVEL 99 MEQ/L (98-107); CREATININE FOR GFR 0.46 MG/DL (0.55-1.30); GLOMERULAR FILTRATION RATE > 60.0 (>39); GLUCOSE, FASTING 150 MG/DL (70-100); MAGNESIUM LEVEL 2.8 MG/DL (1.8-2.4); POTASSIUM SERUM 4.3 MEQ/L (3.5-5.1); SODIUM LEVEL 142 MEQ/L (136-145)
[2017-08-03] MEDS: ENOXAPARIN 40 MG/0.4 ML SYRINGE (J1650) SC (09:28)
[2017-08-03] MEDS: ESCITALOPRAM OXALATE 10 MG TAB (LEXAPRO) PO (09:28)
[2017-08-03] MEDS: FOLIC ACID 1 MG TAB PO (09:28)
[2017-08-03] MEDS: guaiFENesin ER 600 MG TAB PO ×2 (09:28→20:48)
[2017-08-03] MEDS: OMEPRAZOLE 20 MG CAP PO ×2 (09:28→20:47)
[2017-08-03] MEDS ORDERED: ALPRAZolam 0.5 MG TAB PO (10:15)
[2017-08-03] MEDS: ALPRAZolam 0.5 MG TAB PO (10:17)
[2017-08-03] MEDS: ALBUTEROL SULFATE 2.5 MG/0.5 ML INH NEB SOLN INH (20:09)
[2017-08-03] MEDS: BENZONATATE 100 MG CAP PO (20:47)
[2017-08-03] MEDS: traZODone 50 MG TAB PO (20:47)
[2017-08-03] MEDS: ACETAMINOPHEN TAB 650MG DOSE (2X325MG) PO (20:48)
[2017-08-03] MEDS: rOPINIRole 1MG TAB PO (20:48)
[2017-08-03] MEDS: SIMVASTATIN 40 MG TAB PO (20:48)
[2017-08-04] MEDS: ALPRAZolam 0.25 MG TAB PO ×3 (01:24→17:24)
[2017-08-04] MEDS: IPRATROPIUM 0.5MG/ALBUTEROL 2.5MG INH SOL UD 3ML (DUONEB)(J7620) NEB ×3 (06:27→23:43)
[2017-08-04] MEDS: TIOTROPIUM INHALER/CAPSULE (SPIRIVA) INH (06:27)
[2017-08-04 06:30] LABS: BASO % 0.1 % (0.0-1.0); HEMATOCRIT 36.8 % (36.0-47.0); IMMATURE GRANULOCYTE % 1.1 % (0-3.0); LYMPH # 0.7 10^3/uL (1.5-4.5); LYMPH % 6.8 % (24.0-44.0); MEAN CORPUSCULAR HEMOGLOBIN 29.2 pg (27.0-33.0); MEAN CORPUSCULAR HGB CONC 29.9 g/dl (32.0-36.5); MEAN CORPUSCULAR VOLUME 97.6 fl (80.0-96.0); MONO # 0.7 10^3/uL (0.0-0.8); MONO % 6.5 % (0.0-5.0); NEUTROPHILS # 8.8 10^3/uL (1.8-7.7); NEUTROPHILS % 85.5 % (36.0-66.0); PLATELET COUNT, AUTOMATED 278 10^3/uL (150-450); RED BLOOD COUNT 3.77 10^6/uL (4.00-5.40); RED CELL DISTRIBUTION WIDTH 13.5 % (11.5-14.5); WHITE BLOOD COUNT 10.2 10^3/uL (4.0-10.0)
[2017-08-04 06:48] LABS: ANION GAP 1 MEQ/L (8-16); BLOOD UREA NITROGEN 23 MG/DL (7-18); CALCIUM LEVEL 8.7 MG/DL (8.8-10.2); CARBON DIOXIDE LEVEL 43 MEQ/L (21-32); CHLORIDE LEVEL 97 MEQ/L (98-107); CREATININE FOR GFR 0.53 MG/DL (0.55-1.30); GLOMERULAR FILTRATION RATE > 60.0 (>39); GLUCOSE, FASTING 130 MG/DL (70-100); MAGNESIUM LEVEL 2.5 MG/DL (1.8-2.4); POTASSIUM SERUM 4.1 MEQ/L (3.5-5.1); SODIUM LEVEL 141 MEQ/L (136-145)
[2017-08-04] MEDS: ALBUTEROL SULFATE 2.5 MG/0.5 ML INH NEB SOLN INH ×2 (08:50→13:51)
[2017-08-04] MEDS: ESCITALOPRAM OXALATE 10 MG TAB (LEXAPRO) PO (09:02)
[2017-08-04] MEDS: guaiFENesin ER 600 MG TAB PO ×2 (09:03→20:19)
[2017-08-04] MEDS: FOLIC ACID 1 MG TAB PO (09:03)
[2017-08-04] MEDS: predniSONE 20 MG TAB PO (09:03)
[2017-08-04] MEDS: OMEPRAZOLE 20 MG CAP PO ×2 (09:03→20:19)
[2017-08-04] MEDS: IBUPROFEN 400 MG TAB PO (12:03)
[2017-08-04] MEDS: ENOXAPARIN 40 MG/0.4 ML SYRINGE (J1650) SC (12:07)
[2017-08-04] MEDS: traZODone 50 MG TAB PO (20:19)
[2017-08-04] MEDS: rOPINIRole 1MG TAB PO (20:19)
[2017-08-04] MEDS: SIMVASTATIN 40 MG TAB PO (20:20)
[2017-08-04] MEDS: ACETAMINOPHEN TAB 650MG DOSE (2X325MG) PO (20:20)
[2017-08-04] MEDS: ONDANSETRON 4MG/2ML VIAL (J2405) IV (20:30)
[2017-08-05] MEDS: ALPRAZolam 0.25 MG TAB PO ×3 (05:09→23:10)
[2017-08-05] MEDS: ONDANSETRON 4MG/2ML VIAL (J2405) IV ×2 (05:09→22:17)
[2017-08-05] MEDS: ACETAMINOPHEN TAB 650MG DOSE (2X325MG) PO ×3 (05:14→21:12)
[2017-08-05 07:05] LABS: BASO % 0.1 % (0.0-1.0); EOS % 0.1 % (0.0-3.0); HEMATOCRIT 33.7 % (36.0-47.0); HEMOGLOBIN 10.1 g/dl (12.0-16.0); IMMATURE GRANULOCYTE % 0.9 % (0-3.0); LYMPH # 1.5 10^3/uL (1.5-4.5); LYMPH % 13.5 % (24.0-44.0); MEAN CORPUSCULAR HEMOGLOBIN 29.4 pg (27.0-33.0); MONO # 0.7 10^3/uL (0.0-0.8); MONO % 6.8 % (0.0-5.0); NEUTROPHILS # 8.5 10^3/uL (1.8-7.7); NEUTROPHILS % 78.6 % (36.0-66.0); PLATELET COUNT, AUTOMATED 229 10^3/uL (150-450); RED BLOOD COUNT 3.44 10^6/uL (4.00-5.40); RED CELL DISTRIBUTION WIDTH 13.6 % (11.5-14.5); WHITE BLOOD COUNT 10.8 10^3/uL (4.0-10.0)
[2017-08-05 07:24] LABS: ANION GAP 2 MEQ/L (8-16); BLOOD UREA NITROGEN 27 MG/DL (7-18); CALCIUM LEVEL 8.5 MG/DL (8.8-10.2); CARBON DIOXIDE LEVEL 43 MEQ/L (21-32); CHLORIDE LEVEL 96 MEQ/L (98-107); CREATININE FOR GFR 0.51 MG/DL (0.55-1.30); GLOMERULAR FILTRATION RATE > 60.0 (>39); GLUCOSE, FASTING 109 MG/DL (70-100); MAGNESIUM LEVEL 2.3 MG/DL (1.8-2.4); POTASSIUM SERUM 3.6 MEQ/L (3.5-5.1); SODIUM LEVEL 141 MEQ/L (136-145)
[2017-08-05] MEDS: IPRATROPIUM 0.5MG/ALBUTEROL 2.5MG INH SOL UD 3ML (DUONEB)(J7620) NEB ×3 (08:13→23:12)
[2017-08-05] MEDS: TIOTROPIUM INHALER/CAPSULE (SPIRIVA) INH (08:13)
[2017-08-05] MEDS: ESCITALOPRAM OXALATE 10 MG TAB (LEXAPRO) PO (08:32)
[2017-08-05] MEDS: FOLIC ACID 1 MG TAB PO (08:32)
[2017-08-05] MEDS: IBUPROFEN 400 MG TAB PO (08:32)
[2017-08-05] MEDS: ENOXAPARIN 40 MG/0.4 ML SYRINGE (J1650) SC (08:33)
[2017-08-05] MEDS: OMEPRAZOLE 20 MG CAP PO ×2 (08:33→21:11)
[2017-08-05] MEDS: guaiFENesin ER 600 MG TAB PO ×2 (08:33→21:12)
[2017-08-05] MEDS: predniSONE 20 MG TAB PO (08:33)
[2017-08-05] MEDS: CEFTRIAXONE SOD 1 GM in APPROPRIATE DILUENT 1 EA IV (10:20)
[2017-08-05] MEDS: methylPREDNISolone INJ 125 MG/2 ML VIAL (J2930) IV ×2 (10:20→21:11)
[2017-08-05] MEDS: BENZONATATE 100 MG CAP PO ×2 (10:21→21:11)
[2017-08-05] MEDS: SIMVASTATIN 40 MG TAB PO (21:11)
[2017-08-05] MEDS: DOCUSATE SODIUM 100 MG CAP PO (21:11)
[2017-08-05] MEDS: traZODone 50 MG TAB PO (21:11)
[2017-08-05] MEDS: rOPINIRole 1MG TAB PO (21:12)
[2017-08-06] MEDS: ONDANSETRON 4MG/2ML VIAL (J2405) IV ×2 (05:23→18:16)
[2017-08-06 07:55] LABS: HEMATOCRIT 33.8 % (36.0-47.0); HEMOGLOBIN 10.4 g/dl (12.0-16.0); MEAN CORPUSCULAR HEMOGLOBIN 29.7 pg (27.0-33.0); MEAN CORPUSCULAR HGB CONC 30.8 g/dl (32.0-36.5); MEAN CORPUSCULAR VOLUME 96.6 fl (80.0-96.0); PLATELET COUNT, AUTOMATED 215 10^3/uL (150-450); RED CELL DISTRIBUTION WIDTH 13.4 % (11.5-14.5)
[2017-08-06] MEDS: IPRATROPIUM 0.5MG/ALBUTEROL 2.5MG INH SOL UD 3ML (DUONEB)(J7620) NEB ×2 (08:04→15:17)
[2017-08-06] MEDS: TIOTROPIUM INHALER/CAPSULE (SPIRIVA) INH (08:04)
[2017-08-06 08:22] LABS: ANION GAP 3 MEQ/L (8-16); BLOOD UREA NITROGEN 28 MG/DL (7-18); CALCIUM LEVEL 7.9 MG/DL (8.8-10.2); CARBON DIOXIDE LEVEL 42 MEQ/L (21-32); CHLORIDE LEVEL 96 MEQ/L (98-107); CREATININE FOR GFR 0.52 MG/DL (0.55-1.30); GLOMERULAR FILTRATION RATE > 60.0 (>39); GLUCOSE, FASTING 136 MG/DL (70-100); POTASSIUM SERUM 4.1 MEQ/L (3.5-5.1); SODIUM LEVEL 141 MEQ/L (136-145)
[2017-08-06] MEDS: methylPREDNISolone INJ 125 MG/2 ML VIAL (J2930) IV ×2 (08:31→21:15)
[2017-08-06] MEDS: ESCITALOPRAM OXALATE 10 MG TAB (LEXAPRO) PO (08:31)
[2017-08-06] MEDS: guaiFENesin ER 600 MG TAB PO ×2 (08:31→21:15)
[2017-08-06] MEDS: FOLIC ACID 1 MG TAB PO (08:31)
[2017-08-06] MEDS: ALPRAZolam 0.25 MG TAB PO ×2 (08:31→17:43)
[2017-08-06] MEDS: OMEPRAZOLE 20 MG CAP PO ×2 (08:31→21:15)
[2017-08-06] MEDS: ENOXAPARIN 40 MG/0.4 ML SYRINGE (J1650) SC (08:32)
[2017-08-06] MEDS: ACETAMINOPHEN TAB 650MG DOSE (2X325MG) PO (08:32)
[2017-08-06] MEDS: CEFTRIAXONE SOD 1 GM in APPROPRIATE DILUENT 1 EA IV (10:22)
[2017-08-06] MEDS: NORCO, ANEXSIA 5/325MG TABLET (HYDROcodone/ACETAMINOPHEN) PO ×2 (11:55→17:43)
[2017-08-06] MEDS: BENZONATATE 100 MG CAP PO (15:29)
[2017-08-06] MEDS: DOCUSATE SODIUM 100 MG CAP PO (15:29)
[2017-08-06] MEDS: IBUPROFEN 400 MG TAB PO (15:30)
[2017-08-06] MEDS: rOPINIRole 1MG TAB PO (21:15)
[2017-08-06] MEDS: traZODone 50 MG TAB PO (21:15)
[2017-08-06] MEDS: SIMVASTATIN 40 MG TAB PO (21:15)
[2017-08-07] MEDS: IPRATROPIUM 0.5MG/ALBUTEROL 2.5MG INH SOL UD 3ML (DUONEB)(J7620) NEB ×3 (00:47→15:12)
[2017-08-07] MEDS: NORCO, ANEXSIA 5/325MG TABLET (HYDROcodone/ACETAMINOPHEN) PO ×4 (01:07→20:48)
[2017-08-07] MEDS: ALPRAZolam 0.25 MG TAB PO ×2 (05:20→14:34)
[2017-08-07 05:57] LABS: HEMATOCRIT 34.6 % (36.0-47.0); HEMOGLOBIN 10.5 g/dl (12.0-16.0); MEAN CORPUSCULAR HEMOGLOBIN 29.5 pg (27.0-33.0); MEAN CORPUSCULAR HGB CONC 30.3 g/dl (32.0-36.5); MEAN CORPUSCULAR VOLUME 97.2 fl (80.0-96.0); PLATELET COUNT, AUTOMATED 245 10^3/uL (150-450); RED BLOOD COUNT 3.56 10^6/uL (4.00-5.40); RED CELL DISTRIBUTION WIDTH 13.3 % (11.5-14.5); WHITE BLOOD COUNT 11.1 10^3/uL (4.0-10.0)
[2017-08-07 06:16] LABS: ANION GAP 2 MEQ/L (8-16); BLOOD UREA NITROGEN 28 MG/DL (7-18); CALCIUM LEVEL 8.4 MG/DL (8.8-10.2); CARBON DIOXIDE LEVEL 43 MEQ/L (21-32); CHLORIDE LEVEL 95 MEQ/L (98-107); GLOMERULAR FILTRATION RATE > 60.0 (>39); GLUCOSE, FASTING 161 MG/DL (70-100); POTASSIUM SERUM 4.4 MEQ/L (3.5-5.1); SODIUM LEVEL 140 MEQ/L (136-145)
[2017-08-07] MEDS: TIOTROPIUM INHALER/CAPSULE (SPIRIVA) INH (07:20)
[2017-08-07] MEDS: OMEPRAZOLE 20 MG CAP PO ×2 (08:33→20:48)
[2017-08-07] MEDS: FOLIC ACID 1 MG TAB PO (08:33)
[2017-08-07] MEDS: ESCITALOPRAM OXALATE 10 MG TAB (LEXAPRO) PO (08:33)
[2017-08-07] MEDS: guaiFENesin ER 600 MG TAB PO ×2 (08:33→20:48)
[2017-08-07] MEDS: ENOXAPARIN 40 MG/0.4 ML SYRINGE (J1650) SC (08:37)
[2017-08-07] MEDS: methylPREDNISolone INJ 125 MG/2 ML VIAL (J2930) IV (08:37)
[2017-08-07] MEDS: DOCUSATE SODIUM 100 MG CAP PO (09:41)
[2017-08-07] MEDS: BENZONATATE 100 MG CAP PO (09:41)
[2017-08-07] MEDS: ONDANSETRON 4MG/2ML VIAL (J2405) IV ×2 (09:41→17:18)
[2017-08-07] MEDS: CEFTRIAXONE SOD 1 GM in APPROPRIATE DILUENT 1 EA IV (11:01)
[2017-08-07] MEDS: IBUPROFEN 400 MG TAB PO (12:55)
[2017-08-07] MEDS: rOPINIRole 1MG TAB PO (20:47)
[2017-08-07] MEDS: SIMVASTATIN 40 MG TAB PO (20:48)
[2017-08-07] MEDS: traZODone 50 MG TAB PO (20:48)
[2017-08-08] MEDS: ALPRAZolam 0.25 MG TAB PO ×3 (01:12→18:59)
[2017-08-08] MEDS: IPRATROPIUM 0.5MG/ALBUTEROL 2.5MG INH SOL UD 3ML (DUONEB)(J7620) NEB ×4 (02:21→21:34)
[2017-08-08 06:29] LABS: HEMATOCRIT 32.8 % (36.0-47.0); HEMOGLOBIN 10.1 g/dl (12.0-16.0); MEAN CORPUSCULAR HEMOGLOBIN 29.7 pg (27.0-33.0); MEAN CORPUSCULAR HGB CONC 30.8 g/dl (32.0-36.5); MEAN CORPUSCULAR VOLUME 96.5 fl (80.0-96.0); PLATELET COUNT, AUTOMATED 226 10^3/uL (150-450); RED CELL DISTRIBUTION WIDTH 13.3 % (11.5-14.5)
[2017-08-08 06:41] LABS: ANION GAP 2 MEQ/L (8-16); BLOOD UREA NITROGEN 24 MG/DL (7-18); CALCIUM LEVEL 8.2 MG/DL (8.8-10.2); CARBON DIOXIDE LEVEL 42 MEQ/L (21-32); CHLORIDE LEVEL 98 MEQ/L (98-107); CREATININE FOR GFR 0.56 MG/DL (0.55-1.30); GLOMERULAR FILTRATION RATE > 60.0 (>39); GLUCOSE, FASTING 94 MG/DL (70-100); SODIUM LEVEL 142 MEQ/L (136-145)
[2017-08-08] MEDS: TIOTROPIUM INHALER/CAPSULE (SPIRIVA) INH (07:32)
[2017-08-08] MEDS: predniSONE 20 MG TAB PO (09:30)
[2017-08-08] MEDS: FOLIC ACID 1 MG TAB PO (09:31)
[2017-08-08] MEDS: guaiFENesin ER 600 MG TAB PO ×2 (09:32→20:06)
[2017-08-08] MEDS: ESCITALOPRAM OXALATE 10 MG TAB (LEXAPRO) PO (09:32)
[2017-08-08] MEDS: OMEPRAZOLE 20 MG CAP PO ×2 (09:32→20:06)
[2017-08-08] MEDS: DOCUSATE SODIUM 100 MG CAP PO (09:33)
[2017-08-08] MEDS: CEFTRIAXONE SOD 1 GM in APPROPRIATE DILUENT 1 EA IV (09:33)
[2017-08-08] MEDS: ENOXAPARIN 40 MG/0.4 ML SYRINGE (J1650) SC (09:33)
[2017-08-08] MEDS: BENZONATATE 100 MG CAP PO ×2 (09:34→23:46)
[2017-08-08] MEDS: NORCO, ANEXSIA 5/325MG TABLET (HYDROcodone/ACETAMINOPHEN) PO ×2 (09:36→19:00)
[2017-08-08] MEDS: ONDANSETRON 4MG/2ML VIAL (J2405) IV (09:41)
[2017-08-08] MEDS: SIMVASTATIN 40 MG TAB PO (20:06)
[2017-08-08] MEDS: traZODone 50 MG TAB PO (20:06)
[2017-08-08] MEDS: rOPINIRole 1MG TAB PO (20:06)
[2017-08-08] MEDS: IBUPROFEN 400 MG TAB PO (23:46)
[2017-08-09] MEDS: ALPRAZolam 0.25 MG TAB PO ×3 (03:09→21:55)
[2017-08-09] MEDS: NORCO, ANEXSIA 5/325MG TABLET (HYDROcodone/ACETAMINOPHEN) PO ×3 (03:09→21:56)
[2017-08-09 06:01] LABS: HEMATOCRIT 31.3 % (36.0-47.0); HEMOGLOBIN 9.8 g/dl (12.0-16.0); MEAN CORPUSCULAR HGB CONC 31.3 g/dl (32.0-36.5); MEAN CORPUSCULAR VOLUME 95.7 fl (80.0-96.0); PLATELET COUNT, AUTOMATED 228 10^3/uL (150-450); RED BLOOD COUNT 3.27 10^6/uL (4.00-5.40); RED CELL DISTRIBUTION WIDTH 13.7 % (11.5-14.5); WHITE BLOOD COUNT 11.4 10^3/uL (4.0-10.0)
[2017-08-09 06:23] LABS: ANION GAP 2 MEQ/L (8-16); BLOOD UREA NITROGEN 29 MG/DL (7-18); CALCIUM LEVEL 8.5 MG/DL (8.8-10.2); CARBON DIOXIDE LEVEL 39 MEQ/L (21-32); CHLORIDE LEVEL 99 MEQ/L (98-107); CREATININE FOR GFR 0.64 MG/DL (0.55-1.30); GLOMERULAR FILTRATION RATE > 60.0 (>39); GLUCOSE, FASTING 93 MG/DL (70-100); POTASSIUM SERUM 4.2 MEQ/L (3.5-5.1); SODIUM LEVEL 140 MEQ/L (136-145)
[2017-08-09] MEDS: IPRATROPIUM 0.5MG/ALBUTEROL 2.5MG INH SOL UD 3ML (DUONEB)(J7620) NEB ×2 (07:37→13:46)
[2017-08-09] MEDS: TIOTROPIUM INHALER/CAPSULE (SPIRIVA) INH (07:37)
[2017-08-09] MEDS: IBUPROFEN 400 MG TAB PO (08:17)
[2017-08-09 09:40] LABS: TROPONIN I < 0.02 NG/ML (< 0.10)
[2017-08-09] MEDS: CEFTRIAXONE SOD 1 GM in APPROPRIATE DILUENT 1 EA IV (10:00)
[2017-08-09] MEDS: guaiFENesin ER 600 MG TAB PO ×2 (10:33→21:55)
[2017-08-09] MEDS: predniSONE 20 MG TAB PO (10:33)
[2017-08-09] MEDS: DOCUSATE SODIUM 100 MG CAP PO ×2 (10:33→21:55)
[2017-08-09] MEDS: FOLIC ACID 1 MG TAB PO (10:33)
[2017-08-09] MEDS: OMEPRAZOLE 20 MG CAP PO ×2 (10:33→21:55)
[2017-08-09] MEDS: ESCITALOPRAM OXALATE 10 MG TAB (LEXAPRO) PO (10:33)
[2017-08-09] MEDS: BENZONATATE 100 MG CAP PO ×2 (10:34→23:12)
[2017-08-09] MEDS: CALCIUM CARBONATE 500 MG CHEW U/D PO (10:34)
[2017-08-09] MEDS: ONDANSETRON 4 MG ORAL DISINTEGRATING TAB (S0181) SL (21:50)
[2017-08-09] MEDS: rOPINIRole 1MG TAB PO (21:55)
[2017-08-09] MEDS: traZODone 50 MG TAB PO (21:55)
[2017-08-09] MEDS: SIMVASTATIN 40 MG TAB PO (21:55)
[2017-08-10] MEDS: IPRATROPIUM 0.5MG/ALBUTEROL 2.5MG INH SOL UD 3ML (DUONEB)(J7620) NEB ×4 (00:22→23:57)
[2017-08-10] MEDS: NORCO, ANEXSIA 5/325MG TABLET (HYDROcodone/ACETAMINOPHEN) PO ×3 (04:42→21:12)
[2017-08-10 05:53] LABS: HEMATOCRIT 30.3 % (36.0-47.0); HEMOGLOBIN 9.3 g/dl (12.0-16.0); MEAN CORPUSCULAR HEMOGLOBIN 30.1 pg (27.0-33.0); MEAN CORPUSCULAR HGB CONC 30.7 g/dl (32.0-36.5); MEAN CORPUSCULAR VOLUME 98.1 fl (80.0-96.0); PLATELET COUNT, AUTOMATED 221 10^3/uL (150-450); RED BLOOD COUNT 3.09 10^6/uL (4.00-5.40); RED CELL DISTRIBUTION WIDTH 13.7 % (11.5-14.5)
[2017-08-10 06:18] LABS: ANION GAP 5 MEQ/L (8-16); BLOOD UREA NITROGEN 23 MG/DL (7-18); CALCIUM LEVEL 7.6 MG/DL (8.8-10.2); CARBON DIOXIDE LEVEL 35 MEQ/L (21-32); CHLORIDE LEVEL 101 MEQ/L (98-107); CREATININE FOR GFR 0.68 MG/DL (0.55-1.30); GLOMERULAR FILTRATION RATE > 60.0 (>39); GLUCOSE, FASTING 250 MG/DL (70-100); POTASSIUM SERUM 3.7 MEQ/L (3.5-5.1); SODIUM LEVEL 141 MEQ/L (136-145)
[2017-08-10] MEDS: TIOTROPIUM INHALER/CAPSULE (SPIRIVA) INH (07:48)
[2017-08-10] MEDS: OMEPRAZOLE 20 MG CAP PO ×2 (09:53→21:13)
[2017-08-10] MEDS: ALPRAZolam 0.25 MG TAB PO ×2 (09:54→18:32)
[2017-08-10] MEDS: FOLIC ACID 1 MG TAB PO (09:54)
[2017-08-10] MEDS: predniSONE 20 MG TAB PO (09:54)
[2017-08-10] MEDS: guaiFENesin ER 600 MG TAB PO ×2 (09:54→21:13)
[2017-08-10] MEDS: DOCUSATE SODIUM 100 MG CAP PO (09:54)
[2017-08-10] MEDS: ENOXAPARIN 40 MG/0.4 ML SYRINGE (J1650) SC (09:55)
[2017-08-10] MEDS: ONDANSETRON 4 MG ORAL DISINTEGRATING TAB (S0181) SL ×2 (11:51→18:32)
[2017-08-10] MEDS: BENZONATATE 100 MG CAP PO (11:52)
[2017-08-10] MEDS: MOM 30ML SUSPENSION UDC PO (13:41)
[2017-08-10] MEDS: MIRALAX *UNIT DOSE* 17GM PACKET PO (13:42)
[2017-08-10] MEDS: ACETAMINOPHEN TAB 650MG DOSE (2X325MG) PO (13:42)
[2017-08-10] MEDS: CEFDINIR 300 MG CAP (OMNICEF) PO ×2 (17:04→21:11)
[2017-08-10] MEDS: rOPINIRole 1MG TAB PO (21:12)
[2017-08-10] MEDS: SIMVASTATIN 40 MG TAB PO (21:13)
[2017-08-10] MEDS: traZODone 50 MG TAB PO (21:13)
[2017-08-10] MEDS: ALBUTEROL SULFATE 2.5 MG/0.5 ML INH NEB SOLN INH (21:21)
[2017-08-11] MEDS: ALPRAZolam 0.25 MG TAB PO ×3 (02:54→21:53)
[2017-08-11 06:06] LABS: HEMOGLOBIN 9.1 g/dl (12.0-16.0); MEAN CORPUSCULAR HEMOGLOBIN 29.8 pg (27.0-33.0); MEAN CORPUSCULAR HGB CONC 30.3 g/dl (32.0-36.5); MEAN CORPUSCULAR VOLUME 98.4 fl (80.0-96.0); PLATELET COUNT, AUTOMATED 219 10^3/uL (150-450); RED BLOOD COUNT 3.05 10^6/uL (4.00-5.40); RED CELL DISTRIBUTION WIDTH 13.7 % (11.5-14.5); WHITE BLOOD COUNT 11.6 10^3/uL (4.0-10.0)
[2017-08-11 06:19] LABS: ANION GAP 1 MEQ/L (8-16); BLOOD UREA NITROGEN 19 MG/DL (7-18); CARBON DIOXIDE LEVEL 41 MEQ/L (21-32); CHLORIDE LEVEL 100 MEQ/L (98-107); CREATININE FOR GFR 0.56 MG/DL (0.55-1.30); GLOMERULAR FILTRATION RATE > 60.0 (>39); GLUCOSE, FASTING 97 MG/DL (70-100); POTASSIUM SERUM 4.9 MEQ/L (3.5-5.1); SODIUM LEVEL 142 MEQ/L (136-145)
[2017-08-11] MEDS: TIOTROPIUM INHALER/CAPSULE (SPIRIVA) INH (07:12)
[2017-08-11] MEDS: IPRATROPIUM 0.5MG/ALBUTEROL 2.5MG INH SOL UD 3ML (DUONEB)(J7620) NEB ×3 (07:12→23:29)
[2017-08-11] MEDS: predniSONE 20 MG TAB PO (08:26)
[2017-08-11] MEDS: MOM 30ML SUSPENSION UDC PO (08:26)
[2017-08-11] MEDS: FOLIC ACID 1 MG TAB PO (08:26)
[2017-08-11] MEDS: BENZONATATE 100 MG CAP PO (08:26)
[2017-08-11] MEDS: OMEPRAZOLE 20 MG CAP PO ×2 (08:27→20:58)
[2017-08-11] MEDS: DOCUSATE SODIUM 100 MG CAP PO ×3 (08:27→21:54)
[2017-08-11] MEDS: CEFDINIR 300 MG CAP (OMNICEF) PO ×2 (08:27→21:54)
[2017-08-11] MEDS: ONDANSETRON 4 MG ORAL DISINTEGRATING TAB (S0181) SL ×2 (08:27→20:58)
[2017-08-11] MEDS: guaiFENesin ER 600 MG TAB PO ×2 (08:27→21:53)
[2017-08-11] MEDS: ENOXAPARIN 40 MG/0.4 ML SYRINGE (J1650) SC (08:28)
[2017-08-11] MEDS: MIRALAX *UNIT DOSE* 17GM PACKET PO (08:28)
[2017-08-11] MEDS: NORCO, ANEXSIA 5/325MG TABLET (HYDROcodone/ACETAMINOPHEN) PO ×2 (08:39→16:48)
[2017-08-11] MEDS: IBUPROFEN 400 MG TAB PO (12:18)
[2017-08-11] MEDS: ACETAMINOPHEN TAB 650MG DOSE (2X325MG) PO (18:24)
[2017-08-11] MEDS: rOPINIRole 1MG TAB PO (21:53)
[2017-08-11] MEDS: traZODone 50 MG TAB PO (21:53)
[2017-08-11] MEDS: SIMVASTATIN 40 MG TAB PO (21:54)
[2017-08-12] MEDS: NORCO, ANEXSIA 5/325MG TABLET (HYDROcodone/ACETAMINOPHEN) PO ×3 (03:44→20:31)
[2017-08-12 05:57] LABS: HEMATOCRIT 31.7 % (36.0-47.0); HEMOGLOBIN 9.6 g/dl (12.0-16.0); MEAN CORPUSCULAR HGB CONC 30.3 g/dl (32.0-36.5); MEAN CORPUSCULAR VOLUME 99.1 fl (80.0-96.0); PLATELET COUNT, AUTOMATED 238 10^3/uL (150-450); RED CELL DISTRIBUTION WIDTH 14.1 % (11.5-14.5); WHITE BLOOD COUNT 13.5 10^3/uL (4.0-10.0)
[2017-08-12 06:15] LABS: ANION GAP 2 MEQ/L (8-16); BLOOD UREA NITROGEN 19 MG/DL (7-18); CALCIUM LEVEL 8.2 MG/DL (8.8-10.2); CARBON DIOXIDE LEVEL 40 MEQ/L (21-32); CHLORIDE LEVEL 100 MEQ/L (98-107); CREATININE FOR GFR 0.63 MG/DL (0.55-1.30); GLOMERULAR FILTRATION RATE > 60.0 (>39); GLUCOSE, FASTING 86 MG/DL (70-100); POTASSIUM SERUM 4.4 MEQ/L (3.5-5.1); SODIUM LEVEL 142 MEQ/L (136-145)
[2017-08-12] MEDS: ALPRAZolam 0.25 MG TAB PO ×3 (06:29→23:22)
[2017-08-12] MEDS: TIOTROPIUM INHALER/CAPSULE (SPIRIVA) INH (07:15)
[2017-08-12] MEDS: IPRATROPIUM 0.5MG/ALBUTEROL 2.5MG INH SOL UD 3ML (DUONEB)(J7620) NEB ×3 (07:15→23:42)
[2017-08-12] MEDS: guaiFENesin ER 600 MG TAB PO ×2 (08:43→20:30)
[2017-08-12] MEDS: FOLIC ACID 1 MG TAB PO (08:43)
[2017-08-12] MEDS: MOM 30ML SUSPENSION UDC PO (08:43)
[2017-08-12] MEDS: OMEPRAZOLE 20 MG CAP PO ×2 (08:43→20:30)
[2017-08-12] MEDS: DOCUSATE SODIUM 100 MG CAP PO (08:43)
[2017-08-12] MEDS: MIRALAX *UNIT DOSE* 17GM PACKET PO (08:44)
[2017-08-12] MEDS: predniSONE 20 MG TAB PO (08:44)
[2017-08-12] MEDS: ENOXAPARIN 40 MG/0.4 ML SYRINGE (J1650) SC (08:44)
[2017-08-12] MEDS: BENZONATATE 100 MG CAP PO ×2 (09:08→18:48)
[2017-08-12] MEDS ORDERED: FLEET OIL RETENTION ENEMA PR (12:45)
[2017-08-12] MEDS: ACETAMINOPHEN TAB 650MG DOSE (2X325MG) PO ×2 (18:10→23:23)
[2017-08-12] MEDS: ALBUTEROL SULFATE 2.5 MG/0.5 ML INH NEB SOLN INH (18:37)
[2017-08-12] MEDS: rOPINIRole 1MG TAB PO (20:30)
[2017-08-12] MEDS: SIMVASTATIN 40 MG TAB PO (20:30)
[2017-08-12] MEDS: traZODone 50 MG TAB PO (20:30)
[2017-08-12] MEDS: ONDANSETRON 4 MG ORAL DISINTEGRATING TAB (S0181) SL (20:38)
[2017-08-13] MEDS: BENZONATATE 100 MG CAP PO ×2 (05:58→11:09)
[2017-08-13] MEDS: NORCO, ANEXSIA 5/325MG TABLET (HYDROcodone/ACETAMINOPHEN) PO ×4 (05:59→18:52)
[2017-08-13] MEDS: TIOTROPIUM INHALER/CAPSULE (SPIRIVA) INH (07:06)
[2017-08-13] MEDS: IPRATROPIUM 0.5MG/ALBUTEROL 2.5MG INH SOL UD 3ML (DUONEB)(J7620) NEB ×3 (07:06→22:35)
[2017-08-13] MEDS: predniSONE 20 MG TAB PO (08:55)
[2017-08-13] MEDS: FOLIC ACID 1 MG TAB PO (08:55)
[2017-08-13] MEDS: guaiFENesin ER 600 MG TAB PO ×2 (08:55→20:27)
[2017-08-13] MEDS: OMEPRAZOLE 20 MG CAP PO ×2 (08:55→20:28)
[2017-08-13] MEDS: ENOXAPARIN 40 MG/0.4 ML SYRINGE (J1650) SC (08:56)
[2017-08-13] MEDS: SENOKOT S TAB PO (11:08)
[2017-08-13] MEDS: ALPRAZolam 0.25 MG TAB PO ×2 (11:08→17:35)
[2017-08-13] MEDS: DOCUSATE SODIUM 100 MG CAP PO (11:08)
[2017-08-13] MEDS: ALBUTEROL SULFATE 2.5 MG/0.5 ML INH NEB SOLN INH (11:27)
[2017-08-13] MEDS: ACETAMINOPHEN TAB 650MG DOSE (2X325MG) PO (12:52)
[2017-08-13] MEDS: ONDANSETRON 4 MG ORAL DISINTEGRATING TAB (S0181) SL (18:28)
[2017-08-13] MEDS: SIMVASTATIN 40 MG TAB PO (20:27)
[2017-08-13] MEDS: traZODone 50 MG TAB PO (20:27)
[2017-08-13] MEDS: rOPINIRole 1MG TAB PO (20:28)
[2017-08-13] MEDS: IBUPROFEN 400 MG TAB PO (20:29)
[2017-08-14] MEDS: ALPRAZolam 0.25 MG TAB PO ×3 (01:38→18:37)
[2017-08-14] MEDS: NORCO, ANEXSIA 5/325MG TABLET (HYDROcodone/ACETAMINOPHEN) PO ×3 (01:39→18:35)
[2017-08-14] MEDS: IBUPROFEN 400 MG TAB PO ×2 (05:37→21:36)
[2017-08-14] MEDS: TIOTROPIUM INHALER/CAPSULE (SPIRIVA) INH (07:25)
[2017-08-14] MEDS: IPRATROPIUM 0.5MG/ALBUTEROL 2.5MG INH SOL UD 3ML (DUONEB)(J7620) NEB ×3 (07:25→23:27)
[2017-08-14] MEDS: FOLIC ACID 1 MG TAB PO (09:45)
[2017-08-14] MEDS: predniSONE 20 MG TAB PO (09:45)
[2017-08-14] MEDS: OMEPRAZOLE 20 MG CAP PO ×2 (09:45→21:36)
[2017-08-14] MEDS: guaiFENesin ER 600 MG TAB PO ×2 (09:45→21:36)
[2017-08-14] MEDS: ENOXAPARIN 40 MG/0.4 ML SYRINGE (J1650) SC (09:49)
[2017-08-14] MEDS: ALBUTEROL SULFATE 2.5 MG/0.5 ML INH NEB SOLN INH (11:24)
[2017-08-14] MEDS: BENZONATATE 100 MG CAP PO (12:54)
[2017-08-14] MEDS: ONDANSETRON 4 MG ORAL DISINTEGRATING TAB (S0181) SL (14:18)
[2017-08-14] MEDS: rOPINIRole 1MG TAB PO (21:35)
[2017-08-14] MEDS: traZODone 50 MG TAB PO (21:36)
[2017-08-14] MEDS: SIMVASTATIN 40 MG TAB PO (21:36)
[2017-08-15] MEDS: NORCO, ANEXSIA 5/325MG TABLET (HYDROcodone/ACETAMINOPHEN) PO ×2 (00:53→19:29)
[2017-08-15] MEDS: ALBUTEROL SULFATE 2.5 MG/0.5 ML INH NEB SOLN INH ×4 (01:15→20:06)
[2017-08-15] MEDS: ALPRAZolam 0.25 MG TAB PO ×3 (04:23→16:29)
[2017-08-15] MEDS: IPRATROPIUM 0.5MG/ALBUTEROL 2.5MG INH SOL UD 3ML (DUONEB)(J7620) NEB ×3 (07:19→23:37)
[2017-08-15] MEDS: TIOTROPIUM INHALER/CAPSULE (SPIRIVA) INH (07:19)
[2017-08-15] MEDS: predniSONE 20 MG TAB PO (08:57)
[2017-08-15] MEDS: OMEPRAZOLE 20 MG CAP PO ×2 (08:57→21:11)
[2017-08-15] MEDS: guaiFENesin ER 600 MG TAB PO ×2 (08:57→21:12)
[2017-08-15] MEDS: FOLIC ACID 1 MG TAB PO (08:57)
[2017-08-15] MEDS: ENOXAPARIN 40 MG/0.4 ML SYRINGE (J1650) SC (08:58)
[2017-08-15] MEDS: CARVedilol 12.5 MG TAB PO (16:29)
[2017-08-15] MEDS: hydrOXYzine 25 MG TAB PO (21:11)
[2017-08-15] MEDS: traZODone 50 MG TAB PO (21:11)
[2017-08-15] MEDS: SIMVASTATIN 40 MG TAB PO (21:12)
[2017-08-15] MEDS: IBUPROFEN 400 MG TAB PO (21:12)
[2017-08-15] MEDS: rOPINIRole 1MG TAB PO (21:12)
[2017-08-16] MEDS: ALPRAZolam 0.25 MG TAB PO ×3 (00:25→21:11)
[2017-08-16] MEDS: NORCO, ANEXSIA 5/325MG TABLET (HYDROcodone/ACETAMINOPHEN) PO ×2 (06:51→21:12)
[2017-08-16] MEDS: IPRATROPIUM 0.5MG/ALBUTEROL 2.5MG INH SOL UD 3ML (DUONEB)(J7620) NEB ×3 (07:57→21:18)
[2017-08-16] MEDS: TIOTROPIUM INHALER/CAPSULE (SPIRIVA) INH (07:57)
[2017-08-16] MEDS: ENOXAPARIN 40 MG/0.4 ML SYRINGE (J1650) SC (08:34)
[2017-08-16] MEDS: guaiFENesin ER 600 MG TAB PO ×2 (08:35→21:11)
[2017-08-16] MEDS: FOLIC ACID 1 MG TAB PO (08:35)
[2017-08-16] MEDS: CARVedilol 12.5 MG TAB PO (08:35)
[2017-08-16] MEDS: predniSONE 20 MG TAB PO (08:35)
[2017-08-16] MEDS: OMEPRAZOLE 20 MG CAP PO ×2 (08:35→21:11)
[2017-08-16] MEDS: hydrOXYzine 25 MG TAB PO (14:22)
[2017-08-16] MEDS: SIMVASTATIN 40 MG TAB PO (21:11)
[2017-08-16] MEDS: rOPINIRole 1MG TAB PO (21:11)
[2017-08-16] MEDS: traZODone 50 MG TAB PO (21:11)
[2017-08-17] MEDS: TIOTROPIUM INHALER/CAPSULE (SPIRIVA) INH (07:11)
[2017-08-17] MEDS: IPRATROPIUM 0.5MG/ALBUTEROL 2.5MG INH SOL UD 3ML (DUONEB)(J7620) NEB (07:11)
[2017-08-17] MEDS: MOM 30ML SUSPENSION UDC PO (08:06)
[2017-08-17] MEDS: DOCUSATE SODIUM 100 MG CAP PO (08:06)
[2017-08-17] MEDS: OMEPRAZOLE 20 MG CAP PO (08:07)
[2017-08-17] MEDS: FOLIC ACID 1 MG TAB PO (08:08)
[2017-08-17] MEDS: ALPRAZolam 0.25 MG TAB PO (08:08)
[2017-08-17] MEDS: CARVedilol 12.5 MG TAB PO (08:08)
[2017-08-17] MEDS: SENOKOT S TAB PO (08:08)
[2017-08-17] MEDS: NORCO, ANEXSIA 5/325MG TABLET (HYDROcodone/ACETAMINOPHEN) PO (08:08)
[2017-08-17] MEDS: guaiFENesin ER 600 MG TAB PO (08:08)
[2017-08-17] MEDS: predniSONE 20 MG TAB PO (08:08)
[2017-08-17] MEDS: ENOXAPARIN 40 MG/0.4 ML SYRINGE (J1650) SC (08:09)
[2017-08-29] MEDS ORDERED: CYANOCOBALAMIN 1,000 MCG/ML VIAL (J3420) IM (09:00)
== END 2017-08-17 13:11 | DRG 191 ==
LOC: M ED INP 23:56 → M MSPAV 07-30 15:00 → M ED 15:33
DX: J44.1 Chronic obstructive pulmonary disease with (acute) exacerbation (principal); J96.11 Chronic respiratory failure with hypoxia; R64 Cachexia; Z68.1 Body mass index [BMI] 19.9 or less, adult; I10 Essential (primary) hypertension; F32.9 Major depressive disorder, single episode, unspecified; K21.9 Gastro-esophageal reflux disease without esophagitis; M94.0 Chondrocostal junction syndrome [Tietze]; B97.81 Human metapneumovirus as the cause of diseases classified elsewhere; F41.9 Anxiety disorder, unspecified; Z66 Do not resuscitate; E78.5 Hyperlipidemia, unspecified; R63.6 Underweight; G25.81 Restless legs syndrome; G47.00 Insomnia, unspecified; E53.8 Deficiency of other specified B group vitamins; Z99.81 Dependence on supplemental oxygen; Z87.891 Personal history of nicotine dependence; Z79.52 Long term (current) use of systemic steroids; Z79.899 Other long term (current) drug therapy; Z88.8 Allergy status to other drugs, medicaments and biological substances

== ENCOUNTER → 2017-08-25 | Outpatient (REF) ==
[2017-08-25 10:46] LABS: HEMATOCRIT 40.3 % (36.0-47.0); MEAN CORPUSCULAR HEMOGLOBIN 29.1 pg (27.0-33.0); MEAN CORPUSCULAR HGB CONC 29.8 g/dl (32.0-36.5); MEAN CORPUSCULAR VOLUME 97.6 fl (80.0-96.0); PLATELET COUNT, AUTOMATED 349 10^3/uL (150-450); RED BLOOD COUNT 4.13 10^6/uL (4.00-5.40); RED CELL DISTRIBUTION WIDTH 14.3 % (11.5-14.5); WHITE BLOOD COUNT 8.4 10^3/uL (4.0-10.0)
[2017-08-25 11:06] LABS: ANION GAP 6 MEQ/L (8-16); BLOOD UREA NITROGEN 19 MG/DL (7-18); CALCIUM LEVEL 8.8 MG/DL (8.8-10.2); CARBON DIOXIDE LEVEL 35 MEQ/L (21-32); CHLORIDE LEVEL 99 MEQ/L (98-107); CREATININE FOR GFR 0.67 MG/DL (0.55-1.30); GLOMERULAR FILTRATION RATE > 60.0 (>39); GLUCOSE, FASTING 188 MG/DL (70-100); POTASSIUM SERUM 4.4 MEQ/L (3.5-5.1); SODIUM LEVEL 140 MEQ/L (136-145)
== END ==
DX: I10 Essential (primary) hypertension (principal)

== ENCOUNTER → 2017-08-29 | Outpatient (REF) | payer MEDICAID, MEDICARE, OTHER ==
[2017-08-29 09:41] LABS: HEMATOCRIT 34.3 % (36.0-47.0); HEMOGLOBIN 10.3 g/dl (12.0-16.0); MEAN CORPUSCULAR HEMOGLOBIN 29.9 pg (27.0-33.0); MEAN CORPUSCULAR VOLUME 99.4 fl (80.0-96.0); PLATELET COUNT, AUTOMATED 287 10^3/uL (150-450); RED BLOOD COUNT 3.45 10^6/uL (4.00-5.40); RED CELL DISTRIBUTION WIDTH 14.7 % (11.5-14.5); WHITE BLOOD COUNT 6.7 10^3/uL (4.0-10.0)
[2017-08-29 10:11] LABS: ANION GAP 8 MEQ/L (8-16); BLOOD UREA NITROGEN 21 MG/DL (7-18); CALCIUM LEVEL 8.3 MG/DL (8.8-10.2); CARBON DIOXIDE LEVEL 32 MEQ/L (21-32); CHLORIDE LEVEL 102 MEQ/L (98-107); CREATININE FOR GFR 0.72 MG/DL (0.55-1.30); GLOMERULAR FILTRATION RATE > 60.0 (>39); GLUCOSE, FASTING 142 MG/DL (70-100); POTASSIUM SERUM 4.3 MEQ/L (3.5-5.1); SODIUM LEVEL 142 MEQ/L (136-145)
== END ==
DX: J44.9 Chronic obstructive pulmonary disease, unspecified (principal)

== ENCOUNTER → 2017-09-19 | Outpatient (REF) ==
[2017-09-19 11:10] LABS: HEMATOCRIT 33.1 % (36.0-47.0); MEAN CORPUSCULAR HEMOGLOBIN 29.9 pg (27.0-33.0); MEAN CORPUSCULAR HGB CONC 30.2 g/dl (32.0-36.5); MEAN CORPUSCULAR VOLUME 98.8 fl (80.0-96.0); PLATELET COUNT, AUTOMATED 215 10^3/uL (150-450); RED BLOOD COUNT 3.35 10^6/uL (4.00-5.40); RED CELL DISTRIBUTION WIDTH 16.3 % (11.5-14.5); WHITE BLOOD COUNT 9.1 10^3/uL (4.0-10.0)
[2017-09-19 11:37] LABS: ANION GAP 5 MEQ/L (8-16); BLOOD UREA NITROGEN 18 MG/DL (7-18); CALCIUM LEVEL 8.7 MG/DL (8.8-10.2); CARBON DIOXIDE LEVEL 33 MEQ/L (21-32); CHLORIDE LEVEL 102 MEQ/L (98-107); CREATININE FOR GFR 0.68 MG/DL (0.55-1.30); GLOMERULAR FILTRATION RATE > 60.0 (>39); GLUCOSE, FASTING 141 MG/DL (70-100); POTASSIUM SERUM 4.8 MEQ/L (3.5-5.1); SODIUM LEVEL 140 MEQ/L (136-145)
== END ==
DX: J44.9 Chronic obstructive pulmonary disease, unspecified (principal)

== ENCOUNTER 2017-10-20 19:02 | Inpatient (IN) | payer MEDICARE, MEDICAID, OTHER ==
[2017-10-20 20:31] LABS: BASO % 0.1 % (0.0-1.0); EOS % 0.2 % (0.0-3.0); HEMATOCRIT 38.4 % (36.0-47.0); HEMOGLOBIN 11.6 g/dl (12.0-15.5); IMMATURE GRANULOCYTE % 0.3 % (0-3.0); LYMPH # 0.6 10^3/uL (1.5-4.5); LYMPH % 5.4 % (24.0-44.0); MEAN CORPUSCULAR HGB CONC 30.2 g/dl (32.0-36.5); MEAN CORPUSCULAR VOLUME 99.2 fl (80.0-96.0); MONO # 0.2 10^3/uL (0.0-0.8); MONO % 1.7 % (0.0-5.0); NEUTROPHILS # 10.5 10^3/uL (1.8-7.7); NEUTROPHILS % 92.3 % (36.0-66.0); PLATELET COUNT, AUTOMATED 286 10^3/uL (150-450); RED BLOOD COUNT 3.87 10^6/uL (4.00-5.40); WHITE BLOOD COUNT 11.4 10^3/uL (4.0-10.0)
[2017-10-20 20:38] LABS: LACTIC ACID SEPSIS PROTOCOL 1.9 MMOL/L (0.4-2.0)
[2017-10-20 20:42] LABS: ALBUMIN 3.3 GM/DL (3.2-5.2); ALBUMIN/GLOBULIN RATIO 0.97 (1.00-1.93); ALKALINE PHOSPHATASE 58 U/L (45-117); ALT/SGPT 17 U/L (12-78); ANION GAP 3 MEQ/L (8-16); AST/SGOT 16 U/L (7-37); BILIRUBIN,DIRECT < 0.1 MG/DL (0.0-0.2); BILIRUBIN,TOTAL 0.4 MG/DL (0.2-1.0); BLOOD UREA NITROGEN 21 MG/DL (7-18); C REACTIVE PROTEIN QUANTITATIV < 0.30 MG/DL (0.00-0.30); CALCIUM LEVEL 8.4 MG/DL (8.8-10.2); CARBON DIOXIDE LEVEL 38 MEQ/L (21-32); CHLORIDE LEVEL 101 MEQ/L (98-107); CPK CREATINE PHOSPHOKINASE 34 U/L (26-192); CREATININE FOR GFR 0.67 MG/DL (0.55-1.30); GLOMERULAR FILTRATION RATE > 60.0 (>39); GLUCOSE, FASTING 273 MG/DL (70-100); POTASSIUM SERUM 4.3 MEQ/L (3.5-5.1); SODIUM LEVEL 142 MEQ/L (136-145); TOTAL PROTEIN 6.7 GM/DL (6.4-8.2); TROPONIN I < 0.02 NG/ML (< 0.10)
[2017-10-20 20:47] LABS: CK-MB VALUE MASS 1.1 NG/ML (<3.6); MB/CK RELATIVE INDEX 3.23 (< OR =4); NT-PRO BNP 155 PG/ML (<450); THYROID STIMULATING HORMONE 0.527 uIU/ML (0.358-3.740); THYROXINE (T4) 6.2 UG/DL (4.5-12.0)
[2017-10-20] MEDS: methylPREDNISolone INJ 125 MG/2 ML VIAL (J2930) IV (20:51)
[2017-10-20] MEDS: HumaLOG INSULIN (NovoLOG) PER UNIT SC (21:00)
[2017-10-20] MEDS: IPRATROPIUM 0.5MG/ALBUTEROL 2.5MG INH SOL UD 3ML (DUONEB)(J7620) NEB ×3 (21:04→22:32)
[2017-10-20 21:06] LABS: ABG BASE EXCESS 9.8 (-2.0-2.0); ABG HCO3 37.3 MEQ/L (22.0-26.0); ABG O2 SATURATION 99.3 % (95.0-99.0); ABG PARTIAL PRESSURE O2 149.6 mmHg (75.0-100.0); ABG STANDARD HCO3 33.6 MEQ/L (22.0-26.0); ABG TOTAL CO2 39.3 MEQ/L (23.0-31.0); ABG pH (ARTERIAL) 7.369 UNITS (7.350-7.450)
[2017-10-20 21:08] LABS: ABG PARTIAL PRESSURE CO2 66.1 mmHg (35.0-45.0)
[2017-10-20] MEDS: KETOROLAC 30 MG/ML VIAL (J1885) IV (22:18)
[2017-10-20] MEDS ORDERED: FLUTICASONE PROP 0.05% NASAL SPRAY 16 GM (FLONASE) (23:00)
[2017-10-20] MEDS ORDERED: hydrOXYzine 25 MG TAB PO (23:00)
[2017-10-20] MEDS ORDERED: ONDANSETRON 4MG/2ML VIAL (J2405) IV (23:15)
[2017-10-20] MEDS: cefTRIAXone SOD 1 GM in D5W MINI-BAG PLUS 50 ML IV (23:20)
[2017-10-20] MEDS ORDERED: GLUCAGON FOR INJ 1 MG VIAL (J1610) SC (23:30)
[2017-10-20] MEDS ORDERED: GLUCOSE 4 GM CHEW TABLET PO (23:30)
[2017-10-20] MEDS ORDERED: DEXTROSE 50% 50 ML SYRINGE IV (23:30)
[2017-10-20 23:46] LABS: FERRITIN 38 NG/ML (8-252)
[2017-10-20 23:47] LABS: ERYTHROCYTE SEDIMENTATION RATE 14 mm/hr (0-30)
[2017-10-20 23:48] LABS: ESTIMATED AVERAGE GLUCOSE 143 MG/DL (60-110); HEMOGLOBIN A1c 6.6 %
[2017-10-21 01:13] LABS: BEDSIDE GLUCOSE 181 MG/DL (83-110)
[2017-10-21] MEDS: SUCRALFATE SUSP 1GM/10ML UD PO ×6 (01:41→22:25)
[2017-10-21] MEDS: OMEPRAZOLE 20 MG CAP PO ×3 (01:41→22:26)
[2017-10-21] MEDS: traZODone 50 MG TAB PO ×2 (01:41→22:26)
[2017-10-21] MEDS: FAMOTIDINE 20 MG TAB PO ×3 (01:42→22:26)
[2017-10-21] MEDS: ACETAMINOPHEN TAB 650MG DOSE (2X325MG) PO ×4 (01:42→22:30)
[2017-10-21] MEDS: rOPINIRole 2MG TAB PO ×2 (02:08→22:26)
[2017-10-21 02:46] LABS: CK-MB VALUE MASS 1.5 NG/ML (<3.6); CPK CREATINE PHOSPHOKINASE 28 U/L (26-192); MB/CK RELATIVE INDEX 5.35 (< OR =4); TROPONIN I < 0.02 NG/ML (< 0.10)
[2017-10-21] MEDS: IPRATROPIUM 0.5MG/ALBUTEROL 2.5MG INH SOL UD 3ML (DUONEB)(J7620) NEB ×4 (03:13→19:22)
[2017-10-21] MEDS: GI COCKTAIL 50ML BTL(HYOSCYAMINE/MAALOX/LIDOCAINE VISCOUS)(1:3:1) PO (05:04)
[2017-10-21] MEDS: methylPREDNISolone INJ 125 MG/2 ML VIAL (J2930) IV ×2 (05:04→17:28)
[2017-10-21 05:45] LABS: HEMATOCRIT 34.9 % (36.0-47.0); HEMOGLOBIN 10.8 g/dl (12.0-15.5); IMMATURE GRANULOCYTE % 0.4 % (0-3.0); LYMPH # 0.7 10^3/uL (1.5-4.5); LYMPH % 9.3 % (24.0-44.0); MEAN CORPUSCULAR HEMOGLOBIN 30.3 pg (27.0-33.0); MEAN CORPUSCULAR HGB CONC 30.9 g/dl (32.0-36.5); MONO % 0.4 % (0.0-5.0); NEUTROPHILS # 6.4 10^3/uL (1.8-7.7); NEUTROPHILS % 89.9 % (36.0-66.0); PLATELET COUNT, AUTOMATED 248 10^3/uL (150-450); RED BLOOD COUNT 3.56 10^6/uL (4.00-5.40); RED CELL DISTRIBUTION WIDTH 14.6 % (11.5-14.5); WHITE BLOOD COUNT 7.1 10^3/uL (4.0-10.0)
[2017-10-21 06:12] LABS: ANION GAP 3 MEQ/L (8-16); BLOOD UREA NITROGEN 23 MG/DL (7-18); CALCIUM LEVEL 8.7 MG/DL (8.8-10.2); CARBON DIOXIDE LEVEL 36 MEQ/L (21-32); CHLORIDE LEVEL 104 MEQ/L (98-107); CREATININE FOR GFR 0.77 MG/DL (0.55-1.30); GLOMERULAR FILTRATION RATE > 60.0 (>39); GLUCOSE, FASTING 233 MG/DL (70-100); POTASSIUM SERUM 4.1 MEQ/L (3.5-5.1); SODIUM LEVEL 143 MEQ/L (136-145)
[2017-10-21] MEDS: TIOTROPIUM INHALER/CAPSULE (SPIRIVA) INH (07:14)
[2017-10-21] MEDS: SIMVASTATIN 40 MG TAB PO (07:58)
[2017-10-21] MEDS: FOLIC ACID 1 MG TAB PO (07:58)
[2017-10-21] MEDS: ENOXAPARIN 30 MG/0.3 ML SYR (J1650) SC (07:58)
[2017-10-21] MEDS: ESCITALOPRAM OXALATE 10 MG TAB (LEXAPRO) PO (07:59)
[2017-10-21] MEDS: CARVedilol 12.5 MG TAB PO (07:59)
[2017-10-21] MEDS: SENOKOT S TAB PO ×2 (07:59→22:26)
[2017-10-21] MEDS: ALPRAZolam 0.5 MG TAB PO ×2 (08:10→14:42)
[2017-10-21 10:29] LABS: CPK CREATINE PHOSPHOKINASE 25 U/L (26-192); TROPONIN I < 0.02 NG/ML (< 0.10)
[2017-10-21 10:30] LABS: CK-MB VALUE MASS 1.5 NG/ML (<3.6)
[2017-10-21] MEDS: SYMBICORT 160/4.5MCG INHALER 6GM INH ×2 (11:20→19:21)
[2017-10-21 20:42] LABS: BEDSIDE GLUCOSE 193 MG/DL (83-110)
[2017-10-21] MEDS: HumaLOG INSULIN (NovoLOG) PER UNIT SC (21:00)
[2017-10-21] MEDS: cefTRIAXone SOD 1 GM in D5W MINI-BAG PLUS 50 ML IV (22:25)
[2017-10-22] MEDS: IPRATROPIUM 0.5MG/ALBUTEROL 2.5MG INH SOL UD 3ML (DUONEB)(J7620) NEB ×4 (03:39→19:44)
[2017-10-22] MEDS: methylPREDNISolone INJ 125 MG/2 ML VIAL (J2930) IV (05:29)
[2017-10-22 06:06] LABS: BASO % 0.1 % (0.0-1.0); HEMATOCRIT 31.8 % (36.0-47.0); HEMOGLOBIN 9.9 g/dl (12.0-15.5); IMMATURE GRANULOCYTE % 0.5 % (0-3.0); LYMPH # 0.8 10^3/uL (1.5-4.5); LYMPH % 4.8 % (24.0-44.0); MEAN CORPUSCULAR HGB CONC 31.1 g/dl (32.0-36.5); MEAN CORPUSCULAR VOLUME 96.4 fl (80.0-96.0); MONO # 0.3 10^3/uL (0.0-0.8); MONO % 2.2 % (0.0-5.0); NEUTROPHILS # 14.5 10^3/uL (1.8-7.7); NEUTROPHILS % 92.4 % (36.0-66.0); PLATELET COUNT, AUTOMATED 213 10^3/uL (150-450); RED CELL DISTRIBUTION WIDTH 14.7 % (11.5-14.5); WHITE BLOOD COUNT 15.6 10^3/uL (4.0-10.0)
[2017-10-22 06:33] LABS: ANION GAP 6 MEQ/L (8-16); BLOOD UREA NITROGEN 22 MG/DL (7-18); CALCIUM LEVEL 8.8 MG/DL (8.8-10.2); CARBON DIOXIDE LEVEL 34 MEQ/L (21-32); CHLORIDE LEVEL 103 MEQ/L (98-107); CREATININE FOR GFR 0.63 MG/DL (0.55-1.30); GLOMERULAR FILTRATION RATE > 60.0 (>39); GLUCOSE, FASTING 143 MG/DL (70-100); POTASSIUM SERUM 4.2 MEQ/L (3.5-5.1); SODIUM LEVEL 143 MEQ/L (136-145)
[2017-10-22] MEDS: TIOTROPIUM INHALER/CAPSULE (SPIRIVA) INH (07:21)
[2017-10-22] MEDS: SYMBICORT 160/4.5MCG INHALER 6GM INH ×2 (07:22→19:44)
[2017-10-22] MEDS: SUCRALFATE SUSP 1GM/10ML UD PO ×4 (08:14→20:43)
[2017-10-22] MEDS: ENOXAPARIN 30 MG/0.3 ML SYR (J1650) SC (08:15)
[2017-10-22] MEDS: SIMVASTATIN 40 MG TAB PO (08:15)
[2017-10-22] MEDS: FAMOTIDINE 20 MG TAB PO ×2 (08:16→20:43)
[2017-10-22] MEDS: CARVedilol 12.5 MG TAB PO (08:16)
[2017-10-22] MEDS: ESCITALOPRAM OXALATE 10 MG TAB (LEXAPRO) PO (08:17)
[2017-10-22] MEDS: SENOKOT S TAB PO ×2 (08:18→20:43)
[2017-10-22] MEDS: OMEPRAZOLE 20 MG CAP PO ×2 (08:18→20:43)
[2017-10-22] MEDS: FOLIC ACID 1 MG TAB PO (08:27)
[2017-10-22 11:06] LABS: ALBUMIN 2.8 GM/DL (3.2-5.2); ALKALINE PHOSPHATASE 49 U/L (45-117); ALT/SGPT 12 U/L (12-78); AST/SGOT 11 U/L (7-37); BILIRUBIN,TOTAL 0.2 MG/DL (0.2-1.0); LIPASE 124 U/L (73-393); TOTAL PROTEIN 5.9 GM/DL (6.4-8.2)
[2017-10-22] MEDS: ALPRAZolam 0.5 MG TAB PO ×2 (11:32→19:15)
[2017-10-22] MEDS: GASTROGRAFIN SOLUTION 30ML PO ×2 (11:32→12:00)
[2017-10-22] MEDS ORDERED: ISOVUE-370 76% 100ML VIAL (Q9967) As Ordered (12:32)
[2017-10-22] MEDS: traZODone 50 MG TAB PO (20:43)
[2017-10-22] MEDS: rOPINIRole 2MG TAB PO (20:43)
[2017-10-22] MEDS: HumaLOG INSULIN (NovoLOG) PER UNIT SC (21:00)
[2017-10-22 21:40] LABS: BEDSIDE GLUCOSE 221 MG/DL (83-110)
[2017-10-22] MEDS: cefTRIAXone SOD 1 GM in D5W MINI-BAG PLUS 50 ML IV (23:42)
[2017-10-23] MEDS: IPRATROPIUM 0.5MG/ALBUTEROL 2.5MG INH SOL UD 3ML (DUONEB)(J7620) NEB ×4 (01:39→20:00)
[2017-10-23 06:33] LABS: HEMATOCRIT 32.4 % (36.0-47.0); HEMOGLOBIN 10.1 g/dl (12.0-15.5); IMMATURE GRANULOCYTE % 0.3 % (0-3.0); LYMPH # 1.6 10^3/uL (1.5-4.5); LYMPH % 11.1 % (24.0-44.0); MEAN CORPUSCULAR HEMOGLOBIN 30.1 pg (27.0-33.0); MEAN CORPUSCULAR HGB CONC 31.2 g/dl (32.0-36.5); MEAN CORPUSCULAR VOLUME 96.7 fl (80.0-96.0); MONO # 0.6 10^3/uL (0.0-0.8); MONO % 4.3 % (0.0-5.0); NEUTROPHILS # 12.1 10^3/uL (1.8-7.7); NEUTROPHILS % 84.3 % (36.0-66.0); PLATELET COUNT, AUTOMATED 182 10^3/uL (150-450); RED BLOOD COUNT 3.35 10^6/uL (4.00-5.40); WHITE BLOOD COUNT 14.4 10^3/uL (4.0-10.0)
[2017-10-23 06:51] LABS: ANION GAP 3 MEQ/L (8-16); BLOOD UREA NITROGEN 17 MG/DL (7-18); CALCIUM LEVEL 8.6 MG/DL (8.8-10.2); CARBON DIOXIDE LEVEL 38 MEQ/L (21-32); CHLORIDE LEVEL 102 MEQ/L (98-107); CREATININE FOR GFR 0.62 MG/DL (0.55-1.30); GLOMERULAR FILTRATION RATE > 60.0 (>39); GLUCOSE, FASTING 98 MG/DL (70-100); POTASSIUM SERUM 4.4 MEQ/L (3.5-5.1); SODIUM LEVEL 143 MEQ/L (136-145)
[2017-10-23] MEDS: SYMBICORT 160/4.5MCG INHALER 6GM INH ×2 (07:15→22:00)
[2017-10-23] MEDS: TIOTROPIUM INHALER/CAPSULE (SPIRIVA) INH (07:15)
[2017-10-23] MEDS: FOLIC ACID 1 MG TAB PO (08:03)
[2017-10-23] MEDS: CARVedilol 12.5 MG TAB PO (08:03)
[2017-10-23] MEDS: ESCITALOPRAM OXALATE 10 MG TAB (LEXAPRO) PO (08:04)
[2017-10-23] MEDS: SIMVASTATIN 40 MG TAB PO (08:04)
[2017-10-23] MEDS: predniSONE 10 MG TAB PO (08:04)
[2017-10-23] MEDS: SENOKOT S TAB PO ×2 (08:05→20:33)
[2017-10-23] MEDS: OMEPRAZOLE 20 MG CAP PO ×2 (08:05→20:33)
[2017-10-23] MEDS: ENOXAPARIN 30 MG/0.3 ML SYR (J1650) SC (08:05)
[2017-10-23] MEDS: SUCRALFATE SUSP 1GM/10ML UD PO ×4 (08:05→20:33)
[2017-10-23] MEDS: FAMOTIDINE 20 MG TAB PO ×2 (08:05→20:33)
[2017-10-23] MEDS: ALPRAZolam 0.5 MG TAB PO ×3 (08:10→21:12)
[2017-10-23 10:19] LABS: VITAMIN B12 LEVEL 739 PG/ML (247-911)
[2017-10-23 10:19] LABS: FOLATE > 24.0 NG/ML (>5.4)
[2017-10-23] MEDS ORDERED: E-Z-GAS II EFFERVESCENT PACKET (SODIUM BICARB./CITRIC ACID/SIMETHICONE) As Ordered (10:22)
[2017-10-23] MEDS ORDERED: E-Z-PAQUE 96% w/w SUSP 176GM BTL As Ordered (10:22)
[2017-10-23] MEDS ORDERED: E-Z-HD 98% w/w 340GM SUSP BTL As Ordered (10:23)
[2017-10-23] MEDS: BISACODYL 10 MG SUPP PR (12:30)
[2017-10-23 20:02] LABS: BEDSIDE GLUCOSE 179 MG/DL (83-110)
[2017-10-23] MEDS: CEFDINIR 300 MG CAP (OMNICEF) PO (20:33)
[2017-10-23] MEDS: traZODone 50 MG TAB PO (20:33)
[2017-10-23] MEDS: rOPINIRole 2MG TAB PO (20:33)
[2017-10-23] MEDS: HumaLOG INSULIN (NovoLOG) PER UNIT SC (20:48)
[2017-10-24] MEDS: IPRATROPIUM 0.5MG/ALBUTEROL 2.5MG INH SOL UD 3ML (DUONEB)(J7620) NEB ×4 (02:04→20:00)
[2017-10-24 06:43] LABS: BASO % 0.1 % (0.0-1.0); EOS % 0.2 % (0.0-3.0); HEMOGLOBIN 10.3 g/dl (12.0-15.5); IMMATURE GRANULOCYTE % 0.5 % (0-3.0); LYMPH # 1.4 10^3/uL (1.5-4.5); LYMPH % 13.7 % (24.0-44.0); MEAN CORPUSCULAR HEMOGLOBIN 30.1 pg (27.0-33.0); MEAN CORPUSCULAR HGB CONC 31.2 g/dl (32.0-36.5); MEAN CORPUSCULAR VOLUME 96.5 fl (80.0-96.0); MONO # 0.6 10^3/uL (0.0-0.8); MONO % 6.3 % (0.0-5.0); NEUTROPHILS # 7.8 10^3/uL (1.8-7.7); NEUTROPHILS % 79.2 % (36.0-66.0); PLATELET COUNT, AUTOMATED 201 10^3/uL (150-450); RED BLOOD COUNT 3.42 10^6/uL (4.00-5.40); RED CELL DISTRIBUTION WIDTH 15.2 % (11.5-14.5); WHITE BLOOD COUNT 9.8 10^3/uL (4.0-10.0)
[2017-10-24 07:07] LABS: ANION GAP 3 MEQ/L (8-16); BLOOD UREA NITROGEN 15 MG/DL (7-18); CALCIUM LEVEL 8.5 MG/DL (8.8-10.2); CARBON DIOXIDE LEVEL 39 MEQ/L (21-32); CHLORIDE LEVEL 100 MEQ/L (98-107); CREATININE FOR GFR 0.52 MG/DL (0.55-1.30); GLOMERULAR FILTRATION RATE > 60.0 (>39); GLUCOSE, FASTING 98 MG/DL (70-100); POTASSIUM SERUM 3.9 MEQ/L (3.5-5.1); SODIUM LEVEL 142 MEQ/L (136-145)
[2017-10-24] MEDS: TIOTROPIUM INHALER/CAPSULE (SPIRIVA) INH (08:06)
[2017-10-24] MEDS: SYMBICORT 160/4.5MCG INHALER 6GM INH ×2 (08:06→20:00)
[2017-10-24] MEDS: SUCRALFATE SUSP 1GM/10ML UD PO ×4 (08:37→19:52)
[2017-10-24] MEDS: ENOXAPARIN 30 MG/0.3 ML SYR (J1650) SC (08:38)
[2017-10-24] MEDS: OMEPRAZOLE 20 MG CAP PO ×2 (08:38→19:52)
[2017-10-24] MEDS: predniSONE 10 MG TAB PO (08:38)
[2017-10-24] MEDS: ESCITALOPRAM OXALATE 10 MG TAB (LEXAPRO) PO (08:38)
[2017-10-24] MEDS: FOLIC ACID 1 MG TAB PO (08:38)
[2017-10-24] MEDS: CARVedilol 12.5 MG TAB PO (08:38)
[2017-10-24] MEDS: SIMVASTATIN 40 MG TAB PO (08:38)
[2017-10-24] MEDS: FAMOTIDINE 20 MG TAB PO ×2 (08:38→19:53)
[2017-10-24] MEDS: CEFDINIR 300 MG CAP (OMNICEF) PO ×2 (08:38→19:52)
[2017-10-24] MEDS: SENOKOT S TAB PO ×2 (08:39→19:52)
[2017-10-24] MEDS: ALPRAZolam 0.5 MG TAB PO (12:04)
[2017-10-24] MEDS: ALPRAZolam 0.25 MG TAB PO (19:52)
[2017-10-24] MEDS: rOPINIRole 2MG TAB PO (19:52)
[2017-10-24] MEDS: traZODone 50 MG TAB PO (19:52)
[2017-10-24] MEDS: HumaLOG INSULIN (NovoLOG) PER UNIT SC (21:00)
[2017-10-24 21:41] LABS: BEDSIDE GLUCOSE 144 MG/DL (83-110)
[2017-10-25] MEDS: IPRATROPIUM 0.5MG/ALBUTEROL 2.5MG INH SOL UD 3ML (DUONEB)(J7620) NEB ×4 (01:28→20:00)
[2017-10-25 06:42] LABS: BASO % 0.1 % (0.0-1.0); EOS # 0.1 10^3/uL (0.0-0.50); EOS % 1.4 % (0.0-3.0); HEMATOCRIT 34.2 % (36.0-47.0); HEMOGLOBIN 10.5 g/dl (12.0-15.5); IMMATURE GRANULOCYTE % 0.5 % (0-3.0); LYMPH # 2.1 10^3/uL (1.5-4.5); MEAN CORPUSCULAR HEMOGLOBIN 29.7 pg (27.0-33.0); MEAN CORPUSCULAR HGB CONC 30.7 g/dl (32.0-36.5); MEAN CORPUSCULAR VOLUME 96.9 fl (80.0-96.0); MONO # 0.6 10^3/uL (0.0-0.8); MONO % 6.8 % (0.0-5.0); NEUTROPHILS # 5.6 10^3/uL (1.8-7.7); NEUTROPHILS % 66.2 % (36.0-66.0); PLATELET COUNT, AUTOMATED 153 10^3/uL (150-450); RED BLOOD COUNT 3.53 10^6/uL (4.00-5.40); RED CELL DISTRIBUTION WIDTH 14.8 % (11.5-14.5); WHITE BLOOD COUNT 8.4 10^3/uL (4.0-10.0)
[2017-10-25 07:04] LABS: ANION GAP 1 MEQ/L (8-16); BLOOD UREA NITROGEN 14 MG/DL (7-18); CALCIUM LEVEL 8.7 MG/DL (8.8-10.2); CARBON DIOXIDE LEVEL 41 MEQ/L (21-32); CHLORIDE LEVEL 100 MEQ/L (98-107); CREATININE FOR GFR 0.59 MG/DL (0.55-1.30); GLOMERULAR FILTRATION RATE > 60.0 (>39); GLUCOSE, FASTING 90 MG/DL (70-100); POTASSIUM SERUM 3.8 MEQ/L (3.5-5.1); SODIUM LEVEL 142 MEQ/L (136-145)
[2017-10-25] MEDS: TIOTROPIUM INHALER/CAPSULE (SPIRIVA) INH (07:09)
[2017-10-25] MEDS: SYMBICORT 160/4.5MCG INHALER 6GM INH ×2 (07:09→20:56)
[2017-10-25] MEDS: OMEPRAZOLE 20 MG CAP PO ×2 (08:36→21:29)
[2017-10-25] MEDS: FOLIC ACID 1 MG TAB PO (08:36)
[2017-10-25] MEDS: CEFDINIR 300 MG CAP (OMNICEF) PO ×2 (08:36→21:28)
[2017-10-25] MEDS: SUCRALFATE SUSP 1GM/10ML UD PO ×4 (08:36→21:30)
[2017-10-25] MEDS: SIMVASTATIN 40 MG TAB PO (08:37)
[2017-10-25] MEDS: ENOXAPARIN 30 MG/0.3 ML SYR (J1650) SC (08:37)
[2017-10-25] MEDS: predniSONE 10 MG TAB PO (08:37)
[2017-10-25] MEDS: FAMOTIDINE 20 MG TAB PO ×2 (08:37→21:30)
[2017-10-25] MEDS: ESCITALOPRAM OXALATE 10 MG TAB (LEXAPRO) PO (08:37)
[2017-10-25] MEDS: SENOKOT S TAB PO ×2 (08:37→21:29)
[2017-10-25] MEDS: CARVedilol 12.5 MG TAB PO (08:37)
[2017-10-25] MEDS ORDERED: E-Z-PAQUE 96% w/w SUSP 176GM BTL As Ordered (10:33)
[2017-10-25] MEDS: ALPRAZolam 0.25 MG TAB PO ×2 (14:42→21:29)
[2017-10-25 19:48] LABS: BEDSIDE GLUCOSE 193 MG/DL (83-110)
[2017-10-25] MEDS: HumaLOG INSULIN (NovoLOG) PER UNIT SC (21:00)
[2017-10-25] MEDS: rOPINIRole 2MG TAB PO (21:28)
[2017-10-25] MEDS: traZODone 50 MG TAB PO (21:29)
[2017-10-25] MEDS: ACETAMINOPHEN TAB 650MG DOSE (2X325MG) PO (21:32)
[2017-10-26] MEDS: IPRATROPIUM 0.5MG/ALBUTEROL 2.5MG INH SOL UD 3ML (DUONEB)(J7620) NEB ×3 (00:38→13:12)
[2017-10-26] MEDS: ACETAMINOPHEN TAB 650MG DOSE (2X325MG) PO ×3 (06:05→21:24)
[2017-10-26] MEDS: ALPRAZolam 0.25 MG TAB PO ×3 (06:05→18:40)
[2017-10-26] MEDS: SYMBICORT 160/4.5MCG INHALER 6GM INH ×2 (07:18→21:27)
[2017-10-26] MEDS: TIOTROPIUM INHALER/CAPSULE (SPIRIVA) INH (08:00)
[2017-10-26] MEDS: ENOXAPARIN 30 MG/0.3 ML SYR (J1650) SC (08:23)
[2017-10-26] MEDS: SUCRALFATE SUSP 1GM/10ML UD PO ×4 (08:23→21:23)
[2017-10-26] MEDS: OMEPRAZOLE 20 MG CAP PO ×2 (08:24→21:23)
[2017-10-26] MEDS: predniSONE 10 MG TAB PO (08:24)
[2017-10-26] MEDS: SENOKOT S TAB PO ×2 (08:24→21:24)
[2017-10-26] MEDS: CARVedilol 12.5 MG TAB PO (08:24)
[2017-10-26] MEDS: CEFDINIR 300 MG CAP (OMNICEF) PO ×2 (08:25→21:23)
[2017-10-26] MEDS: FOLIC ACID 1 MG TAB PO (08:25)
[2017-10-26] MEDS: SIMVASTATIN 40 MG TAB PO (08:25)
[2017-10-26] MEDS: FAMOTIDINE 20 MG TAB PO ×2 (08:25→21:24)
[2017-10-26] MEDS: ESCITALOPRAM OXALATE 10 MG TAB (LEXAPRO) PO (08:25)
[2017-10-26 11:51] LABS: BEDSIDE GLUCOSE 93 MG/DL (83-110)
[2017-10-26] MEDS: HumaLOG INSULIN (NovoLOG) PER UNIT SC (21:00)
[2017-10-26 21:17] LABS: BEDSIDE GLUCOSE 115 MG/DL (83-110)
[2017-10-26] MEDS: rOPINIRole 2MG TAB PO (21:24)
[2017-10-26] MEDS: traZODone 50 MG TAB PO (21:24)
[2017-10-27] MEDS: IPRATROPIUM 0.5MG/ALBUTEROL 2.5MG INH SOL UD 3ML (DUONEB)(J7620) NEB ×5 (01:54→23:30)
[2017-10-27] MEDS: ALPRAZolam 0.25 MG TAB PO ×4 (06:19→23:05)
[2017-10-27] MEDS: ACETAMINOPHEN TAB 650MG DOSE (2X325MG) PO ×2 (06:19→20:55)
[2017-10-27] MEDS: SYMBICORT 160/4.5MCG INHALER 6GM INH ×2 (07:29→21:29)
[2017-10-27] MEDS: TIOTROPIUM INHALER/CAPSULE (SPIRIVA) INH (07:29)
[2017-10-27 08:10] LABS: HEMOGLOBIN 10.6 g/dl (12.0-15.5); MEAN CORPUSCULAR HEMOGLOBIN 30.5 pg (27.0-33.0); MEAN CORPUSCULAR HGB CONC 31.2 g/dl (32.0-36.5); MEAN CORPUSCULAR VOLUME 97.7 fl (80.0-96.0); PLATELET COUNT, AUTOMATED 175 10^3/uL (150-450); RED BLOOD COUNT 3.48 10^6/uL (4.00-5.40); RED CELL DISTRIBUTION WIDTH 14.8 % (11.5-14.5)
[2017-10-27] MEDS: SUCRALFATE SUSP 1GM/10ML UD PO ×4 (08:58→20:53)
[2017-10-27] MEDS: CEFDINIR 300 MG CAP (OMNICEF) PO ×2 (08:58→20:55)
[2017-10-27] MEDS: ENOXAPARIN 30 MG/0.3 ML SYR (J1650) SC (08:58)
[2017-10-27] MEDS: predniSONE 10 MG TAB PO (08:59)
[2017-10-27] MEDS: FOLIC ACID 1 MG TAB PO (08:59)
[2017-10-27] MEDS: CARVedilol 12.5 MG TAB PO (08:59)
[2017-10-27] MEDS: FAMOTIDINE 20 MG TAB PO ×2 (08:59→20:54)
[2017-10-27] MEDS: SENOKOT S TAB PO ×2 (08:59→20:53)
[2017-10-27] MEDS: SIMVASTATIN 40 MG TAB PO (08:59)
[2017-10-27] MEDS: OMEPRAZOLE 20 MG CAP PO ×2 (08:59→20:54)
[2017-10-27] MEDS: ESCITALOPRAM OXALATE 10 MG TAB (LEXAPRO) PO (08:59)
[2017-10-27 09:24] LABS: ALBUMIN 2.9 GM/DL (3.2-5.2); ALKALINE PHOSPHATASE 48 U/L (45-117); ALT/SGPT 25 U/L (12-78); ANION GAP 3 MEQ/L (8-16); AST/SGOT 24 U/L (7-37); BILIRUBIN,DIRECT < 0.1 MG/DL (0.0-0.2); BILIRUBIN,TOTAL 0.3 MG/DL (0.2-1.0); BLOOD UREA NITROGEN 18 MG/DL (7-18); CALCIUM LEVEL 8.4 MG/DL (8.8-10.2); CARBON DIOXIDE LEVEL 37 MEQ/L (21-32); CHLORIDE LEVEL 104 MEQ/L (98-107); CREATININE FOR GFR 0.79 MG/DL (0.55-1.30); GLOMERULAR FILTRATION RATE > 60.0 (>39); GLUCOSE, FASTING 127 MG/DL (70-100); LDH LACTATE DEHYDROGENASE 189 U/L (84-246); MAGNESIUM LEVEL 2.3 MG/DL (1.8-2.4); POTASSIUM SERUM 3.2 MEQ/L (3.5-5.1); PREALBUMIN 33.4 MG/DL (20.0-40.0); SODIUM LEVEL 144 MEQ/L (136-145); TOTAL PROTEIN 5.8 GM/DL (6.4-8.2)
[2017-10-27] MEDS: AZITHROMYCIN 250 MG TAB PO (18:29)
[2017-10-27 20:53] LABS: BEDSIDE GLUCOSE 214 MG/DL (83-110)
[2017-10-27] MEDS: traZODone 50 MG TAB PO (20:53)
[2017-10-27] MEDS: rOPINIRole 2MG TAB PO (20:55)
[2017-10-27] MEDS: HumaLOG INSULIN (NovoLOG) PER UNIT SC (20:59)
[2017-10-28] MEDS: IPRATROPIUM 0.5MG/ALBUTEROL 2.5MG INH SOL UD 3ML (DUONEB)(J7620) NEB ×4 (02:00→20:00)
[2017-10-28] MEDS: ACETAMINOPHEN TAB 650MG DOSE (2X325MG) PO (04:05)
[2017-10-28 05:58] LABS: BEDSIDE GLUCOSE 120 MG/DL (83-110)
[2017-10-28 06:49] LABS: HEMATOCRIT 31.2 % (36.0-47.0); HEMOGLOBIN 9.5 g/dl (12.0-15.5); MEAN CORPUSCULAR HGB CONC 30.4 g/dl (32.0-36.5); MEAN CORPUSCULAR VOLUME 98.4 fl (80.0-96.0); PLATELET COUNT, AUTOMATED 171 10^3/uL (150-450); RED BLOOD COUNT 3.17 10^6/uL (4.00-5.40); RED CELL DISTRIBUTION WIDTH 14.9 % (11.5-14.5); WHITE BLOOD COUNT 8.5 10^3/uL (4.0-10.0)
[2017-10-28 07:13] LABS: ANION GAP 4 MEQ/L (8-16); BLOOD UREA NITROGEN 22 MG/DL (7-18); CALCIUM LEVEL 8.1 MG/DL (8.8-10.2); CARBON DIOXIDE LEVEL 36 MEQ/L (21-32); CHLORIDE LEVEL 105 MEQ/L (98-107); CREATININE FOR GFR 0.58 MG/DL (0.55-1.30); GLOMERULAR FILTRATION RATE > 60.0 (>39); GLUCOSE, FASTING 125 MG/DL (70-100); MAGNESIUM LEVEL 2.5 MG/DL (1.8-2.4); POTASSIUM SERUM 3.6 MEQ/L (3.5-5.1); SODIUM LEVEL 145 MEQ/L (136-145)
[2017-10-28] MEDS: CARVedilol 12.5 MG TAB PO (09:00)
[2017-10-28] MEDS: SENOKOT S TAB PO ×2 (09:00→20:42)
[2017-10-28] MEDS: CEFDINIR 300 MG CAP (OMNICEF) PO ×2 (09:05→20:42)
[2017-10-28] MEDS: FAMOTIDINE 20 MG TAB PO ×2 (09:05→20:42)
[2017-10-28] MEDS: SUCRALFATE SUSP 1GM/10ML UD PO ×4 (09:05→20:42)
[2017-10-28] MEDS: predniSONE 10 MG TAB PO (09:05)
[2017-10-28] MEDS: FOLIC ACID 1 MG TAB PO (09:05)
[2017-10-28] MEDS: SIMVASTATIN 40 MG TAB PO (09:05)
[2017-10-28] MEDS: ESCITALOPRAM OXALATE 10 MG TAB (LEXAPRO) PO (09:06)
[2017-10-28] MEDS: OMEPRAZOLE 20 MG CAP PO ×2 (09:06→20:42)
[2017-10-28] MEDS: ENOXAPARIN 30 MG/0.3 ML SYR (J1650) SC (09:07)
[2017-10-28] MEDS: ALPRAZolam 0.25 MG TAB PO ×2 (09:12→18:05)
[2017-10-28] MEDS: traMADol 50 MG TAB PO ×2 (09:13→18:05)
[2017-10-28] MEDS: TIOTROPIUM INHALER/CAPSULE (SPIRIVA) INH (09:50)
[2017-10-28] MEDS: SYMBICORT 160/4.5MCG INHALER 6GM INH ×2 (09:54→21:06)
[2017-10-28] MEDS: MOM 30ML SUSPENSION UDC PO (12:50)
[2017-10-28] MEDS: AZITHROMYCIN 250 MG TAB PO (18:00)
[2017-10-28 20:05] LABS: BEDSIDE GLUCOSE 160 MG/DL (83-110)
[2017-10-28] MEDS: HumaLOG INSULIN (NovoLOG) PER UNIT SC (20:15)
[2017-10-28] MEDS: traZODone 50 MG TAB PO (20:42)
[2017-10-28] MEDS: rOPINIRole 2MG TAB PO (20:42)
[2017-10-29] MEDS: IPRATROPIUM 0.5MG/ALBUTEROL 2.5MG INH SOL UD 3ML (DUONEB)(J7620) NEB ×4 (02:00→20:00)
[2017-10-29] MEDS: ALPRAZolam 0.25 MG TAB PO ×3 (02:04→21:35)
[2017-10-29 06:16] LABS: HEMATOCRIT 30.5 % (36.0-47.0); HEMOGLOBIN 9.4 g/dl (12.0-15.5); MEAN CORPUSCULAR HEMOGLOBIN 30.3 pg (27.0-33.0); MEAN CORPUSCULAR HGB CONC 30.8 g/dl (32.0-36.5); MEAN CORPUSCULAR VOLUME 98.4 fl (80.0-96.0); PLATELET COUNT, AUTOMATED 161 10^3/uL (150-450); RED CELL DISTRIBUTION WIDTH 14.9 % (11.5-14.5); WHITE BLOOD COUNT 8.9 10^3/uL (4.0-10.0)
[2017-10-29] MEDS: SUCRALFATE SUSP 1GM/10ML UD PO ×4 (07:53→21:31)
[2017-10-29] MEDS: predniSONE 10 MG TAB PO (07:53)
[2017-10-29] MEDS: OMEPRAZOLE 20 MG CAP PO ×2 (07:54→21:32)
[2017-10-29] MEDS: ESCITALOPRAM OXALATE 10 MG TAB (LEXAPRO) PO (07:54)
[2017-10-29] MEDS: SIMVASTATIN 40 MG TAB PO (07:54)
[2017-10-29] MEDS: FAMOTIDINE 20 MG TAB PO ×2 (07:54→21:35)
[2017-10-29] MEDS: CEFDINIR 300 MG CAP (OMNICEF) PO ×2 (07:54→21:33)
[2017-10-29] MEDS: FOLIC ACID 1 MG TAB PO (07:54)
[2017-10-29] MEDS: SENOKOT S TAB PO ×2 (07:54→21:34)
[2017-10-29] MEDS: CARVedilol 12.5 MG TAB PO (07:55)
[2017-10-29] MEDS: ENOXAPARIN 30 MG/0.3 ML SYR (J1650) SC (07:55)
[2017-10-29 08:09] LABS: ANION GAP 1 MEQ/L (8-16); BLOOD UREA NITROGEN 20 MG/DL (7-18); CALCIUM LEVEL 7.9 MG/DL (8.8-10.2); CARBON DIOXIDE LEVEL 40 MEQ/L (21-32); CHLORIDE LEVEL 104 MEQ/L (98-107); GLOMERULAR FILTRATION RATE > 60.0 (>39); GLUCOSE, FASTING 101 MG/DL (70-100); MAGNESIUM LEVEL 2.7 MG/DL (1.8-2.4); POTASSIUM SERUM 4.2 MEQ/L (3.5-5.1); SODIUM LEVEL 145 MEQ/L (136-145)
[2017-10-29] MEDS: TIOTROPIUM INHALER/CAPSULE (SPIRIVA) INH (11:09)
[2017-10-29] MEDS: SYMBICORT 160/4.5MCG INHALER 6GM INH ×2 (11:09→20:08)
[2017-10-29] MEDS: traMADol 50 MG TAB PO ×2 (13:25→21:34)
[2017-10-29] MEDS: AZITHROMYCIN 250 MG TAB PO (18:21)
[2017-10-29] MEDS: ACETAMINOPHEN TAB 650MG DOSE (2X325MG) PO (20:00)
[2017-10-29 20:44] LABS: BEDSIDE GLUCOSE 240 MG/DL (83-110)
[2017-10-29] MEDS: HumaLOG INSULIN (NovoLOG) PER UNIT SC (21:00)
[2017-10-29] MEDS: rOPINIRole 2MG TAB PO (21:32)
[2017-10-29] MEDS: traZODone 50 MG TAB PO (21:33)
[2017-10-30] MEDS: IPRATROPIUM 0.5MG/ALBUTEROL 2.5MG INH SOL UD 3ML (DUONEB)(J7620) NEB ×4 (02:00→20:00)
[2017-10-30] MEDS: ACETAMINOPHEN TAB 650MG DOSE (2X325MG) PO (04:14)
[2017-10-30] MEDS: ALPRAZolam 0.25 MG TAB PO ×3 (04:16→22:11)
[2017-10-30 06:09] LABS: HEMATOCRIT 31.7 % (36.0-47.0); HEMOGLOBIN 9.7 g/dl (12.0-15.5); MEAN CORPUSCULAR HEMOGLOBIN 29.8 pg (27.0-33.0); MEAN CORPUSCULAR HGB CONC 30.6 g/dl (32.0-36.5); MEAN CORPUSCULAR VOLUME 97.5 fl (80.0-96.0); PLATELET COUNT, AUTOMATED 160 10^3/uL (150-450); RED BLOOD COUNT 3.25 10^6/uL (4.00-5.40); RED CELL DISTRIBUTION WIDTH 14.9 % (11.5-14.5); WHITE BLOOD COUNT 8.8 10^3/uL (4.0-10.0)
[2017-10-30 06:25] LABS: ANION GAP 3 MEQ/L (8-16); BLOOD UREA NITROGEN 15 MG/DL (7-18); CALCIUM LEVEL 8.1 MG/DL (8.8-10.2); CARBON DIOXIDE LEVEL 36 MEQ/L (21-32); CHLORIDE LEVEL 104 MEQ/L (98-107); CREATININE FOR GFR 0.63 MG/DL (0.55-1.30); GLOMERULAR FILTRATION RATE > 60.0 (>39); GLUCOSE, FASTING 109 MG/DL (70-100); MAGNESIUM LEVEL 2.4 MG/DL (1.8-2.4); SODIUM LEVEL 143 MEQ/L (136-145)
[2017-10-30] MEDS: SUCRALFATE SUSP 1GM/10ML UD PO ×4 (07:30→20:22)
[2017-10-30] MEDS: SYMBICORT 160/4.5MCG INHALER 6GM INH ×2 (07:31→22:08)
[2017-10-30] MEDS: TIOTROPIUM INHALER/CAPSULE (SPIRIVA) INH (07:31)
[2017-10-30] MEDS: OMEPRAZOLE 20 MG CAP PO ×2 (08:50→21:00)
[2017-10-30] MEDS: FAMOTIDINE 20 MG TAB PO ×2 (11:17→22:10)
[2017-10-30] MEDS: ESCITALOPRAM OXALATE 10 MG TAB (LEXAPRO) PO (11:18)
[2017-10-30] MEDS: CARVedilol 12.5 MG TAB PO (11:18)
[2017-10-30] MEDS: predniSONE 10 MG TAB PO (11:19)
[2017-10-30] MEDS: SIMVASTATIN 40 MG TAB PO (11:19)
[2017-10-30] MEDS: SENOKOT S TAB PO ×2 (11:19→20:23)
[2017-10-30] MEDS: FOLIC ACID 1 MG TAB PO (11:20)
[2017-10-30] MEDS: CEFDINIR 300 MG CAP (OMNICEF) PO (11:28)
[2017-10-30] MEDS: ENOXAPARIN 30 MG/0.3 ML SYR (J1650) SC (11:29)
[2017-10-30] MEDS: traMADol 50 MG TAB PO (20:20)
[2017-10-30] MEDS: ONDANSETRON 4 MG TAB (S0181) PO (20:20)
[2017-10-30 20:43] LABS: BEDSIDE GLUCOSE 158 MG/DL (83-110)
[2017-10-30] MEDS: rOPINIRole 2MG TAB PO (21:00)
[2017-10-30] MEDS: HumaLOG INSULIN (NovoLOG) PER UNIT SC (21:00)
[2017-10-30] MEDS: traZODone 50 MG TAB PO (22:11)
[2017-10-31] MEDS: IPRATROPIUM 0.5MG/ALBUTEROL 2.5MG INH SOL UD 3ML (DUONEB)(J7620) NEB ×4 (02:00→19:32)
[2017-10-31] MEDS: ALPRAZolam 0.25 MG TAB PO ×3 (06:04→21:50)
[2017-10-31] MEDS: ONDANSETRON 4 MG TAB (S0181) PO ×2 (06:04→16:20)
[2017-10-31 06:55] LABS: HEMATOCRIT 32.6 % (36.0-47.0); MEAN CORPUSCULAR HGB CONC 30.7 g/dl (32.0-36.5); MEAN CORPUSCULAR VOLUME 97.9 fl (80.0-96.0); PLATELET COUNT, AUTOMATED 187 10^3/uL (150-450); RED BLOOD COUNT 3.33 10^6/uL (4.00-5.40); RED CELL DISTRIBUTION WIDTH 15.2 % (11.5-14.5); WHITE BLOOD COUNT 9.8 10^3/uL (4.0-10.0)
[2017-10-31 07:21] LABS: ANION GAP 3 MEQ/L (8-16); BLOOD UREA NITROGEN 14 MG/DL (7-18); CALCIUM LEVEL 8.4 MG/DL (8.8-10.2); CARBON DIOXIDE LEVEL 38 MEQ/L (21-32); CHLORIDE LEVEL 100 MEQ/L (98-107); CREATININE FOR GFR 0.61 MG/DL (0.55-1.30); GLOMERULAR FILTRATION RATE > 60.0 (>39); GLUCOSE, FASTING 138 MG/DL (70-100); MAGNESIUM LEVEL 2.4 MG/DL (1.8-2.4); POTASSIUM SERUM 4.4 MEQ/L (3.5-5.1); SODIUM LEVEL 141 MEQ/L (136-145)
[2017-10-31] MEDS: SUCRALFATE SUSP 1GM/10ML UD PO ×4 (08:19→19:36)
[2017-10-31] MEDS: ENOXAPARIN 30 MG/0.3 ML SYR (J1650) SC (08:19)
[2017-10-31] MEDS: SIMVASTATIN 40 MG TAB PO (08:20)
[2017-10-31] MEDS: ESCITALOPRAM OXALATE 10 MG TAB (LEXAPRO) PO (08:20)
[2017-10-31] MEDS: SENOKOT S TAB PO ×2 (08:20→19:37)
[2017-10-31] MEDS: predniSONE 10 MG TAB PO (08:20)
[2017-10-31] MEDS: OMEPRAZOLE 20 MG CAP PO ×2 (08:21→19:37)
[2017-10-31] MEDS: FAMOTIDINE 20 MG TAB PO ×2 (08:21→19:37)
[2017-10-31] MEDS: FOLIC ACID 1 MG TAB PO (08:21)
[2017-10-31] MEDS: CARVedilol 12.5 MG TAB PO (08:21)
[2017-10-31] MEDS: TIOTROPIUM INHALER/CAPSULE (SPIRIVA) INH (11:04)
[2017-10-31] MEDS: SYMBICORT 160/4.5MCG INHALER 6GM INH ×2 (11:04→19:31)
[2017-10-31] MEDS: traMADol 50 MG TAB PO (16:21)
[2017-10-31] MEDS: traZODone 50 MG TAB PO (19:37)
[2017-10-31] MEDS: ACETAMINOPHEN TAB 650MG DOSE (2X325MG) PO (19:37)
[2017-10-31] MEDS: rOPINIRole 2MG TAB PO (19:37)
[2017-10-31] MEDS: HumaLOG INSULIN (NovoLOG) PER UNIT SC (19:39)
[2017-10-31 19:41] LABS: BEDSIDE GLUCOSE 277 MG/DL (83-110)
[2017-11-01] MEDS: traMADol 50 MG TAB PO (04:09)
[2017-11-01 07:15] LABS: HEMATOCRIT 32.8 % (36.0-47.0); HEMOGLOBIN 10.2 g/dl (12.0-15.5); MEAN CORPUSCULAR HGB CONC 31.1 g/dl (32.0-36.5); MEAN CORPUSCULAR VOLUME 96.5 fl (80.0-96.0); PLATELET COUNT, AUTOMATED 202 10^3/uL (150-450); RED CELL DISTRIBUTION WIDTH 15.1 % (11.5-14.5); WHITE BLOOD COUNT 11.2 10^3/uL (4.0-10.0)
[2017-11-01] MEDS: TIOTROPIUM INHALER/CAPSULE (SPIRIVA) INH (07:30)
[2017-11-01] MEDS: SYMBICORT 160/4.5MCG INHALER 6GM INH ×2 (07:30→21:00)
[2017-11-01] MEDS: IPRATROPIUM 0.5MG/ALBUTEROL 2.5MG INH SOL UD 3ML (DUONEB)(J7620) NEB ×3 (07:30→20:00)
[2017-11-01 07:49] LABS: ANION GAP 4 MEQ/L (8-16); BLOOD UREA NITROGEN 19 MG/DL (7-18); CALCIUM LEVEL 8.7 MG/DL (8.8-10.2); CARBON DIOXIDE LEVEL 37 MEQ/L (21-32); CHLORIDE LEVEL 100 MEQ/L (98-107); CREATININE FOR GFR 0.73 MG/DL (0.55-1.30); GLOMERULAR FILTRATION RATE > 60.0 (>39); GLUCOSE, FASTING 122 MG/DL (70-100); MAGNESIUM LEVEL 2.7 MG/DL (1.8-2.4); POTASSIUM SERUM 4.7 MEQ/L (3.5-5.1); SODIUM LEVEL 141 MEQ/L (136-145)
[2017-11-01] MEDS: SUCRALFATE SUSP 1GM/10ML UD PO ×4 (09:54→21:44)
[2017-11-01] MEDS: ALPRAZolam 0.25 MG TAB PO ×2 (09:54→21:45)
[2017-11-01] MEDS: SIMVASTATIN 40 MG TAB PO (09:54)
[2017-11-01] MEDS: FOLIC ACID 1 MG TAB PO (09:54)
[2017-11-01] MEDS: SENOKOT S TAB PO ×2 (09:54→21:44)
[2017-11-01] MEDS: OMEPRAZOLE 20 MG CAP PO ×2 (09:55→21:44)
[2017-11-01] MEDS: CARVedilol 12.5 MG TAB PO (09:55)
[2017-11-01] MEDS: ESCITALOPRAM OXALATE 10 MG TAB (LEXAPRO) PO (09:55)
[2017-11-01] MEDS: FAMOTIDINE 20 MG TAB PO ×2 (09:55→21:44)
[2017-11-01] MEDS: ENOXAPARIN 30 MG/0.3 ML SYR (J1650) SC (09:55)
[2017-11-01] MEDS: predniSONE 10 MG TAB PO (09:55)
[2017-11-01] MEDS: HumaLOG INSULIN (NovoLOG) PER UNIT SC (20:46)
[2017-11-01] MEDS: traZODone 50 MG TAB PO (21:44)
[2017-11-01] MEDS: rOPINIRole 2MG TAB PO (21:44)
[2017-11-02] MEDS: IPRATROPIUM 0.5MG/ALBUTEROL 2.5MG INH SOL UD 3ML (DUONEB)(J7620) NEB ×4 (01:57→14:00)
[2017-11-02 06:47] LABS: HEMATOCRIT 33.1 % (36.0-47.0); HEMOGLOBIN 10.2 g/dl (12.0-15.5); MEAN CORPUSCULAR HEMOGLOBIN 30.1 pg (27.0-33.0); MEAN CORPUSCULAR HGB CONC 30.8 g/dl (32.0-36.5); MEAN CORPUSCULAR VOLUME 97.6 fl (80.0-96.0); PLATELET COUNT, AUTOMATED 205 10^3/uL (150-450); RED BLOOD COUNT 3.39 10^6/uL (4.00-5.40); RED CELL DISTRIBUTION WIDTH 15.4 % (11.5-14.5); WHITE BLOOD COUNT 13.6 10^3/uL (4.0-10.0)
[2017-11-02 07:05] LABS: ANION GAP 3 MEQ/L (8-16); BLOOD UREA NITROGEN 26 MG/DL (7-18); CALCIUM LEVEL 8.2 MG/DL (8.8-10.2); CARBON DIOXIDE LEVEL 36 MEQ/L (21-32); CHLORIDE LEVEL 102 MEQ/L (98-107); CREATININE FOR GFR 0.73 MG/DL (0.55-1.30); GLOMERULAR FILTRATION RATE > 60.0 (>39); GLUCOSE, FASTING 102 MG/DL (70-100); MAGNESIUM LEVEL 2.5 MG/DL (1.8-2.4); POTASSIUM SERUM 4.5 MEQ/L (3.5-5.1); SODIUM LEVEL 141 MEQ/L (136-145)
[2017-11-02] MEDS: SYMBICORT 160/4.5MCG INHALER 6GM INH (07:29)
[2017-11-02] MEDS: TIOTROPIUM INHALER/CAPSULE (SPIRIVA) INH (07:29)
[2017-11-02 08:29] LABS: C REACTIVE PROTEIN QUANTITATIV < 0.30 MG/DL (0.00-0.30)
[2017-11-02] MEDS: OMEPRAZOLE 20 MG CAP PO (08:33)
[2017-11-02] MEDS: ESCITALOPRAM OXALATE 10 MG TAB (LEXAPRO) PO (08:33)
[2017-11-02] MEDS: SUCRALFATE SUSP 1GM/10ML UD PO ×2 (08:33→12:05)
[2017-11-02] MEDS: ENOXAPARIN 30 MG/0.3 ML SYR (J1650) SC (08:33)
[2017-11-02] MEDS: FOLIC ACID 1 MG TAB PO (08:34)
[2017-11-02] MEDS: predniSONE 10 MG TAB PO (08:34)
[2017-11-02] MEDS: SENOKOT S TAB PO (08:34)
[2017-11-02] MEDS: SIMVASTATIN 40 MG TAB PO (08:34)
[2017-11-02] MEDS: FAMOTIDINE 20 MG TAB PO (08:34)
[2017-11-02] MEDS: CARVedilol 12.5 MG TAB PO (08:36)
[2017-11-02] MEDS: ALPRAZolam 0.25 MG TAB PO (08:43)
[2017-11-02 11:39] LABS: BEDSIDE GLUCOSE 186 MG/DL (83-110)
[2017-11-17] MEDS ORDERED: CYANOCOBALAMIN 1,000 MCG/ML VIAL (J3420) IM (09:00)
== END 2017-11-02 15:10 | disposition home or self-care (01) | DRG 191 ==
LOC: M MS5PR 10-21 00:45 → M ED 19:02 → M ED INP 22:20
DX: J44.1 Chronic obstructive pulmonary disease with (acute) exacerbation (principal); J96.11 Chronic respiratory failure with hypoxia; J96.12 Chronic respiratory failure with hypercapnia; I10 Essential (primary) hypertension; E78.5 Hyperlipidemia, unspecified; F32.9 Major depressive disorder, single episode, unspecified; K21.9 Gastro-esophageal reflux disease without esophagitis; G25.81 Restless legs syndrome; G47.00 Insomnia, unspecified; R07.81 Pleurodynia; R10.11 Right upper quadrant pain; K59.00 Constipation, unspecified; Z99.81 Dependence on supplemental oxygen; Z79.52 Long term (current) use of systemic steroids; Z79.899 Other long term (current) drug therapy; Z90.49 Acquired absence of other specified parts of digestive tract

== ENCOUNTER 2017-11-04 00:18 | Inpatient (IN) | payer MEDICARE, MEDICAID ==
[2017-11-04] MEDS: IPRATROPIUM 0.5MG/ALBUTEROL 2.5MG INH SOL UD 3ML (DUONEB)(J7620) NEB ×5 (00:54→20:32)
[2017-11-04 00:58] LABS: ABG BASE EXCESS 6.9 (-2.0-2.0); ABG HCO3 33.1 MEQ/L (22.0-26.0); ABG O2 SATURATION 99.2 % (95.0-99.0); ABG PARTIAL PRESSURE CO2 54.9 mmHg (35.0-45.0); ABG PARTIAL PRESSURE O2 142.2 mmHg (75.0-100.0); ABG STANDARD HCO3 30.8 MEQ/L (22.0-26.0); ABG TOTAL CO2 34.8 MEQ/L (23.0-31.0); ABG pH (ARTERIAL) 7.398 UNITS (7.350-7.450)
[2017-11-04 01:06] LABS: BASO % 0.2 % (0.0-1.0); EOS # 0.2 10^3/uL (0.0-0.50); EOS % 0.9 % (0.0-3.0); HEMATOCRIT 35.5 % (36.0-47.0); HEMOGLOBIN 10.8 g/dl (12.0-15.5); IMMATURE GRANULOCYTE % 1.4 % (0-3.0); LYMPH # 2.6 10^3/uL (1.5-4.5); LYMPH % 14.9 % (24.0-44.0); MEAN CORPUSCULAR HEMOGLOBIN 29.9 pg (27.0-33.0); MEAN CORPUSCULAR HGB CONC 30.4 g/dl (32.0-36.5); MEAN CORPUSCULAR VOLUME 98.3 fl (80.0-96.0); MONO # 1.1 10^3/uL (0.0-0.8); MONO % 6.4 % (0.0-5.0); NEUTROPHILS # 13.4 10^3/uL (1.8-7.7); NEUTROPHILS % 76.2 % (36.0-66.0); PLATELET COUNT, AUTOMATED 217 10^3/uL (150-450); RED BLOOD COUNT 3.61 10^6/uL (4.00-5.40); RED CELL DISTRIBUTION WIDTH 15.5 % (11.5-14.5); WHITE BLOOD COUNT 17.6 10^3/uL (4.0-10.0)
[2017-11-04 01:26] LABS: ANION GAP 4 MEQ/L (8-16); BLOOD UREA NITROGEN 22 MG/DL (7-18); CALCIUM LEVEL 8.2 MG/DL (8.8-10.2); CARBON DIOXIDE LEVEL 37 MEQ/L (21-32); CHLORIDE LEVEL 101 MEQ/L (98-107); CREATININE FOR GFR 0.64 MG/DL (0.55-1.30); GLOMERULAR FILTRATION RATE > 60.0 (>39); GLUCOSE, FASTING 116 MG/DL (70-100); POTASSIUM SERUM 3.6 MEQ/L (3.5-5.1); SODIUM LEVEL 142 MEQ/L (136-145)
[2017-11-04 01:44] LABS: LACTIC ACID SEPSIS PROTOCOL 0.7 MMOL/L (0.4-2.0)
[2017-11-04] MEDS: ACETAMINOPHEN TAB 650MG DOSE (2X325MG) PO (03:19)
[2017-11-04] MEDS ORDERED: FLUTICASONE PROP 0.05% NASAL SPRAY 16 GM (FLONASE) (04:00)
[2017-11-04] MEDS: TIOTROPIUM INHALER/CAPSULE (SPIRIVA) INH (07:21)
[2017-11-04 09:59] LABS: MEAN CORPUSCULAR HEMOGLOBIN 29.9 pg (27.0-33.0); MEAN CORPUSCULAR HGB CONC 30.3 g/dl (32.0-36.5); MEAN CORPUSCULAR VOLUME 98.8 fl (80.0-96.0); PLATELET COUNT, AUTOMATED 199 10^3/uL (150-450); RED BLOOD COUNT 3.34 10^6/uL (4.00-5.40); RED CELL DISTRIBUTION WIDTH 15.7 % (11.5-14.5); WHITE BLOOD COUNT 10.7 10^3/uL (4.0-10.0)
[2017-11-04] MEDS: ESCITALOPRAM OXALATE 10 MG TAB (LEXAPRO) PO (10:03)
[2017-11-04] MEDS: FOLIC ACID 1 MG TAB PO (10:03)
[2017-11-04] MEDS: SIMVASTATIN 40 MG TAB PO (10:03)
[2017-11-04] MEDS: predniSONE 10 MG TAB PO (10:03)
[2017-11-04] MEDS: OMEPRAZOLE 20 MG CAP PO ×2 (10:03→21:11)
[2017-11-04] MEDS: CARVedilol 12.5 MG TAB PO (10:05)
[2017-11-04] MEDS: ALPRAZolam 0.5 MG TAB PO ×3 (10:11→22:03)
[2017-11-04] MEDS: rOPINIRole 1MG TAB PO (21:11)
[2017-11-04] MEDS: traZODone 50 MG TAB PO (21:11)
[2017-11-05] MEDS: ALPRAZolam 0.5 MG TAB PO ×2 (06:19→20:31)
[2017-11-05] MEDS: TIOTROPIUM INHALER/CAPSULE (SPIRIVA) INH (07:12)
[2017-11-05] MEDS: IPRATROPIUM 0.5MG/ALBUTEROL 2.5MG INH SOL UD 3ML (DUONEB)(J7620) NEB ×4 (07:12→20:04)
[2017-11-05] MEDS: PREVNAR 13 VACCINE SYRINGE (CPT CODE:90670) IM (08:44)
[2017-11-05] MEDS: OMEPRAZOLE 20 MG CAP PO ×2 (08:44→20:31)
[2017-11-05] MEDS: SIMVASTATIN 40 MG TAB PO (08:45)
[2017-11-05] MEDS: CARVedilol 12.5 MG TAB PO (08:45)
[2017-11-05] MEDS: FOLIC ACID 1 MG TAB PO (08:45)
[2017-11-05] MEDS: ESCITALOPRAM OXALATE 10 MG TAB (LEXAPRO) PO (08:45)
[2017-11-05] MEDS: predniSONE 10 MG TAB PO (08:46)
[2017-11-05] MEDS: ACETAMINOPHEN TAB 650MG DOSE (2X325MG) PO (08:46)
[2017-11-05 09:10] LABS: HEMATOCRIT 34.8 % (36.0-47.0); HEMOGLOBIN 10.7 g/dl (12.0-15.5); MEAN CORPUSCULAR HEMOGLOBIN 30.2 pg (27.0-33.0); MEAN CORPUSCULAR HGB CONC 30.7 g/dl (32.0-36.5); MEAN CORPUSCULAR VOLUME 98.3 fl (80.0-96.0); PLATELET COUNT, AUTOMATED 223 10^3/uL (150-450); RED BLOOD COUNT 3.54 10^6/uL (4.00-5.40); RED CELL DISTRIBUTION WIDTH 15.3 % (11.5-14.5); WHITE BLOOD COUNT 9.9 10^3/uL (4.0-10.0)
[2017-11-05 09:27] LABS: ANION GAP 5 MEQ/L (8-16); BLOOD UREA NITROGEN 18 MG/DL (7-18); CALCIUM LEVEL 8.4 MG/DL (8.8-10.2); CARBON DIOXIDE LEVEL 37 MEQ/L (21-32); CHLORIDE LEVEL 101 MEQ/L (98-107); CREATININE FOR GFR 0.75 MG/DL (0.55-1.30); GLOMERULAR FILTRATION RATE > 60.0 (>39); GLUCOSE, FASTING 164 MG/DL (70-100); POTASSIUM SERUM 3.3 MEQ/L (3.5-5.1); SODIUM LEVEL 143 MEQ/L (136-145)
[2017-11-05] MEDS: traMADol 50 MG TAB PO (13:35)
[2017-11-05] MEDS: POTASSIUM CHLORIDE 10 MEQ SR TABLET PO (16:46)
[2017-11-05] MEDS: GASTROGRAFIN SOLUTION 30ML PO ×2 (16:49→17:37)
[2017-11-05] MEDS ORDERED: ISOVUE-370 76% 100ML VIAL (Q9967) As Ordered (18:04)
[2017-11-05] MEDS: rOPINIRole 1MG TAB PO (20:31)
[2017-11-05] MEDS: traZODone 50 MG TAB PO (20:31)
[2017-11-05 23:10] LABS: CPK CREATINE PHOSPHOKINASE 26 U/L (26-192); TROPONIN I < 0.02 NG/ML (< 0.10)
[2017-11-05 23:11] LABS: MB/CK RELATIVE INDEX 7.69 (< OR =4)
[2017-11-06] MEDS: GI COCKTAIL 50ML BTL(HYOSCYAMINE/MAALOX/LIDOCAINE VISCOUS)(1:3:1) PO (00:31)
[2017-11-06 06:31] LABS: HEMATOCRIT 31.7 % (36.0-47.0); HEMOGLOBIN 9.7 g/dl (12.0-15.5); MEAN CORPUSCULAR HEMOGLOBIN 29.9 pg (27.0-33.0); MEAN CORPUSCULAR HGB CONC 30.6 g/dl (32.0-36.5); MEAN CORPUSCULAR VOLUME 97.8 fl (80.0-96.0); PLATELET COUNT, AUTOMATED 190 10^3/uL (150-450); RED BLOOD COUNT 3.24 10^6/uL (4.00-5.40); RED CELL DISTRIBUTION WIDTH 15.3 % (11.5-14.5); WHITE BLOOD COUNT 9.3 10^3/uL (4.0-10.0)
[2017-11-06 06:45] LABS: ANION GAP 3 MEQ/L (8-16); BLOOD UREA NITROGEN 17 MG/DL (7-18); CALCIUM LEVEL 8.7 MG/DL (8.8-10.2); CARBON DIOXIDE LEVEL 35 MEQ/L (21-32); CHLORIDE LEVEL 103 MEQ/L (98-107); CREATININE FOR GFR 0.67 MG/DL (0.55-1.30); GLOMERULAR FILTRATION RATE > 60.0 (>39); GLUCOSE, FASTING 99 MG/DL (70-100); POTASSIUM SERUM 4.6 MEQ/L (3.5-5.1); SODIUM LEVEL 141 MEQ/L (136-145)
[2017-11-06] MEDS: TIOTROPIUM INHALER/CAPSULE (SPIRIVA) INH (07:32)
[2017-11-06] MEDS: IPRATROPIUM 0.5MG/ALBUTEROL 2.5MG INH SOL UD 3ML (DUONEB)(J7620) NEB ×4 (07:33→20:24)
[2017-11-06] MEDS: ALPRAZolam 0.5 MG TAB PO ×2 (08:10→16:00)
[2017-11-06] MEDS: predniSONE 10 MG TAB PO (08:10)
[2017-11-06] MEDS: SIMVASTATIN 40 MG TAB PO (08:10)
[2017-11-06] MEDS: FOLIC ACID 1 MG TAB PO (08:10)
[2017-11-06] MEDS: CARVedilol 12.5 MG TAB PO (08:11)
[2017-11-06] MEDS: ESCITALOPRAM OXALATE 10 MG TAB (LEXAPRO) PO (08:11)
[2017-11-06] MEDS: OMEPRAZOLE 20 MG CAP PO ×2 (08:11→20:11)
[2017-11-06] MEDS ORDERED: ISOVUE-370 76% 100ML VIAL (Q9967) As Ordered (09:49)
[2017-11-06] MEDS: D5W/0.45% SODIUM CHLORIDE 1,000 ML IV (14:22)
[2017-11-06] MEDS: traZODone 50 MG TAB PO (20:11)
[2017-11-06] MEDS: rOPINIRole 1MG TAB PO (20:12)
[2017-11-07] MEDS: ALPRAZolam 0.5 MG TAB PO ×3 (00:07→22:16)
[2017-11-07] MEDS: traMADol 50 MG TAB PO (05:22)
[2017-11-07 06:06] LABS: HEMATOCRIT 32.5 % (36.0-47.0); MEAN CORPUSCULAR HEMOGLOBIN 30.2 pg (27.0-33.0); MEAN CORPUSCULAR HGB CONC 30.8 g/dl (32.0-36.5); MEAN CORPUSCULAR VOLUME 98.2 fl (80.0-96.0); PLATELET COUNT, AUTOMATED 186 10^3/uL (150-450); RED BLOOD COUNT 3.31 10^6/uL (4.00-5.40); RED CELL DISTRIBUTION WIDTH 15.1 % (11.5-14.5); WHITE BLOOD COUNT 8.6 10^3/uL (4.0-10.0)
[2017-11-07 06:29] LABS: ANION GAP 1 MEQ/L (8-16); BLOOD UREA NITROGEN 13 MG/DL (7-18); CALCIUM LEVEL 8.5 MG/DL (8.8-10.2); CARBON DIOXIDE LEVEL 38 MEQ/L (21-32); CHLORIDE LEVEL 103 MEQ/L (98-107); CREATININE FOR GFR 0.58 MG/DL (0.55-1.30); GLOMERULAR FILTRATION RATE > 60.0 (>39); GLUCOSE, FASTING 87 MG/DL (70-100); POTASSIUM SERUM 4.4 MEQ/L (3.5-5.1); SODIUM LEVEL 142 MEQ/L (136-145)
[2017-11-07] MEDS: TIOTROPIUM INHALER/CAPSULE (SPIRIVA) INH (07:56)
[2017-11-07] MEDS: IPRATROPIUM 0.5MG/ALBUTEROL 2.5MG INH SOL UD 3ML (DUONEB)(J7620) NEB ×3 (07:57→19:31)
[2017-11-07] MEDS: OMEPRAZOLE 20 MG CAP PO ×2 (08:41→22:15)
[2017-11-07] MEDS: FOLIC ACID 1 MG TAB PO (08:41)
[2017-11-07] MEDS: predniSONE 10 MG TAB PO (08:41)
[2017-11-07] MEDS: ESCITALOPRAM OXALATE 10 MG TAB (LEXAPRO) PO (08:41)
[2017-11-07] MEDS: SIMVASTATIN 40 MG TAB PO (08:42)
[2017-11-07] MEDS: CARVedilol 12.5 MG TAB PO (08:42)
[2017-11-07] MEDS ORDERED: LIDOCAINE 2% INJ 100 MG/5 ML SDV (FOR ANES.) As Ordered (13:16)
[2017-11-07] MEDS ORDERED: PROPOFOL 200 MG/20 ML VIAL As Ordered ×2 (13:16→13:53)
[2017-11-07] MEDS ORDERED: fentaNYL 100 MCG/2 ML INJECTION (J3010) As Ordered (13:21)
[2017-11-07] MEDS ORDERED: ONDANSETRON 4MG/2ML VIAL (J2405) As Ordered ×2 (14:13→15:09)
[2017-11-07] MEDS ORDERED: dexameTHASONE 4 MG/ML 1ML VIAL (J1100) As Ordered (14:21)
[2017-11-07] MEDS: ONDANSETRON 4MG/2ML VIAL (J2405) IV (15:12)
[2017-11-07] MEDS: LR 1,000 ML IV (16:15)
[2017-11-07] MEDS: ERYTHROMYCIN 250 MG TABLET PO (22:15)
[2017-11-07] MEDS: rOPINIRole 1MG TAB PO (22:16)
[2017-11-07] MEDS: ACETAMINOPHEN TAB 650MG DOSE (2X325MG) PO (22:19)
[2017-11-08] MEDS: ERYTHROMYCIN 250 MG TABLET PO ×3 (06:13→20:56)
[2017-11-08] MEDS: ALPRAZolam 0.5 MG TAB PO ×2 (06:15→17:07)
[2017-11-08 06:51] LABS: HEMATOCRIT 33.2 % (36.0-47.0); HEMOGLOBIN 10.3 g/dl (12.0-15.5); MEAN CORPUSCULAR HEMOGLOBIN 30.3 pg (27.0-33.0); MEAN CORPUSCULAR VOLUME 97.6 fl (80.0-96.0); PLATELET COUNT, AUTOMATED 179 10^3/uL (150-450); RED CELL DISTRIBUTION WIDTH 14.8 % (11.5-14.5); WHITE BLOOD COUNT 8.3 10^3/uL (4.0-10.0)
[2017-11-08 07:11] LABS: ANION GAP 5 MEQ/L (8-16); BLOOD UREA NITROGEN 12 MG/DL (7-18); CALCIUM LEVEL 8.9 MG/DL (8.8-10.2); CARBON DIOXIDE LEVEL 34 MEQ/L (21-32); CHLORIDE LEVEL 100 MEQ/L (98-107); CREATININE FOR GFR 0.74 MG/DL (0.55-1.30); GLOMERULAR FILTRATION RATE > 60.0 (>39); GLUCOSE, FASTING 155 MG/DL (70-100); POTASSIUM SERUM 4.8 MEQ/L (3.5-5.1); SODIUM LEVEL 139 MEQ/L (136-145)
[2017-11-08] MEDS: predniSONE 10 MG TAB PO (08:31)
[2017-11-08] MEDS: ESCITALOPRAM OXALATE 10 MG TAB (LEXAPRO) PO (08:31)
[2017-11-08] MEDS: OMEPRAZOLE 20 MG CAP PO ×2 (08:31→20:56)
[2017-11-08] MEDS: CARVedilol 12.5 MG TAB PO (08:32)
[2017-11-08] MEDS: FOLIC ACID 1 MG TAB PO (08:32)
[2017-11-08] MEDS: IPRATROPIUM 0.5MG/ALBUTEROL 2.5MG INH SOL UD 3ML (DUONEB)(J7620) NEB ×4 (08:34→22:11)
[2017-11-08] MEDS: TIOTROPIUM INHALER/CAPSULE (SPIRIVA) INH (08:35)
[2017-11-08] MEDS: TUBERCULIN PPD 5 UNITS/0.1 ML ID (13:35)
[2017-11-08] MEDS: ACETAMINOPHEN TAB 650MG DOSE (2X325MG) PO ×2 (16:31→20:57)
[2017-11-08] MEDS: rOPINIRole 1MG TAB PO (20:56)
[2017-11-08] MEDS: hydrOXYzine 25 MG TAB PO (20:57)
[2017-11-09] MEDS: ACETAMINOPHEN TAB 650MG DOSE (2X325MG) PO (03:15)
[2017-11-09] MEDS: ERYTHROMYCIN 250 MG TABLET PO ×3 (06:26→22:20)
[2017-11-09] MEDS: ALPRAZolam 0.5 MG TAB PO (06:26)
[2017-11-09 06:50] LABS: HEMATOCRIT 31.4 % (36.0-47.0); HEMOGLOBIN 9.9 g/dl (12.0-15.5); MEAN CORPUSCULAR HEMOGLOBIN 30.6 pg (27.0-33.0); MEAN CORPUSCULAR HGB CONC 31.5 g/dl (32.0-36.5); MEAN CORPUSCULAR VOLUME 96.9 fl (80.0-96.0); PLATELET COUNT, AUTOMATED 188 10^3/uL (150-450); RED BLOOD COUNT 3.24 10^6/uL (4.00-5.40); RED CELL DISTRIBUTION WIDTH 14.7 % (11.5-14.5); WHITE BLOOD COUNT 9.9 10^3/uL (4.0-10.0)
[2017-11-09 07:16] LABS: ANION GAP 0 MEQ/L (8-16); BLOOD UREA NITROGEN 14 MG/DL (7-18); CALCIUM LEVEL 8.7 MG/DL (8.8-10.2); CARBON DIOXIDE LEVEL 39 MEQ/L (21-32); CHLORIDE LEVEL 101 MEQ/L (98-107); CREATININE FOR GFR 0.73 MG/DL (0.55-1.30); GLOMERULAR FILTRATION RATE > 60.0 (>39); GLUCOSE, FASTING 101 MG/DL (70-100); POTASSIUM SERUM 4.2 MEQ/L (3.5-5.1); SODIUM LEVEL 140 MEQ/L (136-145)
[2017-11-09] MEDS: METOCLOPRAMIDE INJ 10MG/2ML VIAL (J2765) IV ×2 (08:39→19:32)
[2017-11-09] MEDS: IPRATROPIUM 0.5MG/ALBUTEROL 2.5MG INH SOL UD 3ML (DUONEB)(J7620) NEB ×4 (08:42→20:18)
[2017-11-09] MEDS: FOLIC ACID 1 MG TAB PO (09:14)
[2017-11-09] MEDS: CARVedilol 12.5 MG TAB PO (09:23)
[2017-11-09] MEDS: ESCITALOPRAM OXALATE 10 MG TAB (LEXAPRO) PO (09:23)
[2017-11-09] MEDS: OMEPRAZOLE 20 MG CAP PO ×2 (09:23→22:21)
[2017-11-09] MEDS: predniSONE 10 MG TAB PO (09:24)
[2017-11-09 12:28] LABS: BEDSIDE GLUCOSE 108 MG/DL (83-110)
[2017-11-09] MEDS: NS 1,000 ML IV (13:55)
[2017-11-09] MEDS: TIOTROPIUM INHALER/CAPSULE (SPIRIVA) INH (15:49)
[2017-11-09 17:26] LABS: ABG HCO3 32.7 MEQ/L (22.0-26.0); ABG PARTIAL PRESSURE CO2 52.3 mmHg (35.0-45.0); ABG PARTIAL PRESSURE O2 146.6 mmHg (75.0-100.0); ABG STANDARD HCO3 30.8 MEQ/L (22.0-26.0); ABG TOTAL CO2 34.3 MEQ/L (23.0-31.0); ABG pH (ARTERIAL) 7.414 UNITS (7.350-7.450)
[2017-11-09 18:04] LABS: LACTIC ACID SEPSIS PROTOCOL 1.2 MMOL/L (0.4-2.0)
[2017-11-09] MEDS: rOPINIRole 1MG TAB PO (22:21)
[2017-11-10] MEDS: ACETAMINOPHEN TAB 650MG DOSE (2X325MG) PO ×4 (01:03→23:13)
[2017-11-10] MEDS: ERYTHROMYCIN 250 MG TABLET PO ×3 (05:07→21:21)
[2017-11-10] MEDS: METOCLOPRAMIDE INJ 10MG/2ML VIAL (J2765) IV ×2 (05:11→11:33)
[2017-11-10] MEDS: NS 1,000 ML IV ×2 (05:40→22:35)
[2017-11-10 07:48] LABS: ANION GAP 4 MEQ/L (8-16); BLOOD UREA NITROGEN 12 MG/DL (7-18); CALCIUM LEVEL 7.7 MG/DL (8.8-10.2); CARBON DIOXIDE LEVEL 29 MEQ/L (21-32); CHLORIDE LEVEL 106 MEQ/L (98-107); CREATININE FOR GFR 0.67 MG/DL (0.55-1.30); GLOMERULAR FILTRATION RATE > 60.0 (>39); GLUCOSE, FASTING 85 MG/DL (70-100); POTASSIUM SERUM 4.7 MEQ/L (3.5-5.1); SODIUM LEVEL 139 MEQ/L (136-145)
[2017-11-10] MEDS: IPRATROPIUM 0.5MG/ALBUTEROL 2.5MG INH SOL UD 3ML (DUONEB)(J7620) NEB ×4 (08:07→20:00)
[2017-11-10] MEDS: TIOTROPIUM INHALER/CAPSULE (SPIRIVA) INH (08:07)
[2017-11-10 08:34] LABS: HEMOGLOBIN 10.8 g/dl (12.0-15.5); MEAN CORPUSCULAR HEMOGLOBIN 30.5 pg (27.0-33.0); MEAN CORPUSCULAR HGB CONC 30.9 g/dl (32.0-36.5); MEAN CORPUSCULAR VOLUME 98.9 fl (80.0-96.0); PLATELET COUNT, AUTOMATED 167 10^3/uL (150-450); RED BLOOD COUNT 3.54 10^6/uL (4.00-5.40); RED CELL DISTRIBUTION WIDTH 14.9 % (11.5-14.5)
[2017-11-10] MEDS: predniSONE 10 MG TAB PO (08:57)
[2017-11-10] MEDS: OMEPRAZOLE 20 MG CAP PO ×2 (08:57→21:22)
[2017-11-10] MEDS: FOLIC ACID 1 MG TAB PO (08:58)
[2017-11-10] MEDS: ESCITALOPRAM OXALATE 10 MG TAB (LEXAPRO) PO (08:58)
[2017-11-10] MEDS: PPD DOCUMENTATION ENTRY MISC XX (13:00)
[2017-11-10] MEDS: rOPINIRole 1MG TAB PO (21:20)
[2017-11-10] MEDS: ONDANSETRON 4 MG TAB (S0181) PO (23:13)
[2017-11-11] MEDS: IPRATROPIUM 0.5MG/ALBUTEROL 2.5MG INH SOL UD 3ML (DUONEB)(J7620) NEB ×5 (00:13→20:30)
[2017-11-11] MEDS: ERYTHROMYCIN 250 MG TABLET PO ×3 (05:15→22:39)
[2017-11-11 07:10] LABS: HEMATOCRIT 30.2 % (36.0-47.0); HEMOGLOBIN 9.6 g/dl (12.0-15.5); MEAN CORPUSCULAR HEMOGLOBIN 30.4 pg (27.0-33.0); MEAN CORPUSCULAR HGB CONC 31.8 g/dl (32.0-36.5); MEAN CORPUSCULAR VOLUME 95.6 fl (80.0-96.0); PLATELET COUNT, AUTOMATED 188 10^3/uL (150-450); RED BLOOD COUNT 3.16 10^6/uL (4.00-5.40); RED CELL DISTRIBUTION WIDTH 14.6 % (11.5-14.5); WHITE BLOOD COUNT 7.7 10^3/uL (4.0-10.0)
[2017-11-11 07:18] LABS: ANION GAP 4 MEQ/L (8-16); BLOOD UREA NITROGEN 7 MG/DL (7-18); CALCIUM LEVEL 8.1 MG/DL (8.8-10.2); CARBON DIOXIDE LEVEL 34 MEQ/L (21-32); CHLORIDE LEVEL 105 MEQ/L (98-107); CREATININE FOR GFR 0.66 MG/DL (0.55-1.30); GLOMERULAR FILTRATION RATE > 60.0 (>39); GLUCOSE, FASTING 88 MG/DL (70-100); POTASSIUM SERUM 3.7 MEQ/L (3.5-5.1); SODIUM LEVEL 143 MEQ/L (136-145)
[2017-11-11] MEDS: TIOTROPIUM INHALER/CAPSULE (SPIRIVA) INH (07:50)
[2017-11-11] MEDS: ACETAMINOPHEN TAB 650MG DOSE (2X325MG) PO ×3 (09:17→20:24)
[2017-11-11] MEDS: OMEPRAZOLE 20 MG CAP PO ×2 (09:17→20:24)
[2017-11-11] MEDS: ESCITALOPRAM OXALATE 10 MG TAB (LEXAPRO) PO (09:18)
[2017-11-11] MEDS: FOLIC ACID 1 MG TAB PO (09:18)
[2017-11-11] MEDS: predniSONE 10 MG TAB PO (09:18)
[2017-11-11] MEDS: ONDANSETRON 4 MG TAB (S0181) PO (20:07)
[2017-11-11] MEDS: rOPINIRole 1MG TAB PO (20:24)
[2017-11-12] MEDS: ERYTHROMYCIN 250 MG TABLET PO (05:47)
[2017-11-12 06:37] LABS: HEMATOCRIT 28.8 % (36.0-47.0); HEMOGLOBIN 9.1 g/dl (12.0-15.5); MEAN CORPUSCULAR HEMOGLOBIN 30.3 pg (27.0-33.0); MEAN CORPUSCULAR HGB CONC 31.6 g/dl (32.0-36.5); PLATELET COUNT, AUTOMATED 177 10^3/uL (150-450); RED CELL DISTRIBUTION WIDTH 14.8 % (11.5-14.5); WHITE BLOOD COUNT 7.7 10^3/uL (4.0-10.0)
[2017-11-12 06:52] LABS: ANION GAP 4 MEQ/L (8-16); BLOOD UREA NITROGEN 7 MG/DL (7-18); CALCIUM LEVEL 8.1 MG/DL (8.8-10.2); CARBON DIOXIDE LEVEL 33 MEQ/L (21-32); CHLORIDE LEVEL 104 MEQ/L (98-107); CREATININE FOR GFR 0.77 MG/DL (0.55-1.30); GLOMERULAR FILTRATION RATE > 60.0 (>39); GLUCOSE, FASTING 90 MG/DL (70-100); POTASSIUM SERUM 3.5 MEQ/L (3.5-5.1); SODIUM LEVEL 141 MEQ/L (136-145)
[2017-11-12] MEDS: IPRATROPIUM 0.5MG/ALBUTEROL 2.5MG INH SOL UD 3ML (DUONEB)(J7620) NEB ×4 (07:16→20:58)
[2017-11-12] MEDS: TIOTROPIUM INHALER/CAPSULE (SPIRIVA) INH (07:16)
[2017-11-12] MEDS: FOLIC ACID 1 MG TAB PO (09:29)
[2017-11-12] MEDS: ACETAMINOPHEN TAB 650MG DOSE (2X325MG) PO ×2 (09:29→15:18)
[2017-11-12] MEDS: predniSONE 10 MG TAB PO (09:30)
[2017-11-12] MEDS: ESCITALOPRAM OXALATE 10 MG TAB (LEXAPRO) PO (09:30)
[2017-11-12] MEDS: OMEPRAZOLE 20 MG CAP PO ×2 (09:30→20:41)
[2017-11-12] MEDS: ONDANSETRON 4 MG TAB (S0181) PO ×2 (15:18→20:41)
[2017-11-12] MEDS ORDERED: PILL CRUSHER/CUTTER 1 EACH XX (18:00)
[2017-11-12] MEDS: rOPINIRole 1MG TAB PO (20:42)
[2017-11-12] MEDS: zolPIDEM TARTRATE 5 MG TAB PO (22:20)
[2017-11-13] MEDS: zolPIDEM TARTRATE 5 MG TAB PO ×2 (01:00→22:46)
[2017-11-13] MEDS: ACETAMINOPHEN TAB 650MG DOSE (2X325MG) PO (04:25)
[2017-11-13] MEDS: TIOTROPIUM INHALER/CAPSULE (SPIRIVA) INH (08:26)
[2017-11-13] MEDS: IPRATROPIUM 0.5MG/ALBUTEROL 2.5MG INH SOL UD 3ML (DUONEB)(J7620) NEB ×4 (08:26→19:41)
[2017-11-13] MEDS: OMEPRAZOLE 20 MG CAP PO ×2 (09:05→21:16)
[2017-11-13] MEDS: predniSONE 10 MG TAB PO (09:05)
[2017-11-13] MEDS: FOLIC ACID 1 MG TAB PO (09:05)
[2017-11-13] MEDS: ESCITALOPRAM OXALATE 10 MG TAB (LEXAPRO) PO (09:05)
[2017-11-13] MEDS: ONDANSETRON 4 MG TAB (S0181) PO ×2 (11:48→21:16)
[2017-11-13] MEDS: ALPRAZolam 0.25 MG TAB PO ×2 (13:59→22:46)
[2017-11-13] MEDS: rOPINIRole 1MG TAB PO (21:16)
[2017-11-14] MEDS: ACETAMINOPHEN TAB 650MG DOSE (2X325MG) PO ×2 (03:49→23:23)
[2017-11-14] MEDS: IPRATROPIUM 0.5MG/ALBUTEROL 2.5MG INH SOL UD 3ML (DUONEB)(J7620) NEB ×4 (07:54→21:45)
[2017-11-14] MEDS: TIOTROPIUM INHALER/CAPSULE (SPIRIVA) INH (07:54)
[2017-11-14] MEDS: OMEPRAZOLE 20 MG CAP PO ×2 (09:22→22:19)
[2017-11-14] MEDS: ESCITALOPRAM OXALATE 10 MG TAB (LEXAPRO) PO (09:22)
[2017-11-14] MEDS: FOLIC ACID 1 MG TAB PO (09:22)
[2017-11-14] MEDS: predniSONE 10 MG TAB PO (09:22)
[2017-11-14] MEDS: ALPRAZolam 0.25 MG TAB PO ×2 (09:25→22:16)
[2017-11-14] MEDS: ONDANSETRON 4 MG TAB (S0181) PO (15:14)
[2017-11-14] MEDS: zolPIDEM TARTRATE 5 MG TAB PO (22:15)
[2017-11-14] MEDS: rOPINIRole 1MG TAB PO (22:19)
[2017-11-14] MEDS: ERYTHROMYCIN 250 MG TABLET PO (22:20)
[2017-11-15] MEDS: ACETAMINOPHEN TAB 650MG DOSE (2X325MG) PO (04:44)
[2017-11-15] MEDS: ERYTHROMYCIN 250 MG TABLET PO ×3 (06:03→21:05)
[2017-11-15 06:53] LABS: BASO % 0.3 % (0.0-1.0); EOS # 0.2 10^3/uL (0.0-0.50); EOS % 2.1 % (0.0-3.0); HEMATOCRIT 31.3 % (36.0-47.0); HEMOGLOBIN 9.8 g/dl (12.0-15.5); IMMATURE GRANULOCYTE % 0.8 % (0-3.0); LYMPH # 2.2 10^3/uL (1.5-4.5); LYMPH % 31.3 % (24.0-44.0); MEAN CORPUSCULAR HGB CONC 31.3 g/dl (32.0-36.5); MEAN CORPUSCULAR VOLUME 95.7 fl (80.0-96.0); MONO # 0.5 10^3/uL (0.0-0.8); NEUTROPHILS # 4.2 10^3/uL (1.8-7.7); NEUTROPHILS % 58.5 % (36.0-66.0); PLATELET COUNT, AUTOMATED 195 10^3/uL (150-450); RED BLOOD COUNT 3.27 10^6/uL (4.00-5.40); RED CELL DISTRIBUTION WIDTH 15.4 % (11.5-14.5); WHITE BLOOD COUNT 7.2 10^3/uL (4.0-10.0)
[2017-11-15 07:24] LABS: ANION GAP 7 MEQ/L (8-16); BLOOD UREA NITROGEN 14 MG/DL (7-18); CALCIUM LEVEL 8.2 MG/DL (8.8-10.2); CARBON DIOXIDE LEVEL 30 MEQ/L (21-32); CHLORIDE LEVEL 103 MEQ/L (98-107); CREATININE FOR GFR 0.79 MG/DL (0.55-1.30); GLOMERULAR FILTRATION RATE > 60.0 (>39); GLUCOSE, FASTING 85 MG/DL (70-100); MAGNESIUM LEVEL 2.4 MG/DL (1.8-2.4); POTASSIUM SERUM 4.1 MEQ/L (3.5-5.1); SODIUM LEVEL 140 MEQ/L (136-145)
[2017-11-15] MEDS: IPRATROPIUM 0.5MG/ALBUTEROL 2.5MG INH SOL UD 3ML (DUONEB)(J7620) NEB ×4 (08:36→21:04)
[2017-11-15] MEDS: TIOTROPIUM INHALER/CAPSULE (SPIRIVA) INH (08:36)
[2017-11-15] MEDS: ESCITALOPRAM OXALATE 10 MG TAB (LEXAPRO) PO (08:50)
[2017-11-15] MEDS: FOLIC ACID 1 MG TAB PO (08:50)
[2017-11-15] MEDS: OMEPRAZOLE 20 MG CAP PO ×2 (08:50→21:05)
[2017-11-15] MEDS: predniSONE 10 MG TAB PO (08:50)
[2017-11-15] MEDS: ALPRAZolam 0.25 MG TAB PO ×2 (13:37→21:53)
[2017-11-15] MEDS: ONDANSETRON 4 MG TAB (S0181) PO (19:32)
[2017-11-15] MEDS: rOPINIRole 1MG TAB PO (21:05)
[2017-11-15] MEDS: zolPIDEM TARTRATE 5 MG TAB PO (21:05)
[2017-11-16] MEDS: ACETAMINOPHEN TAB 650MG DOSE (2X325MG) PO ×3 (01:11→23:56)
[2017-11-16] MEDS: ERYTHROMYCIN 250 MG TABLET PO ×3 (05:04→20:56)
[2017-11-16 06:51] LABS: BASO % 0.1 % (0.0-1.0); EOS # 0.1 10^3/uL (0.0-0.50); EOS % 1.8 % (0.0-3.0); HEMATOCRIT 30.6 % (36.0-47.0); HEMOGLOBIN 9.7 g/dl (12.0-15.5); IMMATURE GRANULOCYTE % 0.9 % (0-3.0); LYMPH # 2.4 10^3/uL (1.5-4.5); MEAN CORPUSCULAR HEMOGLOBIN 30.4 pg (27.0-33.0); MEAN CORPUSCULAR HGB CONC 31.7 g/dl (32.0-36.5); MEAN CORPUSCULAR VOLUME 95.9 fl (80.0-96.0); MONO # 0.6 10^3/uL (0.0-0.8); MONO % 8.1 % (0.0-5.0); NEUTROPHILS # 4.5 10^3/uL (1.8-7.7); NEUTROPHILS % 58.1 % (36.0-66.0); PLATELET COUNT, AUTOMATED 203 10^3/uL (150-450); RED BLOOD COUNT 3.19 10^6/uL (4.00-5.40); RED CELL DISTRIBUTION WIDTH 15.1 % (11.5-14.5); WHITE BLOOD COUNT 7.8 10^3/uL (4.0-10.0)
[2017-11-16 07:11] LABS: ANION GAP 6 MEQ/L (8-16); BLOOD UREA NITROGEN 14 MG/DL (7-18); CARBON DIOXIDE LEVEL 32 MEQ/L (21-32); CHLORIDE LEVEL 102 MEQ/L (98-107); CREATININE FOR GFR 0.76 MG/DL (0.55-1.30); GLOMERULAR FILTRATION RATE > 60.0 (>39); GLUCOSE, FASTING 96 MG/DL (70-100); MAGNESIUM LEVEL 2.4 MG/DL (1.8-2.4); POTASSIUM SERUM 4.2 MEQ/L (3.5-5.1); SODIUM LEVEL 140 MEQ/L (136-145)
[2017-11-16] MEDS: IPRATROPIUM 0.5MG/ALBUTEROL 2.5MG INH SOL UD 3ML (DUONEB)(J7620) NEB ×4 (09:22→19:53)
[2017-11-16] MEDS: TIOTROPIUM INHALER/CAPSULE (SPIRIVA) INH (09:22)
[2017-11-16] MEDS: ESCITALOPRAM OXALATE 10 MG TAB (LEXAPRO) PO (09:43)
[2017-11-16] MEDS: OMEPRAZOLE 20 MG CAP PO ×2 (09:43→20:55)
[2017-11-16] MEDS: predniSONE 10 MG TAB PO (09:43)
[2017-11-16] MEDS: FOLIC ACID 1 MG TAB PO (09:43)
[2017-11-16] MEDS: ALPRAZolam 0.25 MG TAB PO ×2 (09:46→20:56)
[2017-11-16] MEDS: ONDANSETRON 4 MG TAB (S0181) PO ×2 (14:07→20:55)
[2017-11-16] MEDS: rOPINIRole 1MG TAB PO (20:55)
[2017-11-16] MEDS: zolPIDEM TARTRATE 5 MG TAB PO (20:56)
[2017-11-17] MEDS: ERYTHROMYCIN 250 MG TABLET PO ×3 (05:18→21:05)
[2017-11-17] MEDS: ALPRAZolam 0.25 MG TAB PO ×2 (05:20→22:44)
[2017-11-17 06:15] LABS: BASO % 0.1 % (0.0-1.0); EOS # 0.1 10^3/uL (0.0-0.50); EOS % 1.1 % (0.0-3.0); HEMATOCRIT 30.7 % (36.0-47.0); HEMOGLOBIN 9.5 g/dl (12.0-15.5); LYMPH # 1.5 10^3/uL (1.5-4.5); LYMPH % 20.9 % (24.0-44.0); MEAN CORPUSCULAR HGB CONC 30.9 g/dl (32.0-36.5); MEAN CORPUSCULAR VOLUME 96.8 fl (80.0-96.0); MONO # 0.5 10^3/uL (0.0-0.8); MONO % 7.5 % (0.0-5.0); NEUTROPHILS % 69.4 % (36.0-66.0); PLATELET COUNT, AUTOMATED 186 10^3/uL (150-450); RED BLOOD COUNT 3.17 10^6/uL (4.00-5.40); RED CELL DISTRIBUTION WIDTH 15.2 % (11.5-14.5); WHITE BLOOD COUNT 7.2 10^3/uL (4.0-10.0)
[2017-11-17 06:34] LABS: ANION GAP 7 MEQ/L (8-16); BLOOD UREA NITROGEN 16 MG/DL (7-18); CARBON DIOXIDE LEVEL 31 MEQ/L (21-32); CHLORIDE LEVEL 103 MEQ/L (98-107); CREATININE FOR GFR 0.77 MG/DL (0.55-1.30); GLOMERULAR FILTRATION RATE > 60.0 (>39); GLUCOSE, FASTING 123 MG/DL (70-100); MAGNESIUM LEVEL 2.4 MG/DL (1.8-2.4); POTASSIUM SERUM 4.8 MEQ/L (3.5-5.1); SODIUM LEVEL 141 MEQ/L (136-145)
[2017-11-17] MEDS: METOCLOPRAMIDE HCL LIQUID 10 MG/10 ML UDC PO ×4 (07:30→21:05)
[2017-11-17] MEDS: IPRATROPIUM 0.5MG/ALBUTEROL 2.5MG INH SOL UD 3ML (DUONEB)(J7620) NEB ×4 (08:37→20:16)
[2017-11-17] MEDS: TIOTROPIUM INHALER/CAPSULE (SPIRIVA) INH (08:37)
[2017-11-17] MEDS: predniSONE 10 MG TAB PO (08:59)
[2017-11-17] MEDS: FOLIC ACID 1 MG TAB PO (08:59)
[2017-11-17] MEDS: CYANOCOBALAMIN 1,000 MCG/ML VIAL (J3420) IM (08:59)
[2017-11-17] MEDS: OMEPRAZOLE 20 MG CAP PO ×2 (08:59→21:05)
[2017-11-17] MEDS: ESCITALOPRAM OXALATE 10 MG TAB (LEXAPRO) PO (08:59)
[2017-11-17] MEDS: rOPINIRole 1MG TAB PO (21:05)
[2017-11-17] MEDS: zolPIDEM TARTRATE 5 MG TAB PO (21:05)
[2017-11-18] MEDS: ERYTHROMYCIN 250 MG TABLET PO ×3 (05:15→22:01)
[2017-11-18] MEDS: ACETAMINOPHEN TAB 650MG DOSE (2X325MG) PO ×3 (05:15→22:02)
[2017-11-18 06:25] LABS: BASO % 0.2 % (0.0-1.0); EOS # 0.1 10^3/uL (0.0-0.50); EOS % 1.3 % (0.0-3.0); HEMATOCRIT 31.2 % (36.0-47.0); HEMOGLOBIN 10.1 g/dl (12.0-15.5); IMMATURE GRANULOCYTE % 1.4 % (0-3.0); LYMPH # 2.2 10^3/uL (1.5-4.5); LYMPH % 25.5 % (24.0-44.0); MEAN CORPUSCULAR HGB CONC 32.4 g/dl (32.0-36.5); MEAN CORPUSCULAR VOLUME 95.7 fl (80.0-96.0); MONO # 0.7 10^3/uL (0.0-0.8); MONO % 8.2 % (0.0-5.0); NEUTROPHILS # 5.6 10^3/uL (1.8-7.7); NEUTROPHILS % 63.4 % (36.0-66.0); PLATELET COUNT, AUTOMATED 190 10^3/uL (150-450); RED BLOOD COUNT 3.26 10^6/uL (4.00-5.40); RED CELL DISTRIBUTION WIDTH 14.8 % (11.5-14.5); WHITE BLOOD COUNT 8.8 10^3/uL (4.0-10.0)
[2017-11-18 06:58] LABS: ANION GAP 3 MEQ/L (8-16); BLOOD UREA NITROGEN 21 MG/DL (7-18); CALCIUM LEVEL 8.2 MG/DL (8.8-10.2); CARBON DIOXIDE LEVEL 32 MEQ/L (21-32); CHLORIDE LEVEL 102 MEQ/L (98-107); CREATININE FOR GFR 0.68 MG/DL (0.55-1.30); GLOMERULAR FILTRATION RATE > 60.0 (>39); GLUCOSE, FASTING 104 MG/DL (70-100); MAGNESIUM LEVEL 2.5 MG/DL (1.8-2.4); POTASSIUM SERUM 4.3 MEQ/L (3.5-5.1); SODIUM LEVEL 137 MEQ/L (136-145)
[2017-11-18] MEDS: IPRATROPIUM 0.5MG/ALBUTEROL 2.5MG INH SOL UD 3ML (DUONEB)(J7620) NEB ×4 (08:14→19:58)
[2017-11-18] MEDS: TIOTROPIUM INHALER/CAPSULE (SPIRIVA) INH (08:14)
[2017-11-18] MEDS: FOLIC ACID 1 MG TAB PO (08:48)
[2017-11-18] MEDS: predniSONE 10 MG TAB PO (08:48)
[2017-11-18] MEDS: METOCLOPRAMIDE HCL LIQUID 10 MG/10 ML UDC PO ×4 (08:48→22:01)
[2017-11-18] MEDS: ESCITALOPRAM OXALATE 10 MG TAB (LEXAPRO) PO (08:48)
[2017-11-18] MEDS: OMEPRAZOLE 20 MG CAP PO ×2 (08:48→22:01)
[2017-11-18] MEDS: ALPRAZolam 0.25 MG TAB PO (08:50)
[2017-11-18] MEDS: rOPINIRole 1MG TAB PO (22:01)
[2017-11-18] MEDS: zolPIDEM TARTRATE 5 MG TAB PO (22:01)
[2017-11-19] MEDS: ONDANSETRON 4 MG TAB (S0181) PO (03:56)
[2017-11-19] MEDS: ERYTHROMYCIN 250 MG TABLET PO ×3 (05:48→21:03)
[2017-11-19] MEDS: ACETAMINOPHEN TAB 650MG DOSE (2X325MG) PO (05:48)
[2017-11-19] MEDS: TIOTROPIUM INHALER/CAPSULE (SPIRIVA) INH (07:10)
[2017-11-19] MEDS: IPRATROPIUM 0.5MG/ALBUTEROL 2.5MG INH SOL UD 3ML (DUONEB)(J7620) NEB ×4 (07:11→20:44)
[2017-11-19 07:12] LABS: BASO % 0.3 % (0.0-1.0); EOS # 0.1 10^3/uL (0.0-0.50); EOS % 0.9 % (0.0-3.0); HEMATOCRIT 30.4 % (36.0-47.0); HEMOGLOBIN 9.7 g/dl (12.0-15.5); IMMATURE GRANULOCYTE % 1.7 % (0-3.0); LYMPH # 2.7 10^3/uL (1.5-4.5); LYMPH % 28.8 % (24.0-44.0); MEAN CORPUSCULAR HEMOGLOBIN 30.1 pg (27.0-33.0); MEAN CORPUSCULAR HGB CONC 31.9 g/dl (32.0-36.5); MEAN CORPUSCULAR VOLUME 94.4 fl (80.0-96.0); MONO # 0.7 10^3/uL (0.0-0.8); MONO % 7.2 % (0.0-5.0); NEUTROPHILS # 5.8 10^3/uL (1.8-7.7); NEUTROPHILS % 61.1 % (36.0-66.0); PLATELET COUNT, AUTOMATED 201 10^3/uL (150-450); RED BLOOD COUNT 3.22 10^6/uL (4.00-5.40); RED CELL DISTRIBUTION WIDTH 15.2 % (11.5-14.5); WHITE BLOOD COUNT 9.5 10^3/uL (4.0-10.0)
[2017-11-19 07:53] LABS: ANION GAP 7 MEQ/L (8-16); BLOOD UREA NITROGEN 23 MG/DL (7-18); CALCIUM LEVEL 8.1 MG/DL (8.8-10.2); CARBON DIOXIDE LEVEL 29 MEQ/L (21-32); CHLORIDE LEVEL 103 MEQ/L (98-107); GLOMERULAR FILTRATION RATE > 60.0 (>39); GLUCOSE, FASTING 93 MG/DL (70-100); MAGNESIUM LEVEL 2.4 MG/DL (1.8-2.4); POTASSIUM SERUM 4.4 MEQ/L (3.5-5.1); SODIUM LEVEL 139 MEQ/L (136-145)
[2017-11-19] MEDS: METOCLOPRAMIDE HCL LIQUID 10 MG/10 ML UDC PO ×4 (08:59→21:02)
[2017-11-19] MEDS: OMEPRAZOLE 20 MG CAP PO ×2 (09:00→21:03)
[2017-11-19] MEDS: FOLIC ACID 1 MG TAB PO (09:00)
[2017-11-19] MEDS: ESCITALOPRAM OXALATE 10 MG TAB (LEXAPRO) PO (09:00)
[2017-11-19] MEDS: predniSONE 10 MG TAB PO (09:00)
[2017-11-19] MEDS: ALPRAZolam 0.25 MG TAB PO (17:16)
[2017-11-19] MEDS: MIRTAZAPINE 7.5MG PER 1/2 TABLET PO (21:03)
[2017-11-19] MEDS: rOPINIRole 1MG TAB PO (21:03)
[2017-11-20] MEDS: ALPRAZolam 0.25 MG TAB PO ×3 (02:18→23:53)
[2017-11-20] MEDS: ERYTHROMYCIN 250 MG TABLET PO ×3 (05:49→22:30)
[2017-11-20 07:49] LABS: BASO % 0.3 % (0.0-1.0); EOS # 0.1 10^3/uL (0.0-0.50); EOS % 0.8 % (0.0-3.0); HEMATOCRIT 32.4 % (36.0-47.0); HEMOGLOBIN 10.3 g/dl (12.0-15.5); IMMATURE GRANULOCYTE % 1.6 % (0-3.0); LYMPH # 1.7 10^3/uL (1.5-4.5); LYMPH % 16.1 % (24.0-44.0); MEAN CORPUSCULAR HEMOGLOBIN 30.5 pg (27.0-33.0); MEAN CORPUSCULAR HGB CONC 31.8 g/dl (32.0-36.5); MEAN CORPUSCULAR VOLUME 95.9 fl (80.0-96.0); MONO # 0.7 10^3/uL (0.0-0.8); MONO % 6.6 % (0.0-5.0); NEUTROPHILS # 8.1 10^3/uL (1.8-7.7); NEUTROPHILS % 74.6 % (36.0-66.0); PLATELET COUNT, AUTOMATED 222 10^3/uL (150-450); RED BLOOD COUNT 3.38 10^6/uL (4.00-5.40); RED CELL DISTRIBUTION WIDTH 15.2 % (11.5-14.5); WHITE BLOOD COUNT 10.8 10^3/uL (4.0-10.0)
[2017-11-20 08:13] LABS: ANION GAP 8 MEQ/L (8-16); BLOOD UREA NITROGEN 24 MG/DL (7-18); CALCIUM LEVEL 8.5 MG/DL (8.8-10.2); CARBON DIOXIDE LEVEL 30 MEQ/L (21-32); CHLORIDE LEVEL 102 MEQ/L (98-107); CREATININE FOR GFR 0.76 MG/DL (0.55-1.30); GLOMERULAR FILTRATION RATE > 60.0 (>39); GLUCOSE, FASTING 94 MG/DL (70-100); MAGNESIUM LEVEL 2.5 MG/DL (1.8-2.4); POTASSIUM SERUM 4.4 MEQ/L (3.5-5.1); SODIUM LEVEL 140 MEQ/L (136-145)
[2017-11-20] MEDS: TIOTROPIUM INHALER/CAPSULE (SPIRIVA) INH (08:34)
[2017-11-20] MEDS: IPRATROPIUM 0.5MG/ALBUTEROL 2.5MG INH SOL UD 3ML (DUONEB)(J7620) NEB ×4 (08:34→21:06)
[2017-11-20] MEDS: predniSONE 10 MG TAB PO (09:05)
[2017-11-20] MEDS: METOCLOPRAMIDE HCL LIQUID 10 MG/10 ML UDC PO ×4 (09:05→21:43)
[2017-11-20] MEDS: ESCITALOPRAM OXALATE 10 MG TAB (LEXAPRO) PO (09:05)
[2017-11-20] MEDS: FOLIC ACID 1 MG TAB PO (09:05)
[2017-11-20] MEDS: OMEPRAZOLE 20 MG CAP PO ×2 (09:06→21:43)
[2017-11-20] MEDS: rOPINIRole 1MG TAB PO (21:43)
[2017-11-20] MEDS: MIRTAZAPINE 7.5MG PER 1/2 TABLET PO (21:43)
[2017-11-21] MEDS: ERYTHROMYCIN 250 MG TABLET PO (06:02)
[2017-11-21] MEDS: IPRATROPIUM 0.5MG/ALBUTEROL 2.5MG INH SOL UD 3ML (DUONEB)(J7620) NEB ×2 (07:55→11:04)
[2017-11-21] MEDS: TIOTROPIUM INHALER/CAPSULE (SPIRIVA) INH (07:55)
[2017-11-21] MEDS: FOLIC ACID 1 MG TAB PO (08:43)
[2017-11-21] MEDS: predniSONE 10 MG TAB PO (08:43)
[2017-11-21] MEDS: ESCITALOPRAM OXALATE 10 MG TAB (LEXAPRO) PO (08:43)
[2017-11-21] MEDS: METOCLOPRAMIDE HCL LIQUID 10 MG/10 ML UDC PO ×2 (08:43→11:29)
[2017-11-21] MEDS: OMEPRAZOLE 20 MG CAP PO (08:43)
[2017-11-21] MEDS: ALPRAZolam 0.25 MG TAB PO (11:30)
[2017-11-21] MEDS: ACETAMINOPHEN TAB 650MG DOSE (2X325MG) PO (11:30)
[2017-12-08] MEDS ORDERED: ERYTHROMYCIN 250 MG TABLET PO (06:00)
== END 2017-11-21 12:10 | DRG 392 ==
LOC: M ED 00:18 → M ED INP 02:05 → M MS5PR 03:03
PROC: 0DC68ZZ Extirpation of Matter from Stomach, Via Natural or Artificial Opening Endoscopic (ICD-10-PCS; principal; 2017-11-07 13:45)
DX: K31.84 Gastroparesis (principal); J44.1 Chronic obstructive pulmonary disease with (acute) exacerbation; J96.10 Chronic respiratory failure, unspecified whether with hypoxia or hypercapnia; I10 Essential (primary) hypertension; E78.5 Hyperlipidemia, unspecified; K21.9 Gastro-esophageal reflux disease without esophagitis; K59.00 Constipation, unspecified; F32.9 Major depressive disorder, single episode, unspecified; G25.81 Restless legs syndrome; R53.83 Other fatigue; F41.9 Anxiety disorder, unspecified; Z99.81 Dependence on supplemental oxygen; Z87.891 Personal history of nicotine dependence; Z98.0 Intestinal bypass and anastomosis status; Z79.52 Long term (current) use of systemic steroids; Z79.899 Other long term (current) drug therapy

== ENCOUNTER 2017-11-24 18:33 | Emergency (ER) | payer MEDICARE, MEDICAID, OTHER ==
[2017-11-24] MEDS: NORCO, ANEXSIA 5/325MG TABLET (HYDROcodone/ACETAMINOPHEN) PO (19:12)
== END 2017-11-24 20:22 | disposition home or self-care (01) ==
LOC: M ED 18:33
DX: S92.401A Displaced unspecified fracture of right great toe, initial encounter for closed fracture (principal); W20.8XXA Other cause of strike by thrown, projected or falling object, initial encounter; Y92.009 Unspecified place in unspecified non-institutional (private) residence as the place of occurrence of the external cause; I10 Essential (primary) hypertension; J44.9 Chronic obstructive pulmonary disease, unspecified; E78.70 Disorder of bile acid and cholesterol metabolism, unspecified; Z79.899 Other long term (current) drug therapy; Z79.52 Long term (current) use of systemic steroids; Z79.2 Long term (current) use of antibiotics; Z99.81 Dependence on supplemental oxygen
CPT/HCPCS: 73630

== ENCOUNTER 2017-12-04 19:12 | Observation (INO) | payer MEDICARE, MEDICAID ==
[2017-12-04] MEDS: GI COCKTAIL 50ML BTL(HYOSCYAMINE/MAALOX/LIDOCAINE VISCOUS)(1:3:1) PO (20:31)
[2017-12-04] MEDS: dexameTHASONE 20 MG/5 ML VIAL (J1100) IV (20:31)
[2017-12-04] MEDS: MORPHINE 2 MG/ML 1ML SYRINGE (J2270) IV (20:32)
[2017-12-04 20:48] LABS: BASO # 0.1 10^3/uL (0.0-0.2); BASO % 0.4 % (0.0-1.0); EOS % 0.2 % (0.0-3.0); HEMATOCRIT 30.9 % (36.0-47.0); HEMOGLOBIN 9.8 g/dl (12.0-15.5); IMMATURE GRANULOCYTE % 4.2 % (0-3.0); LYMPH # 1.1 10^3/uL (1.5-4.5); LYMPH % 8.9 % (24.0-44.0); MEAN CORPUSCULAR HEMOGLOBIN 30.7 pg (27.0-33.0); MEAN CORPUSCULAR HGB CONC 31.7 g/dl (32.0-36.5); MEAN CORPUSCULAR VOLUME 96.9 fl (80.0-96.0); MONO # 0.4 10^3/uL (0.0-0.8); MONO % 3.3 % (0.0-5.0); NEUTROPHILS # 9.9 10^3/uL (1.8-7.7); PLATELET COUNT, AUTOMATED 269 10^3/uL (150-450); RED BLOOD COUNT 3.19 10^6/uL (4.00-5.40); RED CELL DISTRIBUTION WIDTH 14.5 % (11.5-14.5); WHITE BLOOD COUNT 11.9 10^3/uL (4.0-10.0)
[2017-12-04] MEDS: IPRATROPIUM 0.5MG/ALBUTEROL 2.5MG INH SOL UD 3ML (DUONEB)(J7620) NEB ×3 (20:58)
[2017-12-04 21:15] LABS: LACTIC ACID SEPSIS PROTOCOL 1.3 MMOL/L (0.4-2.0)
[2017-12-04 21:18] LABS: ALBUMIN/GLOBULIN RATIO 0.88 (1.00-1.93); ALKALINE PHOSPHATASE 58 U/L (45-117); ALT/SGPT 22 U/L (12-78); ANION GAP 8 MEQ/L (8-16); AST/SGOT 17 U/L (7-37); BILIRUBIN,DIRECT < 0.1 MG/DL (0.0-0.2); BILIRUBIN,TOTAL 0.1 MG/DL (0.2-1.0); BLOOD UREA NITROGEN 20 MG/DL (7-18); CALCIUM LEVEL 8.2 MG/DL (8.8-10.2); CARBON DIOXIDE LEVEL 30 MEQ/L (21-32); CHLORIDE LEVEL 103 MEQ/L (98-107); CK-MB VALUE MASS 3.2 NG/ML (<3.6); CPK CREATINE PHOSPHOKINASE 42 U/L (26-192); CREATININE FOR GFR 0.68 MG/DL (0.55-1.30); GLOMERULAR FILTRATION RATE > 60.0 (>39); GLUCOSE, FASTING 112 MG/DL (70-100); LIPASE 150 U/L (73-393); MB/CK RELATIVE INDEX 7.61 (< OR =4); POTASSIUM SERUM 4.8 MEQ/L (3.5-5.1); SODIUM LEVEL 141 MEQ/L (136-145); TOTAL PROTEIN 6.4 GM/DL (6.4-8.2); TROPONIN I < 0.02 NG/ML (< 0.10)
[2017-12-04 22:50] LABS: ABG BASE EXCESS 1.5 (-2.0-2.0); ABG HCO3 26.9 MEQ/L (22.0-26.0); ABG O2 SATURATION 97.8 % (95.0-99.0); ABG PARTIAL PRESSURE O2 107.3 mmHg (75.0-100.0); ABG STANDARD HCO3 25.8 MEQ/L (22.0-26.0); ABG TOTAL CO2 28.3 MEQ/L (23.0-31.0); ABG pH (ARTERIAL) 7.385 UNITS (7.350-7.450)
[2017-12-04 23:17] LABS: APPEARANCE, URINE CLEAR (CLEAR); BACTERIA, URINE AUTO NEGATIVE (NEGATIVE); BILIRUBIN, URINE AUTO NEGATIVE (NEGATIVE); BLOOD, URINE BLOOD NEGATIVE (NEGATIVE); COLOR, URINE STRAW (YELLOW); GLUCOSE, URINE (UA) AUTO NEGATIVE (NEGATIVE); KETONE, URINE AUTO NEGATIVE (NEGATIVE); LEUKOCYTE ESTERASE, URINE AUTO NEGATIVE (NEGATIVE); NITRITE, URINE AUTO NEGATIVE (NEGATIVE); PROTEIN, URINE AUTO NEGATIVE (NEGATIVE); RBC, URINE AUTO 1 /HPF (0-3); SPECIFIC GRAVITY URINE AUTO 1.008 (1.002-1.035); SQUAMOUS EPITHELIAL CELL UR AU 0 /HPF (0-6); UROBILINOGEN, URINE AUTO 0.2 mg/dL (0.0-2.0); WBC, URINE AUTO 1 /HPF (0-3)
[2017-12-04] MEDS ORDERED: LEVALBUTEROL 1.25 MG/0.5 ML CONCENTRATE NEB INH (23:45)
[2017-12-04] MEDS ORDERED: LEVALBUTEROL 1.25 MG/0.5 ML CONCENTRATE NEB NEB (23:45)
[2017-12-04] MEDS ORDERED: ONDANSETRON 4 MG TAB (S0181) PO ×2 (23:45)
[2017-12-05] MEDS: traZODone 50 MG TAB PO (00:42)
[2017-12-05] MEDS: NORCO, ANEXSIA 5/325MG TABLET (HYDROcodone/ACETAMINOPHEN) PO ×2 (00:43→10:21)
[2017-12-05] MEDS: rOPINIRole 1MG TAB PO (00:44)
[2017-12-05] MEDS: METOCLOPRAMIDE HCL LIQUID 10 MG/10 ML UDC PO ×2 (00:44→09:22)
[2017-12-05] MEDS: ALPRAZolam 0.25 MG TAB PO ×2 (01:20→09:23)
[2017-12-05] MEDS: IPRATROPIUM 0.02% SOLN 0.5MG/2.5 ML NEB NEB ×3 (01:45→13:06)
[2017-12-05] MEDS: ACETAMINOPHEN 650MG ER TAB (TYLENOL ARTHRITIS) PO (04:58)
[2017-12-05 06:21] LABS: HEMATOCRIT 29.7 % (36.0-47.0); HEMOGLOBIN 9.3 g/dl (12.0-15.5); MEAN CORPUSCULAR HEMOGLOBIN 30.3 pg (27.0-33.0); MEAN CORPUSCULAR HGB CONC 31.3 g/dl (32.0-36.5); MEAN CORPUSCULAR VOLUME 96.7 fl (80.0-96.0); PLATELET COUNT, AUTOMATED 246 10^3/uL (150-450); RED BLOOD COUNT 3.07 10^6/uL (4.00-5.40); RED CELL DISTRIBUTION WIDTH 14.6 % (11.5-14.5); WHITE BLOOD COUNT 15.5 10^3/uL (4.0-10.0)
[2017-12-05] MEDS: HEPARIN SOD (PORCINE) 5000 UNITS/ML VIAL SQ (06:22)
[2017-12-05 06:42] LABS: ALBUMIN 2.9 GM/DL (3.2-5.2); ALBUMIN/GLOBULIN RATIO 0.83 (1.00-1.93); ALKALINE PHOSPHATASE 55 U/L (45-117); ALT/SGPT 21 U/L (12-78); ANION GAP 9 MEQ/L (8-16); AST/SGOT 17 U/L (7-37); BILIRUBIN,TOTAL 0.1 MG/DL (0.2-1.0); BLOOD UREA NITROGEN 23 MG/DL (7-18); CALCIUM LEVEL 8.3 MG/DL (8.8-10.2); CARBON DIOXIDE LEVEL 29 MEQ/L (21-32); CHLORIDE LEVEL 103 MEQ/L (98-107); CREATININE FOR GFR 0.93 MG/DL (0.55-1.30); GLOMERULAR FILTRATION RATE > 60.0 (>39); GLUCOSE, FASTING 190 MG/DL (70-100); SODIUM LEVEL 141 MEQ/L (136-145); TOTAL PROTEIN 6.4 GM/DL (6.4-8.2)
[2017-12-05 06:43] LABS: POTASSIUM SERUM 5.2 MEQ/L (3.5-5.1)
[2017-12-05] MEDS: TIOTROPIUM INHALER/CAPSULE (SPIRIVA) INH (07:19)
[2017-12-05] MEDS: MIRALAX *UNIT DOSE* 17GM PACKET PO (09:22)
[2017-12-05] MEDS: predniSONE 20 MG TAB PO (09:22)
[2017-12-05] MEDS: ESCITALOPRAM OXALATE 10 MG TAB (LEXAPRO) PO (09:22)
[2017-12-05] MEDS: PANTOPRAZOLE 40MG TAB (PROTONIX) PO (09:23)
== END 2017-12-05 14:25 ==
LOC: M ED INP 19:13 → M MSPAV 12-05 00:20 → M ED 19:12
DX: J96.21 Acute and chronic respiratory failure with hypoxia (principal); J44.9 Chronic obstructive pulmonary disease, unspecified; Z99.81 Dependence on supplemental oxygen; Z79.51 Long term (current) use of inhaled steroids; I27.0 Primary pulmonary hypertension; E78.4 Other hyperlipidemia; F32.9 Major depressive disorder, single episode, unspecified; F41.9 Anxiety disorder, unspecified; G25.81 Restless legs syndrome; D64.9 Anemia, unspecified; K21.9 Gastro-esophageal reflux disease without esophagitis; K59.00 Constipation, unspecified
CPT/HCPCS: J1100

== ENCOUNTER 2017-12-13 19:32 | Observation (INO) | payer MEDICARE, MEDICAID ==
[2017-12-13] MEDS: dexameTHASONE 20 MG/5 ML VIAL (J1100) IV ×2 (20:07)
[2017-12-13 20:16] LABS: BASO # 0.1 10^3/uL (0.0-0.2); BASO % 0.4 % (0.0-1.0); HEMATOCRIT 34.5 % (36.0-47.0); HEMOGLOBIN 10.9 g/dl (12.0-15.5); IMMATURE GRANULOCYTE % 4.2 % (0-3.0); LYMPH # 1.6 10^3/uL (1.5-4.5); LYMPH % 9.5 % (24.0-44.0); MEAN CORPUSCULAR HGB CONC 31.6 g/dl (32.0-36.5); MONO % 6.3 % (0.0-5.0); NEUTROPHILS # 13.1 10^3/uL (1.8-7.7); NEUTROPHILS % 79.6 % (36.0-66.0); PLATELET COUNT, AUTOMATED 281 10^3/uL (150-450); RED BLOOD COUNT 3.52 10^6/uL (4.00-5.40); RED CELL DISTRIBUTION WIDTH 14.6 % (11.5-14.5); WHITE BLOOD COUNT 16.4 10^3/uL (4.0-10.0)
[2017-12-13 20:17] LABS: VENOUS BASE EXCESS 0.4 (-2.0-2.0); VENOUS HCO3 25.4 MEQ/L (23.0-27.0); VENOUS O2 SATURATION 97.9 % (60.0-80.0); VENOUS PARTIAL PRESSURE CO2 42.6 mmHg (38.0-50.0); VENOUS PARTIAL PRESSURE O2 112.2 mmHg (30.0-50.0); VENOUS PH 7.394 UNITS (7.330-7.430); VENOUS STANDARD HCO3 24.9 MEQ/L; VENOUS TOTAL CO2 26.7 MEQ/L (24.0-28.0)
[2017-12-13] MEDS: ALBUTEROL SULFATE 2.5 MG/0.5 ML INH NEB SOLN NEB ×2 (20:19)
[2017-12-13 20:23] LABS: ANION GAP 7 MEQ/L (8-16); BLOOD UREA NITROGEN 43 MG/DL (7-18); CALCIUM LEVEL 8.6 MG/DL (8.8-10.2); CARBON DIOXIDE LEVEL 27 MEQ/L (21-32); CHLORIDE LEVEL 106 MEQ/L (98-107); GLOMERULAR FILTRATION RATE 57.2 (>39); GLUCOSE, FASTING 110 MG/DL (70-100); POTASSIUM SERUM 5.1 MEQ/L (3.5-5.1); SODIUM LEVEL 140 MEQ/L (136-145)
[2017-12-13] MEDS: ALPRAZolam 0.5 MG TAB PO ×2 (20:53)
[2017-12-13] MEDS: AZITHROMYCIN 250 MG TAB PO ×2 (21:00)
[2017-12-13] MEDS: MORPHINE 2 MG/ML 1ML SYRINGE (J2270) IV ×2 (21:47)
[2017-12-13] MEDS: HEPARIN SOD (PORCINE) 5000 UNITS/ML VIAL SC ×2 (22:00)
[2017-12-13] MEDS ORDERED: ONDANSETRON 4 MG TAB (S0181) PO ×2 (22:15)
[2017-12-13] MEDS ORDERED: LEVALBUTEROL 1.25 MG/0.5 ML CONCENTRATE NEB INH ×2 (22:15)
[2017-12-13] MEDS: NS 500 ML IV ×2 (22:15)
[2017-12-13] MEDS ORDERED: hydrOXYzine 10 MG TAB PO ×2 (22:15)
[2017-12-14] MEDS: IPRATROPIUM 0.5MG/ALBUTEROL 2.5MG INH SOL UD 3ML (DUONEB)(J7620) NEB ×8 (01:03→21:18)
[2017-12-14] MEDS: NORCO, ANEXSIA 5/325MG TABLET (HYDROcodone/ACETAMINOPHEN) PO ×8 (01:12→21:20)
[2017-12-14] MEDS ORDERED: diphenhydrAMINE 25 MG CAP As Ordered ×2 (02:45)
[2017-12-14] MEDS: diphenhydrAMINE 50 MG CAP PO ×2 (02:45)
[2017-12-14] MEDS: HEPARIN SOD (PORCINE) 5000 UNITS/ML VIAL SC ×6 (06:16→21:20)
[2017-12-14] MEDS: TIOTROPIUM INHALER/CAPSULE (SPIRIVA) INH ×2 (07:24)
[2017-12-14 07:54] LABS: HEMOGLOBIN 9.7 g/dl (12.0-15.5); MEAN CORPUSCULAR HEMOGLOBIN 30.9 pg (27.0-33.0); MEAN CORPUSCULAR HGB CONC 32.3 g/dl (32.0-36.5); MEAN CORPUSCULAR VOLUME 95.5 fl (80.0-96.0); PLATELET COUNT, AUTOMATED 268 10^3/uL (150-450); RED BLOOD COUNT 3.14 10^6/uL (4.00-5.40); RED CELL DISTRIBUTION WIDTH 14.6 % (11.5-14.5); WHITE BLOOD COUNT 15.8 10^3/uL (4.0-10.0)
[2017-12-14] MEDS: PANTOPRAZOLE 40MG TAB (PROTONIX) PO ×2 (08:00)
[2017-12-14] MEDS: predniSONE 20 MG TAB PO ×2 (08:00)
[2017-12-14] MEDS: ALPRAZolam 0.25 MG TAB PO ×4 (08:01→16:05)
[2017-12-14] MEDS: ESCITALOPRAM OXALATE 10 MG TAB (LEXAPRO) PO ×2 (08:01)
[2017-12-14 08:02] LABS: ANION GAP 9 MEQ/L (8-16); BLOOD UREA NITROGEN 31 MG/DL (7-18); CALCIUM LEVEL 8.5 MG/DL (8.8-10.2); CARBON DIOXIDE LEVEL 25 MEQ/L (21-32); CHLORIDE LEVEL 103 MEQ/L (98-107); GLOMERULAR FILTRATION RATE > 60.0 (>39); GLUCOSE, FASTING 178 MG/DL (70-100); POTASSIUM SERUM 4.4 MEQ/L (3.5-5.1); SODIUM LEVEL 137 MEQ/L (136-145)
[2017-12-14] MEDS ORDERED: LEVALBUTEROL 1.25 MG/0.5 ML CONCENTRATE NEB INH ×2 (09:00)
[2017-12-14] MEDS: FORMOTEROL FUMARATE 20 MCG/2 ML INHALATION SOLUTION (PERFOROMIST) INH ×4 (09:58→21:18)
[2017-12-14] MEDS: SENOKOT S TAB PO ×4 (10:07→21:19)
[2017-12-14] MEDS: MIRALAX *UNIT DOSE* 17GM PACKET PO ×2 (10:07)
[2017-12-14] MEDS: FLEET ENEMA PR ×2 (10:09)
[2017-12-14] MEDS: rOPINIRole 1MG TAB PO ×2 (21:19)
[2017-12-15] MEDS: ALPRAZolam 0.25 MG TAB PO ×4 (00:05→08:31)
[2017-12-15] MEDS: IPRATROPIUM 0.5MG/ALBUTEROL 2.5MG INH SOL UD 3ML (DUONEB)(J7620) NEB ×4 (01:21→07:49)
[2017-12-15] MEDS: NORCO, ANEXSIA 5/325MG TABLET (HYDROcodone/ACETAMINOPHEN) PO ×4 (05:28→11:36)
[2017-12-15] MEDS: HEPARIN SOD (PORCINE) 5000 UNITS/ML VIAL SC ×2 (05:28)
[2017-12-15 06:54] LABS: HEMATOCRIT 31.7 % (36.0-47.0); HEMOGLOBIN 9.7 g/dl (12.0-15.5); MEAN CORPUSCULAR HEMOGLOBIN 29.9 pg (27.0-33.0); MEAN CORPUSCULAR HGB CONC 30.6 g/dl (32.0-36.5); MEAN CORPUSCULAR VOLUME 97.8 fl (80.0-96.0); PLATELET COUNT, AUTOMATED 268 10^3/uL (150-450); RED BLOOD COUNT 3.24 10^6/uL (4.00-5.40); RED CELL DISTRIBUTION WIDTH 14.7 % (11.5-14.5); WHITE BLOOD COUNT 13.8 10^3/uL (4.0-10.0)
[2017-12-15 07:05] LABS: ANION GAP 6 MEQ/L (8-16); BLOOD UREA NITROGEN 32 MG/DL (7-18); CALCIUM LEVEL 7.9 MG/DL (8.8-10.2); CARBON DIOXIDE LEVEL 32 MEQ/L (21-32); CHLORIDE LEVEL 102 MEQ/L (98-107); CREATININE FOR GFR 0.75 MG/DL (0.55-1.30); GLOMERULAR FILTRATION RATE > 60.0 (>39); GLUCOSE, FASTING 123 MG/DL (70-100); POTASSIUM SERUM 4.4 MEQ/L (3.5-5.1); SODIUM LEVEL 140 MEQ/L (136-145)
[2017-12-15] MEDS: TIOTROPIUM INHALER/CAPSULE (SPIRIVA) INH ×2 (07:49)
[2017-12-15] MEDS: ESCITALOPRAM OXALATE 10 MG TAB (LEXAPRO) PO ×2 (08:30)
[2017-12-15] MEDS: PANTOPRAZOLE 40MG TAB (PROTONIX) PO ×2 (08:30)
[2017-12-15] MEDS: predniSONE 20 MG TAB PO ×2 (08:30)
[2017-12-15] MEDS: MIRALAX *UNIT DOSE* 17GM PACKET PO ×2 (08:31)
[2017-12-15] MEDS: SENOKOT S TAB PO ×2 (08:31)
== END 2017-12-15 12:40 ==
LOC: M MS5PR 12-14 05:25 → M ED 19:32 → M ED INP 22:12
DX: J96.21 Acute and chronic respiratory failure with hypoxia (principal); D72.829 Elevated white blood cell count, unspecified; D64.9 Anemia, unspecified; K59.00 Constipation, unspecified; J44.9 Chronic obstructive pulmonary disease, unspecified; I10 Essential (primary) hypertension; M41.9 Scoliosis, unspecified; Z79.52 Long term (current) use of systemic steroids; E78.4 Other hyperlipidemia; Z99.81 Dependence on supplemental oxygen; F32.9 Major depressive disorder, single episode, unspecified; F41.9 Anxiety disorder, unspecified; K31.84 Gastroparesis; K27.9 Peptic ulcer, site unspecified, unspecified as acute or chronic, without hemorrhage or perforation; Z79.899 Other long term (current) drug therapy; Z87.891 Personal history of nicotine dependence
CPT/HCPCS: J2270

== ENCOUNTER 2017-12-27 20:00 | Inpatient (IN) | payer MEDICARE, MEDICAID ==
[2017-12-27] MEDS: ASPIRIN 81 MG CHEW TABLET PO (21:02)
[2017-12-27 21:11] LABS: BASO % 0.1 % (0.0-1.0); HEMATOCRIT 32.9 % (36.0-47.0); HEMOGLOBIN 10.3 g/dl (12.0-15.5); IMMATURE GRANULOCYTE % 2.8 % (0-3.0); LYMPH # 0.7 10^3/uL (1.5-4.5); LYMPH % 4.4 % (24.0-44.0); MEAN CORPUSCULAR HEMOGLOBIN 30.4 pg (27.0-33.0); MEAN CORPUSCULAR HGB CONC 31.3 g/dl (32.0-36.5); MEAN CORPUSCULAR VOLUME 97.1 fl (80.0-96.0); MONO # 0.7 10^3/uL (0.0-0.8); MONO % 4.3 % (0.0-5.0); NEUTROPHILS # 14.3 10^3/uL (1.8-7.7); NEUTROPHILS % 88.4 % (36.0-66.0); PLATELET COUNT, AUTOMATED 275 10^3/uL (150-450); RED BLOOD COUNT 3.39 10^6/uL (4.00-5.40); RED CELL DISTRIBUTION WIDTH 14.5 % (11.5-14.5); WHITE BLOOD COUNT 16.2 10^3/uL (4.0-10.0)
[2017-12-27] MEDS: IPRATROPIUM 0.5MG/ALBUTEROL 2.5MG INH SOL UD 3ML (DUONEB)(J7620) NEB ×3 (21:15→22:20)
[2017-12-27 21:26] LABS: ABG HCO3 24.3 MEQ/L (22.0-26.0); ABG O2 SATURATION 98.7 % (95.0-99.0); ABG PARTIAL PRESSURE CO2 38.3 mmHg (35.0-45.0); ABG PARTIAL PRESSURE O2 161.4 mmHg (75.0-100.0); ABG STANDARD HCO3 24.5 MEQ/L (22.0-26.0); ABG TOTAL CO2 25.5 MEQ/L (23.0-31.0); ABG pH (ARTERIAL) 7.421 UNITS (7.350-7.450)
[2017-12-27 21:37] LABS: LACTIC ACID SEPSIS PROTOCOL 1.2 MMOL/L (0.4-2.0)
[2017-12-27 21:38] LABS: ANION GAP 5 MEQ/L (8-16); BLOOD UREA NITROGEN 28 MG/DL (7-18); CALCIUM LEVEL 8.6 MG/DL (8.8-10.2); CARBON DIOXIDE LEVEL 33 MEQ/L (21-32); CHLORIDE LEVEL 100 MEQ/L (98-107); CK-MB VALUE MASS 2.5 NG/ML (<3.6); CPK CREATINE PHOSPHOKINASE 50 U/L (26-192); CREATININE FOR GFR 0.85 MG/DL (0.55-1.30); GLOMERULAR FILTRATION RATE > 60.0 (>39); GLUCOSE, FASTING 144 MG/DL (70-100); NT-PRO BNP 163 PG/ML (<450); POTASSIUM SERUM 4.7 MEQ/L (3.5-5.1); SODIUM LEVEL 138 MEQ/L (136-145); TROPONIN I < 0.02 NG/ML (< 0.10)
[2017-12-27] MEDS: methylPREDNISolone INJ 125 MG/2 ML VIAL (J2930) IV (21:42)
[2017-12-27] MEDS: MORPHINE 2 MG/ML 1ML SYRINGE (J2270) IV (21:45)
[2017-12-27] MEDS: ALBUTEROL SULFATE 2.5 MG/0.5 ML INH NEB SOLN NEB (22:54)
[2017-12-28] MEDS ORDERED: hydrOXYzine 25 MG TAB PO (00:45)
[2017-12-28] MEDS ORDERED: LEVALBUTEROL 1.25 MG/0.5 ML CONCENTRATE NEB INH (00:45)
[2017-12-28] MEDS: IPRATROPIUM 0.5MG/ALBUTEROL 2.5MG INH SOL UD 3ML (DUONEB)(J7620) NEB ×5 (01:00→20:07)
[2017-12-28] MEDS: NORCO, ANEXSIA 5/325MG TABLET (HYDROcodone/ACETAMINOPHEN) PO ×3 (01:03→20:29)
[2017-12-28] MEDS: rOPINIRole 1MG TAB PO ×2 (01:04→20:26)
[2017-12-28] MEDS: ALPRAZolam 0.5 MG TAB PO ×3 (01:09→15:47)
[2017-12-28] MEDS: ACETAMINOPHEN 650MG ER TAB (TYLENOL ARTHRITIS) PO (05:30)
[2017-12-28 06:29] LABS: HEMATOCRIT 29.4 % (36.0-47.0); HEMOGLOBIN 9.2 g/dl (12.0-15.5); MEAN CORPUSCULAR HEMOGLOBIN 29.9 pg (27.0-33.0); MEAN CORPUSCULAR HGB CONC 31.3 g/dl (32.0-36.5); MEAN CORPUSCULAR VOLUME 95.5 fl (80.0-96.0); PLATELET COUNT, AUTOMATED 263 10^3/uL (150-450); RED BLOOD COUNT 3.08 10^6/uL (4.00-5.40); RED CELL DISTRIBUTION WIDTH 14.8 % (11.5-14.5); WHITE BLOOD COUNT 17.2 10^3/uL (4.0-10.0)
[2017-12-28 06:43] LABS: ANION GAP 8 MEQ/L (8-16); BLOOD UREA NITROGEN 29 MG/DL (7-18); CALCIUM LEVEL 8.6 MG/DL (8.8-10.2); CARBON DIOXIDE LEVEL 30 MEQ/L (21-32); CHLORIDE LEVEL 99 MEQ/L (98-107); CREATININE FOR GFR 0.96 MG/DL (0.55-1.30); GLUCOSE, FASTING 213 MG/DL (70-100); POTASSIUM SERUM 4.7 MEQ/L (3.5-5.1); SODIUM LEVEL 137 MEQ/L (136-145)
[2017-12-28] MEDS: TIOTROPIUM INHALER/CAPSULE (SPIRIVA) INH (07:06)
[2017-12-28] MEDS: METOCLOPRAMIDE HCL LIQUID 10 MG/10 ML UDC PO (07:30)
[2017-12-28] MEDS: SENOKOT S TAB PO ×2 (08:26→20:27)
[2017-12-28] MEDS: ENOXAPARIN 40 MG/0.4 ML SYRINGE (J1650) SC (08:26)
[2017-12-28] MEDS: PANTOPRAZOLE 20 MG TAB PO ×2 (08:26→20:27)
[2017-12-28] MEDS: predniSONE 20 MG TAB PO (08:26)
[2017-12-28] MEDS: ESCITALOPRAM OXALATE 10 MG TAB (LEXAPRO) PO (08:27)
[2017-12-28] MEDS: MIRALAX *UNIT DOSE* 17GM PACKET PO ×2 (08:27→08:34)
[2017-12-28] MEDS: METOCLOPRAMIDE 5 MG TAB PO ×3 (12:19→20:26)
[2017-12-28] MEDS: ONDANSETRON 4MG/2ML VIAL (J2405) IV (20:32)
[2017-12-29] MEDS: ALPRAZolam 0.5 MG TAB PO ×3 (01:39→16:40)
[2017-12-29] MEDS: ONDANSETRON 4MG/2ML VIAL (J2405) IV ×3 (04:06→18:36)
[2017-12-29 06:29] LABS: HEMATOCRIT 30.6 % (36.0-47.0); HEMOGLOBIN 9.6 g/dl (12.0-15.5); MEAN CORPUSCULAR HEMOGLOBIN 30.3 pg (27.0-33.0); MEAN CORPUSCULAR HGB CONC 31.4 g/dl (32.0-36.5); MEAN CORPUSCULAR VOLUME 96.5 fl (80.0-96.0); PLATELET COUNT, AUTOMATED 261 10^3/uL (150-450); RED BLOOD COUNT 3.17 10^6/uL (4.00-5.40); RED CELL DISTRIBUTION WIDTH 14.6 % (11.5-14.5); WHITE BLOOD COUNT 16.3 10^3/uL (4.0-10.0)
[2017-12-29 06:44] LABS: ANION GAP 4 MEQ/L (8-16); BLOOD UREA NITROGEN 32 MG/DL (7-18); CALCIUM LEVEL 8.8 MG/DL (8.8-10.2); CARBON DIOXIDE LEVEL 34 MEQ/L (21-32); CHLORIDE LEVEL 101 MEQ/L (98-107); CREATININE FOR GFR 0.86 MG/DL (0.55-1.30); GLOMERULAR FILTRATION RATE > 60.0 (>39); GLUCOSE, FASTING 130 MG/DL (70-100); SODIUM LEVEL 139 MEQ/L (136-145)
[2017-12-29 06:47] LABS: POTASSIUM SERUM 5.4 MEQ/L (3.5-5.1)
[2017-12-29] MEDS: TIOTROPIUM INHALER/CAPSULE (SPIRIVA) INH (07:08)
[2017-12-29] MEDS: IPRATROPIUM 0.5MG/ALBUTEROL 2.5MG INH SOL UD 3ML (DUONEB)(J7620) NEB ×4 (07:09→21:14)
[2017-12-29 08:37] LABS: POTASSIUM SERUM 5.4 MEQ/L (3.5-5.1)
[2017-12-29] MEDS: MIRALAX *UNIT DOSE* 17GM PACKET PO (09:48)
[2017-12-29] MEDS: SENOKOT S TAB PO ×2 (09:48→21:39)
[2017-12-29] MEDS: PANTOPRAZOLE 20 MG TAB PO ×2 (09:48→21:39)
[2017-12-29] MEDS: ESCITALOPRAM OXALATE 10 MG TAB (LEXAPRO) PO (09:48)
[2017-12-29] MEDS: METOCLOPRAMIDE 5 MG TAB PO ×4 (09:48→21:39)
[2017-12-29] MEDS: predniSONE 20 MG TAB PO (09:49)
[2017-12-29] MEDS: ENOXAPARIN 40 MG/0.4 ML SYRINGE (J1650) SC (09:49)
[2017-12-29] MEDS: NORCO, ANEXSIA 5/325MG TABLET (HYDROcodone/ACETAMINOPHEN) PO ×2 (09:51→21:46)
[2017-12-29] MEDS: HumuLIN R (REGULAR) INSULIN (NovoLIN R) **100U/ML** PER UNIT SC (12:15)
[2017-12-29] MEDS ORDERED: SOD POLYSTYRENE SULFONATE SUSP 15 GM/60 ML UD PO (12:15)
[2017-12-29] MEDS: DEXTROSE 50% 50 ML SYRINGE IV (12:40)
[2017-12-29] MEDS: CALCIUM GLUCONATE 1,000 MG in D5W MINI-BAG PLUS 100 ML IV (12:41)
[2017-12-29] MEDS: ALBUTEROL SULFATE 2.5 MG/0.5 ML INH NEB SOLN NEB (13:55)
[2017-12-29 17:24] LABS: POTASSIUM SERUM 5.1 MEQ/L (3.5-5.1)
[2017-12-29] MEDS: CALCIUM CARBONATE 500 MG CHEW U/D PO (19:08)
[2017-12-29] MEDS: rOPINIRole 1MG TAB PO (21:39)
[2017-12-29] MEDS: MAALOX 30 ML SUSP *UDC PO (23:54)
[2017-12-29] MEDS: traZODone 100 MG TAB PO (23:54)
[2017-12-30] MEDS: ONDANSETRON 4MG/2ML VIAL (J2405) IV ×4 (00:35→22:02)
[2017-12-30 06:15] LABS: HEMATOCRIT 31.3 % (36.0-47.0); HEMOGLOBIN 9.6 g/dl (12.0-15.5); MEAN CORPUSCULAR HEMOGLOBIN 29.8 pg (27.0-33.0); MEAN CORPUSCULAR HGB CONC 30.7 g/dl (32.0-36.5); MEAN CORPUSCULAR VOLUME 97.2 fl (80.0-96.0); PLATELET COUNT, AUTOMATED 243 10^3/uL (150-450); RED BLOOD COUNT 3.22 10^6/uL (4.00-5.40); RED CELL DISTRIBUTION WIDTH 14.6 % (11.5-14.5); WHITE BLOOD COUNT 12.3 10^3/uL (4.0-10.0)
[2017-12-30 06:42] LABS: ANION GAP 6 MEQ/L (8-16); BLOOD UREA NITROGEN 31 MG/DL (7-18); CALCIUM LEVEL 8.8 MG/DL (8.8-10.2); CARBON DIOXIDE LEVEL 36 MEQ/L (21-32); CHLORIDE LEVEL 99 MEQ/L (98-107); GLOMERULAR FILTRATION RATE > 60.0 (>39); GLUCOSE, FASTING 103 MG/DL (70-100); POTASSIUM SERUM 4.8 MEQ/L (3.5-5.1); SODIUM LEVEL 141 MEQ/L (136-145)
[2017-12-30] MEDS: METOCLOPRAMIDE 5 MG TAB PO ×4 (08:15→19:59)
[2017-12-30] MEDS: ALPRAZolam 0.5 MG TAB PO ×3 (08:15→22:17)
[2017-12-30] MEDS: TIOTROPIUM INHALER/CAPSULE (SPIRIVA) INH (08:17)
[2017-12-30] MEDS: IPRATROPIUM 0.5MG/ALBUTEROL 2.5MG INH SOL UD 3ML (DUONEB)(J7620) NEB ×4 (08:17→20:07)
[2017-12-30] MEDS: NORCO, ANEXSIA 5/325MG TABLET (HYDROcodone/ACETAMINOPHEN) PO ×2 (10:44→19:55)
[2017-12-30] MEDS: predniSONE 20 MG TAB PO (10:51)
[2017-12-30] MEDS: MIRALAX *UNIT DOSE* 17GM PACKET PO (10:52)
[2017-12-30] MEDS: SENOKOT S TAB PO (10:52)
[2017-12-30] MEDS: PANTOPRAZOLE 20 MG TAB PO ×2 (10:52→19:59)
[2017-12-30] MEDS: ESCITALOPRAM OXALATE 10 MG TAB (LEXAPRO) PO (10:52)
[2017-12-30] MEDS: ENOXAPARIN 40 MG/0.4 ML SYRINGE (J1650) SC (10:53)
[2017-12-30] MEDS: rOPINIRole 1MG TAB PO (19:59)
[2017-12-30] MEDS: traZODone 100 MG TAB PO (19:59)
[2017-12-31] MEDS: ONDANSETRON 4MG/2ML VIAL (J2405) IV ×3 (04:52→20:24)
[2017-12-31] MEDS: NORCO, ANEXSIA 5/325MG TABLET (HYDROcodone/ACETAMINOPHEN) PO ×3 (04:53→20:25)
[2017-12-31 06:01] LABS: HEMATOCRIT 30.2 % (36.0-47.0); HEMOGLOBIN 9.4 g/dl (12.0-15.5); MEAN CORPUSCULAR HEMOGLOBIN 29.8 pg (27.0-33.0); MEAN CORPUSCULAR HGB CONC 31.1 g/dl (32.0-36.5); MEAN CORPUSCULAR VOLUME 95.9 fl (80.0-96.0); PLATELET COUNT, AUTOMATED 226 10^3/uL (150-450); RED BLOOD COUNT 3.15 10^6/uL (4.00-5.40); RED CELL DISTRIBUTION WIDTH 14.6 % (11.5-14.5); WHITE BLOOD COUNT 11.2 10^3/uL (4.0-10.0)
[2017-12-31 06:23] LABS: ANION GAP 3 MEQ/L (8-16); BLOOD UREA NITROGEN 28 MG/DL (7-18); CALCIUM LEVEL 8.2 MG/DL (8.8-10.2); CARBON DIOXIDE LEVEL 37 MEQ/L (21-32); CHLORIDE LEVEL 99 MEQ/L (98-107); CREATININE FOR GFR 0.81 MG/DL (0.55-1.30); GLOMERULAR FILTRATION RATE > 60.0 (>39); GLUCOSE, FASTING 106 MG/DL (70-100); POTASSIUM SERUM 4.5 MEQ/L (3.5-5.1); SODIUM LEVEL 139 MEQ/L (136-145)
[2017-12-31] MEDS: TIOTROPIUM INHALER/CAPSULE (SPIRIVA) INH (07:50)
[2017-12-31] MEDS: IPRATROPIUM 0.5MG/ALBUTEROL 2.5MG INH SOL UD 3ML (DUONEB)(J7620) NEB ×4 (07:50→20:55)
[2017-12-31] MEDS: ALPRAZolam 0.5 MG TAB PO ×2 (07:56→16:33)
[2017-12-31] MEDS: METOCLOPRAMIDE 5 MG TAB PO ×4 (07:56→20:25)
[2017-12-31] MEDS: ENOXAPARIN 40 MG/0.4 ML SYRINGE (J1650) SC (07:57)
[2017-12-31] MEDS: PANTOPRAZOLE 20 MG TAB PO ×2 (07:57→20:25)
[2017-12-31] MEDS: ESCITALOPRAM OXALATE 10 MG TAB (LEXAPRO) PO (07:57)
[2017-12-31] MEDS: predniSONE 20 MG TAB PO (07:59)
[2017-12-31] MEDS: rOPINIRole 1MG TAB PO (20:25)
[2017-12-31] MEDS: traZODone 100 MG TAB PO (20:25)
[2018-01-01] MEDS: ONDANSETRON 4MG/2ML VIAL (J2405) IV ×2 (03:18→19:21)
[2018-01-01] MEDS: MORPHINE 4 MG/ML 1ML VIAL/SYRINGE (J2270) IV (04:55)
[2018-01-01 06:41] LABS: HEMATOCRIT 32.2 % (36.0-47.0); HEMOGLOBIN 9.9 g/dl (12.0-15.5); MEAN CORPUSCULAR HEMOGLOBIN 29.6 pg (27.0-33.0); MEAN CORPUSCULAR HGB CONC 30.7 g/dl (32.0-36.5); MEAN CORPUSCULAR VOLUME 96.1 fl (80.0-96.0); PLATELET COUNT, AUTOMATED 225 10^3/uL (150-450); RED BLOOD COUNT 3.35 10^6/uL (4.00-5.40); RED CELL DISTRIBUTION WIDTH 14.4 % (11.5-14.5); WHITE BLOOD COUNT 11.4 10^3/uL (4.0-10.0)
[2018-01-01 06:54] LABS: ANION GAP 4 MEQ/L (8-16); BLOOD UREA NITROGEN 31 MG/DL (7-18); CALCIUM LEVEL 8.3 MG/DL (8.8-10.2); CARBON DIOXIDE LEVEL 36 MEQ/L (21-32); CHLORIDE LEVEL 99 MEQ/L (98-107); CREATININE FOR GFR 0.81 MG/DL (0.55-1.30); GLOMERULAR FILTRATION RATE > 60.0 (>39); GLUCOSE, FASTING 96 MG/DL (70-100); POTASSIUM SERUM 4.5 MEQ/L (3.5-5.1); SODIUM LEVEL 139 MEQ/L (136-145)
[2018-01-01 06:58] LABS: TROPONIN I < 0.02 NG/ML (< 0.10)
[2018-01-01] MEDS: TIOTROPIUM INHALER/CAPSULE (SPIRIVA) INH (07:05)
[2018-01-01] MEDS: IPRATROPIUM 0.5MG/ALBUTEROL 2.5MG INH SOL UD 3ML (DUONEB)(J7620) NEB ×4 (07:05→20:10)
[2018-01-01] MEDS: predniSONE 20 MG TAB PO (09:00)
[2018-01-01] MEDS: ENOXAPARIN 40 MG/0.4 ML SYRINGE (J1650) SC (09:00)
[2018-01-01] MEDS: METOCLOPRAMIDE 5 MG TAB PO ×4 (09:01→20:39)
[2018-01-01] MEDS: ESCITALOPRAM OXALATE 10 MG TAB (LEXAPRO) PO (09:01)
[2018-01-01] MEDS: ALPRAZolam 0.5 MG TAB PO ×3 (09:01→17:27)
[2018-01-01] MEDS: PANTOPRAZOLE 20 MG TAB PO ×2 (09:02→20:39)
[2018-01-01] MEDS: NORCO, ANEXSIA 5/325MG TABLET (HYDROcodone/ACETAMINOPHEN) PO (10:21)
[2018-01-01 14:21] LABS: CK-MB VALUE MASS 1.9 NG/ML (<3.6); CPK CREATINE PHOSPHOKINASE 32 U/L (26-192); MB/CK RELATIVE INDEX 5.93 (< OR =4); TROPONIN I < 0.02 NG/ML (< 0.10)
[2018-01-01] MEDS: traZODone 100 MG TAB PO (20:39)
[2018-01-01] MEDS: rOPINIRole 1MG TAB PO (20:39)
[2018-01-01 22:30] LABS: CK-MB VALUE MASS 1.3 NG/ML (<3.6); CPK CREATINE PHOSPHOKINASE 23 U/L (26-192); MB/CK RELATIVE INDEX 5.65 (< OR =4); TROPONIN I < 0.02 NG/ML (< 0.10)
[2018-01-02] MEDS: ONDANSETRON 4MG/2ML VIAL (J2405) IV ×3 (03:58→17:33)
[2018-01-02] MEDS: NORCO, ANEXSIA 5/325MG TABLET (HYDROcodone/ACETAMINOPHEN) PO (06:28)
[2018-01-02 06:38] LABS: HEMATOCRIT 31.7 % (36.0-47.0); HEMOGLOBIN 9.8 g/dl (12.0-15.5); MEAN CORPUSCULAR HEMOGLOBIN 29.8 pg (27.0-33.0); MEAN CORPUSCULAR HGB CONC 30.9 g/dl (32.0-36.5); MEAN CORPUSCULAR VOLUME 96.4 fl (80.0-96.0); PLATELET COUNT, AUTOMATED 220 10^3/uL (150-450); RED BLOOD COUNT 3.29 10^6/uL (4.00-5.40); RED CELL DISTRIBUTION WIDTH 14.6 % (11.5-14.5); WHITE BLOOD COUNT 11.4 10^3/uL (4.0-10.0)
[2018-01-02 07:20] LABS: ANION GAP 5 MEQ/L (8-16); BLOOD UREA NITROGEN 29 MG/DL (7-18); CALCIUM LEVEL 8.3 MG/DL (8.8-10.2); CARBON DIOXIDE LEVEL 35 MEQ/L (21-32); CHLORIDE LEVEL 98 MEQ/L (98-107); CK-MB VALUE MASS 1.1 NG/ML (<3.6); CPK CREATINE PHOSPHOKINASE 21 U/L (26-192); CREATININE FOR GFR 0.77 MG/DL (0.55-1.30); GLOMERULAR FILTRATION RATE > 60.0 (>39); GLUCOSE, FASTING 101 MG/DL (70-100); MB/CK RELATIVE INDEX 5.23 (< OR =4); POTASSIUM SERUM 4.4 MEQ/L (3.5-5.1); SODIUM LEVEL 138 MEQ/L (136-145); TROPONIN I < 0.02 NG/ML (< 0.10)
[2018-01-02] MEDS: TIOTROPIUM INHALER/CAPSULE (SPIRIVA) INH (07:35)
[2018-01-02] MEDS: IPRATROPIUM 0.5MG/ALBUTEROL 2.5MG INH SOL UD 3ML (DUONEB)(J7620) NEB ×4 (07:35→20:30)
[2018-01-02] MEDS: predniSONE 20 MG TAB PO (07:59)
[2018-01-02] MEDS: PANTOPRAZOLE 20 MG TAB PO ×2 (08:00→20:02)
[2018-01-02] MEDS: ESCITALOPRAM OXALATE 10 MG TAB (LEXAPRO) PO (08:00)
[2018-01-02] MEDS: ALPRAZolam 0.5 MG TAB PO ×2 (08:00→15:40)
[2018-01-02] MEDS: METOCLOPRAMIDE 5 MG TAB PO ×4 (08:00→20:02)
[2018-01-02] MEDS: ENOXAPARIN 40 MG/0.4 ML SYRINGE (J1650) SC (08:01)
[2018-01-02 11:27] LABS: LIPASE 157 U/L (73-393)
[2018-01-02] MEDS: rOPINIRole 1MG TAB PO (20:02)
[2018-01-02] MEDS: traZODone 100 MG TAB PO (20:02)
[2018-01-03] MEDS: ONDANSETRON 4MG/2ML VIAL (J2405) IV ×4 (03:33→23:02)
[2018-01-03] MEDS: NORCO, ANEXSIA 5/325MG TABLET (HYDROcodone/ACETAMINOPHEN) PO ×2 (05:57→13:43)
[2018-01-03 06:23] LABS: HEMATOCRIT 32.5 % (36.0-47.0); HEMOGLOBIN 10.2 g/dl (12.0-15.5); MEAN CORPUSCULAR HEMOGLOBIN 29.8 pg (27.0-33.0); MEAN CORPUSCULAR HGB CONC 31.4 g/dl (32.0-36.5); PLATELET COUNT, AUTOMATED 256 10^3/uL (150-450); RED BLOOD COUNT 3.42 10^6/uL (4.00-5.40); RED CELL DISTRIBUTION WIDTH 14.6 % (11.5-14.5); WHITE BLOOD COUNT 14.5 10^3/uL (4.0-10.0)
[2018-01-03 06:35] LABS: ANION GAP 7 MEQ/L (8-16); BLOOD UREA NITROGEN 32 MG/DL (7-18); CALCIUM LEVEL 8.4 MG/DL (8.8-10.2); CARBON DIOXIDE LEVEL 34 MEQ/L (21-32); CHLORIDE LEVEL 100 MEQ/L (98-107); CREATININE FOR GFR 0.85 MG/DL (0.55-1.30); GLOMERULAR FILTRATION RATE > 60.0 (>39); GLUCOSE, FASTING 99 MG/DL (70-100); POTASSIUM SERUM 4.5 MEQ/L (3.5-5.1); SODIUM LEVEL 141 MEQ/L (136-145)
[2018-01-03] MEDS: IPRATROPIUM 0.5MG/ALBUTEROL 2.5MG INH SOL UD 3ML (DUONEB)(J7620) NEB ×4 (08:21→20:49)
[2018-01-03] MEDS: TIOTROPIUM INHALER/CAPSULE (SPIRIVA) INH (08:21)
[2018-01-03] MEDS: predniSONE 20 MG TAB PO (08:54)
[2018-01-03] MEDS: METOCLOPRAMIDE 5 MG TAB PO ×4 (08:55→20:02)
[2018-01-03] MEDS: ALPRAZolam 0.5 MG TAB PO ×3 (08:55→15:53)
[2018-01-03] MEDS: PANTOPRAZOLE 20 MG TAB PO ×2 (08:56→20:02)
[2018-01-03] MEDS: ESCITALOPRAM OXALATE 10 MG TAB (LEXAPRO) PO (08:56)
[2018-01-03] MEDS: ENOXAPARIN 40 MG/0.4 ML SYRINGE (J1650) SC (08:57)
[2018-01-03] MEDS ORDERED: ISOVUE-370 76% 100ML VIAL (Q9967) As Ordered (10:56)
[2018-01-03 15:39] LABS: LACTIC ACID SEPSIS PROTOCOL 2.6 MMOL/L (0.4-2.0)
[2018-01-03] MEDS: predniSONE 10 MG TAB PO (15:53)
[2018-01-03] MEDS: NS 1,000 ML IV (15:53)
[2018-01-03] MEDS: SENOKOT S TAB PO ×2 (15:55→20:02)
[2018-01-03 18:23] LABS: ALBUMIN 2.6 GM/DL (3.2-5.2); ALBUMIN/GLOBULIN RATIO 0.84 (1.00-1.93); ALKALINE PHOSPHATASE 50 U/L (45-117); ALT/SGPT 24 U/L (12-78); AST/SGOT 19 U/L (7-37); BILIRUBIN,DIRECT < 0.1 MG/DL (0.0-0.2); BILIRUBIN,TOTAL 0.1 MG/DL (0.2-1.0); TOTAL PROTEIN 5.7 GM/DL (6.4-8.2)
[2018-01-03] MEDS: traZODone 100 MG TAB PO (20:02)
[2018-01-03] MEDS: rOPINIRole 1MG TAB PO (20:02)
[2018-01-04 00:32] LABS: LACTIC ACID SEPSIS PROTOCOL 1.9 MMOL/L (0.4-2.0)
[2018-01-04] MEDS: NS 1,000 ML IV (03:48)
[2018-01-04] MEDS: ONDANSETRON 4MG/2ML VIAL (J2405) IV ×3 (06:10→18:23)
[2018-01-04 08:21] LABS: HEMOGLOBIN 8.6 g/dl (12.0-15.5); MEAN CORPUSCULAR HEMOGLOBIN 30.2 pg (27.0-33.0); MEAN CORPUSCULAR HGB CONC 30.7 g/dl (32.0-36.5); MEAN CORPUSCULAR VOLUME 98.2 fl (80.0-96.0); PLATELET COUNT, AUTOMATED 214 10^3/uL (150-450); RED BLOOD COUNT 2.85 10^6/uL (4.00-5.40); RED CELL DISTRIBUTION WIDTH 14.6 % (11.5-14.5)
[2018-01-04 08:23] LABS: ADD MANUAL DIFFER YES; DIFF SLIDE NUMBER 96; POS COUNT POS FLAG; POSITIVE MORPH POS FLAG
[2018-01-04 08:45] LABS: LYMPHOCYTES 9 % (16-52); METAMYELOCYTES 1 % (0-0); MONOCYTES 4 % (0-8); NEUTROPHILS 86 % (35-75); PLATELET ESTIMATE NORMAL (NORMAL)
[2018-01-04 08:51] LABS: ALKALINE PHOSPHATASE 46 U/L (45-117); ALT/SGPT 22 U/L (12-78); ANION GAP 7 MEQ/L (8-16); AST/SGOT 15 U/L (7-37); BILIRUBIN,TOTAL 0.2 MG/DL (0.2-1.0); BLOOD UREA NITROGEN 23 MG/DL (7-18); CALCIUM LEVEL 7.7 MG/DL (8.8-10.2); CARBON DIOXIDE LEVEL 29 MEQ/L (21-32); CHLORIDE LEVEL 105 MEQ/L (98-107); CREATININE FOR GFR 0.64 MG/DL (0.55-1.30); GLOMERULAR FILTRATION RATE > 60.0 (>39); GLUCOSE, FASTING 111 MG/DL (70-100); POTASSIUM SERUM 4.5 MEQ/L (3.5-5.1); SODIUM LEVEL 141 MEQ/L (136-145)
[2018-01-04 08:52] LABS: ALBUMIN 2.5 GM/DL (3.2-5.2); ALBUMIN/GLOBULIN RATIO 0.89 (1.00-1.93); MAGNESIUM LEVEL 2.5 MG/DL (1.8-2.4); TOTAL PROTEIN 5.3 GM/DL (6.4-8.2)
[2018-01-04] MEDS: PANTOPRAZOLE 20 MG TAB PO ×2 (09:00→21:14)
[2018-01-04] MEDS: METOCLOPRAMIDE 5 MG TAB PO ×4 (09:16→21:14)
[2018-01-04] MEDS: ALPRAZolam 0.5 MG TAB PO ×2 (09:16→15:38)
[2018-01-04] MEDS: predniSONE 20 MG TAB PO (09:17)
[2018-01-04] MEDS: SENOKOT S TAB PO ×2 (09:17→21:00)
[2018-01-04] MEDS: ESCITALOPRAM OXALATE 10 MG TAB (LEXAPRO) PO (09:17)
[2018-01-04] MEDS: NORCO, ANEXSIA 5/325MG TABLET (HYDROcodone/ACETAMINOPHEN) PO ×3 (09:20→21:43)
[2018-01-04] MEDS: ENOXAPARIN 40 MG/0.4 ML SYRINGE (J1650) SC (09:20)
[2018-01-04] MEDS: IPRATROPIUM 0.5MG/ALBUTEROL 2.5MG INH SOL UD 3ML (DUONEB)(J7620) NEB ×4 (09:37→20:26)
[2018-01-04] MEDS: TIOTROPIUM INHALER/CAPSULE (SPIRIVA) INH (09:37)
[2018-01-04 14:20] LABS: HEMATOCRIT 30.6 % (36.0-47.0); HEMOGLOBIN 9.3 g/dl (12.0-15.5)
[2018-01-04] MEDS: traZODone 100 MG TAB PO (21:14)
[2018-01-04] MEDS: rOPINIRole 1MG TAB PO (21:15)
[2018-01-05] MEDS: ONDANSETRON 4MG/2ML VIAL (J2405) IV (01:31)
[2018-01-05] MEDS: NORCO, ANEXSIA 5/325MG TABLET (HYDROcodone/ACETAMINOPHEN) PO (05:08)
[2018-01-05 06:27] LABS: ADD MANUAL DIFFER YES; DIFF SLIDE NUMBER 44; HEMATOCRIT 27.7 % (36.0-47.0); HEMOGLOBIN 8.5 g/dl (12.0-15.5); MEAN CORPUSCULAR HEMOGLOBIN 29.8 pg (27.0-33.0); MEAN CORPUSCULAR HGB CONC 30.7 g/dl (32.0-36.5); MEAN CORPUSCULAR VOLUME 97.2 fl (80.0-96.0); PLATELET COUNT, AUTOMATED 245 10^3/uL (150-450); POS COUNT POS FLAG; POSITIVE MORPH POS FLAG; RED BLOOD COUNT 2.85 10^6/uL (4.00-5.40); RED CELL DISTRIBUTION WIDTH 14.6 % (11.5-14.5)
[2018-01-05 06:44] LABS: ALBUMIN 2.5 GM/DL (3.2-5.2); ALBUMIN/GLOBULIN RATIO 0.86 (1.00-1.93); ALKALINE PHOSPHATASE 44 U/L (45-117); ALT/SGPT 22 U/L (12-78); ANION GAP 6 MEQ/L (8-16); AST/SGOT 15 U/L (7-37); BILIRUBIN,TOTAL 0.1 MG/DL (0.2-1.0); BLOOD UREA NITROGEN 21 MG/DL (7-18); CARBON DIOXIDE LEVEL 31 MEQ/L (21-32); CHLORIDE LEVEL 105 MEQ/L (98-107); CREATININE FOR GFR 0.71 MG/DL (0.55-1.30); GLOMERULAR FILTRATION RATE > 60.0 (>39); GLUCOSE, FASTING 118 MG/DL (70-100); MAGNESIUM LEVEL 2.3 MG/DL (1.8-2.4); POTASSIUM SERUM 4.3 MEQ/L (3.5-5.1); SODIUM LEVEL 142 MEQ/L (136-145); TOTAL PROTEIN 5.4 GM/DL (6.4-8.2)
[2018-01-05 06:49] LABS: LYMPHOCYTES 8 % (16-52); METAMYELOCYTES 3 % (0-0); MONOCYTES 2 % (0-8); MYELOCYTES 3 % (0-0); NEUTROPHILS 84 % (35-75); PLATELET ESTIMATE NORMAL (NORMAL)
[2018-01-05 06:50] LABS: HYPOCHROMASIA 1+
[2018-01-05] MEDS: IPRATROPIUM 0.5MG/ALBUTEROL 2.5MG INH SOL UD 3ML (DUONEB)(J7620) NEB ×2 (07:08→11:02)
[2018-01-05] MEDS: TIOTROPIUM INHALER/CAPSULE (SPIRIVA) INH (07:08)
[2018-01-05] MEDS: METOCLOPRAMIDE 5 MG TAB PO (08:37)
[2018-01-05] MEDS: predniSONE 20 MG TAB PO (08:37)
[2018-01-05] MEDS: ESCITALOPRAM OXALATE 10 MG TAB (LEXAPRO) PO (08:38)
[2018-01-05] MEDS: PANTOPRAZOLE 20 MG TAB PO (08:38)
[2018-01-05] MEDS: SENOKOT S TAB PO (08:38)
[2018-01-05] MEDS: ALPRAZolam 0.5 MG TAB PO (08:38)
[2018-01-05] MEDS: ENOXAPARIN 40 MG/0.4 ML SYRINGE (J1650) SC (08:39)
== END 2018-01-05 11:24 | DRG 191 ==
LOC: M ED INP 23:13 → M MSPAV 12-28 00:48 → M ED 20:00
DX: J44.1 Chronic obstructive pulmonary disease with (acute) exacerbation (principal); J96.11 Chronic respiratory failure with hypoxia; G89.29 Other chronic pain; F41.9 Anxiety disorder, unspecified; J30.2 Other seasonal allergic rhinitis; G47.00 Insomnia, unspecified; I27.20 Pulmonary hypertension, unspecified; G47.33 Obstructive sleep apnea (adult) (pediatric); G25.81 Restless legs syndrome; K59.00 Constipation, unspecified; F32.9 Major depressive disorder, single episode, unspecified; E87.5 Hyperkalemia; K21.9 Gastro-esophageal reflux disease without esophagitis; R07.89 Other chest pain; R10.11 Right upper quadrant pain; D64.9 Anemia, unspecified; Z99.81 Dependence on supplemental oxygen; Z79.52 Long term (current) use of systemic steroids; Z88.8 Allergy status to other drugs, medicaments and biological substances; Z79.899 Other long term (current) drug therapy

== ENCOUNTER 2018-01-05 19:45 | Emergency (ER) | payer MEDICARE, MEDICAID ==
[2018-01-05] MEDS: PERCOCET 5MG/325MG TAB PO (21:41)
== END 2018-01-06 00:11 | disposition home or self-care (01) ==
LOC: M ED 01-06 00:11
DX: S80.01XA Contusion of right knee, initial encounter (principal); W01.0XXA Fall on same level from slipping, tripping and stumbling without subsequent striking against object, initial encounter; Y92.129 Unspecified place in nursing home as the place of occurrence of the external cause; R06.02 Shortness of breath; I11.9 Hypertensive heart disease without heart failure; J44.9 Chronic obstructive pulmonary disease, unspecified; F17.200 Nicotine dependence, unspecified, uncomplicated; Z88.8 Allergy status to other drugs, medicaments and biological substances; Z79.899 Other long term (current) drug therapy
CPT/HCPCS: 73564

== ENCOUNTER 2018-01-19 11:07 | Inpatient (IN) | payer MEDICARE, MEDICAID ==
[2018-01-19] MEDS: MORPHINE 2 MG/ML 1ML SYRINGE (J2270) IV (11:29)
[2018-01-19 11:32] LABS: BASO % 0.2 % (0.0-1.0); EOS # 0.1 10^3/uL (0.0-0.50); EOS % 0.6 % (0.0-3.0); HEMATOCRIT 34.4 % (36.0-47.0); HEMOGLOBIN 10.5 g/dl (12.0-15.5); IMMATURE GRANULOCYTE % 2.2 % (0-3.0); LYMPH # 1.2 10^3/uL (1.5-4.5); LYMPH % 8.6 % (24.0-44.0); MEAN CORPUSCULAR HEMOGLOBIN 30.1 pg (27.0-33.0); MEAN CORPUSCULAR HGB CONC 30.5 g/dl (32.0-36.5); MEAN CORPUSCULAR VOLUME 98.6 fl (80.0-96.0); MONO # 0.7 10^3/uL (0.0-0.8); MONO % 5.5 % (0.0-5.0); NEUTROPHILS # 11.1 10^3/uL (1.8-7.7); NEUTROPHILS % 82.9 % (36.0-66.0); PLATELET COUNT, AUTOMATED 246 10^3/uL (150-450); RED BLOOD COUNT 3.49 10^6/uL (4.00-5.40); RED CELL DISTRIBUTION WIDTH 15.7 % (11.5-14.5); WHITE BLOOD COUNT 13.3 10^3/uL (4.0-10.0)
[2018-01-19] MEDS: methylPREDNISolone INJ 125 MG/2 ML VIAL (J2930) IV (11:32)
[2018-01-19] MEDS: GI COCKTAIL 50ML BTL(HYOSCYAMINE/MAALOX/LIDOCAINE VISCOUS)(1:3:1) PO (11:35)
[2018-01-19] MEDS: IPRATROPIUM 0.5MG/ALBUTEROL 2.5MG INH SOL UD 3ML (DUONEB)(J7620) NEB ×3 (11:40→18:16)
[2018-01-19] MEDS: ALBUTEROL SULFATE 2.5 MG/0.5 ML INH NEB SOLN INH ×2 (11:40→16:24)
[2018-01-19 11:42] LABS: INR 0.95; PARTIAL THROMBOPLASTIN TIME 21.8 SECONDS (25.4-37.6); PROTHROMBIN TIME 12.8 SECONDS (12.1-14.4)
[2018-01-19 12:01] LABS: ALBUMIN/GLOBULIN RATIO 0.79 (1.00-1.93); ALKALINE PHOSPHATASE 59 U/L (45-117); ALT/SGPT 29 U/L (12-78); ANION GAP 5 MEQ/L (8-16); AST/SGOT 20 U/L (7-37); BILIRUBIN,DIRECT < 0.1 MG/DL (0.0-0.2); BILIRUBIN,TOTAL 0.2 MG/DL (0.2-1.0); BLOOD UREA NITROGEN 29 MG/DL (7-18); CALCIUM LEVEL 8.4 MG/DL (8.8-10.2); CARBON DIOXIDE LEVEL 36 MEQ/L (21-32); CHLORIDE LEVEL 99 MEQ/L (98-107); CREATININE FOR GFR 0.83 MG/DL (0.55-1.30); FREE T4 0.88 NG/DL (0.76-1.46); GLOMERULAR FILTRATION RATE > 60.0 (>39); GLUCOSE, FASTING 105 MG/DL (70-100); LIPASE 171 U/L (73-393); POTASSIUM SERUM 4.9 MEQ/L (3.5-5.1); SODIUM LEVEL 140 MEQ/L (136-145); TOTAL PROTEIN 6.8 GM/DL (6.4-8.2); TROPONIN I < 0.02 NG/ML (< 0.10)
[2018-01-19 12:06] LABS: CK-MB VALUE MASS 2.5 NG/ML (<3.6); CPK CREATINE PHOSPHOKINASE 39 U/L (26-192); MB/CK RELATIVE INDEX 6.41 (< OR =4); NT-PRO BNP 71 PG/ML (<450)
[2018-01-19 12:38] LABS: ABG BASE EXCESS 6.3 (-2.0-2.0); ABG HCO3 32.5 MEQ/L (22.0-26.0); ABG O2 SATURATION 97.4 % (95.0-99.0); ABG PARTIAL PRESSURE CO2 55.3 mmHg (35.0-45.0); ABG PARTIAL PRESSURE O2 107.6 mmHg (75.0-100.0); ABG STANDARD HCO3 30.2 MEQ/L (22.0-26.0); ABG TOTAL CO2 34.2 MEQ/L (23.0-31.0); ABG pH (ARTERIAL) 7.387 UNITS (7.350-7.450)
[2018-01-19] MEDS ORDERED: ISOVUE-370 76% 100ML VIAL (Q9967) As Ordered (13:13)
[2018-01-19 16:26] LABS: CK-MB VALUE MASS 1.7 NG/ML (<3.6); CPK CREATINE PHOSPHOKINASE 164 U/L (26-192); MB/CK RELATIVE INDEX 1.03 (< OR =4); TROPONIN I < 0.02 NG/ML (< 0.10)
[2018-01-19] MEDS: ONDANSETRON 4MG/2ML VIAL (J2405) IV (18:23)
[2018-01-19] MEDS ORDERED: IPRATROPIUM 0.5MG/ALBUTEROL 2.5MG INH SOL UD 3ML (DUONEB)(J7620) NEB (19:30)
[2018-01-19] MEDS ORDERED: hydrOXYzine 25 MG TAB PO (19:30)
[2018-01-19] MEDS ORDERED: ACETAMINOPHEN TAB 650MG DOSE (2X325MG) PO (19:30)
[2018-01-19] MEDS: MORPHINE 4 MG/ML 1ML VIAL/SYRINGE (J2270) IV (20:24)
[2018-01-19] MEDS: methylPREDNISolone INJ 40 MG/1 ML VIAL (J2920) IV (23:19)
[2018-01-19] MEDS: METOCLOPRAMIDE HCL LIQUID 10 MG/10 ML UDC PO (23:19)
[2018-01-19] MEDS: DOXYCYCLINE HYCLATE 100 MG TAB PO (23:46)
[2018-01-19] MEDS: traZODone 100 MG TAB PO (23:47)
[2018-01-19] MEDS: PANTOPRAZOLE 20 MG TAB PO (23:47)
[2018-01-19] MEDS: rOPINIRole 1MG TAB PO (23:47)
[2018-01-19] MEDS: SENOKOT S TAB PO (23:47)
[2018-01-20] MEDS: ONDANSETRON 4 MG TAB (S0181) PO ×2 (00:39→05:12)
[2018-01-20] MEDS: NORCO, ANEXSIA 5/325MG TABLET (HYDROcodone/ACETAMINOPHEN) PO ×3 (01:32→17:01)
[2018-01-20] MEDS: ALPRAZolam 0.5 MG TAB PO ×3 (05:12→15:08)
[2018-01-20] MEDS: CALCIUM CARBONATE 500 MG CHEW U/D PO (05:12)
[2018-01-20] MEDS: TIOTROPIUM INHALER/CAPSULE (SPIRIVA) INH (07:23)
[2018-01-20] MEDS: IPRATROPIUM 0.5MG/ALBUTEROL 2.5MG INH SOL UD 3ML (DUONEB)(J7620) INH ×4 (07:23→20:46)
[2018-01-20 08:05] LABS: BASO % 0.2 % (0.0-1.0); HEMATOCRIT 29.5 % (36.0-47.0); IMMATURE GRANULOCYTE % 2.3 % (0-3.0); LYMPH # 0.7 10^3/uL (1.5-4.5); LYMPH % 4.9 % (24.0-44.0); MEAN CORPUSCULAR HEMOGLOBIN 29.8 pg (27.0-33.0); MEAN CORPUSCULAR HGB CONC 30.5 g/dl (32.0-36.5); MEAN CORPUSCULAR VOLUME 97.7 fl (80.0-96.0); MONO # 0.3 10^3/uL (0.0-0.8); MONO % 2.3 % (0.0-5.0); NEUTROPHILS # 11.9 10^3/uL (1.8-7.7); NEUTROPHILS % 90.3 % (36.0-66.0); PLATELET COUNT, AUTOMATED 232 10^3/uL (150-450); RED BLOOD COUNT 3.02 10^6/uL (4.00-5.40); RED CELL DISTRIBUTION WIDTH 15.4 % (11.5-14.5); WHITE BLOOD COUNT 13.2 10^3/uL (4.0-10.0)
[2018-01-20] MEDS: methylPREDNISolone INJ 40 MG/1 ML VIAL (J2920) IV ×2 (08:15→21:17)
[2018-01-20] MEDS: DOXYCYCLINE HYCLATE 100 MG TAB PO ×2 (08:15→21:16)
[2018-01-20] MEDS: PANTOPRAZOLE 20 MG TAB PO ×2 (08:15→21:16)
[2018-01-20] MEDS: ESCITALOPRAM OXALATE 10 MG TAB (LEXAPRO) PO (08:15)
[2018-01-20] MEDS: SENOKOT S TAB PO ×2 (08:15→21:16)
[2018-01-20] MEDS: MIRALAX *UNIT DOSE* 17GM PACKET PO (08:16)
[2018-01-20] MEDS: METOCLOPRAMIDE HCL LIQUID 10 MG/10 ML UDC PO ×4 (08:16→21:16)
[2018-01-20] MEDS: ENOXAPARIN 30 MG/0.3 ML SYR (J1650) SC (08:16)
[2018-01-20 08:20] LABS: ANION GAP 6 MEQ/L (8-16); BLOOD UREA NITROGEN 25 MG/DL (7-18); CALCIUM LEVEL 8.1 MG/DL (8.8-10.2); CARBON DIOXIDE LEVEL 32 MEQ/L (21-32); CHLORIDE LEVEL 101 MEQ/L (98-107); CREATININE FOR GFR 0.75 MG/DL (0.55-1.30); GLOMERULAR FILTRATION RATE > 60.0 (>39); GLUCOSE, FASTING 146 MG/DL (70-100); MAGNESIUM LEVEL 2.6 MG/DL (1.8-2.4); POTASSIUM SERUM 4.8 MEQ/L (3.5-5.1); SODIUM LEVEL 139 MEQ/L (136-145)
[2018-01-20] MEDS: ONDANSETRON 4MG/2ML VIAL (J2405) IV ×2 (12:05→15:09)
[2018-01-20] MEDS: MORPHINE 4 MG/ML 1ML VIAL/SYRINGE (J2270) IV ×2 (15:09→19:23)
[2018-01-20] MEDS: GI COCKTAIL 50ML BTL(HYOSCYAMINE/MAALOX/LIDOCAINE VISCOUS)(1:3:1) PO (17:37)
[2018-01-20] MEDS: rOPINIRole 1MG TAB PO (21:16)
[2018-01-20] MEDS: traZODone 100 MG TAB PO (21:17)
[2018-01-21] MEDS: ONDANSETRON 4MG/2ML VIAL (J2405) IV (02:47)
[2018-01-21] MEDS: MORPHINE 4 MG/ML 1ML VIAL/SYRINGE (J2270) IV ×2 (02:47→07:46)
[2018-01-21] MEDS: NORCO, ANEXSIA 5/325MG TABLET (HYDROcodone/ACETAMINOPHEN) PO ×3 (05:42→20:12)
[2018-01-21 06:20] LABS: BASO % 0.1 % (0.0-1.0); HEMATOCRIT 29.6 % (36.0-47.0); HEMOGLOBIN 8.9 g/dl (12.0-15.5); IMMATURE GRANULOCYTE % 2.3 % (0-3.0); LYMPH # 0.5 10^3/uL (1.5-4.5); MEAN CORPUSCULAR HEMOGLOBIN 29.7 pg (27.0-33.0); MEAN CORPUSCULAR HGB CONC 30.1 g/dl (32.0-36.5); MEAN CORPUSCULAR VOLUME 98.7 fl (80.0-96.0); MONO # 0.4 10^3/uL (0.0-0.8); MONO % 3.2 % (0.0-5.0); NEUTROPHILS # 11.4 10^3/uL (1.8-7.7); NEUTROPHILS % 90.4 % (36.0-66.0); PLATELET COUNT, AUTOMATED 234 10^3/uL (150-450); RED CELL DISTRIBUTION WIDTH 15.4 % (11.5-14.5); WHITE BLOOD COUNT 12.6 10^3/uL (4.0-10.0)
[2018-01-21 06:44] LABS: ANION GAP 7 MEQ/L (8-16); BLOOD UREA NITROGEN 30 MG/DL (7-18); CALCIUM LEVEL 8.2 MG/DL (8.8-10.2); CARBON DIOXIDE LEVEL 34 MEQ/L (21-32); CHLORIDE LEVEL 100 MEQ/L (98-107); GLOMERULAR FILTRATION RATE > 60.0 (>39); GLUCOSE, FASTING 155 MG/DL (70-100); MAGNESIUM LEVEL 2.8 MG/DL (1.8-2.4); POTASSIUM SERUM 4.9 MEQ/L (3.5-5.1); SODIUM LEVEL 141 MEQ/L (136-145)
[2018-01-21] MEDS: SENOKOT S TAB PO ×2 (07:33→20:04)
[2018-01-21] MEDS: ALPRAZolam 0.5 MG TAB PO ×3 (07:33→20:11)
[2018-01-21] MEDS: ESCITALOPRAM OXALATE 10 MG TAB (LEXAPRO) PO (07:33)
[2018-01-21] MEDS: METOCLOPRAMIDE HCL LIQUID 10 MG/10 ML UDC PO ×4 (07:33→20:04)
[2018-01-21] MEDS: PANTOPRAZOLE 20 MG TAB PO ×2 (07:34→20:04)
[2018-01-21] MEDS: DOXYCYCLINE HYCLATE 100 MG TAB PO ×2 (07:34→20:04)
[2018-01-21] MEDS: methylPREDNISolone INJ 40 MG/1 ML VIAL (J2920) IV (07:34)
[2018-01-21] MEDS: ENOXAPARIN 30 MG/0.3 ML SYR (J1650) SC (07:34)
[2018-01-21] MEDS: MIRALAX *UNIT DOSE* 17GM PACKET PO (07:34)
[2018-01-21] MEDS: TIOTROPIUM INHALER/CAPSULE (SPIRIVA) INH (08:07)
[2018-01-21] MEDS: IPRATROPIUM 0.5MG/ALBUTEROL 2.5MG INH SOL UD 3ML (DUONEB)(J7620) INH ×4 (08:07→20:26)
[2018-01-21] MEDS ORDERED: NS IV (13:00)
[2018-01-21] MEDS ORDERED: ERYTHROMYCIN LACTOBIONATE IV (13:00)
[2018-01-21] MEDS: ERYTHROMYCIN 250 MG TABLET PO ×2 (13:05→21:37)
[2018-01-21] MEDS: predniSONE 20 MG TAB PO (20:04)
[2018-01-21] MEDS: rOPINIRole 1MG TAB PO (20:04)
[2018-01-22] MEDS: NORCO, ANEXSIA 5/325MG TABLET (HYDROcodone/ACETAMINOPHEN) PO ×2 (04:20→16:30)
[2018-01-22] MEDS: ERYTHROMYCIN 250 MG TABLET PO ×3 (05:24→21:23)
[2018-01-22 05:39] LABS: HEMATOCRIT 30.3 % (36.0-47.0); HEMOGLOBIN 9.2 g/dl (12.0-15.5); MEAN CORPUSCULAR HEMOGLOBIN 29.9 pg (27.0-33.0); MEAN CORPUSCULAR HGB CONC 30.4 g/dl (32.0-36.5); MEAN CORPUSCULAR VOLUME 98.4 fl (80.0-96.0); PLATELET COUNT, AUTOMATED 237 10^3/uL (150-450); RED BLOOD COUNT 3.08 10^6/uL (4.00-5.40); RED CELL DISTRIBUTION WIDTH 15.4 % (11.5-14.5); WHITE BLOOD COUNT 12.3 10^3/uL (4.0-10.0)
[2018-01-22 05:45] LABS: BASO % 0.2 % (0.0-1.0); HEMATOCRIT 29.9 % (36.0-47.0); HEMOGLOBIN 9.1 g/dl (12.0-15.5); IMMATURE GRANULOCYTE % 2.3 % (0-3.0); LYMPH # 0.5 10^3/uL (1.5-4.5); LYMPH % 3.9 % (24.0-44.0); MEAN CORPUSCULAR HGB CONC 30.4 g/dl (32.0-36.5); MEAN CORPUSCULAR VOLUME 98.7 fl (80.0-96.0); MONO # 0.5 10^3/uL (0.0-0.8); MONO % 4.3 % (0.0-5.0); NEUTROPHILS # 11.1 10^3/uL (1.8-7.7); NEUTROPHILS % 89.3 % (36.0-66.0); PLATELET COUNT, AUTOMATED 240 10^3/uL (150-450); RED BLOOD COUNT 3.03 10^6/uL (4.00-5.40); RED CELL DISTRIBUTION WIDTH 15.5 % (11.5-14.5); WHITE BLOOD COUNT 12.5 10^3/uL (4.0-10.0)
[2018-01-22 05:56] LABS: ANION GAP 5 MEQ/L (8-16); BLOOD UREA NITROGEN 31 MG/DL (7-18); CALCIUM LEVEL 8.4 MG/DL (8.8-10.2); CARBON DIOXIDE LEVEL 36 MEQ/L (21-32); CHLORIDE LEVEL 100 MEQ/L (98-107); CREATININE FOR GFR 0.75 MG/DL (0.55-1.30); GLOMERULAR FILTRATION RATE > 60.0 (>39); GLUCOSE, FASTING 147 MG/DL (70-100); MAGNESIUM LEVEL 2.5 MG/DL (1.8-2.4); POTASSIUM SERUM 4.6 MEQ/L (3.5-5.1); SODIUM LEVEL 141 MEQ/L (136-145)
[2018-01-22] MEDS: TIOTROPIUM INHALER/CAPSULE (SPIRIVA) INH (07:21)
[2018-01-22] MEDS: IPRATROPIUM 0.5MG/ALBUTEROL 2.5MG INH SOL UD 3ML (DUONEB)(J7620) INH ×4 (07:22→19:52)
[2018-01-22] MEDS: SENOKOT S TAB PO ×2 (08:19→21:25)
[2018-01-22] MEDS: METOCLOPRAMIDE HCL LIQUID 10 MG/10 ML UDC PO ×4 (08:19→21:24)
[2018-01-22] MEDS: ESCITALOPRAM OXALATE 10 MG TAB (LEXAPRO) PO (08:19)
[2018-01-22] MEDS: ALPRAZolam 0.5 MG TAB PO ×2 (08:19→16:30)
[2018-01-22] MEDS: DOXYCYCLINE HYCLATE 100 MG TAB PO ×2 (08:20→21:23)
[2018-01-22] MEDS: MIRALAX *UNIT DOSE* 17GM PACKET PO (08:20)
[2018-01-22] MEDS: predniSONE 20 MG TAB PO (08:20)
[2018-01-22] MEDS: ENOXAPARIN 30 MG/0.3 ML SYR (J1650) SC (08:20)
[2018-01-22] MEDS: PANTOPRAZOLE 20 MG TAB PO ×2 (08:20→21:24)
[2018-01-22] MEDS: ONDANSETRON 4MG/2ML VIAL (J2405) IV (18:13)
[2018-01-22] MEDS: rOPINIRole 1MG TAB PO (21:23)
[2018-01-23] MEDS: ERYTHROMYCIN 250 MG TABLET PO (05:13)
[2018-01-23 06:16] LABS: BASO % 0.3 % (0.0-1.0); HEMATOCRIT 31.4 % (36.0-47.0); HEMOGLOBIN 9.6 g/dl (12.0-15.5); IMMATURE GRANULOCYTE % 3.7 % (0-3.0); LYMPH # 1.2 10^3/uL (1.5-4.5); LYMPH % 10.2 % (24.0-44.0); MEAN CORPUSCULAR HEMOGLOBIN 29.9 pg (27.0-33.0); MEAN CORPUSCULAR HGB CONC 30.6 g/dl (32.0-36.5); MEAN CORPUSCULAR VOLUME 97.8 fl (80.0-96.0); MONO # 0.8 10^3/uL (0.0-0.8); MONO % 7.1 % (0.0-5.0); NEUTROPHILS # 9.3 10^3/uL (1.8-7.7); NEUTROPHILS % 78.7 % (36.0-66.0); PLATELET COUNT, AUTOMATED 259 10^3/uL (150-450); RED BLOOD COUNT 3.21 10^6/uL (4.00-5.40); RED CELL DISTRIBUTION WIDTH 15.2 % (11.5-14.5); WHITE BLOOD COUNT 11.8 10^3/uL (4.0-10.0)
[2018-01-23 06:35] LABS: ANION GAP 4 MEQ/L (8-16); BLOOD UREA NITROGEN 28 MG/DL (7-18); CALCIUM LEVEL 8.2 MG/DL (8.8-10.2); CARBON DIOXIDE LEVEL 37 MEQ/L (21-32); CHLORIDE LEVEL 100 MEQ/L (98-107); CREATININE FOR GFR 0.72 MG/DL (0.55-1.30); GLOMERULAR FILTRATION RATE > 60.0 (>39); GLUCOSE, FASTING 110 MG/DL (70-100); MAGNESIUM LEVEL 2.3 MG/DL (1.8-2.4); POTASSIUM SERUM 4.3 MEQ/L (3.5-5.1); SODIUM LEVEL 141 MEQ/L (136-145)
[2018-01-23] MEDS: TIOTROPIUM INHALER/CAPSULE (SPIRIVA) INH (07:16)
[2018-01-23] MEDS: IPRATROPIUM 0.5MG/ALBUTEROL 2.5MG INH SOL UD 3ML (DUONEB)(J7620) INH ×2 (07:16→11:09)
[2018-01-23] MEDS: ALPRAZolam 0.5 MG TAB PO (07:40)
[2018-01-23] MEDS: METOCLOPRAMIDE HCL LIQUID 10 MG/10 ML UDC PO ×2 (07:40→11:45)
[2018-01-23] MEDS: PANTOPRAZOLE 20 MG TAB PO (09:52)
[2018-01-23] MEDS: predniSONE 20 MG TAB PO (09:52)
[2018-01-23] MEDS: ESCITALOPRAM OXALATE 10 MG TAB (LEXAPRO) PO (09:52)
[2018-01-23] MEDS: DOXYCYCLINE HYCLATE 100 MG TAB PO (09:52)
[2018-01-23] MEDS: MIRALAX *UNIT DOSE* 17GM PACKET PO (09:52)
[2018-01-23] MEDS: SENOKOT S TAB PO (09:52)
[2018-01-23] MEDS: ENOXAPARIN 30 MG/0.3 ML SYR (J1650) SC (09:53)
== END 2018-01-23 12:36 | DRG 191 ==
LOC: M ED 11:07 → M ED INP 19:30 → M MSPAV 22:37
DX: J44.1 Chronic obstructive pulmonary disease with (acute) exacerbation (principal); J96.11 Chronic respiratory failure with hypoxia; J96.12 Chronic respiratory failure with hypercapnia; I10 Essential (primary) hypertension; E78.5 Hyperlipidemia, unspecified; F32.9 Major depressive disorder, single episode, unspecified; F41.9 Anxiety disorder, unspecified; G25.81 Restless legs syndrome; G89.29 Other chronic pain; Z99.81 Dependence on supplemental oxygen; Z79.52 Long term (current) use of systemic steroids; Z87.891 Personal history of nicotine dependence; K31.84 Gastroparesis; Z79.899 Other long term (current) drug therapy; Z88.8 Allergy status to other drugs, medicaments and biological substances

== ENCOUNTER → 2018-01-26 | Outpatient (REF) | payer MEDICARE, MEDICAID ==
[2018-01-26 10:27] LABS: BASO % 0.2 % (0.0-1.0); EOS # 0.1 10^3/uL (0.0-0.50); EOS % 0.8 % (0.0-3.0); HEMATOCRIT 34.1 % (36.0-47.0); HEMOGLOBIN 10.5 g/dl (12.0-15.5); IMMATURE GRANULOCYTE % 3.9 % (0-3.0); LYMPH % 17.2 % (24.0-44.0); MEAN CORPUSCULAR HEMOGLOBIN 29.5 pg (27.0-33.0); MEAN CORPUSCULAR HGB CONC 30.8 g/dl (32.0-36.5); MEAN CORPUSCULAR VOLUME 95.8 fl (80.0-96.0); MONO # 0.7 10^3/uL (0.0-0.8); MONO % 5.5 % (0.0-5.0); NEUTROPHILS # 8.6 10^3/uL (1.8-7.7); NEUTROPHILS % 72.4 % (36.0-66.0); PLATELET COUNT, AUTOMATED 278 10^3/uL (150-450); RED BLOOD COUNT 3.56 10^6/uL (4.00-5.40); RED CELL DISTRIBUTION WIDTH 15.2 % (11.5-14.5); WHITE BLOOD COUNT 11.8 10^3/uL (4.0-10.0)
[2018-01-26 11:35] LABS: ALBUMIN 2.9 GM/DL (3.2-5.2); ALBUMIN/GLOBULIN RATIO 0.94 (1.00-1.93); ALKALINE PHOSPHATASE 45 U/L (45-117); ALT/SGPT 27 U/L (12-78); ANION GAP 10 MEQ/L (8-16); AST/SGOT 22 U/L (7-37); BILIRUBIN,TOTAL 0.2 MG/DL (0.2-1.0); BLOOD UREA NITROGEN 33 MG/DL (7-18); CALCIUM LEVEL 8.6 MG/DL (8.8-10.2); CARBON DIOXIDE LEVEL 32 MEQ/L (21-32); CHLORIDE LEVEL 100 MEQ/L (98-107); CREATININE FOR GFR 0.78 MG/DL (0.55-1.30); FREE T4 0.83 NG/DL (0.76-1.46); GLOMERULAR FILTRATION RATE > 60.0 (>39); GLUCOSE, FASTING 160 MG/DL (70-100); POTASSIUM SERUM 4.2 MEQ/L (3.5-5.1); SODIUM LEVEL 142 MEQ/L (136-145)
== END ==
DX: J44.9 Chronic obstructive pulmonary disease, unspecified (principal); G47.00 Insomnia, unspecified
CPT/HCPCS: 84443

== ENCOUNTER → 2018-01-30 | Outpatient (REF) ==
[2018-01-30 09:58] LABS: HEMATOCRIT 32.5 % (36.0-47.0); MEAN CORPUSCULAR HEMOGLOBIN 29.9 pg (27.0-33.0); MEAN CORPUSCULAR HGB CONC 30.8 g/dl (32.0-36.5); MEAN CORPUSCULAR VOLUME 97.3 fl (80.0-96.0); PLATELET COUNT, AUTOMATED 239 10^3/uL (150-450); RED BLOOD COUNT 3.34 10^6/uL (4.00-5.40); RED CELL DISTRIBUTION WIDTH 14.8 % (11.5-14.5); WHITE BLOOD COUNT 13.7 10^3/uL (4.0-10.0)
[2018-01-30 10:11] LABS: ANION GAP 6 MEQ/L (8-16); BLOOD UREA NITROGEN 24 MG/DL (7-18); CALCIUM LEVEL 8.4 MG/DL (8.8-10.2); CARBON DIOXIDE LEVEL 35 MEQ/L (21-32); CHLORIDE LEVEL 102 MEQ/L (98-107); GLOMERULAR FILTRATION RATE > 60.0 (>39); GLUCOSE, FASTING 123 MG/DL (70-100); POTASSIUM SERUM 3.7 MEQ/L (3.5-5.1); SODIUM LEVEL 143 MEQ/L (136-145)
== END ==
DX: R60.9 Edema, unspecified (principal); J44.9 Chronic obstructive pulmonary disease, unspecified

== ENCOUNTER → 2018-01-31 | Outpatient (REF) ==
[2018-01-31 09:12] LABS: HEMATOCRIT 33.9 % (36.0-47.0); HEMOGLOBIN 10.2 g/dl (12.0-15.5); MEAN CORPUSCULAR HEMOGLOBIN 29.8 pg (27.0-33.0); MEAN CORPUSCULAR HGB CONC 30.1 g/dl (32.0-36.5); MEAN CORPUSCULAR VOLUME 99.1 fl (80.0-96.0); PLATELET COUNT, AUTOMATED 234 10^3/uL (150-450); RED BLOOD COUNT 3.42 10^6/uL (4.00-5.40); RED CELL DISTRIBUTION WIDTH 15.2 % (11.5-14.5); WHITE BLOOD COUNT 12.2 10^3/uL (4.0-10.0)
== END ==
DX: J44.9 Chronic obstructive pulmonary disease, unspecified (principal)

== ENCOUNTER 2018-02-09 09:01 | Emergency (ER) | payer MEDICARE, MEDICAID, OTHER ==
[2018-02-09] MEDS: ALBUTEROL SULFATE 2.5 MG/0.5 ML INH NEB SOLN INH (09:50)
[2018-02-09] MEDS: IPRATROPIUM 0.5MG/ALBUTEROL 2.5MG INH SOL UD 3ML (DUONEB)(J7620) NEB ×2 (09:50→15:34)
[2018-02-09 09:59] LABS: ABG BASE EXCESS 10.4 (-2.0-2.0); ABG HCO3 35.9 MEQ/L (22.0-26.0); ABG O2 SATURATION 97.4 % (95.0-99.0); ABG PARTIAL PRESSURE CO2 52.7 mmHg (35.0-45.0); ABG PARTIAL PRESSURE O2 100.9 mmHg (75.0-100.0); ABG STANDARD HCO3 34.2 MEQ/L (22.0-26.0); ABG TOTAL CO2 37.5 MEQ/L (23.0-31.0); ABG pH (ARTERIAL) 7.451 UNITS (7.350-7.450)
[2018-02-09 10:06] LABS: BASO % 0.2 % (0.0-1.0); EOS # 0.1 10^3/uL (0.0-0.50); EOS % 0.5 % (0.0-3.0); HEMATOCRIT 33.7 % (36.0-47.0); HEMOGLOBIN 10.5 g/dl (12.0-15.5); IMMATURE GRANULOCYTE % 1.8 % (0-3.0); LYMPH # 2.2 10^3/uL (1.5-4.5); LYMPH % 18.2 % (24.0-44.0); MEAN CORPUSCULAR HEMOGLOBIN 29.4 pg (27.0-33.0); MEAN CORPUSCULAR HGB CONC 31.2 g/dl (32.0-36.5); MEAN CORPUSCULAR VOLUME 94.4 fl (80.0-96.0); MONO % 7.8 % (0.0-5.0); NEUTROPHILS # 8.8 10^3/uL (1.8-7.7); NEUTROPHILS % 71.5 % (36.0-66.0); PLATELET COUNT, AUTOMATED 226 10^3/uL (150-450); RED BLOOD COUNT 3.57 10^6/uL (4.00-5.40); RED CELL DISTRIBUTION WIDTH 15.3 % (11.5-14.5); WHITE BLOOD COUNT 12.3 10^3/uL (4.0-10.0)
[2018-02-09] MEDS: methylPREDNISolone INJ 125 MG/2 ML VIAL (J2930) IV (10:16)
[2018-02-09 10:24] LABS: LACTIC ACID SEPSIS PROTOCOL 0.7 MMOL/L (0.4-2.0)
[2018-02-09 10:27] LABS: ALBUMIN 2.8 GM/DL (3.2-5.2); ALBUMIN/GLOBULIN RATIO 0.72 (1.00-1.93); ALKALINE PHOSPHATASE 64 U/L (45-117); ALT/SGPT 21 U/L (12-78); ANION GAP 5 MEQ/L (8-16); AST/SGOT 13 U/L (7-37); BILIRUBIN,DIRECT < 0.1 MG/DL (0.0-0.2); BILIRUBIN,TOTAL 0.3 MG/DL (0.2-1.0); BLOOD UREA NITROGEN 18 MG/DL (7-18); CALCIUM LEVEL 8.7 MG/DL (8.8-10.2); CARBON DIOXIDE LEVEL 38 MEQ/L (21-32); CHLORIDE LEVEL 98 MEQ/L (98-107); CPK CREATINE PHOSPHOKINASE 24 U/L (26-192); CREATININE FOR GFR 0.58 MG/DL (0.55-1.30); GLOMERULAR FILTRATION RATE > 60.0 (>39); GLUCOSE, FASTING 105 MG/DL (70-100); POTASSIUM SERUM 3.9 MEQ/L (3.5-5.1); SODIUM LEVEL 141 MEQ/L (136-145); THYROXINE (T4) 8.8 UG/DL (4.5-12.0); TOTAL PROTEIN 6.7 GM/DL (6.4-8.2); TROPONIN I < 0.02 NG/ML (< 0.10)
[2018-02-09 10:34] LABS: CK-MB VALUE MASS 1.9 NG/ML (<3.6); MB/CK RELATIVE INDEX 7.91 (< OR =4); NT-PRO BNP 100 PG/ML (<450)
[2018-02-09] MEDS: ONDANSETRON 4MG/2ML VIAL (J2405) IV (10:35)
[2018-02-09] MEDS: MORPHINE 2 MG/ML 1ML SYRINGE (J2270) IV ×2 (10:36→15:22)
[2018-02-09] MEDS ORDERED: ISOVUE-370 76% 100ML VIAL (Q9967) As Ordered (11:23)
[2018-02-09 12:33] LABS: INFLUENZA A AMPLIFICATION NEGATIVE (NEGATIVE); INFLUENZA B AMPLIFICATION NEGATIVE (NEGATIVE)
[2018-02-09 13:20] LABS: LIPASE 212 U/L (73-393)
[2018-02-09 15:57] LABS: CPK CREATINE PHOSPHOKINASE 29 U/L (26-192); TROPONIN I < 0.02 NG/ML (< 0.10)
[2018-02-09 15:58] LABS: CK-MB VALUE MASS 1.7 NG/ML (<3.6); MB/CK RELATIVE INDEX 5.86 (< OR =4)
[2018-02-09] MEDS: MOXIFLOXACIN 400 MG TAB PO (17:06)
[2018-02-09] MEDS ORDERED: PILL CRUSHER/CUTTER 1 EACH XX (17:18)
== END 2018-02-09 17:26 | disposition home or self-care (01) ==
LOC: M ED 09:01
DX: J44.1 Chronic obstructive pulmonary disease with (acute) exacerbation (principal); J40 Bronchitis, not specified as acute or chronic; R07.9 Chest pain, unspecified; K86.9 Disease of pancreas, unspecified; I10 Essential (primary) hypertension; E78.9 Disorder of lipoprotein metabolism, unspecified; Z87.09 Personal history of other diseases of the respiratory system; Z87.442 Personal history of urinary calculi; Z87.440 Personal history of urinary (tract) infections; Z87.891 Personal history of nicotine dependence; Z79.899 Other long term (current) drug therapy
CPT/HCPCS: J2405

== ENCOUNTER 2018-02-19 09:25 | Emergency (ER) | payer MEDICARE, MEDICAID ==
[2018-02-19 10:05] LABS: BASO % 0.3 % (0.0-1.0); EOS # 0.1 10^3/uL (0.0-0.50); EOS % 0.6 % (0.0-3.0); HEMATOCRIT 31.4 % (36.0-47.0); HEMOGLOBIN 9.5 g/dl (12.0-15.5); LYMPH # 2.4 10^3/uL (1.5-4.5); LYMPH % 22.8 % (24.0-44.0); MEAN CORPUSCULAR HEMOGLOBIN 29.1 pg (27.0-33.0); MEAN CORPUSCULAR HGB CONC 30.3 g/dl (32.0-36.5); MEAN CORPUSCULAR VOLUME 96.3 fl (80.0-96.0); MONO # 0.8 10^3/uL (0.0-0.8); MONO % 7.9 % (0.0-5.0); NEUTROPHILS # 6.8 10^3/uL (1.8-7.7); NEUTROPHILS % 64.4 % (36.0-66.0); PLATELET COUNT, AUTOMATED 257 10^3/uL (150-450); RED BLOOD COUNT 3.26 10^6/uL (4.00-5.40); RED CELL DISTRIBUTION WIDTH 15.5 % (11.5-14.5); WHITE BLOOD COUNT 10.6 10^3/uL (4.0-10.0)
[2018-02-19 10:17] LABS: ALBUMIN 2.9 GM/DL (3.2-5.2); ALBUMIN/GLOBULIN RATIO 0.91 (1.00-1.93); ALKALINE PHOSPHATASE 60 U/L (45-117); ALT/SGPT 21 U/L (12-78); ANION GAP 8 MEQ/L (8-16); AST/SGOT 19 U/L (7-37); BILIRUBIN,DIRECT < 0.1 MG/DL (0.0-0.2); BILIRUBIN,TOTAL 0.2 MG/DL (0.2-1.0); BLOOD UREA NITROGEN 21 MG/DL (7-18); CALCIUM LEVEL 9.1 MG/DL (8.8-10.2); CARBON DIOXIDE LEVEL 36 MEQ/L (21-32); CHLORIDE LEVEL 100 MEQ/L (98-107); CPK CREATINE PHOSPHOKINASE 103 U/L (26-192); CREATININE FOR GFR 0.73 MG/DL (0.55-1.30); GLOMERULAR FILTRATION RATE > 60.0 (>39); GLUCOSE, FASTING 104 MG/DL (70-100); LIPASE 195 U/L (73-393); MB/CK RELATIVE INDEX 4.17 (< OR =4); POTASSIUM SERUM 4.2 MEQ/L (3.5-5.1); SODIUM LEVEL 144 MEQ/L (136-145); TOTAL PROTEIN 6.1 GM/DL (6.4-8.2); TROPONIN I < 0.02 NG/ML (< 0.10)
[2018-02-19] MEDS ORDERED: ISOVUE-370 76% 100ML VIAL (Q9967) As Ordered (11:08)
[2018-02-19] MEDS: NORCO, ANEXSIA 5/325MG TABLET (HYDROcodone/ACETAMINOPHEN) PO (11:37)
[2018-02-19] MEDS: METOCLOPRAMIDE INJ 10MG/2ML VIAL (J2765) IV (12:32)
== END 2018-02-19 14:48 | disposition home or self-care (01) ==
LOC: M ED 09:25
DX: K31.84 Gastroparesis (principal); K86.9 Disease of pancreas, unspecified; I10 Essential (primary) hypertension; J44.9 Chronic obstructive pulmonary disease, unspecified; E78.5 Hyperlipidemia, unspecified; G25.81 Restless legs syndrome; F33.9 Major depressive disorder, recurrent, unspecified; Z88.8 Allergy status to other drugs, medicaments and biological substances
CPT/HCPCS: Q9967

== ENCOUNTER 2018-02-24 12:25 | Emergency (ER) | payer MEDICARE, MEDICAID ==
[2018-02-24 13:00] LABS: BASO % 0.2 % (0.0-1.0); HEMATOCRIT 35.2 % (36.0-47.0); HEMOGLOBIN 10.8 g/dl (12.0-15.5); IMMATURE GRANULOCYTE % 1.4 % (0-3.0); LYMPH # 0.6 10^3/uL (1.5-4.5); LYMPH % 3.6 % (24.0-44.0); MEAN CORPUSCULAR HEMOGLOBIN 29.3 pg (27.0-33.0); MEAN CORPUSCULAR HGB CONC 30.7 g/dl (32.0-36.5); MEAN CORPUSCULAR VOLUME 95.4 fl (80.0-96.0); MONO # 0.6 10^3/uL (0.0-0.8); MONO % 3.8 % (0.0-5.0); NEUTROPHILS # 13.9 10^3/uL (1.8-7.7); PLATELET COUNT, AUTOMATED 265 10^3/uL (150-450); RED BLOOD COUNT 3.69 10^6/uL (4.00-5.40); RED CELL DISTRIBUTION WIDTH 15.3 % (11.5-14.5); WHITE BLOOD COUNT 15.3 10^3/uL (4.0-10.0)
[2018-02-24 13:27] LABS: ALBUMIN 3.1 GM/DL (3.2-5.2); ALBUMIN/GLOBULIN RATIO 0.74 (1.00-1.93); ALKALINE PHOSPHATASE 80 U/L (45-117); ALT/SGPT 18 U/L (12-78); ANION GAP 7 MEQ/L (8-16); AST/SGOT 25 U/L (7-37); BILIRUBIN,DIRECT 0.1 MG/DL (0.0-0.2); BILIRUBIN,TOTAL 0.4 MG/DL (0.2-1.0); BLOOD UREA NITROGEN 18 MG/DL (7-18); CARBON DIOXIDE LEVEL 37 MEQ/L (21-32); CHLORIDE LEVEL 95 MEQ/L (98-107); CREATININE FOR GFR 0.76 MG/DL (0.55-1.30); GLOMERULAR FILTRATION RATE > 60.0 (>39); GLUCOSE, FASTING 170 MG/DL (70-100); LIPASE 102 U/L (73-393); POTASSIUM SERUM 4.6 MEQ/L (3.5-5.1); SODIUM LEVEL 139 MEQ/L (136-145); TOTAL PROTEIN 7.3 GM/DL (6.4-8.2)
[2018-02-24] MEDS: FUROSEMIDE 20 MG/2 ML VIAL (J1940) IV (13:45)
[2018-02-24] MEDS: IPRATROPIUM 0.5MG/ALBUTEROL 2.5MG INH SOL UD 3ML (DUONEB)(J7620) NEB (14:10)
[2018-02-24] MEDS: MORPHINE 2 MG/ML 1ML SYRINGE (J2270) IV (14:10)
[2018-02-24] MEDS: GASTROGRAFIN SOLUTION 30ML (Q9963) PO ×2 (14:10→14:40)
[2018-02-24 14:17] LABS: CPK CREATINE PHOSPHOKINASE 100 U/L (26-192); TROPONIN I < 0.02 NG/ML (< 0.10)
[2018-02-24] MEDS ORDERED: ISOVUE-370 76% 100ML VIAL (Q9967) As Ordered (15:55)
[2018-02-24] MEDS: PIPERACILLIN/TAZOBACTAM SOD 4.5 GM in D5W MINI-BAG PLUS 50 ML IV (17:23)
[2018-02-24] MEDS: VANCOMYCIN HCL 1,000 MG, VIAL MATE ADAPTER 1 EACH in D5W 250 ML IV (18:22)
== END 2018-02-24 20:08 | disposition short-term general hospital (02) ==
LOC: M ED 12:25
DX: K86.9 Disease of pancreas, unspecified (principal); J18.9 Pneumonia, unspecified organism; J44.9 Chronic obstructive pulmonary disease, unspecified; I10 Essential (primary) hypertension; J45.909 Unspecified asthma, uncomplicated; E78.00 Pure hypercholesterolemia, unspecified; F33.9 Major depressive disorder, recurrent, unspecified; Z88.8 Allergy status to other drugs, medicaments and biological substances; Z87.891 Personal history of nicotine dependence
CPT/HCPCS: Q9963

== ENCOUNTER → 2018-03-13 | Outpatient (REF) | payer MEDICARE, MEDICAID, OTHER ==
[2018-03-13 10:30] LABS: HEMATOCRIT 32.8 % (36.0-47.0); HEMOGLOBIN 9.7 g/dl (12.0-15.5); MEAN CORPUSCULAR HEMOGLOBIN 28.3 pg (27.0-33.0); MEAN CORPUSCULAR HGB CONC 29.6 g/dl (32.0-36.5); MEAN CORPUSCULAR VOLUME 95.6 fl (80.0-96.0); PLATELET COUNT, AUTOMATED 270 10^3/uL (150-450); RED BLOOD COUNT 3.43 10^6/uL (4.00-5.40); RED CELL DISTRIBUTION WIDTH 15.4 % (11.5-14.5); WHITE BLOOD COUNT 10.8 10^3/uL (4.0-10.0)
[2018-03-13 11:08] LABS: ALBUMIN/GLOBULIN RATIO 0.91 (1.00-1.93); ALKALINE PHOSPHATASE 49 U/L (45-117); ALT/SGPT 17 U/L (12-78); ANION GAP 8 MEQ/L (8-16); AST/SGOT 16 U/L (7-37); BILIRUBIN,TOTAL 0.3 MG/DL (0.2-1.0); BLOOD UREA NITROGEN 14 MG/DL (7-18); CALCIUM LEVEL 8.4 MG/DL (8.8-10.2); CARBON DIOXIDE LEVEL 32 MEQ/L (21-32); CHLORIDE LEVEL 103 MEQ/L (98-107); CREATININE FOR GFR 0.75 MG/DL (0.55-1.30); GLOMERULAR FILTRATION RATE > 60.0 (>39); GLUCOSE, FASTING 169 MG/DL (70-100); POTASSIUM SERUM 3.7 MEQ/L (3.5-5.1); SODIUM LEVEL 143 MEQ/L (136-145); TOTAL PROTEIN 6.3 GM/DL (6.4-8.2)
== END ==
DX: K86.9 Disease of pancreas, unspecified (principal)
CPT/HCPCS: 80053

== ENCOUNTER 2018-03-16 17:41 | Emergency (ER) | payer MEDICARE, MEDICAID, OTHER ==
[2018-03-16 19:24] LABS: BASO % 0.2 % (0.0-1.0); HEMATOCRIT 31.6 % (36.0-47.0); HEMOGLOBIN 9.5 g/dl (12.0-15.5); IMMATURE GRANULOCYTE % 0.8 % (0-3.0); LYMPH # 0.4 10^3/uL (1.5-4.5); LYMPH % 3.5 % (24.0-44.0); MEAN CORPUSCULAR HEMOGLOBIN 28.4 pg (27.0-33.0); MEAN CORPUSCULAR HGB CONC 30.1 g/dl (32.0-36.5); MEAN CORPUSCULAR VOLUME 94.6 fl (80.0-96.0); MONO # 0.2 10^3/uL (0.0-0.8); MONO % 1.3 % (0.0-5.0); NEUTROPHILS # 11.5 10^3/uL (1.8-7.7); NEUTROPHILS % 94.2 % (36.0-66.0); PLATELET COUNT, AUTOMATED 258 10^3/uL (150-450); RED BLOOD COUNT 3.34 10^6/uL (4.00-5.40); RED CELL DISTRIBUTION WIDTH 15.5 % (11.5-14.5); WHITE BLOOD COUNT 12.2 10^3/uL (4.0-10.0)
[2018-03-16 19:38] LABS: INR 0.85; PROTHROMBIN TIME 11.7 SECONDS (12.1-14.4)
[2018-03-16 20:02] LABS: ANION GAP 8 MEQ/L (8-16); BLOOD UREA NITROGEN 15 MG/DL (7-18); CARBON DIOXIDE LEVEL 33 MEQ/L (21-32); CHLORIDE LEVEL 103 MEQ/L (98-107); CPK CREATINE PHOSPHOKINASE 49 U/L (26-192); CREATININE FOR GFR 0.74 MG/DL (0.55-1.30); GLOMERULAR FILTRATION RATE > 60.0 (>39); GLUCOSE, FASTING 187 MG/DL (70-100); MB/CK RELATIVE INDEX 3.27 (< OR =4); NT-PRO BNP 108 PG/ML (<450); POTASSIUM SERUM 4.5 MEQ/L (3.5-5.1); SODIUM LEVEL 144 MEQ/L (136-145); THYROID STIMULATING HORMONE 0.546 uIU/ML (0.358-3.740); TROPONIN I < 0.02 NG/ML (< 0.10)
[2018-03-16] MEDS: IPRATROPIUM 0.5MG/ALBUTEROL 2.5MG INH SOL UD 3ML (DUONEB)(J7620) NEB ×2 (20:51)
== END 2018-03-16 21:44 | disposition home or self-care (01) ==
LOC: M ED 17:41
DX: J44.1 Chronic obstructive pulmonary disease with (acute) exacerbation (principal); R00.0 Tachycardia, unspecified; Z87.891 Personal history of nicotine dependence; Z88.8 Allergy status to other drugs, medicaments and biological substances; Z79.899 Other long term (current) drug therapy; Z79.52 Long term (current) use of systemic steroids; F41.1 Generalized anxiety disorder; F33.1 Major depressive disorder, recurrent, moderate
CPT/HCPCS: 71046

== ENCOUNTER → 2018-04-20 | Outpatient (CLI) | payer MEDICARE, MEDICAID | LOC: M CARPUL 09:09 | DX: I35.0 Nonrheumatic aortic (valve) stenosis (principal); I34.8 Other nonrheumatic mitral valve disorders; J44.9 Chronic obstructive pulmonary disease, unspecified; R06.00 Dyspnea, unspecified; Z99.81 Dependence on supplemental oxygen | CPT/HCPCS: 93306 ==

== ENCOUNTER 2018-05-19 18:08 | Emergency (ER) | payer MEDICARE, MEDICAID ==
[2018-05-19 20:14] LABS: BASO % 0.1 % (0.0-1.0); HEMATOCRIT 32.1 % (36.0-47.0); HEMOGLOBIN 9.4 g/dl (12.0-15.5); IMMATURE GRANULOCYTE % 0.8 % (0-3.0); LYMPH # 0.5 10^3/uL (1.5-4.5); LYMPH % 5.9 % (24.0-44.0); MEAN CORPUSCULAR HEMOGLOBIN 27.7 pg (27.0-33.0); MEAN CORPUSCULAR HGB CONC 29.3 g/dl (32.0-36.5); MEAN CORPUSCULAR VOLUME 94.7 fl (80.0-96.0); MONO # 0.4 10^3/uL (0.0-0.8); MONO % 3.9 % (0.0-5.0); NEUTROPHILS % 89.3 % (36.0-66.0); PLATELET COUNT, AUTOMATED 279 10^3/uL (150-450); RED BLOOD COUNT 3.39 10^6/uL (4.00-5.40); RED CELL DISTRIBUTION WIDTH 15.5 % (11.5-14.5)
[2018-05-19 20:42] LABS: ALBUMIN 2.8 GM/DL (3.2-5.2); ALBUMIN/GLOBULIN RATIO 0.82 (1.00-1.93); ALKALINE PHOSPHATASE 46 U/L (45-117); ALT/SGPT 15 U/L (12-78); ANION GAP 5 MEQ/L (8-16); AST/SGOT 14 U/L (7-37); BILIRUBIN,DIRECT < 0.1 MG/DL (0.0-0.2); BILIRUBIN,TOTAL 0.2 MG/DL (0.2-1.0); BLOOD UREA NITROGEN 20 MG/DL (7-18); CALCIUM LEVEL 8.3 MG/DL (8.8-10.2); CARBON DIOXIDE LEVEL 33 MEQ/L (21-32); CHLORIDE LEVEL 101 MEQ/L (98-107); CPK CREATINE PHOSPHOKINASE 27 U/L (26-192); CREATININE FOR GFR 0.83 MG/DL (0.55-1.30); GLOMERULAR FILTRATION RATE > 60.0 (>39); GLUCOSE, FASTING 189 MG/DL (70-100); LIPASE 136 U/L (73-393); MB/CK RELATIVE INDEX 4.44 (< OR =4); POTASSIUM SERUM 4.9 MEQ/L (3.5-5.1); SODIUM LEVEL 139 MEQ/L (136-145); TOTAL PROTEIN 6.2 GM/DL (6.4-8.2); TROPONIN I < 0.02 NG/ML (< 0.10)
[2018-05-19] MEDS: MORPHINE 2 MG/ML 1ML SYRINGE (J2270) IV (21:16)
[2018-05-19] MEDS ORDERED: ISOVUE-370 76% 100ML VIAL (Q9967) As Ordered (21:16)
[2018-05-19] MEDS: BISACODYL 10 MG SUPP PR (23:45)
[2018-05-20] MEDS: MAGNESIUM CITRATE 300 ML BTL PO (00:07)
== END 2018-05-20 02:18 | disposition home or self-care (01) ==
LOC: M ED 05-20 02:18
DX: K59.00 Constipation, unspecified (principal); J96.11 Chronic respiratory failure with hypoxia; I50.9 Heart failure, unspecified; F32.9 Major depressive disorder, single episode, unspecified; I10 Essential (primary) hypertension; J44.9 Chronic obstructive pulmonary disease, unspecified; G25.81 Restless legs syndrome; Z99.81 Dependence on supplemental oxygen; E78.5 Hyperlipidemia, unspecified; Z90.3 Acquired absence of stomach [part of]; Z79.899 Other long term (current) drug therapy; Z88.8 Allergy status to other drugs, medicaments and biological substances
CPT/HCPCS: Q9967

== ENCOUNTER 2018-05-28 00:11 | Emergency (ER) | payer MEDICARE, MEDICAID ==
[~2018-05-28 00:11] MED LIST changes: +ACE65ERTAB PO; +ACET1TAB55 PO; -ACET50TA PO; +ALBU83IN INH; +AMBI5TAB PO; +APAP325T4 PO; +AVEL1TAB3 PO; +Acetaminophen Tab PO; +BENZ-18 PO; +BUDE180INH INH; +CARV12.5 PO; +DIAZ5TAB PO; +ERYT25TA PO; +ESCI10TA2 PO; -FERR220E2 PO; +FERR220L PO; -FOLI1TAB4 PO; +FOLI1TAB5 PO; +HYDR-643 PO; +IPRA0.00 IN; +IPRA0.00 INH; +IPRA0.00 NEB; -IPRASOL4 IN; -IPRASOL4 INH; +LEVOTAB10 PO; +LEXA1TAB2 PO; +MAPA500T17 PO; +METO10ELUD PO; +METO10TA2 PO; +METO5EL PO; +MILK12002 PO; +MIRA3350 PO; +NORC1TAB4 PO; +NORCOTAB PO; +NYST10OI TOP; +ONDA4TAB5 PO; -PANT40TA2 PO; +PANT40TA3 PO; +PERCOCET PO; +PERF20NE2 INH; +PROT20TA11 PO; +ROPI0.253 PO; +SENN1TAB2 PO; +SENN8.6T7 PO; +SENN8.6T98 PO; +SUCR10SS PO; +TRAM50TA2 PO; +TRAZ-160 PO; +TRAZ-163 PO; -TRAZ50TA11 PO; +TUMS500C PO; +VENTAER INH; +XYZA5TAB4 PO; -ZOFR20TA PO; +ZOFR4TAB16 PO
[2018-05-28] MEDS ORDERED: SENN8.6T7 PO (01:10)
[2018-05-28] MEDS ORDERED: ACETAMINOPHEN TAB 650MG DOSE (2X325MG) PO ONE (03:00)
[2018-05-28 03:46] VITALS: BP 158/70
--- NOTE | 2018-05-28 05:54 | REP ---
Clinical: Right knee. Trauma. Technique: AP, lateral, bilateral oblique views of the right knee Findings: Generalized age-related changes are appreciated. No obvious acute fracture or dislocation identified. No definite effusion. Impression: No obvious acute fracture or dislocation. Examination is limited by positioning. The patient remains symptomatic consider reevaluation by CT or MRI. Electronically Signed by Vladislav Almodovar MD 05/28/2018 05:45 A
== END 2018-05-28 05:36 | disposition home or self-care (01) ==
LOC: M ED 00:11
DX: S80.01XA Contusion of right knee, initial encounter (principal); W19.XXXA Unspecified fall, initial encounter; Y92.009 Unspecified place in unspecified non-institutional (private) residence as the place of occurrence of the external cause

== ENCOUNTER 2018-06-13 19:50 | Emergency (ER) | payer MEDICARE, MEDICAID ==
[~2018-06-13] VITALS: Ht 152.4 cm; Wt 44.0 kg
[~2018-06-13 19:50] MED LIST changes: +FOLI1TAB11 PO; -FOLI1TAB5 PO; -MAPA500T17 PO; +MAPA500T2 PO; +MILK120011 PO; -MILK12002 PO
[2018-06-13] MEDS ORDERED: MIRT-14 PO (20:13)
[2018-06-13 21:26] LABS: BASO % 0.1 % (0.0-1.0); EOS % 0.2 % (0.0-3.0); HEMATOCRIT 34.6 % (36.0-47.0); HEMOGLOBIN 10.3 g/dl (12.0-15.5); LYMPH # 0.8 10^3/uL (1.5-4.5); LYMPH % 8.3 % (24.0-44.0); MEAN CORPUSCULAR HEMOGLOBIN 28.2 pg (27.0-33.0); MEAN CORPUSCULAR HGB CONC 29.8 g/dl (32.0-36.5); MEAN CORPUSCULAR VOLUME 94.8 fl (80.0-96.0); MONO # 0.7 10^3/uL (0.0-0.8); MONO % 6.9 % (0.0-5.0); NEUTROPHILS % 83.7 % (36.0-66.0); PLATELET COUNT, AUTOMATED 294 10^3/uL (150-450); RED BLOOD COUNT 3.65 10^6/uL (4.00-5.40); WHITE BLOOD COUNT 9.6 10^3/uL (4.0-10.0)
[2018-06-13] MEDS ORDERED: ALPRAZolam 0.25 MG TAB PO ONE (21:30)
[2018-06-13 21:33] LABS: BLOOD UREA NITROGEN 21 MG/DL (7-18); CALCIUM LEVEL 8.7 MG/DL (8.8-10.2); CARBON DIOXIDE LEVEL 34 MEQ/L (21-32); CHLORIDE LEVEL 100 MEQ/L (98-107); GLOMERULAR FILTRATION RATE > 60.0 (>39); GLUCOSE, FASTING 126 MG/DL (70-100); POTASSIUM SERUM 4.2 MEQ/L (3.5-5.1); SODIUM LEVEL 139 MEQ/L (136-145)
[2018-06-13 21:40] LABS: ABG BASE EXCESS 6.6 (-2.0-2.0); ABG HCO3 32.2 MEQ/L (22.0-26.0); ABG O2 SATURATION 98.7 % (95.0-99.0); ABG PARTIAL PRESSURE CO2 52.4 mmHg (35.0-45.0); ABG PARTIAL PRESSURE O2 170.2 mmHg (75.0-100.0); ABG STANDARD HCO3 30.5 MEQ/L (22.0-26.0); ABG TOTAL CO2 33.9 MEQ/L (23.0-31.0); ABG pH (ARTERIAL) 7.407 UNITS (7.350-7.450)
[2018-06-13 22:57] VITALS: BP 157/73
--- NOTE | 2018-06-14 03:04 | ECGEPIP ---
Stationary ECG Study [facility] - ED Test Date: 2018-06-13 Pat Name: CAROLYN FARRELL Department: Room: - Gender: F Burr Sander: ct : 1940 Requested By: Javad Guevara Order Number: [id number] Reading MD: Javad Lao Measurements Intervals [place] Rate: 92 P: 68 CT: 124 QRS: 34 QRSD: 85 T: 63 QT: 343 QTc: 426 Interpretive Statements SINUS RHYTHM BENIGN EARLY REPOLARIZATION SIMILAR TO 05/19/18 Electronically Signed On 06-14-2018 3:04:14 EST by Javad Lao
== END 2018-06-13 23:30 | disposition home or self-care (01) ==
LOC: EDBD 19:50 → M ED 19:50
DX: F33.9 Major depressive disorder, recurrent, unspecified (principal); F41.9 Anxiety disorder, unspecified; J44.1 Chronic obstructive pulmonary disease with (acute) exacerbation; G89.4 Chronic pain syndrome; I10 Essential (primary) hypertension; E78.5 Hyperlipidemia, unspecified; G25.81 Restless legs syndrome; Z99.81 Dependence on supplemental oxygen; Z79.899 Other long term (current) drug therapy; Z88.8 Allergy status to other drugs, medicaments and biological substances

== ENCOUNTER → 2018-06-28 | Outpatient (CLI) | payer MEDICARE, MEDICAID ==
[~2018-06-28] MED LIST changes: +MIRT-14 PO
--- NOTE | 2018-06-28 16:04 | REP ---
BLADDER ULTRASOUND: Real-time sonographic evaluation of the urinary bladder are performed. There is moderate distension with pre-void urinary volume of 445 mL. There is no bladder wall mass. No bladder calculus is seen. Postvoid residual of 224 mL is approximately 50% of the original volume. Electronically Signed by Paul Gudino MD 06/28/2018 07:45 P
== END ==
LOC: M RAD 12:07
PROVIDERS: ATTEND Physician Assistant
DX: R10.30 Lower abdominal pain, unspecified (principal)

== ENCOUNTER 2018-07-01 18:34 | Observation (INO) | payer MEDICARE, MEDICAID ==
[2018-07-01] MEDS ORDERED: ONDANSETRON 4MG/2ML VIAL (J2405) IV ONE (19:00)
--- NOTE | 2018-07-01 19:59 | REP ---
Clinical: COPD with shortness of breath . Comparison: 05/19/2018 . Findings: The mediastinum and cardiac silhouette are stable and within normal limits for portable technique. The lung zelaya demonstrate chronic interstitial changes without acute consolidation, effusion, or pneumothorax. Skeletal structures are intact. Impression: No acute cardiopulmonary process appreciated. Electronically Signed by Vladislav Almodovar MD 07/01/2018 07:50 P
[2018-07-01 20:00] LABS: HEMATOCRIT 31.2 % (36.0-47.0); HEMOGLOBIN 9.3 g/dl (12.0-15.5); LYMPH # 0.6 10^3/uL (1.5-4.5); LYMPH % 6.6 % (24.0-44.0); MEAN CORPUSCULAR HEMOGLOBIN 28.8 pg (27.0-33.0); MEAN CORPUSCULAR HGB CONC 29.8 g/dl (32.0-36.5); MEAN CORPUSCULAR VOLUME 96.6 fl (80.0-96.0); MONO # 0.5 10^3/uL (0.0-0.8); MONO % 5.6 % (0.0-5.0); NEUTROPHILS # 7.8 10^3/uL (1.8-7.7); NEUTROPHILS % 87.2 % (36.0-66.0); PLATELET COUNT, AUTOMATED 238 10^3/uL (150-450); RED BLOOD COUNT 3.23 10^6/uL (4.00-5.40)
[2018-07-01] MEDS ORDERED: IPRATROPIUM 0.5MG/ALBUTEROL 2.5MG INH SOL UD 3ML (DUONEB)(J7620) NEB ONE (20:00)
[2018-07-01 20:13] LABS: INR 0.9; PROTHROMBIN TIME 12.2 SECONDS (12.1-14.4)
[2018-07-01 20:14] LABS: PARTIAL THROMBOPLASTIN TIME 24.5 SECONDS (25.4-37.6)
[2018-07-01 20:35] LABS: ALBUMIN 2.9 GM/DL (3.2-5.2); ALT/SGPT 18 U/L (12-78); BILIRUBIN,DIRECT < 0.1 MG/DL (0.0-0.2); BILIRUBIN,TOTAL 0.2 MG/DL (0.2-1.0); BLOOD UREA NITROGEN 17 MG/DL (7-18); CALCIUM LEVEL 8.4 MG/DL (8.8-10.2); CARBON DIOXIDE LEVEL 32 MEQ/L (21-32); CHLORIDE LEVEL 98 MEQ/L (98-107); CPK CREATINE PHOSPHOKINASE 33 U/L (26-192); CREATININE FOR GFR 0.74 MG/DL (0.55-1.30); GLOMERULAR FILTRATION RATE > 60.0 (>39); GLUCOSE, FASTING 132 MG/DL (70-100); LIPASE 135 U/L (73-393); MB/CK RELATIVE INDEX 5.76 (< OR =4); POTASSIUM SERUM 4.7 MEQ/L (3.5-5.1); SODIUM LEVEL 138 MEQ/L (136-145); TROPONIN I < 0.02 NG/ML (< 0.10)
[2018-07-01] MEDS ORDERED: ISOVUE-370 76% 100ML VIAL (Q9967) As Ordered ONE (20:41)
[2018-07-01] MEDS ORDERED: traZODone 100 MG TAB PO SCH (21:00)
--- NOTE | 2018-07-01 21:23 | REP ---
Clinical: Right lower quadrant abdominal pain. Technique: Axial contrast enhanced images from the lung bases to the pubic symphysis using 100 ml Isovue 370 intravenous contrast material with coronal and sagittal re-formations. Comparison: 05/19/2018. Findings: Liver, spleen, pancreas, bilateral adrenal glands and left kidney are relatively normal/stable. Few stable cysts are again identified in the pancreatic head up to approximately 12 mm. Right kidney demonstrates cortical scarring and small 1 cm cortical cyst. The patient is status post cholecystectomy and partial gastrectomy. The enteric system is without obstruction or acute inflammatory process. No evidence for acute appendicitis. Evidence for small bowel resection and anastomoses within the pelvis without evidence for obstruction. Sigmoid diverticula noted without acute diverticulitis. Pelvis demonstrates distended bladder which is likely transient and evidence for prior hysterectomy. No ascites. No free air. No adenopathy. Atherosclerotic changes of the aorta and vasculature without aneurysm or dissection. Musculoskeletal structures demonstrate age-related changes without focal osseous abnormality. Lung bases are clear. Impression: 1. No acute abdominopelvic pathology appreciated. Specifically, no ascites, focal inflammatory stranding, or adenopathy. 2. Prior cholecystectomy, hysterectomy, partial gastrectomy, and evidence to suggest partial small bowel resection/anastomoses. Electronically Signed by Vladislav Almodovar MD 07/01/2018 09:15 P
[2018-07-01] MEDS ORDERED: NORCO, ANEXSIA 5/325MG TABLET (HYDROcodone/ACETAMINOPHEN) PO ONE (22:00)
[2018-07-01 22:17] LABS: VENOUS BASE EXCESS 2.8 (-2.0-2.0); VENOUS HCO3 28.8 MEQ/L (23.0-27.0); VENOUS O2 SATURATION 95.5 % (60.0-80.0); VENOUS PARTIAL PRESSURE CO2 52.1 mmHg (38.0-50.0); VENOUS PARTIAL PRESSURE O2 92.7 mmHg (30.0-50.0); VENOUS PH 7.361 UNITS (7.330-7.430); VENOUS STANDARD HCO3 26.9 MEQ/L; VENOUS TOTAL CO2 30.4 MEQ/L (24.0-28.0)
[2018-07-01] MEDS ORDERED: NS 1,000 ML IV SCH (23:57)
[2018-07-02] MEDS ORDERED: ONDANSETRON 4MG/2ML VIAL (J2405) IV PRN
[2018-07-02] MEDS ORDERED: ACETAMINOPHEN TAB 650MG DOSE (2X325MG) PO PRN
[2018-07-02] MEDS ORDERED: NORCO, ANEXSIA 5/325MG TABLET (HYDROcodone/ACETAMINOPHEN) PO PRN (02:30)
[2018-07-02] MEDS ORDERED: ALPRAZolam 0.5 MG TAB PO PRN (02:30)
--- NOTE | 2018-07-02 02:50 | HPEPDOC ---
[facility] Medical History & Physical Date of Admission Jul 01, 2018 Other Provider Dictating/admitting: Jeff Hebert M.D. Attending Physician: AZRA CASAS MD History and Physical CHIEF COMPLAINT: Abdominal pain on and off couple of weeks HISTORY OF PRESENT ILLNESS: Patient is a 77-year-old woman with history of COPD on 2 L O2, hypertension, hyperlipidemia, depression, restless leg syndrome, ch ronic pain. History obtained from ER physician, no family member at bedside. Patient not a reliable historian. Abdominal pain has been on and off for a couple of weeks. However, patient brought in today because pain is progressively worsened particularly today. No fever, no chills, occasional dry heaving but no vomiting. Associated poor appetite but no diarrhea. Also no report of dizziness, headaches, no chest pain or palpitations. No shortness of breath. No cough. Family member also reported that patient has remained more somnolent of late and with easy fatigability. No change in urinary habits. She was evaluated with chest x-ray and CT abdomen which were unremarkable, with relatively unremarkable labs. She received Joaquin and pain has since been tolerable. Medicine called for further evaluation and treatment. PAST MEDICAL HISTORY: Per HPI PAST SURGICAL HISTORY: 1. Gallbladder surgery. 2. Hysterectomy. 3. Partial gastrectomy. 4. Small bowel resection with reanastomosis. SOCIAL HISTORY: Quit smoking 5 years ago. Denies alcohol use. Denies illicit drug use. FAMILY HISTORY: Heart disease runs in the family ALLERGIES: Please see below. REVIEW OF SYSTEMS: 12 point review of systems negative other than that described in the body of HPI. HOME MEDICATIONS: Please see below. PHYSICAL EXAMINATION: VITAL SIGNS: Temperature 98, pulse 92, respiratory rate 20, blood pressure 146/65, pulse oximetry 94% on 2L O2. GENERAL APPEARANCE: Elderly woman, lying calmly in bed, not in any apparent distress at this time. She is not pale, anicteric and afebrile HEENT: Atraumatic. Neck: Supple. LUNGS: Clear to auscultation bilaterally. CARDIOVASCULAR: S1 and 2 heard, no murmurs, rubs or gallops. ABDOMEN: Obese, soft, Mild RLQ tenderness with deep palpation, non distended. MUSCULOSKELETAL: Apparently within normal limits. EXTREMITIES: No pedal edema, 2+ bilateral pedal pulses noted. NEUROLOGICAL: Asleep but readily arousable. PSYCHIATRIC: Normal affect LABORATORY DATA: See below. IMAGING: CT abdomen and pelvis: No acute abdominal pelvic pathology appreciated. No ascites, no focal inflammation, stranding or adenopathy. Chest x-ray: No acute cardiopulmonary process. MICROBIOLOGY: Please see below. ASSESSMENT: 77F with hx of COPD on 2 L O2, hypertension, hyperlipidemia, dep ression, restless leg syndrome, chronic pain. c/o abd pain (chronic but worsened), dry heave, no vomiting with negative labs and imaging. DIAGNOSIS: Abdominal pain of unclear etiology. . PLAN: 1. I will admit patient for observation to medical floors under care of Dr. Casas. 2. I will continue IV normal saline to run at 75 mils per hour day team reevaluate volume status/needs 3. Pain control with Tylenol, if needed, will give more potent pain medication. 4. IV Zofran when necessary nausea and vomiting. 5. DuoNeb nebulizations when necessary shortness of breath, continue O2 supplementation via nasal cannula. Will continue chronic use of steroids by mouth 5. GI prophylaxis. Pantoprazole. 6. DVT prophylaxis subcutaneous heparin 5000 international units every 12 hours 7. As soon as tolerated. Patient may resume outpatient medications. 8. I will advance diet as tolerated. 9. Further management to be per patient's clinical course. Vital Signs Vital Signs Date Time Temp Pulse Resp B/P (MAP) Pulse Ox O2 Delivery O2 Flow Rate FiO2 07/01/18 23:15 20 07/01/18 22:00 94 Nasal Cannula 07/01/18 21:34 85 07/01/18 21:15 156/70 (98) 07/01/18 18:52 98.8 3.0 Laboratory Data Labs 24H Laboratory Tests 2 07/01/18 19:51: Immature Granulocyte % (Auto) 0.6, White Blood Count 9.0, Red Blood Count 3.23L, Hemoglobin 9.3L, Hematocrit 31.2L, Mean Corpuscular Volume 96.6H, Mean Corpuscular Hemoglobin 28.8, Mean Corpuscular Hemoglobin Concent 29.8L, Red Cell Distribution Width 16.4H, Platelet Count 238, Neutrophils (%) (Auto) 87.2H, Lymphocytes (%) (Auto) 6.6L, Monocytes (%) (Auto) 5.6H, Eosinophils (%) (Auto) 0.0, Basophils (%) (Auto) 0.0, Neutrophils # (Auto) 7.8H, Lymphocytes # (Auto) 0.6L, Monocytes # (Auto) 0.5, Eosinophils # (Auto) 0.0, Basophils # (Auto) 0.0, Nucleated Red Blood Cells % (auto) 0.0, Prothrombin Time 12.2, Prothromb Time International Ratio 0.90, Activated Partial Thromboplast Time 24.5L, Anion Gap 8, Glomerular Filtration Rate > 60.0, Lactic Acid Level 2.3*H, Calcium Level 8.4L, Aspartate Amino Transf (AST/SGOT) 13, Alanine Aminotransferase (ALT/SGPT) 18, Alkaline Phosphatase 52, Total Bilirubin 0.2, Direct Bilirubin < 0.1, Total Creatine Kinase 33, Creatine Kinase MB 2.0, Creatine Kinase MB Relative Index 5.76H, Troponin I < 0.02, Total Protein 6.0L, Albumin 2.9L, Albumin/Globulin Ratio 0.94L, Lipase 135 07/01/18 22:14: Blood Gas Bicarbonate Standard 26.9, Venous Blood pH 7.361, Venous Blood Partial Pressure CO2 52.1H, Venous Blood Partial Pressure O2 92.7H, Venous Blood Total Carbon Dioxide 30.4H, Venous Blood HCO3 28.8H, Venous Blood Oxygen Saturation 95.5H, Venous Blood Base Excess 2.8H CBC/BMP Laboratory Tests 07/01/18 19:51 Red Blood Count 3.23 L, Mean Corpuscular Volume 96.6 H, Mean Corpuscular Hemoglobin 28.8, Mean Corpuscular Hemoglobin Concent 29.8 L, Red Cell D istribution Width 16.4 H, Neutrophils (%) (Auto) 87.2 H, Lymphocytes (%) (Auto) 6.6 L, Monocytes (%) (Auto) 5.6 H, Eosinophils (%) (Auto) 0.0, Basophils (%) (Auto) 0.0, Neutrophils # (Auto) 7.8 H, Lymphocytes # (Auto) 0.6 L, Monocytes # (Auto) 0.5, Eosinophils # (Auto) 0.0, Basophils # (Auto) 0.0 Home Medications Scheduled Acetaminophen (Apap) 325 Mg Tab, 650 MG PO BID Albuterol/Ipratropium (Ipratropium [place]/Albut 0.5-2.5 (3) mg/3Ml) 1 Brendan Brendan, 1 BRENDAN INH QID Calcium Carbonate (Tums) 500 Mg Chw, 500 MG PO DAILY Diazepam (Diazepam) 5 Mg Tab, 5 MG PO BID Docusate Sod/Senna (Senna S 8.6-50 mg) 1 Tab Tab, 2 TAB PO BID Escitalopram Oxalate (Lexapro) 20 Mg Tab, 20 MG PO DAILY Metoclopramide HCl (Metoclopramide HCl) 10 Mg Tab, 10 MG PO ACHS Pantoprazole Sodium Sesquihydr (Protonix) 20 Mg Tab, 20 MG PO BID Prednisone (Prednisone) 20 Mg Tab, 20 MG PO DAILY Ropinirole Hydrochloride (Ropinirole HCl) 0.25 Mg Tab, 0.25 MG PO TID Tiotropium [place] Monohydrate (Spiriva Handihaler) 18 Mcg Cap, 1 CAP INH DAILY Trazodone HCl (Trazodone HCl) 100 Mg Tab, 100 MG PO QHS Scheduled PRN Acetaminophen (Acetaminophen) 325 Mg Tab, 650 MG PO Q4H PRN for PAIN / FEVER Acetaminophen/Hydrocodone (Joaquin 5-325 mg) 1 Tab Tab, 1 TAB PO Q6H PRN for PAIN Albuterol Sulfate (Ventolin Hfa) 108 Mcg/Act Aer, 2 PUFF INH Q4H PRN for SHORTNESS OF BREATH Albuterol Sulfate (Albuterol Sulfate) 2.5 Mg/3 Ml Nebu, 1 DOSE INH Q4H PRN for SHORTNESS OF BREATH Alprazolam (Alprazolam) 0.5 Mg Tab, 0.5 MG PO QHS PRN for SLEEP Benzonatate (Tessalon Perles) 100 Mg Cap, 100 MG PO TID PRN for COUGH Levalbuterol Hydrochloride (Levalbuterol) 1.25 Mg/0.5 Ml Neb, 1 DOSE INH QID PRN for SHORTNESS OF BREATH Levocetirizine Hydrochloride (Levocetirizine Dihydrochl) 5 Mg Tab, 5 MG PO DAILY PRN for ALLERGY SYMPTOMS Milk Of Magnesia (Milk of Magnesia) 1,200 Mg/15 Ml Nancy, 30 ML PO DAILY PRN for CONSTIPATION Allergies Coded Allergies: Prochlorperazine (Verified Adverse Reaction, Severe, FACE DISTORTION, OCULOGYRIC CRISIS, 05/28/18) JEFF HEBERT MD Jul 01, 2018 23:48
[2018-07-02 06:47] LABS: HEMOGLOBIN 8.9 g/dl (12.0-15.5); MEAN CORPUSCULAR HEMOGLOBIN 28.2 pg (27.0-33.0); MEAN CORPUSCULAR HGB CONC 28.7 g/dl (32.0-36.5); MEAN CORPUSCULAR VOLUME 98.1 fl (80.0-96.0); PLATELET COUNT, AUTOMATED 228 10^3/uL (150-450); RED BLOOD COUNT 3.16 10^6/uL (4.00-5.40)
[2018-07-02 07:10] LABS: BLOOD UREA NITROGEN 13 MG/DL (7-18); CALCIUM LEVEL 8.4 MG/DL (8.8-10.2); CARBON DIOXIDE LEVEL 36 MEQ/L (21-32); CHLORIDE LEVEL 99 MEQ/L (98-107); CREATININE FOR GFR 0.65 MG/DL (0.55-1.30); GLOMERULAR FILTRATION RATE > 60.0 (>39); GLUCOSE, FASTING 96 MG/DL (70-100); POTASSIUM SERUM 4.2 MEQ/L (3.5-5.1); SODIUM LEVEL 140 MEQ/L (136-145)
[2018-07-02] MEDS ORDERED: METOCLOPRAMIDE 10 MG TAB PO SCH (07:30)
[2018-07-02] MEDS ORDERED: ESCITALOPRAM OXALATE 10 MG TAB (LEXAPRO) PO SCH (09:00)
[2018-07-02] MEDS ORDERED: predniSONE 20 MG TAB PO SCH (09:00)
[2018-07-02] MEDS ORDERED: HEPARIN SOD (PORCINE) 5000 UNITS/ML VIAL SQ SCH (09:00)
[2018-07-02] MEDS ORDERED: PANTOPRAZOLE 40MG TAB (PROTONIX) PO SCH (09:00)
[2018-07-02] MEDS ORDERED: SENOKOT S TAB PO SCH (09:00)
[2018-07-02] MEDS ORDERED: CALCIUM CARBONATE 500 MG CHEW U/D PO SCH (09:00)
[2018-07-02] MEDS ORDERED: rOPINIRole 0.25 MG TAB(REQUIP) PO SCH (09:00)
[2018-07-02] MEDS: IPRATROPIUM 0.5MG/ALBUTEROL 2.5MG INH SOL UD 3ML (DUONEB)(J7620) NEB PRN ×2 (09:16→13:34)
--- NOTE | 2018-07-02 11:36 | DS.PDOC ---
Discharge Summary General Date of Admission Jul 01, 2018 at 23:56 Date of Discharge 07/02/18 Discharge Summary PROCEDURES PERFORMED DURING STAY: None. ADMITTING/DISCHARGE DIAGNOSES: Abdominal plain of unclear etiology Pancreatic cystic/attenuated lesion History of gastroparesis COPD Restless leg syndrome Anxiety/depression COMPLICATIONS/CHIEF COMPLAINT: Abdominal Pain. HISTORY OF PRESENT ILLNESS: . 77-year-old female with a past medical history of COPD on 2 L of oxygen, chronic pain, anxiety, seasonal allergies, insomnia, diastolic dysfunction, moderate pulmonary hypertension, gastroparesis, DENIS, restless leg syndrome, and chronic abdominal pain of unclear etology who presented to the ER with a chief complaint of abdominal pain. She denied any complaints of fevers, chills, vomiting, or diarrhea. Of note, the patient has had several visits to the ER and CT scans of the abdomen/pelvis for further delineation of the origin of her abdominal pain. Dating back to February 2018, the patient has been noted to have a cystic/attenuated lesion at the inferior right pancreatic head. I have discussed her work up with Nikko (RN/Administrative Liason--[phone]) over at [facility] and Mrs. Oliver has been awaiting an appointment for several months at [facility] to see GI, and has been scheduled for an EUS for Pancreatic Biopsy tomorrow 07/03/18. At this time, the patient's lab work is relatively normal, and she does not endorse any acute abdominal pain. We will discharge the patient back to [facility] today so that she can follow-up for further workup at [facility] for possible pancreatic biopsy. The patient should follow up with her primary care physician within 7 days. She should return to the ER for any acute emergencies. DISCHARGE MEDICATIONS: Please see below. ALLERGIES: Please see below. PHYSICAL EXAMINATION ON DISCHARGE: VITAL SIGNS: Please see below. GENERAL: Awake, alert, oriented, in no acute distress HEENT: Normocephalic, atraumatic NECK: No JVD CARDIOVASCULAR EXAMINATION: Normal rate, Normal S1, S2 RESPIRATORY EXAMINATION: Diminished breath sounds diffusely. ABDOMINAL EXAMINATION: Soft, nontender, nondistended. EXTREMITIES: No erythema or tenderness LABORATORY DATA: Please see below. IMAGING: Clinical: COPD with shortness of breath . Comparison: 05/19/2018 . Findings: The mediastinum and cardiac silhouette are stable and within normal limits for portable technique. The lung zelaya demonstrate chronic interstitial changes without acute consolidation, effusion, or pneumothorax. Skeletal structures are intact. Impression: No acute cardiopulmonary process appreciated. Clinical: Right lower quadrant abdominal pain. Technique: Axial contrast enhanced images from the lung bases to the pubic symphysis using 100 ml Isovue 370 intravenous contrast material with coronal and sagittal re-formations. Comparison: 05/19/2018. Findings: Liver, spleen, pancreas, bilateral adrenal glands and left kidney are relatively normal/stable. Few stable cysts are again identified in the pancreatic head up to approximately 12 mm. Right kidney demonstrates cortical scarring and small 1 cm cortical cyst. The patient is status post cholecystectomy and partial gastrectomy. The enteric system is without obstruction or acute inflammatory process. No evidence for acute appendicitis. Evidence for small bowel resection and anastomoses within the pelvis without evidence for obstruction. Sigmoid diverticula noted without acute diverticulitis. Pelvis demonstrates distended bladder which is likely transient and evidence for prior hysterectomy. No ascites. No free air. No adenopathy. Atherosclerotic changes of the aorta and vasculature without aneurysm or dissection. Musculoskeletal structures demonstrate age-related changes without focal osseous abnormality. Lung bases are clear. Impression: 1. No acute abdominopelvic pathology appreciated. Specifically, no ascites, focal inflammatory stranding, or adenopathy. 2. Prior cholecystectomy, hysterectomy, partial gastrectomy, and evidence to suggest partial small bowel resection/anastomoses. PROGNOSIS: Fair ACTIVITY: As tolerated. DIET: As tolerated DISCHARGE PLAN: DISPOSITION: . [facility] DISCHARGE INSTRUCTIONS: Follow-up for further workup at [facility] for possible pancreatic biopsy on 07/03/18. The patient should follow up with her primary care physician within 7 days. She should return to the ER for any acute emergencies. DISCHARGE CONDITION: Stable. TIME SPENT ON DISCHARGE: Greater than 30 minutes. Vital Signs/I&Os Vital Signs Date Time Temp Pulse Resp B/P (MAP) Pulse Ox O2 Delivery O2 Flow Rate FiO2 07/02/18 10:45 83 98 Room Air 07/02/18 10:12 97.8 20 111/51 (71) 07/02/18 00:04 3.0 Laboratory Data Labs 24H Laboratory Tests 2 07/01/18 19:51: Immature Granulocyte % (Auto) 0.6, White Blood Count 9.0, Red Blood Count 3.23L, Hemoglobin 9.3L, Hematocrit 31.2L, Mean Corpuscular Volume 96.6H, Mean [place] uscular Hemoglobin 28.8, Mean Corpuscular Hemoglobin Concent 29.8L, Red Cell Distribution Width 16.4H, Platelet Count 238, Neutrophils (%) (Auto) 87.2H, Lymphocytes (%) (Auto) 6.6L, Monocytes (%) (Auto) 5.6H, Eosinophils (%) (Auto) 0.0, Basophils (%) (Auto) 0.0, Neutrophils # (Auto) 7.8H, Lymphocytes # (Auto) 0.6L, Monocytes # (Auto) 0.5, Eosinophils # (Auto) 0.0, Basophils # (Auto) 0.0, Nucleated Red Blood Cells % (auto) 0.0, Prothrombin Time 12.2, Prothromb Time International Ratio 0.90, Activated Partial Thromboplast Time 24.5L, Anion Gap 8, Glomerular Filtration Rate > 60.0, Lactic Acid Level 2.3*H, Calcium Level 8.4L, Aspartate Amino Transf (AST/SGOT) 13, Alanine Aminotransferase (ALT/SGPT) 18, Alkaline Phosphatase 52, Total Bilirubin 0.2, Direct Bilirubin < 0.1, Total Creatine Kinase 33, Creatine Kinase MB 2.0, Creatine Kinase MB Relative Index 5.76H, Troponin I < 0.02, Total Protein 6.0L, Albumin 2.9L, Albumin/Globulin Ratio 0.94L, Lipase 135 07/01/18 22:14: Blood Gas Bicarbonate Standard 26.9, Venous Blood pH 7.361, Venous Blood Partial Pressure CO2 52.1H, Venous Blood Partial Pressure O2 92.7H, Venous Blood Total Carbon Dioxide 30.4H, Venous Blood HCO3 28.8H, Venous Blood Oxygen Saturation 95.5H, Venous Blood Base Excess 2.8H 07/02/18 06:24: Anion Gap 5L, Glomerular Filtration Rate > 60.0, Calcium Level 8.4L, Blood Urea Nitrogen 13, Creatinine 0.65, Sodium Level 140, Potassium Level 4.2, Chloride Level 99, Carbon Dioxide Level 36H 07/02/18 06:25: Nucleated Red Blood Cells % (auto) 0.0, Lactic Acid Followup at 4 Hours 1.4 CBC/BMP Laboratory Tests 07/01/18 19:51 Red Blood Count 3.23 L, Mean Corpuscular Volume 96.6 H, Mean Corpuscular Hemoglobin 28.8, Mean Corpuscular Hemoglobin Concent 29.8 L, Red Cell Distribution Width 16.4 H, Neutrophils (%) (Auto) 87.2 H, Lymphocytes (%) (Auto) 6.6 L, Monocytes (%) (Auto) 5.6 H, Eosinophils (%) (Auto) 0.0, Basophils (%) (Auto) 0.0, Neutrophils # (Auto) 7.8 H, Lymphocytes # (Auto) 0.6 L, Monocytes # (Auto) 0.5, Eosinophils # (Auto) 0.0, Basophils # (Auto) 0.0 07/02/18 06:24 Calcium Level 8.4 L 07/02/18 06:25 Red Blood Count 3.16 L, Mean Corpuscular Volume 98.1 H, Mean Corpuscular Hemoglobin 28.2, Mean Corpuscular Hemoglobin Concent 28.7 L, Red Cell Distribution Width 16.6 H Discharge Medications Scheduled Acetaminophen (Apap) 325 Mg Tab, 650 MG PO BID, (Reported) Albuterol/Ipratropium (Ipratropium [place]/Albut 0.5-2.5 (3) mg/3Ml) 1 Brendan Brendan, 1 BRENDAN INH QID, (Reported) Calcium Carbonate (Tums) 500 Mg Chw, 500 MG PO DAILY, (Reported) Diazepam (Diazepam) 5 Mg Tab, 5 MG PO BID, (Reported) Docusate Sod/Senna (Senna S 8.6-50 mg) 1 Tab Tab, 2 TAB PO BID, (Reported) Escitalopram Oxalate (Lexapro) 20 Mg Tab, 20 MG PO DAILY, (Reported) Metoclopramide HCl (Metoclopramide HCl) 10 Mg Tab, 10 MG PO ACHS, (Reported) Pantoprazole Sodium Sesquihydr (Protonix) 20 Mg Tab, 20 MG PO BID, (Reported) Prednisone (Prednisone) 20 Mg Tab, 20 MG PO DAILY, (Reported) Ropinirole Hydrochloride (Ropinirole HCl) 0.25 Mg Tab, 0.25 MG PO TID, (Reported) Tiotropium [place] Monohydrate (Spiriva Handihaler) 18 Mcg Cap, 1 CAP INH DAILY, (Reported) Trazodone HCl (Trazodone HCl) 100 Mg Tab, 100 MG PO QHS, (Reported) Scheduled PRN Acetaminophen (Acetaminophen) 325 Mg Tab, 650 MG PO Q4H PRN for PAIN / FEVER, (Reported) Acetaminophen/Hydrocodone ([place] 5-325 mg) 1 Tab Tab, 1 TAB PO Q6H PRN for PAIN, (Reported) Albuterol Sulfate (Ventolin Hfa) 108 Mcg/Act Aer, 2 PUFF INH Q4H PRN for SHORTNESS OF BREATH, (Reported) Albuterol Sulfate (Albuterol Sulfate) 2.5 Mg/3 Ml Nebu, 1 DOSE INH Q4H PRN for SHORTNESS OF BREATH, (Reported) Alprazolam (Alprazolam) 0.5 Mg Tab, 0.5 MG PO QHS PRN for SLEEP, (Reported) Benzonatate (Tessalon Perles) 100 Mg Cap, 100 MG PO TID PRN for COUGH, (Reported) Levalbuterol Hydrochloride (Levalbuterol) 1.25 Mg/0.5 Ml Neb, 1 DOSE INH QID PRN for SHORTNESS OF BREATH, (Reported) Levocetirizine Hydrochloride (Levocetirizine Dihydrochl) 5 Mg Tab, 5 MG PO DAILY PRN for ALLERGY SYMPTOMS, (Reported) Milk Of Magnesia (Milk of Magnesia) 1,200 Mg/15 Ml Nancy, 30 ML PO DAILY PRN for CONSTIPATION, (Reported) Allergies Coded Allergies: Prochlorperazine (Verified Adverse Reaction, Severe, FACE DISTORTION, OCULOGYRIC CRISIS, 05/28/18) AZRA CASAS MD Jul 02, 2018 11:36
[2018-07-02 15:13] VITALS: BP 115/55
--- NOTE | 2018-07-03 20:45 | ECGEPIP ---
Stationary ECG Study [facility] - ED Test Date: 2018-07-01 Pat Name: CAROLYN FARRELL Department: Room: [place] [address] Gender: F Engineer/Conductor: RANJANA : 1940 Requested By: FORD Mckenna Order Number: [id number] Reading MD: Javad Lao Measurements Intervals [place] Rate: 95 P: 79 [place]: 122 QRS: 37 QRSD: 91 T: 58 QT: 347 QTc: 438 Interpretive Statements SINUS RHYTHM BENIGN EARLY REPOLARIZATION BASELINE ARTIFACT AFFECTS INTERPRETATION Electronically Signed On 07-03-2018 20:44:42 EST by Javad Lao
== END 2018-07-02 11:19 ==
LOC: EDBD 18:34 → M ED 18:34 → M ED INP 23:56
PROVIDERS: ADMIT Hospitalist; ATTEND Internal Medicine
DX: R10.31 Right lower quadrant pain (principal); J44.9 Chronic obstructive pulmonary disease, unspecified; R06.02 Shortness of breath; K86.89 Other specified diseases of pancreas; Z86.39 Personal history of other endocrine, nutritional and metabolic disease; Z99.81 Dependence on supplemental oxygen; I10 Essential (primary) hypertension; E78.5 Hyperlipidemia, unspecified; G47.00 Insomnia, unspecified; F32.9 Major depressive disorder, single episode, unspecified; F41.9 Anxiety disorder, unspecified; G25.81 Restless legs syndrome; Z87.891 Personal history of nicotine dependence
CPT/HCPCS: 36415; 71045; 74177; 80048; 80076; 82550; 82553; 82803; 83605; 83690; 84484; 85025; 85027; 85610; 85730; 93005; 93041; 94640; 96372; 96374; 99285; G0378; J2405; Q9967